=== PATIENT | male | born 1935 | race Caucasian/White ===

== ENCOUNTER → 2016-05-29 | Outpatient (CLI) | payer OTHER, MEDICARE ==
[~2016-05-29] MED LIST: ASPI81TA28 PO; ATOR-26 PO; CLOP1TAB5 PO; COEN1CAP37; LISI2.5T5 PO; METO1TAB66 PO; MULT-653; MULTCAP7; OMEG10007 PO; OMEP20CA9 PO; PSYL55.43 PO
[2016-05-29 10:17] LABS: BLOOD UREA NITROGEN 11 mg/dl (7-18); BUN/CREATININE RATIO 11.7 (10-20); CALCIUM 9.9 mg/dl (8.5-10.1); CARBON DIOXIDE 32 mmol/L (21-32); CHLORIDE 108 mmol/L (98-107); CREATININE 0.93 mg/dl (0.60-1.40); GLUCOSE 87 mg/dl (70-99); POTASSIUM 4.6 mmol/L (3.5-5.1); SODIUM 146 mmol/L (136-145)
== END | disposition home or self-care (01) ==
LOC: C.LABFOXMH 09:12
PROVIDERS: ATTEND Internal Medicine
DX: M31.6 Other giant cell arteritis (principal)

== ENCOUNTER → 2016-06-12 | Outpatient (CLI) | payer OTHER, MEDICARE | LOC: C.LABFOXMH 08:48 | PROVIDERS: ATTEND Internal Medicine | DX: M31.6 Other giant cell arteritis (principal) ==

== ENCOUNTER → 2016-06-26 | Outpatient (CLI) | payer OTHER, MEDICARE | END | disposition home or self-care (01) | LOC: C.LABFOXMH 09:18 | PROVIDERS: ATTEND Internal Medicine | DX: M31.6 Other giant cell arteritis (principal) ==

== ENCOUNTER → 2016-07-10 | Outpatient (CLI) | payer OTHER, MEDICARE | LOC: C.LABFOXMH 08:40 | PROVIDERS: ATTEND Internal Medicine | DX: M31.6 Other giant cell arteritis (principal) ==

== ENCOUNTER → 2016-07-24 | Outpatient (CLI) | payer OTHER, MEDICARE | END | disposition home or self-care (01) | LOC: C.LABFOXMH 08:41 | PROVIDERS: ATTEND Internal Medicine | DX: M31.6 Other giant cell arteritis (principal) ==

== ENCOUNTER → 2016-08-07 | Outpatient (CLI) | payer OTHER, MEDICARE | END | disposition home or self-care (01) | LOC: C.LABFOXMH 08:54 | PROVIDERS: ATTEND Internal Medicine | DX: M31.6 Other giant cell arteritis (principal) ==

== ENCOUNTER → 2016-08-21 | Outpatient (CLI) | payer OTHER, MEDICARE ==
[~2016-08-21] MED LIST changes: +METO-452 PO; -METO1TAB66 PO
== END | disposition home or self-care (01) ==
LOC: C.LABFOXMH 09:03
PROVIDERS: ATTEND Internal Medicine
DX: M31.6 Other giant cell arteritis (principal)

== ENCOUNTER → 2016-09-25 | Outpatient (CLI) | payer OTHER, MEDICARE | END | disposition home or self-care (01) | LOC: C.LABFOXMH 09:27 | PROVIDERS: ATTEND Internal Medicine | DX: M31.6 Other giant cell arteritis (principal) ==

== ENCOUNTER → 2016-10-09 | Outpatient (CLI) | payer OTHER, MEDICARE | END | disposition home or self-care (01) | LOC: C.LABFOXMH 09:57 | PROVIDERS: ATTEND Internal Medicine | DX: M31.6 Other giant cell arteritis (principal) ==

== ENCOUNTER → 2016-10-23 | Outpatient (CLI) | payer OTHER, MEDICARE | END | disposition home or self-care (01) | LOC: C.LABFOXMH 07:55 | PROVIDERS: ATTEND Internal Medicine | DX: M31.6 Other giant cell arteritis (principal) ==

== ENCOUNTER → 2016-11-06 | Outpatient (CLI) | payer OTHER, MEDICARE | END | disposition home or self-care (01) | LOC: C.LABFOXMH 09:14 | PROVIDERS: ATTEND Internal Medicine | DX: M31.6 Other giant cell arteritis (principal) ==

== ENCOUNTER → 2016-11-21 | Outpatient (CLI) | payer OTHER, MEDICARE ==
[~2016-11-21] MED LIST changes: -METO-452 PO; +METO1TAB66 PO
== END | disposition home or self-care (01) ==
LOC: C.LABFOXMH 06:16
PROVIDERS: ATTEND Internal Medicine
DX: M31.6 Other giant cell arteritis (principal)

== ENCOUNTER → 2016-12-04 | Outpatient (CLI) | payer OTHER, MEDICARE | LOC: C.LABFOXMH 08:27 | PROVIDERS: ATTEND Internal Medicine | DX: M31.6 Other giant cell arteritis (principal) ==

== ENCOUNTER → 2016-12-18 | Outpatient (CLI) | payer OTHER, MEDICARE ==
[2016-12-18 11:30] LABS: ALT/SGPT 32 U/L (12-78); AST/SGOT 22 U/L (15-37); BLOOD UREA NITROGEN 9 mg/dl (7-18); BUN/CREATININE RATIO 9.8 (10-20); CALCIUM 9.6 mg/dl (8.5-10.1); CARBON DIOXIDE 32 mmol/L (21-32); CHLORIDE 108 mmol/L (98-107); CHOLESTEROL 128 mg/dl (0-200); CREATININE 0.88 mg/dl (0.60-1.40); GLUCOSE 88 mg/dl (70-99); POTASSIUM 4.9 mmol/L (3.5-5.1); SODIUM 143 mmol/L (136-145)
[2016-12-18 11:41] LABS: ALB/GLOB RATIO 1.1 (0.9-2); ALKALINE PHOSPHATASE 75 U/L (45-117); CHOLESTEROL/HDL RATIO 2.2; HDL CHOLESTEROL 57 mg/dl; LDL CHOLESTEROL CALCULATED 59 mg/dl; TRIGLYCERIDES 60 mg/dl (0-150); VERY LOW DENSITY LIPOPROT CALC 12 mg/dl
== END ==
LOC: C.LABFOXMH 09:53
PROVIDERS: ATTEND Internal Medicine
DX: M31.6 Other giant cell arteritis (principal); E78.00 Pure hypercholesterolemia, unspecified

== ENCOUNTER → 2017-01-01 | Outpatient (CLI) | payer OTHER, MEDICARE | END | disposition home or self-care (01) | LOC: C.LABFOXMH 09:47 | PROVIDERS: ATTEND Internal Medicine | DX: M31.6 Other giant cell arteritis (principal); R97.20 Elevated prostate specific antigen [PSA] ==

== ENCOUNTER → 2017-01-15 | Outpatient (CLI) | payer OTHER, MEDICARE | LOC: C.LABFOXMH 09:09 | PROVIDERS: ATTEND Internal Medicine | DX: M31.6 Other giant cell arteritis (principal) ==

== ENCOUNTER → 2017-02-14 | Outpatient (CLI) | payer OTHER, MEDICARE | END | disposition home or self-care (01) | LOC: C.LABFOXMH 07:42 | PROVIDERS: ATTEND Internal Medicine | DX: M31.6 Other giant cell arteritis (principal) ==

== ENCOUNTER → 2017-03-14 | Outpatient (CLI) | payer OTHER, MEDICARE ==
[~2017-03-14] MED LIST changes: +METO-452 PO; -METO1TAB66 PO
== END | disposition home or self-care (01) ==
LOC: C.LABFOXMH 07:55
PROVIDERS: ATTEND Internal Medicine
DX: M31.6 Other giant cell arteritis (principal)

== ENCOUNTER → 2017-04-23 | Outpatient (CLI) | payer OTHER, MEDICARE | END | disposition home or self-care (01) | LOC: C.LABFOXMH 09:24 | PROVIDERS: ATTEND Internal Medicine | DX: M31.6 Other giant cell arteritis (principal) ==

== ENCOUNTER → 2017-08-20 | Outpatient (CLI) | payer OTHER, MEDICARE ==
[~2017-08-20] MED LIST changes: +LISI-1116 PO; -LISI2.5T5 PO
[2017-08-20 09:11] LABS: ALBUMIN 3.1 gm/dl (3.4-5.0); ALT/SGPT 29 U/L (12-78); BLOOD UREA NITROGEN 16 mg/dl (7-18); CALCIUM 9.3 mg/dl (8.5-10.1); CARBON DIOXIDE 30 mmol/L (21-32); CHOLESTEROL 125 mg/dl (0-200); CREATININE 0.91 mg/dl (0.60-1.40); GLUCOSE 89 mg/dl (70-99); POTASSIUM 4.1 mmol/L (3.5-5.1); SODIUM 140 mmol/L (136-145)
[2017-08-20 09:14] LABS: ALKALINE PHOSPHATASE 67 U/L (45-117); AST/SGOT 26 U/L (15-37); LDL CHOLESTEROL CALCULATED 60 mg/dl
== END ==
LOC: C.LABFOXMH 08:24
PROVIDERS: ATTEND Internal Medicine Cardiovascular Disease
DX: E78.00 Pure hypercholesterolemia, unspecified (principal); I25.10 Atherosclerotic heart disease of native coronary artery without angina pectoris

== ENCOUNTER → 2017-08-26 | Outpatient (CLI) | payer OTHER, MEDICARE | END | disposition home or self-care (01) | LOC: C.LABFOXMH 07:44 | PROVIDERS: ATTEND Internal Medicine | DX: M31.6 Other giant cell arteritis (principal) ==

== ENCOUNTER → 2017-12-24 | Outpatient (CLI) | payer OTHER, MEDICARE | END | disposition home or self-care (01) | LOC: C.LABFOXMH 08:26 | PROVIDERS: ATTEND Internal Medicine | DX: M31.6 Other giant cell arteritis (principal) ==

== ENCOUNTER → 2018-01-01 | Outpatient (CLI) | payer OTHER, MEDICARE | END | disposition home or self-care (01) | LOC: C.LABFOXMH 08:33 | PROVIDERS: ATTEND Internal Medicine | DX: R97.20 Elevated prostate specific antigen [PSA] (principal) ==

== ENCOUNTER → 2018-01-01 | Outpatient (CLI) | payer OTHER, MEDICARE | END | disposition home or self-care (01) | LOC: C.LABFOXMH 16:38 | PROVIDERS: ATTEND Internal Medicine | DX: R35.0 Frequency of micturition (principal) ==

== ENCOUNTER 2019-09-09 02:01 | Inpatient (IN) ==
[2019-09-09] MEDS ORDERED: AMIODARONE IV BOLUS & DRIP IV STA (02:10)
[2019-09-09] MEDS ORDERED: AMIODARONE / D5W 150 MG/100 ML BAG IV STA (02:10)
[2019-09-09] MEDS ORDERED: 0.2 MICRON FILTER SET 1 EA IV ONE (02:10)
[2019-09-09] MEDS ORDERED: STAT IV Infusion **Titration per Protocol STA (02:10)
[2019-09-09] MEDS ORDERED: SODIUM CHLORIDE 0.9% 1000ML 1,000 ML IV SCH (02:15)
--- NOTE | 2019-09-09 02:15 | Emergency Department Note ---
Impression & Plan V tach, Hypokalemia, Dehydration, Diarrhea ED Provider Note NAME: MICHELLE LEHMAN AGE: 84 SEX: M : 1935 ARRIVES VIA: Ambulance INFORMANT: Patient, ED PROVIDER(S): ED TEMP Chief Complaint: Weakness, diarrhea, near syncope HPI: 84 y/o WM w/PMHx of hypertension, hypercholesterolemia, valvular heart disease (1+ AI, 2+ MR, 2+ TR, July 2018), LVH, paroxysmal atrial flutter (July 2018), and his coronary artery disease (CABG x3, 2004; obstructed SVG to OM, OM stents x3, February 2005) presents with some weakness and near syncope. The patient does report that he has had 3 days of diarrhea. Patient has been f eeling lightheaded and dizzy as associated symptoms. Because of this the symptoms progressively got worse with the diarrhea. The patient states that the symptoms are intermittent. They are somewhat exertional in nature and this makes it worse. No associated vomiting or chest pains. Patient denies any recent travel or sick contacts. The patient did have a near syncopal event in the bathroom today at which point he loaded himself on the ground and called EMS. Patient does admit to a dose of doxycycline and now has more bowel movements. Patient does have a prior history of CABG. Patient does see Dr. Parekh with [facility] cardiology. The patient is on amiodarone 200 mg. The patient states that he did not take it this last day. Patient states he has felt dehydrated. He MS did report that there were concerned about runs of ventricular tachycardia. EKG at the bedside does confirm this but he is currently converted back into sinus. ROS: See HPI for pertinent positives and negatives. A total of 10 systems were reviewed and otherwise negative. Past medical history: See below Surgical history: See below Social history: See below Physical Exam: GENERAL: Mildly ill in appearance, mild distress. Wearing a mask. EYE EXAM: Normal conjunctiva. PERRL, no anisocoria and EOM's grossly intact w/o pain. NECK: Supple, no nuchal rigidity, no adenopathy, non-tender. No signs of m eningismus. Chest: Midline sternotomy scar well-healed. LUNGS: Clear to auscultation. Normal chest wall mechanics. HEART: NSR, no MRG. ABDOMEN: Abdomen soft, non-tender, normo-active bowel sounds, no masses, no rebound or guarding. BACK: No CVA TTP. SKIN: No rashes and no bruising. UPPER EXTREMITIES: Upper extremities are grossly normal. LOWER EXTREMITIES: Grossly normal, no edema. NEURO EXAM: A&O x3, cranial nerves II-XII grossly intact, normal speech, moves all 4 extremities on command w/o issue. Differential diagnoses: Infection, dehydration, metabolic abnormality, hypo/hyperglycemia, electrolyte disturbance, anemia, hypoxia, cardiac sources, intracerebral event, toxicologic, neurologic, as well as other pathologies. Course: Patient was seen and evaluated the bedside. EKG at the bedside does show concern for V. tach. Blood work and amiodarone were ordered. EKG: Indication: Weakness Wide complex tachycardia, rate 149, prolonged QTC, normal axis. This is changed compared to prior on April 24, 2019 with a patient with sinus bradycardia with first-degree AV block but with normal QRS duration. Indication: Status post spontaneous conversion Rate of 77, wide QRS, right bundle branch block pattern, occasional PVCs. Right bundle branch block is new compared to April 24, 2019. Imaging Studies: Chest x-ray Indication: Shortness of breath Impression: Sternotomy wires in place , no obvious consolidation, pneumothorax, or fracture. Cardiac monitoring: An order was placed for continuous cardiac monitoring. The monitor shows a rate of 77 with sinus with occasional PVCs rhythm. MDM: Patient was seen and evaluated the bedside. There was concern that the patient was having some weakness. The patient did admit to diarrheal symptoms. Patient does have wide-complex tachycardia that did spontaneously convert. Pads were placed order was ordered along with IV fluids along with [id number] BMP. Amiodarone bolus and drip ordered. Patient did have i-STAT completed. The patient is a full code. Given the patient's diarrheal symptoms i-STAT was ordered which did show low potassium. IV and p.o. were ordered. I did speak with the on-call hospitalist who agreed to further evaluate treat the patient. The patient did have improvement of his symptoms. The patient is a normal white count and virtually normal hemoglobin. Patient's kidney function is within normal limits but potassium is low. Mag was also ordered. The patient's troponin is slightly detectable this is likely from his runs of V. tach and dehydration. Mag is normal but he was ordered for replete minutes of that as well. His EKG does show changes with changes in his intervals. Patient was admitted to the medicine service. Critical Care: I have personally spent 95 minutes of critical care time in direct management of this patient. This includes bedside care, interpretation of diagnostic studies, and testing, discussion with consultants, patient, and family members, and other require inpatient management activities. This 95 minutes is in excess of all separately billable procedures. Past Med/Surg History Medical History Anemia Atrial flutter PAROXYSMAL CAD (coronary artery disease) S/P CABG X3 (2004), OM STENTS X3 (?2004) Cancer PROSTATE CANCER- RADIATION TREATMENTS Congestive heart failure EUVOLEMIC PER 08/12/18 CARDIO OFFICE VISIT GERD (gastroesophageal reflux disease) H/O flexible sigmoidoscopy Hearing deficit BILATERAL HEARING AIDS History of cardioversion 04/24/19 (went into a regular rhythm) and 08/2018 History of valvular heart disease Mild AR/GA, Moderate MR/TR per 07/2018 ECHO Hyperlipidemia Hypertension Ischemic cardiomyopathy Macular degeneration Osteoarthritis Past myocardial infarction X2 (2004), X1 (2006) Proctitis Temporal arteritis 04/2018 Surgical History Fusion of spine L4-L5 H/O hemorrhoidectomy History of biopsy of temporal artery History of cardiac cath OM STENTS X3 (?2004) History of cataract surgery RT/LEFT History of colonoscopy History of coronary artery bypass graft (Acute) CABG X3 (2004) History of inguinal hernia repair History of laminectomy LUMBAR History of tonsillectomy S/P repair of hydrocele Family History Mother , age 91 Myocardial infarction Father , age 81 Myocardial infarction Brother , age 46 Myocardial infarction Son History of heart attack times 2 High cholesterol Daughter High cholesterol Daughter High cholesterol Social History Preferred Language: Slovak Communication Ability: Effective Visual Impairment: No Limitations Hearing Ability: Normal 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 Beliefs That Will Affect Care: None marital status: Current Living Situation: Spouse Current Living Situation Comment: lives at [facility] 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 Feels Safe at Home: Yes Smoking Status: Never smoker Second Hand Exposure: Yes (PREVIOUS SPOUSES) ; Hx Alcohol Use: Yes Hx Substance Use: No Allergies Allergies Allergy/AdvReac Type Severity Reaction Status Date / Time Penicillins Allergy Intermediate Rash & Verified 09/09/19 02:48 Swelling Home Meds Home Medications Medication Instructions Recorded Confirmed cholecalciferol (vitamin D3) 50 2,000 units PO QPM 05/07/18 09/09/19 mcg (2,000 unit) capsule leuprolide (4 month) 30 mg (4 30 mg IM Q16W 05/07/18 09/09/19 month) intramuscular syringe kit nitroglycerin 0.4 mg sublingual 0.4 mg SL Q5M PRN 05/07/18 09/09/19 tablet multivitamin 1 tab PO QAM 08/18/18 09/09/19 PreserVision AREDS-2 1 tab PO BID 08/25/18 09/09/19 atorvastatin 80 mg PO QAM 08/25/18 09/09/19 lisinopril 2.5 mg PO QPM 08/25/18 09/09/19 metoprolol succinate [Toprol XL] 50 mg PO QAM 08/25/18 09/09/19 omeprazole 20 mg PO QAM 08/25/18 09/09/19 coenzyme Q10 100 mg capsule 200 mg PO QPM cap 03/27/19 09/09/19 paroxetine HCl [Paxil] 10 mg PO QAM 04/22/19 09/09/19 acetaminophen 325 mg tablet 325 - 650 mg PO BID PRN tab 05/07/19 09/09/19 carboxymethylcellulose sodium 0.5 1 drp OPHTHALMIC (EYE) TID ea 05/07/19 09/09/19 % eye drops in a dropperette psyllium husk 3.4 gram/5.4 gram 2 tsp PO QPM gm 05/07/19 09/09/19 oral powder ferrous sulfate 325 mg (65 mg 325 mg PO QPM 06/18/19 09/09/19 iron) tablet amiodarone 200 mg PO QAM 07/02/19 09/09/19 potassium chloride 10 - 20 meq PO QAM 07/02/19 09/09/19 doxycycline hyclate 100 mg PO BID 09/09/19 09/09/19 furosemide 80 mg PO QAM 09/09/19 09/09/19 Previous Rx's Medication Instructions Recorded megestrol 20 mg tablet 20 mg PO BID #60 tab 06/01/19 Results & Data (ED) Vital Signs Vital Signs - 24 hr 09/09/19 02:05 09/09/19 02:08 09/09/19 02:20 Temperature 36.5 C Temperature Source Oral Pulse Rate 159 H 78 71 Pulse Rate from SpO2 Sensor 71 Respiratory Rate 18 15 14 Respiratory Effort / Characteristics Non-Labored Respiratory Depth Normal Respiratory Pattern Regular Blood Pressure 82/66 L 82/66 L 123/59 L Blood Pressure Mean 71 69 64 Pulse Oximetry 100 100 Oxygen Delivery Method Room Air Room Air Sepsis Recent Fever Within 48 Hours No Sepsis Action Taken by Nursing No Action Required 09/09/19 02:31 09/09/19 02:50 09/09/19 03:00 Temperature Temperature Source Pulse Rate 71 71 Pulse Rate from SpO2 Sensor 69 72 Respiratory Rate 20 21 Respiratory Effort / Characteristics Respiratory Depth Respiratory Pattern Blood Pressure 122/69 119/64 Blood Pressure Mean 83 79 Pulse Oximetry 100 100 100 Oxygen Delivery Method Room Air Room Air Room Air Sepsis Recent Fever Within 48 Hours Sepsis Action Taken by Nursing 09/09/19 03:30 09/09/19 04:33 Temperature Temperature Source Pulse Rate 64 Pulse Rate from SpO2 Sensor 66 Respiratory Rate 23 18 Respiratory Effort / Characteristics Respiratory Depth Respiratory Pattern Blood Pressure 116/79 113/67 Blood Pressure Mean 98 Pulse Oximetry 100 98 Oxygen Delivery Method Room Air Room Air Sepsis Recent Fever Within 48 Hours Sepsis Action Taken by Care Home Medications Current Medication List: was personally reviewed by me Laboratory Data Attestation: I reviewed the patient's lab results. Result diagrams: 09/09/19 03:17 09/09/19 03:16 Lab Results 09/09/19 09/09/19 09/09/19 Range/Units 02:27 02:27 02:27 WBC Cancelled RBC Cancelled Hgb Cancelled POC Hgb (14.0-18.0) g/dl Hct Cancelled POC Hct (42-52) % MCV Cancelled MCH Cancelled MCHC Cancelled RDW Std Deviation Cancelled RDW Coeff of Trevor Cancelled Plt Count Cancelled MPV Cancelled Immature Gran % (Auto) Cancelled Neut % (Auto) Cancelled Lymph % (Auto) Cancelled Lander % (Auto) Cancelled Eos % (Auto) Cancelled Baso % (Auto) Cancelled Immature Gran # (Auto) Cancelled Neut # (Auto) Cancelled Lymph # (Auto) Cancelled Lander # (Auto) Cancelled Eos # (Auto) Cancelled Baso # (Auto) Cancelled Absolute Nucleated RBC Cancelled Nucleated RBC % (auto) Cancelled Neutrophils % (Manual) Cancelled Band Neutrophils % Cancelled Lymphocytes % (Manual) Cancelled Prolymphocyte % Cancelled Reactive Lymphs % (Man) Cancelled Monocytes % (Manual) Cancelled Eosinophils % (Manual) Cancelled Basophils % (Manual) Cancelled Metamyelocytes % (Man) Cancelled Myelocytes % (Man) Cancelled Promyelocytes % (Man) Cancelled Blast Cells % (Manual) Cancelled Plasma Cell % (Manual) Cancelled Other Cells % Cancelled Nucleated RBC % Cancelled Neutrophils # (Manual) Cancelled Band Neutrophils # Cancelled Total Absolute Neuts Cancelled Lymphocytes # (Manual) Cancelled Prolymphocyte # Cancelled Reactive Lymphs # Cancelled Total Abs Lymphocytes Cancelled Monocytes # (Manual) Cancelled Eosinophils # (Manual) Cancelled Basophils # (Manual) Cancelled Metamyelocytes # (Man) Cancelled Myelocytes # (Manual) Cancelled Promyelocytes # (Man) Cancelled Blast Cells # (Man) Cancelled Plasma Cell # (Manual) Cancelled Other Cells # Cancelled Nucleated RBCs # (Man) Cancelled Hypersegmented Neuts Cancelled Hyposegmented Neuts Cancelled Hypogranular Neuts Cancelled Large Granular Lymphs Cancelled # Lrg Granular Lymphs Cancelled Hairy Cells Cancelled Smudge Cells Cancelled Toxic Granulation Cancelled Toxic Vacuolation Cancelled Dohle Bodies Cancelled Marifer Rods Cancelled Platelet Estimate Cancelled Hypogranular Platelets Cancelled Clumped Platelets Cancelled Giant Platelets Cancelled Platelet Satelliting Cancelled RBC Morphology Cancelled Polychromasia Cancelled Hypochromasia Cancelled Poikilocytosis Cancelled Basophilic Stippling Cancelled Anisocytosis Cancelled Microcytosis Cancelled Macrocytosis Cancelled Spherocytes Cancelled Pappenheimer Bodies Cancelled Sickle Cells Cancelled Target Cells Cancelled Tear Drop Cells Cancelled Ovalocytes Cancelled Stomatocytes Cancelled [place] Bodies Cancelled Echinocytes Cancelled Acanthocytes (Spur) Cancelled Rouleaux Cancelled RBC Agglutinates Cancelled Schistocytes Cancelled RBC Morph Comment Cancelled Sezary Cell Cancelled PT (9.0-12.0) Seconds INR (0.9-1.1) APTT (21.0-31.0) Seconds PTT Ratio POC Sodium (135-144) mmol/L Sodium Cancelled POC Potassium (3.3-5.0) mmol/L Potassium Cancelled POC Chloride (101-112) mmol/L Chloride Cancelled Carbon Dioxide Cancelled POC Total CO2 (24-31) mEq/l Anion Gap Cancelled POC Anion Gap (16-25) mmol/L POC BUN (7-18) mg/dl BUN Cancelled Creatinine Cancelled POC Creatinine (0.6-1.3) mg/dl Est Cr Clr Drug Dosing Cancelled Est GFR ( Amer) Cancelled Est GFR (Non-Af Amer) Cancelled BUN/Creatinine Ratio Cancelled Glucose Cancelled POC Glucose (70-99) mg/dl POC Glucose (other) (70-99) mg/dl Calcium Cancelled POC Ioniz Calcium Mayrsol (1.12-1.32) mmol/l Magnesium Cancelled Total Bilirubin Cancelled AST Cancelled ALT Cancelled Alkaline Phosphatase Cancelled Troponin I Cancelled Total Protein Cancelled Albumin Cancelled Globulin Cancelled Albumin/Globulin Ratio Cancelled TSH Cancelled 09/09/19 09/09/19 09/09/19 Range/Units 03:16 03:16 03:16 WBC RBC Hgb POC Hgb 12.2 L (14.0-18.0) g/dl Hct POC Hct 36 L (42-52) % MCV MCH MCHC RDW Std Deviation RDW Coeff of Trevor Plt Count MPV Immature Gran % (Auto) Neut % (Auto) Lymph % (Auto) Lander % (Auto) Eos % (Auto) Baso % (Auto) Immature Gran # (Auto) Neut # (Auto) Lymph # (Auto) Lander # (Auto) Eos # (Auto) Baso # (Auto) Absolute Nucleated RBC Nucleated RBC % (auto) Neutrophils % (Manual) Band Neutrophils % Lymphocytes % (Manual) Prolymphocyte % Reactive Lymphs % (Man) Monocytes % (Manual) Eosinophils % (Manual) Basophils % (Manual) Metamyelocytes % (Man) Myelocytes % (Man) Promyelocytes % (Man) Blast Cells % (Manual) Plasma Cell % (Manual) Other Cells % Nucleated RBC % Neutrophils # (Manual) Band Neutrophils # Total Absolute Neuts Lymphocytes # (Manual) Prolymphocyte # Reactive Lymphs # Total Abs Lymphocytes Monocytes # (Manual) Eosinophils # (Manual) Basophils # (Manual) Metamyelocytes # (Man) Myelocytes # (Manual) Promyelocytes # (Man) Blast Cells # (Man) Plasma Cell # (Manual) Other Cells # Nucleated RBCs # (Man) Hypersegmented Neuts Hyposegmented Neuts Hypogranular Neuts Large Granular Lymphs # Lrg Granular Lymphs Hairy Cells Smudge Cells Toxic Granulation Toxic Vacuolation Dohle Bodies Marifer Rods Platelet Estimate Hypogranular Platelets Clumped Platelets Giant Platelets Platelet Satelliting RBC Morphology Polychromasia Hypochromasia Poikilocytosis Basophilic Stippling Anisocytosis Microcytosis Macrocytosis Spherocytes Pappenheimer Bodies Sickle Cells Target Cells Tear Drop Cells Ovalocytes Stomatocytes [place] Bodies Echinocytes Acanthocytes (Spur) Rouleaux RBC Agglutinates Schistocytes RBC Morph Comment Sezary Cell PT 12.2 H (9.0-12.0) Seconds INR 1.2 H (0.9-1.1) APTT 28.1 (21.0-31.0) Seconds PTT Ratio 1.0 POC Sodium 130 L (135-144) mmol/L Sodium 129 L POC Potassium 2.3 L* (3.3-5.0) mmol/L Potassium 2.9 L POC Chloride 96 L (101-112) mmol/L Chloride 103 Carbon Dioxide 22 POC Total CO2 20 L (24-31) mEq/l Anion Gap 4.0 POC Anion Gap 16.0 (16-25) mmol/L POC BUN 15 (7-18) mg/dl BUN 15 Creatinine 1.03 POC Creatinine 1.0 (0.6-1.3) mg/dl Est Cr Clr Drug Dosing 47.3 Est GFR ( Amer) 77.0 Est GFR (Non-Af Amer) 66.4 BUN/Creatinine Ratio 14.5 Glucose 237 H POC Glucose (70-99) mg/dl POC Glucose (other) 212 H (70-99) mg/dl Calcium 8.2 L POC Ioniz Calcium Mary[place] 1.07 L (1.12-1.32) mmol/l Magnesium 1.9 Total Bilirubin 0.4 AST 46 H ALT 71 Alkaline Phosphatase 77 Troponin I 0.084 H* Total Protein 5.3 L Albumin 2.2 L Globulin 3.1 Albumin/Globulin Ratio 0.7 L TSH 2.640 09/09/19 09/09/19 Range/Units 03:17 03:51 WBC 6.74 RBC 3.83 L Hgb 13.5 L POC Hgb (14.0-18.0) g/dl Hct 38.3 L POC Hct (42-52) % MCV 100.0 MCH 35.2 H MCHC 35.2 RDW Std Deviation 52.9 H RDW Coeff of Trevor 14.6 H Plt Count 115 L MPV 9.0 Immature Gran % (Auto) 1.0 Neut % (Auto) 86.0 Lymph % (Auto) 6.5 Lander % (Auto) 6.4 Eos % (Auto) 0.1 Baso % (Auto) 0.0 Immature Gran # (Auto) 0.07 H Neut # (Auto) 5.79 Lymph # (Auto) 0.44 L Lander # (Auto) 0.43 Eos # (Auto) 0.01 Baso # (Auto) 0.00 Absolute Nucleated RBC Nucleated RBC % (auto) Neutrophils % (Manual) Band Neutrophils % Lymphocytes % (Manual) Prolymphocyte % Reactive Lymphs % (Man) Monocytes % (Manual) Eosinophils % (Manual) Basophils % (Manual) Metamyelocytes % (Man) Myelocytes % (Man) Promyelocytes % (Man) Blast Cells % (Manual) Plasma Cell % (Manual) Other Cells % Nucleated RBC % Neutrophils # (Manual) Band Neutrophils # Total Absolute Neuts Lymphocytes # (Manual) Prolymphocyte # Reactive Lymphs # Total Abs Lymphocytes Monocytes # (Manual) Eosinophils # (Manual) Basophils # (Manual) Metamyelocytes # (Man) Myelocytes # (Manual) Promyelocytes # (Man) Blast Cells # (Man) Plasma Cell # (Manual) Other Cells # Nucleated RBCs # (Man) Hypersegmented Neuts Hyposegmented Neuts Hypogranular Neuts Large Granular Lymphs # Lrg Granular Lymphs Hairy Cells Smudge Cells Toxic Granulation 2+ Toxic Vacuolation Dohle Bodies Marifer Rods Platelet Estimate Hypogranular Platelets Clumped Platelets Giant Platelets Platelet Satelliting RBC Morphology Polychromasia Hypochromasia Poikilocytosis Basophilic Stippling Anisocytosis Microcytosis Macrocytosis Spherocytes Pappenheimer Bodies Sickle Cells Target Cells Tear Drop Cells Ovalocytes 1+ Stomatocytes [place] Bodies Echinocytes Acanthocytes (Spur) Rouleaux RBC Agglutinates Schistocytes RBC Morph Comment Sezary Cell PT (9.0-12.0) Seconds INR (0.9-1.1) APTT (21.0-31.0) Seconds PTT Ratio POC Sodium (135-144) mmol/L Sodium POC Potassium (3.3-5.0) mmol/L Potassium POC Chloride (101-112) mmol/L Chloride Carbon Dioxide POC Total CO2 (24-31) mEq/l Anion Gap POC Anion Gap (16-25) mmol/L POC BUN (7-18) mg/dl BUN Creatinine POC Creatinine (0.6-1.3) mg/dl Est Cr Clr Drug Dosing Est GFR ( Amer) Est GFR (Non-Af Amer) BUN/Creatinine Ratio Glucose POC Glucose 177 H (70-99) mg/dl POC Glucose (other) (70-99) mg/dl Calcium POC Ioniz Calcium [place] (1.12-1.32) mmol/l Magnesium Total Bilirubin AST ALT Alkaline Phosphatase Troponin I Total Protein Albumin Globulin Albumin/Globulin Ratio TSH Administered Medications Amiodarone HCl 450 mg/ (Dextrose) 250 mls @ 33.333 mls/hr IV .Q7H30M [facility]; Protocol Stop: 10/09/19 02:20 Last Admin: 09/09/19 02:37 Dose: 1 mg/min, 33.3 mls/hr Documented by: [id number] Cosigned by: [id number] Potassium Chloride (K Zachery / Wtr) 10 meq in 100 mls @ 100 mls/hr IV Q1H [facility] Stop: 09/09/19 05:29 Last Admin: 09/09/19 04:09 Dose: 100 mls/hr Documented by: [id number] Admin: 09/09/19 03:24 Dose: Not Given Documented by: [id number] Potassium Chloride (K Zachery / Wtr) 10 meq in 100 mls @ 100 mls/hr IV Q1H [facility] Stop: 09/09/19 05:29 Last Admin: 09/09/19 04:14 Dose: 100 mls/hr Documented by: [id number] Admin: 09/09/19 03:24 Dose: Not Given Documented by: [id number] Discontinued Medications Amiodarone HCl (Cordarone Iv Bolus & Drip) 1 ea IV NOW STA; Protocol Stop: 09/09/19 02:11 Last Admin: 09/09/19 03:24 Dose: Not Given Documented by: [id number] Dextrose (Dextrose 50%) Confirm Administered Dose 50 ml IV .STK-MED ONE Stop: 09/09/19 02:46 Last Admin: 09/09/19 02:59 Dose: 50 ml Documented by: [id number] Dextrose (Dextrose 50%) 50 ml IV NOW ONE Stop: 09/09/19 03:20 Last Admin: 09/09/19 03:24 Dose: Not Given Documented by: [id number] Sodium Chloride (Nss 1000ml) 1,000 mls @ 999 mls/hr IV .Q1H1M [facility] Stop: 09/09/19 03:15 Last Infusion: 09/09/19 03:24 Dose: 0 mls/hr Documented by: [id number] Admin: 09/09/19 02:23 Dose: 999 mls/hr Documented by: [id number] Amiodarone HCl/Dextrose (Nexterone / D5w) 150 mg in 100 mls @ 600 mls/hr IV NOW STA Stop: 09/09/19 02:19 Last Infusion: 09/09/19 02:37 Dose: 0 mls/hr Documented by: [id number] Cosigned by: [id number] Admin: 09/09/19 02:22 Dose: 600 mls/hr Documented by: [id number] Cosigned by: [id number] Magnesium Sulfate/Dextrose (Magnesium Sulfate / D5w) 1 gm in 100 mls @ 100 mls/hr IV ONE ONE Stop: 09/09/19 04:18 Last Admin: 09/09/19 03:29 Dose: 100 mls/hr Documented by: [id number] Miscellaneous () 1 ea N/A NOW STA Stop: 09/09/19 02:11 Last Admin: 09/09/19 03:24 Dose: Not Given Documented by: [id number] Potassium Chloride (Klor-Con M10) Confirm Administered Dose 40 meq PO .STK-MED ONE Stop: 09/09/19 02:46 Last Admin: 09/09/19 02:50 Dose: 40 meq Documented by: [id number] Potassium Chloride (K Zachery / Wtr) Confirm Administered Dose 10 meq IV .STK-MED ONE Stop: 09/09/19 02:46 Last Admin: 09/09/19 02:55 Dose: 10 meq Documented by: [id number] Potassium Chloride (K Zachery / Wtr) Confirm Administered Dose 10 meq IV .STK-MED ONE Stop: 09/09/19 02:47 Last Admin: 09/09/19 02:56 Dose: 10 meq Documented by: [id number] Potassium Chloride (Klor-Con M20) 40 meq PO NOW STA Stop: 09/09/19 03:20 Last Admin: 09/09/19 03:23 Dose: Not Given Documented by: [id number] Discharge Plan Visit Data Chief Complaint: Syncope (Near Syncope) Stated Complaint: DIZZY/NEAR SYNCOPE ED Provider: Biju Taylor Discharge Problem: V tach, Hypokalemia, Dehydration, Diarrhea Discharge Instructions Interventions: ED Discharge Assessment Last Done: 09/09/19 04:33 Forms Stand Alone Forms: [facility] [employer] Prescriptions Prescriptions: No Action nitroglycerin 0.4 mg tablet, sublingual 0.4 mg SL Q5M PRN (Reason: Chest Pain) RF: 0 leuprolide (4 month) [Lupron Depot (4 month)] 30 mg syringe kit 30 mg IM Q16W RF: 0 cholecalciferol (vitamin D3) 2,000 unit capsule 2,000 units PO QPM RF: 0 multivitamin tablet 1 tab PO QAM RF: 0 acetaminophen [Tylenol] 325 mg tablet 325 - 650 mg PO BID PRN (Reason: Pain) RF: 0 megestrol 20 mg tablet 20 mg PO BID Qty: 60 RF: 2 ferrous sulfate [Iron (ferrous sulfate)] 325 mg (65 mg iron) tablet 325 mg PO QPM RF: 0 atorvastatin 80 mg Tablet 80 mg PO QAM RF: 0 metoprolol succinate [Toprol XL] 50 mg Tablet Extended Release 24 Hr 50 mg PO QAM RF: 0 omeprazole 20 mg Capsule,Delayed Release(Dr/Ec) 20 mg PO QAM RF: 0 lisinopril 2.5 mg Tablet 2.5 mg PO QPM RF: 0 PreserVision AREDS-2 [id number] Capsule 1 tab PO BID RF: 0 coenzyme Q10 [CoQ-10] 100 mg capsule 200 mg PO QPM RF: 0 paroxetine HCl [Paxil] 10 mg tablet 10 mg PO QAM RF: 0 Refresh Plus 0.5 % dropperette 1 drp OPHTHALMIC (EYE) TID RF: 0 Metamucil 3.4 gram/5.4 gram powder 2 tsp PO QPM RF: 0 amiodarone 200 mg tablet 200 mg PO QAM RF: 0 potassium chloride 10 mEq capsule, extended release 10 - 20 meq PO QAM RF: 0 doxycycline hyclate 100 mg capsule 100 mg PO BID RF: 0 furosemide 80 mg tablet 80 mg PO QAM RF: 0 Referrals Referrals: Sofia Stewart [Primary Care Provider] - Discharge Problem: Diarrhea Qualifiers: Diarrhea type: unspecified type Qualified Code(s): R19.7 - Diarrhea, unspecified
[2019-09-09] MEDS: AMIODARONE 450 MG in D5W 250ML IN *POLYOLEFIN BAG* 241 ML IV SCH ×3 (02:37→18:00)
[2019-09-09] MEDS ORDERED: DEXTROSE 50% 50 ML SYRINGE IV ONE ×2 (02:45→03:19)
[2019-09-09] MEDS ORDERED: POTASSIUM CHLORIDE 10 MEQ TABCR PO ONE (02:45)
[2019-09-09] MEDS ORDERED: POTASSIUM CHLORIDE 10 MEQ / 100ML WTR IV ONE ×2 (02:45→02:46)
[2019-09-09] MEDS ORDERED: POTASSIUM CHLORIDE 20 MEQ TABCR PO STA ×2 (03:19→10:38)
[2019-09-09] MEDS ORDERED: MAGNESIUM SULFATE / D5W 1 GM/100 ML BAG IV ONE (03:19)
[2019-09-09] MEDS: POTASSIUM CHLORIDE / WTR 10 MEQ/100 ML PLCT IV SCH ×8 (03:24→16:16)
--- NOTE | 2019-09-09 03:26 | History & Physical Report ---
Date of Service September 09, 2019 Assessment & Plan (1) Wide-complex tachycardia: Jb is an 84-year-old male with a past medical history of CAD status post triple CABG, prostate cancer, proctitis, CHF, pAfib who presented with weakness and near syncope after 3 days of diarrhea. While in the emergency department he experienced 3 episodes of wide-complex tachycardia, the first lasting approximately 1 minute. Wide-complex tachycardia 2/2 severe hypokalemia Patient on amiodarone 200 mg p.o. 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 20meQ through each IV (currently 2 lines) + 40meQ oral. - Continue repletion based on BMP - Mg pending, 1g mag given prior to transfer - BMP Q4H - Hold lasix - Cardiology consulted, known to Dr. Parekh. Elevated Troponin - troponin mildly elevated. Low suspicion for acute coronary event, suspect demand ischemia - trend troponin q8H, cards consulted as above Persistent Diarrhea 2/2 gastroenteritis vs C. diff - 3 days, worsening, multiple liquid/loose bowel movements in prior few days - pt reports hx of antibiotic tx for proctitis - C. diff pending Hx pAfib/Aflutter - Not on anticoagulation 2/2 radiation proctitis bleeding - Converted to amiodarone for rhythem control - Continue amiodarone as above, mtp as below CAD w/ hx CABG, HTN - Continue Atorvastatin - Continue MTP XL 50mg daily - Continue lisinopril 2.5mg Hx prostate cancer w/ radiation proctitis - Tyler 9 cancer, high risk disease. Follows with urology - Lupron held, - Saw GI 07/09/19 - Avoid NSAIDs - hold doxycycline DVT prophylaxis: SCDs Diet: Heart healthy Dispo: PCU/Tele (2) Hypokalemia: (3) Hx of CABG: (4) Radiation proctitis: (5) CAD (coronary artery disease): (6) Congestive heart failure: (7) Anemia: (8) Rectal bleeding: (9) Prostate cancer: (10) Atrial flutter: (11) Gastroenteritis: History of Present Illness Chief Complaint: Weakness, near syncope Primary Care Provider: [facility] Jb is an 84-year-old male with a past medical history of CAD status post triple CABG, prostate cancer, proctitis, CHF, pAfib who presented with weakness and near syncope after 3 days of diarrhea. Jonathan reports his symptoms began approximately 3 nights ago when he had increasing diarrhea. He at first was having diarrhea only at night, but which had increased during the day in the last day and had bowel movements too numerous to count the night preceding admission. He denies fever or chills. Denies abdominal pain. Denies chest pain, chest pressure, shortness of breath, difficulty breathing. He felt that he just eventually felt too weak or tired, and that he felt like he just needed to lie down and close his eyes all the time. He reports he eventually felt like he was so weak that he could not get back up, and "pulled the life alert strain "at which point EMS was called. He reports he has had blood in his stool in the past which have been evaluated on prior admissions and caused him to stop taking anticoagulation and transition to amiodarone for his heart rhythm. He has not recently been on a blood thinner, and denies blood in his bowel movements in the last week. He reports he had some abdominal pain preceding his diarrhea for which he was prescribed doxycycline and had taken 1 dose of prior to admission to the hospital. Denies having a cardiac device. Medical history: Prostate cancer, radiation proctitis, coronary artery disease with a history of triple coronary artery bypass grafting, atrial arrhythmia, ane jorge Surgical history: Reviewed in EMR Allergies: Endorses allergy to penicillin. Denies other medication allergies Social history: Denies alcohol intake. Denies tobacco product use, although notes he lived with his first 2 who were smokers and he had significant secondhand smoke exposure. Denies recreational drug use. He currently lives at [facility] with his . Code Status: Reports he would want cardioversion and chest compressions, but not prolonged heroic measures. Allergies Allergy/AdvReac Type Severity Reaction Status Date / Time Penicillins Allergy Intermediate Rash & Verified 09/09/19 02:48 Swelling Home Medications Home Medications Medication Instructions Recorded Confirmed Type cholecalciferol (vitamin D3) 50 2,000 units PO QPM 05/07/18 09/09/19 History mcg (2,000 unit) capsule leuprolide (4 month) 30 mg (4 30 mg IM Q16W 05/07/18 09/09/19 History month) intramuscular syringe kit nitroglycerin 0.4 mg sublingual 0.4 mg SL Q5M PRN 05/07/18 09/09/19 History tablet multivitamin 1 tab PO QAM 08/18/18 09/09/19 History PreserVision AREDS-2 1 tab PO BID 08/25/18 09/09/19 History atorvastatin 80 mg PO QAM 08/25/18 09/09/19 History lisinopril 2.5 mg PO QPM 08/25/18 09/09/19 History metoprolol succinate [Toprol XL] 50 mg PO QAM 08/25/18 09/09/19 History omeprazole 20 mg PO QAM 08/25/18 09/09/19 History coenzyme Q10 100 mg capsule 200 mg PO QPM cap 03/27/19 09/09/19 History paroxetine HCl [Paxil] 10 mg PO QAM 04/22/19 09/09/19 History acetaminophen 325 mg tablet 325 - 650 mg PO BID PRN tab 05/07/19 09/09/19 History carboxymethylcellulose sodium 0.5 1 drp OPHTHALMIC (EYE) TID ea 05/07/19 09/09/19 History % eye drops in a dropperette psyllium husk 3.4 gram/5.4 gram 2 tsp PO QPM gm 05/07/19 09/09/19 History oral powder megestrol 20 mg tablet 20 mg PO BID #60 tab 06/01/19 09/09/19 Rx ferrous sulfate 325 mg (65 mg 325 mg PO QPM 06/18/19 09/09/19 History iron) tablet amiodarone 200 mg PO QAM 07/02/19 09/09/19 History potassium chloride 10 - 20 meq PO QAM 07/02/19 09/09/19 History doxycycline hyclate 100 mg PO BID 09/09/19 09/09/19 History furosemide 80 mg PO QAM 09/09/19 09/09/19 History Past Med/Surg History Medical History Anemia Atrial flutter PAROXYSMAL CAD (coronary artery disease) S/P CABG X3 (2004), OM STENTS X3 (?2004) Cancer PROSTATE CANCER- RADIATION TREATMENTS Congestive heart failure EUVOLEMIC PER 08/12/18 CARDIO OFFICE VISIT GERD (gastroesophageal reflux disease) H/O flexible sigmoidoscopy Hearing deficit BILATERAL HEARING AIDS History of cardioversion 04/24/19 (went into a regular rhythm) and 08/2018 History of valvular heart disease Mild AR/ID, Moderate MR/TR per 07/2018 ECHO Hyperlipidemia Hypertension Ischemic cardiomyopathy Macular degeneration Osteoarthritis Past myocardial infarction X2 (2004), X1 (2006) Proctitis Temporal arteritis 04/2018 Surgical History Fusion of spine L4-L5 H/O hemorrhoidectomy History of biopsy of temporal artery History of cardiac cath OM STENTS X3 (?2004) History of cataract surgery RT/LEFT History of colonoscopy History of coronary artery bypass graft (Acute) CABG X3 (2004) History of inguinal hernia repair History of laminectomy LUMBAR History of tonsillectomy S/P repair of hydrocele Family History Mother , age 91 Myocardial infarction Father , age 81 Myocardial infarction Brother , age 46 Myocardial infarction Son History of heart attack times 2 High cholesterol Daughter High cholesterol Daughter High cholesterol Social History Preferred Language: Swedish Communication Ability: Effective Visual Impairment: No Limitations Hearing Ability: Normal Clip Riveter Required: No Beliefs That Will Affect Care: None marital status: Current Living Situation: Spouse Current Living Situation Comment: lives at [facility] current occupational status: retired 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 Endorses fatigue and malaise Eyes: Denies acute vision change ENT: Denies ear pain, sore throat, sinus pain Cardiovascular: Denies Chest pain, chest pressure, palpitations, leg swelling Respiratory: Denies shortness of breath, cough, sputum production, difficulty breathing Gastrointestinal: Denies current abdominal pain, endorses diarrhea. Denies nausea and vomiting. Genitourinary: Denies pain with urination Musculoskeletal: Denies focal weakness or new muscle aches/pain, joint aches/pain Integumentary:Denies rash, lesions, bruising Neurological: Denies headache, numbness, tingling, focal weakness. Endorses global fatigue and weakness. Physical Exam Physical Exam: General: A&Ox3. NAD. Cooperative. Appears fatigued but nontoxic. Answers questions appropriately. HEENT: Atraumatic, normocephalic. Pupils equal and responsive to light and accommodation. Mucous membranes tacky. Pulm: CTAB A&P. -wheezes, -rales, -rhonchi. Symmetrical chest rise. No increase work of breathing. No respiratory distress. Cardiac: RRR, -mrg. Radial pulses intact and symmetrical. Abdominal: Nontender, nondistended, soft. BS present. Extremities: Cool, dry. Sensation intact to soft touch in distal extremities. Ankle plantarflexion/dorsiflexion, fittings finisher strength grossly intact. Results & Data Results & Data ([facility]) Vital Signs (Past 12 Hours) Vital Signs Temp Pulse Resp BP Pulse Ox 09/09/19 02:50 100 09/09/19 02:05 36.5 C 159 H 18 82/66 L 100 Supervising Physician Co-Signing Physician Notes Patient seen and examined, chart reviewed, case discussed with Dr. Boss and I agree with his assessment and plan as documented above. Briefly, patient is a pleasant 84yo C male with extensive cardiac history, CAD s/p CABG x 3V, ICM, PAF, HTN/HLP presenting with complaint of weakness, dizziness and near syncope. Patient endorses 3 days of profuse diarrhea. Patient with 3 episodes of monomorphic VT in the ER. He remained relatively asymptomatic during these episodes, however did experience some hypotension which resolved with return to NSR. He was given IV Amiodarone with improvement. On exam he is currently afebrile, HD stable, NAD, resting comfortably in bed Skin - warm, dry, no rashes or lesions HEENT - NC/AT, PERRL, MMM, Neck supple, dry mucus membranes Heart - +S1/S2, regular with frequent ectopy, no m/r/g Lungs - CTA, no rales/rhonchi/wheezes Abd - +BS, soft, NT/ND Ext - warm, well perfused, no clubbing/cyanosis or edema Labs and images reviewed. Patient with stable anemia, multiple electrolyte derangements to include low Na, K, and Ca Mild elevation in troponin at 0.084 TSH within normal range CXR s/p sternotomy, no acute process EKG with return to NSR, 77bpm, +PVCs Assessment/Plan: 84yo C male with history of CAD, ICM, HTN, PAF on PO Amiodarone presenting with sustained VT, chemically cardioverted to NSR with IV Amiodarone. Suspect electrolyte abnormalities from diarrheal illness as cause of his arrhythmia. He denies symptoms of CP/SOB, doubt ACS -Admit to PCU -Continue IV Amiodarone -Trend troponin -BMP q 4 hours - replete electrolytes as needed -Cardiology consultation, appreciate assistance with this case -Check stool for c. diff -Remainder of plan as above Resident Activity Tracking Resident Involvement: Resident Care Provided Care Provided: Adult Hospital Medicine
[2019-09-09 03:29] LABS: iSTAT Hemoglobin 12.2 g/dl (14.0-18.0); iSTAT Ionized Calcium 1.07 mmol/l (1.12-1.32); iSTAT Potassium 2.3 mmol/L (3.3-5.0)
[2019-09-09 03:32] LABS: Hematocrit (blood only) 38.3 % (42-52); Hemoglobin 13.5 g/dL (14.0-18.0); Mean Corpuscular Hemoglobin 35.2 pg (25-34); Mean Corpuscular Hgb Conc 35.2 g/dL (32-36); Platelet Count 115 K/uL (130-400); RDW Coefficient of Variation 14.6 % (11.5-14.5); RDW Standard Deviation 52.9 fL (36.4-46.3); Red Blood Count 3.83 M/uL (4.7-6.1); White Blood Count 6.74 K/uL (4.8-10.8)
[2019-09-09 03:42] LABS: INR 1.2 (0.9-1.1); Partial Thromboplastin Time 28.1 Seconds (21.0-31.0); Prothrombin Time 12.2 Seconds (9.0-12.0)
[2019-09-09 03:52] LABS: Albumin Level 2.2 gm/dl (3.4-5.0); BUN Creatinine Ratio 14.5 (10-20); Calcium 8.2 mg/dl (8.5-10.1); Creatinine Clr Calc Pharmacy 47.3 ml/min; Est GFR (Non-African American) 66.4; Magnesium 1.9 mg/dl (1.8-2.4); Potassium 2.9 mmol/L (3.5-5.1)
[2019-09-09 03:54] LABS: Eosinophils # (auto) 0.01 K/uL (0-0.5); Eosinophils % (auto) 0.1 %; Immature Granulocytes # (auto) 0.07 K/uL (0.00-0.02); Lymphocytes # (auto) 0.44 K/uL (1.2-3.4); Lymphocytes % (auto) 6.5 %; Monocytes # (auto) 0.43 K/uL (0.11-0.59); Monocytes % (auto) 6.4 %; Neutrophils # (auto) 5.79 K/uL (1.4-6.5); Ovalocytes 1+; Toxic Granulation 2+
[2019-09-09 04:13] LABS: Albumin Globulin Ratio 0.7 (0.9-2); Bilirubin,Total 0.4 mg/dl (0.2-1); Globulin 3.1 gm/dl (2.5-4.0); Thyroid Stimulating Hormone 2.64 uIu/ml (0.300-4.500); Total Protein 5.3 gm/dl (6.4-8.2); Troponin I 0.084 ng/ml (0-0.045)
[2019-09-09] MEDS ORDERED: NITROGLYCERIN SL 0.4 MG/TAB TAB SL PRN (05:13)
--- NOTE | 2019-09-09 06:01 | Billing Data ---
Date of Service September 09, 2019 Coding Level of Care Code 87788 Initial Inpt Care Lvl 3
[2019-09-09 06:54] LABS: BUN Creatinine Ratio 16.3 (10-20); Calcium 8.3 mg/dl (8.5-10.1); Creatinine Clr Calc Pharmacy 57.1 ml/min; Est GFR (African American) 90.6; Est GFR (Non-African American) 78.2; Potassium 3.3 mmol/L (3.5-5.1)
[2019-09-09] MEDS: MEGESTROL ACETATE 40 MG TAB PO SCH ×2 (08:05→20:56)
[2019-09-09] MEDS: PARoxetine HCL 10 MG TAB PO SCH (08:05)
[2019-09-09] MEDS: PANTOprazole 40 MG TAB PO SCH (08:06)
[2019-09-09] MEDS: MULTIVITAMIN TAB PO SCH (08:06)
[2019-09-09] MEDS: METOPROLOL SUCC 50MG EXT REL TAB PO SCH (08:07)
[2019-09-09] MEDS ORDERED: AMIODARONE RATE CHANGE ONE (08:11)
[2019-09-09] MEDS: ATORVASTATIN 40 MG TAB PO SCH (08:12)
--- NOTE | 2019-09-09 08:18 | XRay Report ---
XR chest 1V portable CLINICAL HISTORY: weakness COMPARISON STUDY: Chest radiograph May 01, 2019. FINDINGS: Note is made of median sternotomy wires and mediastinal surgical clips. There is moderate c ardiomegaly without evidence for pulmonary edema. There is no pneumothorax or pleural effusion. No co nsolidation is noted to suggest pneumonia. IMPRESSION: No acute cardiopulmonary findings. No change in appearance of the chest. ACT 112: Negative or not required by law. Electronically signed by: Ja Yeh M.D. 09/09/2019 8:17 AM
[2019-09-09 08:52] LABS: BUN Creatinine Ratio 16.8 (10-20); Calcium 8.2 mg/dl (8.5-10.1); Creatinine Clr Calc Pharmacy 63.5 ml/min; Est GFR (African American) 94.6; Est GFR (Non-African American) 81.6; Potassium 3.1 mmol/L (3.5-5.1)
--- NOTE | 2019-09-09 11:23 | Cardiology Consultation ---
Date of Consultation September 09, 2019 Assessment & Plan (1) Wide-complex tachycardia: He appeared to have episodes of sustained ventricular tachycardia. The morphology of the QRS complex does suggest VT. There also appears to be capture beats and some fusion on the EKG in his record. Undoubtedly there is some relationship between his severe electrolyte abnormality and his ventricular arrhythmia. However, he also has known coronary disease with reduced LV systolic function. This was a monomorphic VT which was likely scar mediated. Certainly his electrolytes can be addressed, but I can't be confident that he would have recurrence of ventricular tachycardia given the underlying substrate. As result, I do believe he meets criteria for an ICD as secondary prevention against sudden cardiac . I did describe the risks benefits and alternatives to the patient. He wishes to contact his to discuss the procedure. He seems interested but wanted to delay any implant until his proctitis is resolved. I recommended implant prior to discharge. Additionally, correction of his electrolytes will be necessary. He continued to take his diuretic in the setting of this diarrhea which likely exacerbated his hypokalemia. I agree with supplementing his magnesium in the immediate term as well. I think we can continue him on amiodarone until his electrolytes are normal. At that point he can simply resume his outpatient dose of 200 milligrams daily. (2) CAD (coronary artery disease): I do not believe his current episode was related to an acute coronary syndrome. He has not been experiencing symptoms consistent with coronary ins ufficiency or angina. He can continue on his outpatient medical regimen which includes high-dose atorvastatin, lisinopril and metoprolol succinate. (3) Left ventricular dysfunction: He has a mild degree of LV dysfunction. He is not appear to be symptomatic currently. No evidence of decompensated left ventricular failure. He is noted to have a history of right ventricular failure as well but appears to be well compensated in that regard also. Once his electrolyte abnormalities and diarrhea have been addressed he could resume his usual outpatient diuretic regimen. (4) Atrial flutter: No recurrence. He is continued on amiodarone for a few years. He is not on anticoagulation currently due to his proctitis and history of bleeding. History of Present Illness Reason for Consultation: Ventricular tachycardia Requesting Physician: Jason Attending Physician: Suzy Wheeler MD History of Present Illness The patient is an 84-year-old gentleman with an extensive cardiac history to include coronary artery disease status post both surgical and percutaneous revascularization, left ventricular and right ventricular dysfunction, atrial flutter, atrial fibrillation, hypertension and valvular heart disease who presented to the emergency room with progressive weakness and diarrhea. Patient states that over the course of 3 days he experienced loose bowel movements primarily at nighttime. He appeared to have difficulty keeping up with volume loss and becoming progressively weaker. Patient was mildly dizzy at times. He did not report overt nausea or vomiting but did have some pelvic discomfort over the same period of time. He was unaware of any overt fevers or chills. Due to progressive weakness and an inability to ambulate he contacted EMS and [facility] EN route the patient was believed to have a wide complex tachycardia and again in the emergency room did have a documented wide complex tachycardia on several occasions. These episodes lasted at least 1 minutes prior to resolving. He was discovered to be severely hypokalemic. He was placed on amiodarone infusion. According to the patient he has not lost consciousness. He has not ever recall an episode of syncope. Generally speaking he is an active individual who does not report limiting dyspnea or symptoms of chest discomfort. 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 He watches his weight closely and has actually noticed weight loss. His diuretic regimen has been adjusted over time. He actually reduced some of his diuretic recently due to significant weight loss and resolution of lower extremity edema. Currently claims to be feeling better. He does not report pelvic discomfort currently. No sense of palpitation. No chest pain. No breathing difficulty. Allergies Allergy/AdvReac Type Severity Reaction Status Date / Time Penicillins Allergy Intermediate Rash & Verified 09/09/19 02:48 Swelling Home Medications Home Medications Medication Instructions Recorded Confirmed Type cholecalciferol (vitamin D3) 50 2,000 units PO QPM 05/07/18 09/09/19 History mcg (2,000 unit) capsule leuprolide (4 month) 30 mg (4 30 mg IM Q16W 05/07/18 09/09/19 History month) intramuscular syringe kit nitroglycerin 0.4 mg sublingual 0.4 mg SL Q5M PRN 05/07/18 09/09/19 History tablet multivitamin 1 tab PO QAM 08/18/18 09/09/19 History PreserVision AREDS-2 1 tab PO BID 08/25/18 09/09/19 History atorvastatin 80 mg PO QAM 08/25/18 09/09/19 History lisinopril 2.5 mg PO QPM 08/25/18 09/09/19 History metoprolol succinate [Toprol XL] 50 mg PO QAM 08/25/18 09/09/19 History omeprazole 20 mg PO QAM 08/25/18 09/09/19 History coenzyme Q10 100 mg capsule 200 mg PO QPM cap 03/27/19 09/09/19 History paroxetine HCl [Paxil] 10 mg PO QAM 04/22/19 09/09/19 History acetaminophen 325 mg tablet 325 - 650 mg PO BID PRN tab 05/07/19 09/09/19 History carboxymethylcellulose sodium 0.5 1 drp OPHTHALMIC (EYE) TID ea 05/07/19 09/09/19 History % eye drops in a dropperette psyllium husk 3.4 gram/5.4 gram 2 tsp PO QPM gm 05/07/19 09/09/19 History oral powder ferrous sulfate 325 mg (65 mg 325 mg PO QPM 06/18/19 09/09/19 History iron) tablet amiodarone 200 mg PO QAM 07/02/19 09/09/19 History potassium chloride 10 - 20 meq PO QAM 07/02/19 09/09/19 History doxycycline hyclate 100 mg PO BID 09/09/19 09/09/19 History furosemide 80 mg PO QAM 09/09/19 09/09/19 History megestrol 20 mg tablet 20 mg PO BID #60 tab 09/09/19 Rx Patient History Medical History Anemia Atrial flutter PAROXYSMAL CAD (coronary artery disease) S/P CABG X3 (2004), OM STENTS X3 (?2004) Cancer PROSTATE CANCER- RADIATION TREATMENTS Congestive heart failure EUVOLEMIC PER 08/12/18 CARDIO OFFICE VISIT GERD (gastroesophageal reflux disease) H/O flexible sigmoidoscopy Hearing deficit BILATERAL HEARING AIDS History of cardioversion 04/24/19 (went into a regular rhythm) and 08/2018 History of valvular heart disease Mild AR/NH, Moderate MR/TR per 07/2018 ECHO Hyperlipidemia Hypertension Ischemic cardiomyopathy Macular degeneration Osteoarthritis Past myocardial infarction X2 (2004), X1 (2006) Proctitis Temporal arteritis 04/2018 Surgical History Fusion of spine L4-L5 H/O hemorrhoidectomy History of biopsy of temporal artery History of cardiac cath OM STENTS X3 (?2004) History of cataract surgery RT/LEFT History of colonoscopy History of coronary artery bypass graft (Acute) CABG X3 (2004) History of inguinal hernia repair History of laminectomy LUMBAR History of tonsillectomy S/P repair of hydrocele Family History Mother , age 91 Myocardial infarction Father , age 81 Myocardial infarction Brother , age 46 Myocardial infarction Son History of heart attack times 2 High cholesterol Daughter High cholesterol Daughter High cholesterol Social History Preferred Language: Urdu Communication Ability: Effective Visual Impairment: No Limitations Hearing Ability: Normal Direct Sales Consultant Required: No Beliefs That Will Affect Care: None marital status: Current Living Situation: Spouse Current Living Situation Comment: lives at [facility] current occupational status: 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 No recent fevers or chills. Occasional blood in the stool which is chronic in nature. No lower extremity edema. Physical Exam Physical Exam: The patient is alert and oriented. Mood and affect appeared normal. He answered all questions appropriately. HEENT: Pupils are equal and reactive to light and accommodation. Extraocular movements are intact. The sclerae are anicteric. Neuro: Cranial nerves intact Neck: Patient's neck is supple. He has palpable carotid pulses bilaterally w ithout bruits on auscultation. There is no evidence of jugular venous distention. The thyroid is not enlarged. Lungs: Clear to auscultation bilaterally. He has good air movement without use of accessory muscles. No rales wheezes or rhonchi. Cardiac: Heart demonstrates a regular rate and rhythm with occasional ectopy. Normal S1 and S2. No murmurs on examination. Pulses: The patient has palpable radial pulses bilaterally that are equal in intensity Extremities: There was no evidence of hypoperfusion. There is no cyanosis or clubbing. There is no edema. Skin: I did not appreciate any rashes on examination today. Results & Data ([facility]) Vital Signs (Past 12 Hours) Vital Signs Temp Pulse Pulse Resp BP BP Pulse Ox 09/09/19 06:53 36.6 C 58 L 18 102/62 96 09/09/19 05:19 36.4 C L 61 18 134/78 100 09/09/19 04:33 64 18 113/67 98 09/09/19 03:30 23 116/79 100 09/09/19 03:00 71 21 119/64 100 09/09/19 02:50 100 09/09/19 02:31 71 20 122/69 100 09/09/19 02:20 71 14 123/59 L 100 09/09/19 02:08 78 15 82/66 L 09/09/19 02:05 36.5 C 159 H 18 82/66 L 100 Laboratory Results Abnormal Lab Results 09/09/19 09/09/19 09/09/19 02:27 02:27 02:27 WBC Cancelled RBC Cancelled Hgb Cancelled POC Hgb Hct Cancelled POC Hct MCV Cancelled MCH Cancelled MCHC Cancelled RDW Std Deviation Cancelled RDW Coeff of Trevor Cancelled Plt Count Cancelled MPV Cancelled Immature Gran % (Auto) Cancelled Neut % (Auto) Cancelled Lymph % (Auto) Cancelled Pender % (Auto) Cancelled Eos % (Auto) Cancelled Baso % (Auto) Cancelled Immature Gran # (Auto) Cancelled Neut # (Auto) Cancelled Lymph # (Auto) Cancelled Pender # (Auto) Cancelled Eos # (Auto) Cancelled Baso # (Auto) Cancelled Absolute Nucleated RBC Cancelled Nucleated RBC % (auto) Cancelled Neutrophils % (Manual) Cancelled Band Neutrophils % Cancelled Lymphocytes % (Manual) Cancelled Prolymphocyte % Cancelled Reactive Lymphs % (Man) Cancelled Monocytes % (Manual) Cancelled Eosinophils % (Manual) Cancelled Basophils % (Manual) Cancelled Metamyelocytes % (Man) Cancelled Myelocytes % (Man) Cancelled Promyelocytes % (Man) Cancelled Blast Cells % (Manual) Cancelled Plasma Cell % (Manual) Cancelled Other Cells % Cancelled Nucleated RBC % Cancelled Neutrophils # (Manual) Cancelled Band Neutrophils # Cancelled Total Absolute Neuts Cancelled Lymphocytes # (Manual) Cancelled Prolymphocyte # Cancelled Reactive Lymphs # Cancelled Total Abs Lymphocytes Cancelled Monocytes # (Manual) Cancelled Eosinophils # (Manual) Cancelled Basophils # (Manual) Cancelled Metamyelocytes # (Man) Cancelled Myelocytes # (Manual) Cancelled Promyelocytes # (Man) Cancelled Blast Cells # (Man) Cancelled Plasma Cell # (Manual) Cancelled Other Cells # Cancelled Nucleated RBCs # (Man) Cancelled Hypersegmented Neuts Cancelled Hyposegmented Neuts Cancelled Hypogranular Neuts Cancelled Large Granular Lymphs Cancelled # Lrg Granular Lymphs Cancelled Hairy Cells Cancelled Smudge Cells Cancelled Toxic Granulation Cancelled Toxic Vacuolation Cancelled Dohle Bodies Cancelled Marifer Rods Cancelled Platelet Estimate Cancelled Hypogranular Platelets Cancelled Clumped Platelets Cancelled Giant Platelets Cancelled Platelet Satelliting Cancelled RBC Morphology Cancelled Polychromasia Cancelled Hypochromasia Cancelled Poikilocytosis Cancelled Basophilic Stippling Cancelled Anisocytosis Cancelled Microcytosis Cancelled Macrocytosis Cancelled Spherocytes Cancelled Pappenheimer Bodies Cancelled Sickle Cells Cancelled Target Cells Cancelled Tear Drop Cells Cancelled Ovalocytes Cancelled Stomatocytes Cancelled [place] Bodies Cancelled Echinocytes Cancelled Acanthocytes (Spur) Cancelled Rouleaux Cancelled RBC Agglutinates Cancelled Schistocytes Cancelled RBC Morph Comment Cancelled Sezary Cell Cancelled PT Cancelled INR Cancelled APTT PTT Ratio POC Sodium Sodium Cancelled POC Potassium Potassium Cancelled POC Chloride Chloride Cancelled Carbon Dioxide Cancelled POC Total CO2 Anion Gap Cancelled POC Anion Gap POC BUN BUN Cancelled Creatinine Cancelled POC Creatinine Est Cr Clr Drug Dosing Cancelled Est GFR ( Amer) Cancelled Est GFR (Non-Af Amer) Cancelled BUN/Creatinine Ratio Cancelled Glucose Cancelled POC Glucose POC Glucose (other) Calcium Cancelled POC Ioniz Calcium Mary[place] Magnesium Cancelled Total Bilirubin Cancelled AST Cancelled ALT Cancelled Alkaline Phosphatase Cancelled Troponin I Cancelled Total Protein Cancelled Albumin Cancelled Globulin Cancelled Albumin/Globulin Ratio Cancelled TSH Cancelled Specimen Hemolysis 09/09/19 09/09/19 09/09/19 03:16 03:16 03:16 WBC RBC Hgb POC Hgb 12.2 L Hct POC Hct 36 L MCV MCH MCHC RDW Std Deviation RDW Coeff of Trevor Plt Count MPV Immature Gran % (Auto) Neut % (Auto) Lymph % (Auto) Pender % (Auto) Eos % (Auto) Baso % (Auto) Immature Gran # (Auto) Neut # (Auto) Lymph # (Auto) Pender # (Auto) Eos # (Auto) Baso # (Auto) Absolute Nucleated RBC Nucleated RBC % (auto) Neutrophils % (Manual) Band Neutrophils % Lymphocytes % (Manual) Prolymphocyte % Reactive Lymphs % (Man) Monocytes % (Manual) Eosinophils % (Manual) Basophils % (Manual) Metamyelocytes % (Man) Myelocytes % (Man) Promyelocytes % (Man) Blast Cells % (Manual) Plasma Cell % (Manual) Other Cells % Nucleated RBC % Neutrophils # (Manual) Band Neutrophils # Total Absolute Neuts Lymphocytes # (Manual) Prolymphocyte # Reactive Lymphs # Total Abs Lymphocytes Monocytes # (Manual) Eosinophils # (Manual) Basophils # (Manual) Metamyelocytes # (Man) Myelocytes # (Manual) Promyelocytes # (Man) Blast Cells # (Man) Plasma Cell # (Manual) Other Cells # Nucleated RBCs # (Man) Hypersegmented Neuts Hyposegmented Neuts Hypogranular Neuts Large Granular Lymphs # Lrg Granular Lymphs Hairy Cells Smudge Cells Toxic Granulation Toxic Vacuolation Dohle Bodies Marifer Rods Platelet Estimate Hypogranular Platelets Clumped Platelets Giant Platelets Platelet Satelliting RBC Morphology Polychromasia Hypochromasia Poikilocytosis Basophilic Stippling Anisocytosis Microcytosis Macrocytosis Spherocytes Pappenheimer Bodies Sickle Cells Target Cells Tear Drop Cells Ovalocytes Stomatocytes [place] Bodies Echinocytes Acanthocytes (Spur) Rouleaux RBC Agglutinates Schistocytes RBC Morph Comment Sezary Cell PT 12.2 H INR 1.2 H APTT 28.1 PTT Ratio 1.0 POC Sodium 130 L Sodium 129 L POC Potassium 2.3 L* Potassium 2.9 L POC Chloride 96 L Chloride 103 Carbon Dioxide 22 POC Total CO2 20 L Anion Gap 4.0 POC Anion Gap 16.0 POC BUN 15 BUN 15 Creatinine 1.03 POC Creatinine 1.0 Est Cr Clr Drug Dosing 47.3 Est GFR ( Amer) 77.0 Est GFR (Non-Af Amer) 66.4 BUN/Creatinine Ratio 14.5 Glucose 237 H POC Glucose POC Glucose (other) 212 H Calcium 8.2 L POC Ioniz Calcium [place] 1.07 L Magnesium 1.9 Total Bilirubin 0.4 AST 46 H ALT 71 Alkaline Phosphatase 77 Troponin I 0.084 H* Total Protein 5.3 L Albumin 2.2 L Globulin 3.1 Albumin/Globulin Ratio 0.7 L TSH 2.640 Specimen Hemolysis 09/09/19 09/09/19 09/09/19 03:17 03:51 05:51 WBC 6.74 RBC 3.83 L Hgb 13.5 L POC Hgb Hct 38.3 L POC Hct MCV 100.0 MCH 35.2 H MCHC 35.2 RDW Std Deviation 52.9 H RDW Coeff of Trevor 14.6 H Plt Count 115 L MPV 9.0 Immature Gran % (Auto) 1.0 Neut % (Auto) 86.0 Lymph % (Auto) 6.5 Pender % (Auto) 6.4 Eos % (Auto) 0.1 Baso % (Auto) 0.0 Immature Gran # (Auto) 0.07 H Neut # (Auto) 5.79 Lymph # (Auto) 0.44 L Pender # (Auto) 0.43 Eos # (Auto) 0.01 Baso # (Auto) 0.00 Absolute Nucleated RBC Nucleated RBC % (auto) Neutrophils % (Manual) Band Neutrophils % Lymphocytes % (Manual) Prolymphocyte % Reactive Lymphs % (Man) Monocytes % (Manual) Eosinophils % (Manual) Basophils % (Manual) Metamyelocytes % (Man) Myelocytes % (Man) Promyelocytes % (Man) Blast Cells % (Manual) Plasma Cell % (Manual) Other Cells % Nucleated RBC % Neutrophils # (Manual) Band Neutrophils # Total Absolute Neuts Lymphocytes # (Manual) Prolymphocyte # Reactive Lymphs # Total Abs Lymphocytes Monocytes # (Manual) Eosinophils # (Manual) Basophils # (Manual) Metamyelocytes # (Man) Myelocytes # (Manual) Promyelocytes # (Man) Blast Cells # (Man) Plasma Cell # (Manual) Other Cells # Nucleated RBCs # (Man) Hypersegmented Neuts Hyposegmented Neuts Hypogranular Neuts Large Granular Lymphs # Lrg Granular Lymphs Hairy Cells Smudge Cells Toxic Granulation 2+ Toxic Vacuolation Dohle Bodies Marifer Rods Platelet Estimate Hypogranular Platelets Clumped Platelets Giant Platelets Platelet Satelliting RBC Morphology Polychromasia Hypochromasia Poikilocytosis Basophilic Stippling Anisocytosis Microcytosis Macrocytosis Spherocytes Pappenheimer Bodies Sickle Cells Target Cells Tear Drop Cells Ovalocytes 1+ Stomatocytes [place] Bodies Echinocytes Acanthocytes (Spur) Rouleaux RBC Agglutinates Schistocytes RBC Morph Comment Sezary Cell PT INR APTT PTT Ratio POC Sodium Sodium 134 L POC Potassium Potassium 3.3 L POC Chloride Chloride 105 Carbon Dioxide 25 POC Total CO2 Anion Gap 4.0 POC Anion Gap POC BUN BUN 15 Creatinine 0.90 POC Creatinine Est Cr Clr Drug Dosing 57.1 Est GFR ( Amer) 90.6 Est GFR (Non-Af Amer) 78.2 BUN/Creatinine Ratio 16.3 Glucose 118 H POC Glucose 177 H POC Glucose (other) Calcium 8.3 L POC Ioniz Calcium Marysol Magnesium Total Bilirubin AST ALT Alkaline Phosphatase Troponin I Total Protein Albumin Globulin Albumin/Globulin Ratio TSH Specimen Hemolysis 09/09/19 08:14 WBC RBC Hgb POC Hgb Hct POC Hct MCV MCH MCHC RDW Std Deviation RDW Coeff of Trevor Plt Count MPV Immature Gran % (Auto) Neut % (Auto) Lymph % (Auto) Pender % (Auto) Eos % (Auto) Baso % (Auto) Immature Gran # (Auto) Neut # (Auto) Lymph # (Auto) Pender # (Auto) Eos # (Auto) Baso # (Auto) Absolute Nucleated RBC Nucleated RBC % (auto) Neutrophils % (Manual) Band Neutrophils % Lymphocytes % (Manual) Prolymphocyte % Reactive Lymphs % (Man) Monocytes % (Manual) Eosinophils % (Manual) Basophils % (Manual) Metamyelocytes % (Man) Myelocytes % (Man) Promyelocytes % (Man) Blast Cells % (Manual) Plasma Cell % (Manual) Other Cells % Nucleated RBC % Neutrophils # (Manual) Band Neutrophils # Total Absolute Neuts Lymphocytes # (Manual) Prolymphocyte # Reactive Lymphs # Total Abs Lymphocytes Monocytes # (Manual) Eosinophils # (Manual) Basophils # (Manual) Metamyelocytes # (Man) Myelocytes # (Manual) Promyelocytes # (Man) Blast Cells # (Man) Plasma Cell # (Manual) Other Cells # Nucleated RBCs # (Man) Hypersegmented Neuts Hyposegmented Neuts Hypogranular Neuts Large Granular Lymphs # Lrg Granular Lymphs Hairy Cells Smudge Cells Toxic Granulation Toxic Vacuolation Dohle Bodies Marifer Rods Platelet Estimate Hypogranular Platelets Clumped Platelets Giant Platelets Platelet Satelliting RBC Morphology Polychromasia Hypochromasia Poikilocytosis Basophilic Stippling Anisocytosis Microcytosis Macrocytosis Spherocytes Pappenheimer Bodies Sickle Cells Target Cells Tear Drop Cells Ovalocytes Stomatocytes [place] Bodies Echinocytes Acanthocytes (Spur) Rouleaux RBC Agglutinates Schistocytes RBC Morph Comment Sezary Cell PT INR APTT PTT Ratio POC Sodium Sodium 133 L POC Potassium Potassium 3.1 L POC Chloride Chloride 105 Carbon Dioxide 24 POC Total CO2 Anion Gap 4.0 POC Anion Gap POC BUN BUN 14 Creatinine 0.81 POC Creatinine Est Cr Clr Drug Dosing 63.5 Est GFR ( Amer) 94.6 Est GFR (Non-Af Amer) 81.6 BUN/Creatinine Ratio 16.8 Glucose 100 H POC Glucose POC Glucose (other) Calcium 8.2 L POC Ioniz Calcium Mary[place] Magnesium Total Bilirubin AST ALT Alkaline Phosphatase Troponin I Total Protein Albumin Globulin Albumin/Globulin Ratio TSH Specimen Hemolysis Diagnostic Findings Obtained at time admission not reveal any acute cardiopulmonary process Echocardiogram performed 05/07/2019: Ejection fraction 40 45 percent. Moderate to severe dilation of the right ventricle. Reduced function of the right ventricle. Moderate tricuspid regurgitation. PG Care Time/CCT Total # of Minutes Spent Total Time Spent with Patient: Total time spent is greater than 50% in coordination of care (as documented) at patient's floor/unit and/or counseling patient: Coding Level of Care Code 60831 Initial Inpt Care Lvl 3 Diagnoses Wide-complex tachycardia I47.2 CAD (coronary artery disease) I25.10 Left ventricular dysfunction I51.9 Atrial flutter I48.92
--- NOTE | 2019-09-09 12:11 | Electrocardiogram Report ---
Test Reason : Blood Pressure : / mmHG Vent. Rate : 149 BPM Atrial Rate : 072 BPM P-R Int : 000 ms QRS Dur : 184 ms QT Int : 330 ms P-R-T Axes : 000 029 124 degrees QTc Int : 519 ms Ventricular tachycardia with fusion beats Abnormal ECG When compared with ECG of 24-APR-2019 07:51, Wide QRS tachycardia has replaced Sinus rhythm Vent. rate has increased BY 101 BPM Confirmed by Miko Florez ([id number]) on 09/09/2019 12:10:52 PM Referred By: [facility] Confirmed By:Anthony Florez
--- NOTE | 2019-09-09 12:12 | Electrocardiogram Report ---
Test Reason : Blood Pressure : / mmHG Vent. Rate : 077 BPM Atrial Rate : 075 BPM P-R Int : 176 ms QRS Dur : 154 ms QT Int : 356 ms P-R-T Axes : 033 -28 -39 degrees QTc Int : 402 ms Poor data quality, interpretation may be adversely affected Sinus rhythm with 1st degree AV block and competing idoventricular rhythm Right bundle branch block Abnormal ECG When compared with ECG of 09-SEP-2019 02:07, (unconfirmed) Sinus rhythm has replaced VT Confirmed by Miko Florez ([id number]) on 09/09/2019 12:11:44 PM Referred By: Sofia Stewart Confirmed By:Anthony Florez
[2019-09-09] MEDS ORDERED: IOVERSOL 100ml IV PRN (16:54)
--- NOTE | 2019-09-09 17:15 | CT Scan Report ---
CT SCAN OF THE ABDOMEN AND PELVIS WITH IV CONTRAST CLINICAL HISTORY: Lower abdominal pain. Diarrhea. COMPARISON STUDY: Abdominal CT dated 03/24/2019. TECHNIQUE: Following the IV administration of 93 cc of Optiray 320, CT scan of the abdomen and pelvi s is performed from the lung bases to the proximal femora. Images are reviewed in the axial, sagittal , and coronal planes. IV contrast was administered without complication. A dose lowering technique wa s utilized adhering to the principles of ALARA. CT DOSE: 346.12 mGy.cm FINDINGS: Lung bases: The patient is status post midline sternotomy. The heart is enlarged and without pericard ial effusion. The coronary arteries are densely calcified. There is bibasilar scarring/atelectasis. T here is a trace right pleural effusion. No airspace consolidation is seen typical for pneumonia. Liver: The contrast-enhanced liver is normal in size, contour, and attenuation. There is no intrahepa tic biliary ductal dilatation. The hepatic veins and portal veins are patent. Periportal edema is not ed. Gallbladder: The gallbladder is markedly distended. Faint pericholecystic stranding and fluid is iden tified. Spleen: Normal in size and attenuation. Pancreas: Moderately atrophic and grossly unremarkable. Adrenal glands: Unremarkable. Kidneys: The contrast enhanced kidneys demonstrate mild cortical atrophy and are without hydronephros is. The kidneys enhance symmetrically. Abdominal vasculature: The abdominal aorta is normal in course and caliber noting advanced atheroscle rotic calcification. Bowel: There is no bowel obstruction. Mild wall thickening with associated mucosal hyperemia hyperemi a is noted involving several loops of small bowel in the pelvis. There is mild to moderate colonic di verticulosis without CT evidence of acute diverticulitis. There is a small duodenal diverticulum. The appendix is normal as visualized. Peritoneum: No intraperitoneal free air is seen. There is fluid in the right paracolic gutter and in the pelvis. Lymphadenopathy: None. Pelvic viscera: The prostate gland is mildly enlarged and heterogeneous. The bladder wall is thickene d and trabeculated. Skeletal structures: The skeletal structures are osteopenic. There is moderate lumbosacral spondylosi s. There is 1.5 cm of anterolisthesis at L3-L4 with laminectomy and posterior fusion at this level. N o lytic or blastic lesions are seen. IMPRESSION: 1. There are numerous mildly thick-walled loops of small bowel in the pelvis with mucosal hyperemia. The appearance suggest a nonspecific enteritis and clinical correlation will be required. 2. The gallbladder is markedly the stomach, with faint pericholecystic stranding and trace fluid. Thi s is nonspecific and acute cholecystitis is not excluded. Clinical correlation will be essential. 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 3. There is trace abdominopelvic ascites. 4. Cardiomegaly and trace right pleural effusion. 5. Colonic diverticulosis without CT evidence of acute diverticulitis. 6. Additional findings as above. Electronically signed by: Francisco Padron M.D. 09/09/2019 5:14 PM
[2019-09-09 17:23] LABS: BUN Creatinine Ratio 17.6 (10-20); Calcium 8.2 mg/dl (8.5-10.1); Creatinine Clr Calc Pharmacy 70.4 ml/min; Est GFR (African American) 98.7; Est GFR (Non-African American) 85.2; Troponin I 0.095 ng/ml (0-0.045)
[2019-09-09 17:24] LABS: Potassium 4.1 mmol/L (3.5-5.1)
--- NOTE | 2019-09-09 17:40 | Hospitalist Progress Note ---
Date of Service September 09, 2019 Assessment & Plan (1) V tach: This patient is an 84-year-old male with a past medical history of CAD status post triple CABG, prostate cancer, radiation proctitis, chronic systolic CHF, PAF not currently on anticoagulation due to rectal bleeding, who presented with weakness and near syncope after 3 days of diarrhea. While in the emergency department he experienced 3 episodes of sustained wide-complex tachycardia, the first lasting approximately 1 minute. Sustained V. tach likely secondary to severe hypokalemia, but monomorphic in nature and cardiology feels its due to focal scarring given history of severe CAD -Replace electrolytes -Okay to DC IV amiodarone once electrolytes repleted and return to amiodarone 200 mg p.o. once daily -Needs ICD-patient agreeable to this for tomorrow-n.p.o. after midnight -Continue metoprolol succinate 50 mg every morning - Hold lasix to prevent further hypokalemia -Treating diarrhea as below appreciate cardiology consultation -Appreciate cardiology consultation -Continue telemetry monitoring -Secondary to demand ischemia from sustained V. tach in the setting of severe CAD elevated Troponin-trended x2 with only minimal elevation (2) Diarrhea: Patient had several days of lower abdominal pain and then 3 nights of diarrhea prior to admission leading to hypokalemia With a history of radiation proctitis, this was nonbloody Was treated with doxycycline x2 days prior to admission but diarrhea started before antibiotic use Afebrile, no leukocytosis Check CT abdomen/pelvis Hold off on further antibiotics at this time -Check C. difficile if has further diarrhea (3) Hypokalemia: Severe, likely secondary to GI losses in the setting of continued furosemide use Continue to replace with IV and p.o. potassium as needed -Follow BMP (4) CAD (coronary artery disease): CAD w/ hx CABG - Continue Atorvastatin - Continue metoprolol XL 50mg daily - Continue lisinopril 2.5mg Mildly elevated troponin secondary to demand ischemia as above (5) Radiation proctitis: Has been treated by GI recently with Carafate enemas for 6 weeks and had a flexible sigmoidoscopy in 06/2019 which showed radiation proctitis -Follow-up with outpatient GI (6) Congestive heart failure: Chronic systolic CHF with EF 40-45% -Continue metoprolol, lisinopril Is euvolemic now but was dry on admission Continue daily weights, I's and O's -Holding Lasix (7) Anemia: Hemoglobin mildly low at 13.5 likely secondary to ongoing intermittent rectal bleeding from proctitis -Follow CBC Is currently off his anticoagulation due to previous heavier bleeding (8) Prostate cancer: Hx prostate cancer w/ radiation proctitis - [place] 9 cancer, high risk disease. Follows with urology - Lupron held (9) Atrial flutter: On amiodarone drip-convert to p.o.Hx pAfib/Aflutter - Not on anticoagulation 2/2 radiation proctitis bleeding -On amiodarone drip, convert to p.o. amiodarone as above --Continue metoprolol -Watch on telemetry (10) Hyponatremia: Secondary to dehydration -Improved now with hydration -Follow BMP (11) Thrombocytopenia: Platelets mildly low at 115 -Follow BMP (12) DVT prophylaxis: Only due to intermittent rectal bleedingDVT prophylaxis: SCDs Diet: Heart healthy, n.p.o. after midnight for ICD placement tomorrow Dispo: Continued stay on PCU/Tele Admission and Anticipated Discharge Date Admission Date: September 09, 2019 Subjective Patient reports still feeling a little queasy in his stomach. He reports he had low abdominal pains for several days earlier prior to admission which prompted his primary care physician to prescribe him doxycycline for presumed diverticulitis. Patient reports he took 3 doses of doxycycline and vomited 1 time. He had diarrhea at night each night for the 3 nights prior to admission which led to his near syncope. Denies chest pain or shortness of breath. Reports his abdominal pain is now much improved. No further diarrhea since admission so far. He is tolerating regular diet. Telemetry with sinus bradycardia and idioventricular rhythm, rates in the 50s with PACs and PVCs and first-degree AV block Review of Systems Review of Systems: All systems reviewed & are unremarkable except as noted in HPI & below Physical Exam Constitutional: WD/WN, vitals as above Eyes: + anicteric sclerae Neck: trachea midline, no thyromegaly Respiratory: normal respiratory effort, lungs clear to auscultation Cardiovascular: Rate/Rhythm: regular rhythm and + bradycardic Heart Sounds: no murmur Chest (Breasts): Chest: normal inspection of chest Gastrointestinal (Abdomen): Inspection/Auscultation: abdomen normal to inspection and normal bowel sounds; abdomen not distended Percussion/Palpation: + abdomen tender (Mild TTP in LLQ without guarding or rebound tenderness) and abdomen soft; no hernia and no abdominal mass Musculoskeletal: Extremities: extremities normal to inspection; no cyanosis and no clubbing Skin: no rashes, warm and dry Neurologic: moves all extremities and awake; no focal motor deficits Psychiatric: Orientation: alert, oriented to person, oriented to place and cooperative Lymphatic: no lymphedema Results & Data Results & Data ([facility]) Vital Signs (Past 12 Hours) Vital Signs Temp Pulse Pulse Resp BP Pulse Ox 09/09/19 16:00 36.8 C 53 L 54 L 18 131/72 95 09/09/19 11:14 36.9 C 60 18 146/80 H 98 09/09/19 06:53 36.6 C 58 L 18 102/62 96 Laboratory Results 09/09/19 09/09/19 09/09/19 Range/Units 16:34 08:14 05:51 WBC RBC Hgb POC Hgb (14.0-18.0) g/dl Hct POC Hct (42-52) % MCV MCH MCHC RDW Std Deviation RDW Coeff of Trevor Plt Count MPV Immature Gran % (Auto) Neut % (Auto) Lymph % (Auto) [place] % (Auto) Eos % (Auto) Baso % (Auto) Immature Gran # (Auto) Neut # (Auto) Lymph # (Auto) [place] # (Auto) Eos # (Auto) Baso # (Auto) Absolute Nucleated RBC Nucleated RBC % (auto) Neutrophils % (Manual) Band Neutrophils % Lymphocytes % (Manual) Prolymphocyte % Reactive Lymphs % (Man) Monocytes % (Manual) Eosinophils % (Manual) Basophils % (Manual) Metamyelocytes % (Man) Myelocytes % (Man) Promyelocytes % (Man) Blast Cells % (Manual) Plasma Cell % (Manual) Other Cells % Nucleated RBC % Neutrophils # (Manual) Band Neutrophils # Total Absolute Neuts Lymphocytes # (Manual) Prolymphocyte # Reactive Lymphs # Total Abs Lymphocytes Monocytes # (Manual) Eosinophils # (Manual) Basophils # (Manual) Metamyelocytes # (Man) Myelocytes # (Manual) Promyelocytes # (Man) Blast Cells # (Man) Plasma Cell # (Manual) Other Cells # Nucleated RBCs # (Man) Hypersegmented Neuts Hyposegmented Neuts Hypogranular Neuts Large Granular Lymphs # Lrg Granular Lymphs Hairy Cells Smudge Cells Toxic Granulation Toxic Vacuolation Dohle Bodies Marifer Rods Platelet Estimate Hypogranular Platelets Clumped Platelets Giant Platelets Platelet Satelliting RBC Morphology Polychromasia Hypochromasia Poikilocytosis Basophilic Stippling Anisocytosis Microcytosis Macrocytosis Spherocytes Pappenheimer Bodies Sickle Cells Target Cells Tear Drop Cells Ovalocytes Stomatocytes Hines-Kendall Bodies Echinocytes Acanthocytes (Spur) Rouleaux RBC Agglutinates Schistocytes RBC Morph Comment Sezary Cell PT INR APTT (21.0-31.0) Seconds PTT Ratio POC Sodium (135-144) mmol/L Sodium 133 L 133 L 134 L POC Potassium (3.3-5.0) mmol/L Potassium 4.1 D 3.1 L 3.3 L POC Chloride (101-112) mmol/L Chloride 107 105 105 Carbon Dioxide 21 24 25 POC Total CO2 (24-31) mEq/l Anion Gap 5.0 4.0 4.0 POC Anion Gap (16-25) mmol/L POC BUN (7-18) mg/dl BUN 13 14 15 Creatinine 0.73 0.81 0.90 POC Creatinine (0.6-1.3) mg/dl Est Cr Clr Drug Dosing 70.4 63.5 57.1 Est GFR ( Amer) 98.7 94.6 90.6 Est GFR (Non-Af Amer) 85.2 81.6 78.2 BUN/Creatinine Ratio 17.6 16.8 16.3 Glucose 106 H 100 H 118 H POC Glucose (70-99) mg/dl POC Glucose (other) (70-99) mg/dl Calcium 8.2 L 8.2 L 8.3 L POC Ioniz Calcium [place] (1.12-1.32) mmol/l Magnesium 2.0 Total Bilirubin AST ALT Alkaline Phosphatase Troponin I 0.095 H* Total Protein Albumin Globulin Albumin/Globulin Ratio TSH Specimen Hemolysis 09/09/19 09/09/19 09/09/19 Range/Units 03:51 03:17 03:16 WBC 6.74 RBC 3.83 L Hgb 13.5 L POC Hgb 12.2 L (14.0-18.0) g/dl Hct 38.3 L POC Hct 36 L (42-52) % MCV 100.0 MCH 35.2 H MCHC 35.2 RDW Std Deviation 52.9 H RDW Coeff of Trevor 14.6 H Plt Count 115 L MPV 9.0 Immature Gran % (Auto) 1.0 Neut % (Auto) 86.0 Lymph % (Auto) 6.5 [place] % (Auto) 6.4 Eos % (Auto) 0.1 Baso % (Auto) 0.0 Immature Gran # (Auto) 0.07 H Neut # (Auto) 5.79 Lymph # (Auto) 0.44 L [place] # (Auto) 0.43 Eos # (Auto) 0.01 Baso # (Auto) 0.00 Absolute Nucleated RBC Nucleated RBC % (auto) Neutrophils % (Manual) Band Neutrophils % Lymphocytes % (Manual) Prolymphocyte % Reactive Lymphs % (Man) Monocytes % (Manual) Eosinophils % (Manual) Basophils % (Manual) Metamyelocytes % (Man) Myelocytes % (Man) Promyelocytes % (Man) Blast Cells % (Manual) Plasma Cell % (Manual) Other Cells % Nucleated RBC % Neutrophils # (Manual) Band Neutrophils # Total Absolute Neuts Lymphocytes # (Manual) Prolymphocyte # Reactive Lymphs # Total Abs Lymphocytes Monocytes # (Manual) Eosinophils # (Manual) Basophils # (Manual) Metamyelocytes # (Man) Myelocytes # (Manual) Promyelocytes # (Man) Blast Cells # (Man) Plasma Cell # (Manual) Other Cells # Nucleated RBCs # (Man) Hypersegmented Neuts Hyposegmented Neuts Hypogranular Neuts Large Granular Lymphs # Lrg Granular Lymphs Hairy Cells Smudge Cells Toxic Granulation 2+ Toxic Vacuolation Dohle Bodies Marifer Rods Platelet Estimate Hypogranular Platelets Clumped Platelets Giant Platelets Platelet Satelliting RBC Morphology Polychromasia Hypochromasia Poikilocytosis Basophilic Stippling Anisocytosis Microcytosis Macrocytosis Spherocytes Pappenheimer Bodies Sickle Cells Target Cells Tear Drop Cells Ovalocytes 1+ Stomatocytes Hines-Kendall Bodies Echinocytes Acanthocytes (Spur) Rouleaux RBC Agglutinates Schistocytes RBC Morph Comment Sezary Cell PT INR APTT (21.0-31.0) Seconds PTT Ratio POC Sodium 130 L (135-144) mmol/L Sodium POC Potassium 2.3 L* (3.3-5.0) mmol/L Potassium POC Chloride 96 L (101-112) mmol/L Chloride Carbon Dioxide POC Total CO2 20 L (24-31) mEq/l Anion Gap POC Anion Gap 16.0 (16-25) mmol/L POC BUN 15 (7-18) mg/dl BUN Creatinine POC Creatinine 1.0 (0.6-1.3) mg/dl Est Cr Clr Drug Dosing Est GFR ( Amer) Est GFR (Non-Af Amer) BUN/Creatinine Ratio Glucose POC Glucose 177 H (70-99) mg/dl POC Glucose (other) 212 H (70-99) mg/dl Calcium POC Ioniz Calcium [place] 1.07 L (1.12-1.32) mmol/l Magnesium Total Bilirubin AST ALT Alkaline Phosphatase Troponin I Total Protein Albumin Globulin Albumin/Globulin Ratio TSH Specimen Hemolysis 09/09/19 09/09/19 09/09/19 Range/Units 03:16 03:16 02:27 WBC RBC Hgb POC Hgb (14.0-18.0) g/dl Hct POC Hct (42-52) % MCV MCH MCHC RDW Std Deviation RDW Coeff of Trevor Plt Count MPV Immature Gran % (Auto) Neut % (Auto) Lymph % (Auto) [place] % (Auto) Eos % (Auto) Baso % (Auto) Immature Gran # (Auto) Neut # (Auto) Lymph # (Auto) [place] # (Auto) Eos # (Auto) Baso # (Auto) Absolute Nucleated RBC Nucleated RBC % (auto) Neutrophils % (Manual) Band Neutrophils % Lymphocytes % (Manual) Prolymphocyte % Reactive Lymphs % (Man) Monocytes % (Manual) Eosinophils % (Manual) Basophils % (Manual) Metamyelocytes % (Man) Myelocytes % (Man) Promyelocytes % (Man) Blast Cells % (Manual) Plasma Cell % (Manual) Other Cells % Nucleated RBC % Neutrophils # (Manual) Band Neutrophils # Total Absolute Neuts Lymphocytes # (Manual) Prolymphocyte # Reactive Lymphs # Total Abs Lymphocytes Monocytes # (Manual) Eosinophils # (Manual) Basophils # (Manual) Metamyelocytes # (Man) Myelocytes # (Manual) Promyelocytes # (Man) Blast Cells # (Man) Plasma Cell # (Manual) Other Cells # Nucleated RBCs # (Man) Hypersegmented Neuts Hyposegmented Neuts Hypogranular Neuts Large Granular Lymphs # Lrg Granular Lymphs Hairy Cells Smudge Cells Toxic Granulation Toxic Vacuolation Dohle Bodies Marifer Rods Platelet Estimate Hypogranular Platelets Clumped Platelets Giant Platelets Platelet Satelliting RBC Morphology Polychromasia Hypochromasia Poikilocytosis Basophilic Stippling Anisocytosis Microcytosis Macrocytosis Spherocytes Pappenheimer Bodies Sickle Cells Target Cells Tear Drop Cells Ovalocytes Stomatocytes Hines-Kendall Bodies Echinocytes Acanthocytes (Spur) Rouleaux RBC Agglutinates Schistocytes RBC Morph Comment Sezary Cell PT 12.2 H INR 1.2 H APTT 28.1 (21.0-31.0) Seconds PTT Ratio 1.0 POC Sodium (135-144) mmol/L Sodium 129 L Cancelled POC Potassium (3.3-5.0) mmol/L Potassium 2.9 L Cancelled POC Chloride (101-112) mmol/L Chloride 103 Cancelled Carbon Dioxide 22 Cancelled POC Total CO2 (24-31) mEq/l Anion Gap 4.0 Cancelled POC Anion Gap (16-25) mmol/L POC BUN (7-18) mg/dl BUN 15 Cancelled Creatinine 1.03 Cancelled POC Creatinine (0.6-1.3) mg/dl Est Cr Clr Drug Dosing 47.3 Cancelled Est GFR ( Amer) 77.0 Cancelled Est GFR (Non-Af Amer) 66.4 Cancelled BUN/Creatinine Ratio 14.5 Cancelled Glucose 237 H Cancelled POC Glucose (70-99) mg/dl POC Glucose (other) (70-99) mg/dl Calcium 8.2 L Cancelled POC Ioniz Calcium [place] (1.12-1.32) mmol/l Magnesium 1.9 Cancelled Total Bilirubin 0.4 Cancelled AST 46 H Cancelled ALT 71 Cancelled Alkaline Phosphatase 77 Cancelled Troponin I 0.084 H* Cancelled Total Protein 5.3 L Cancelled Albumin 2.2 L Cancelled Globulin 3.1 Cancelled Albumin/Globulin Ratio 0.7 L Cancelled TSH 2.640 Cancelled Specimen Hemolysis 09/09/19 09/09/19 Range/Units 02:27 02:27 WBC Cancelled RBC Cancelled Hgb Cancelled POC Hgb (14.0-18.0) g/dl Hct Cancelled POC Hct (42-52) % MCV Cancelled MCH Cancelled MCHC Cancelled RDW Std Deviation Cancelled RDW Coeff of Trevor Cancelled Plt Count Cancelled MPV Cancelled Immature Gran % (Auto) Cancelled Neut % (Auto) Cancelled Lymph % (Auto) Cancelled [place] % (Auto) Cancelled Eos % (Auto) Cancelled Baso % (Auto) Cancelled Immature Gran # (Auto) Cancelled Neut # (Auto) Cancelled Lymph # (Auto) Cancelled [place] # (Auto) Cancelled Eos # (Auto) Cancelled Baso # (Auto) Cancelled Absolute Nucleated RBC Cancelled Nucleated RBC % (auto) Cancelled Neutrophils % (Manual) Cancelled Band Neutrophils % Cancelled Lymphocytes % (Manual) Cancelled Prolymphocyte % Cancelled Reactive Lymphs % (Man) Cancelled Monocytes % (Manual) Cancelled Eosinophils % (Manual) Cancelled Basophils % (Manual) Cancelled Metamyelocytes % (Man) Cancelled Myelocytes % (Man) Cancelled Promyelocytes % (Man) Cancelled Blast Cells % (Manual) Cancelled Plasma Cell % (Manual) Cancelled Other Cells % Cancelled Nucleated RBC % Cancelled Neutrophils # (Manual) Cancelled Band Neutrophils # Cancelled Total Absolute Neuts Cancelled Lymphocytes # (Manual) Cancelled Prolymphocyte # Cancelled Reactive Lymphs # Cancelled Total Abs Lymphocytes Cancelled Monocytes # (Manual) Cancelled Eosinophils # (Manual) Cancelled Basophils # (Manual) Cancelled Metamyelocytes # (Man) Cancelled Myelocytes # (Manual) Cancelled Promyelocytes # (Man) Cancelled Blast Cells # (Man) Cancelled Plasma Cell # (Manual) Cancelled Other Cells # Cancelled Nucleated RBCs # (Man) Cancelled Hypersegmented Neuts Cancelled Hyposegmented Neuts Cancelled Hypogranular Neuts Cancelled Large Granular Lymphs Cancelled # Lrg Granular Lymphs Cancelled Hairy Cells Cancelled Smudge Cells Cancelled Toxic Granulation Cancelled Toxic Vacuolation Cancelled Dohle Bodies Cancelled Marifer Rods Cancelled Platelet Estimate Cancelled Hypogranular Platelets Cancelled Clumped Platelets Cancelled Giant Platelets Cancelled Platelet Satelliting Cancelled RBC Morphology Cancelled Polychromasia Cancelled Hypochromasia Cancelled Poikilocytosis Cancelled Basophilic Stippling Cancelled Anisocytosis Cancelled Microcytosis Cancelled Macrocytosis Cancelled Spherocytes Cancelled Pappenheimer Bodies Cancelled Sickle Cells Cancelled Target Cells Cancelled Tear Drop Cells Cancelled Ovalocytes Cancelled Stomatocytes Cancelled Hines-Kendall Bodies Cancelled Echinocytes Cancelled Acanthocytes (Spur) Cancelled Rouleaux Cancelled RBC Agglutinates Cancelled Schistocytes Cancelled RBC Morph Comment Cancelled Sezary Cell Cancelled PT Cancelled INR Cancelled APTT (21.0-31.0) Seconds PTT Ratio POC Sodium (135-144) mmol/L Sodium POC Potassium (3.3-5.0) mmol/L Potassium POC Chloride (101-112) mmol/L Chloride Carbon Dioxide POC Total CO2 (24-31) mEq/l Anion Gap POC Anion Gap (16-25) mmol/L POC BUN (7-18) mg/dl BUN Creatinine POC Creatinine (0.6-1.3) mg/dl Est Cr Clr Drug Dosing Est GFR ( Amer) Est GFR (Non-Af Amer) BUN/Creatinine Ratio Glucose POC Glucose (70-99) mg/dl POC Glucose (other) (70-99) mg/dl Calcium POC Ioniz Calcium [place] (1.12-1.32) mmol/l Magnesium Total Bilirubin AST ALT Alkaline Phosphatase Troponin I Total Protein Albumin Globulin Albumin/Globulin Ratio TSH Specimen Hemolysis PG Care Time/CCT Total # of Minutes Spent Total Time Spent with Patient: Total time spent is greater than 50% in coordination of care (as documented) at patient's floor/unit and/or counseling patient: Coding Level of Care Code None Diagnoses V tach I47.2 Diarrhea R19.7 Diarrhea type: unspecified type Hypokalemia E87.6 CAD (coronary artery disease) I25.10 Radiation proctitis K62.7 Congestive heart failure I50.9 Anemia D64.9 Prostate cancer C61 Atrial flutter I48.92 Hyponatremia E87.1 Thrombocytopenia D69.6 DVT prophylaxis Z29.9 (1) Diarrhea Diarrhea type: unspecified type Qualified Code(s): R19.7 - Diarrhea, unspecified
[2019-09-09] MEDS: CHOLECALCIFEROL 1,000 UNITS 25 MCG TAB PO SCH (20:56)
[2019-09-09] MEDS: FERROUS SULFATE 325 MG TAB PO SCH (20:56)
[2019-09-10] MEDS ORDERED: BUPIVACAINE 0.25% 30 ML VIAL ONE (06:57)
[2019-09-10] MEDS ORDERED: LIDOCAINE HCL 1% 20 ML VIAL ONE (06:57)
[2019-09-10] MEDS ORDERED: BACITRACIN INJ 50,000 UNIT VIAL ONE (06:57)
[2019-09-10] MEDS ORDERED: VANCOMYCIN CONSULT ACTIVE PRN ×2 (07:52→10:39)
[2019-09-10] MEDS ORDERED: VANCOMYCIN HCL 1,000 MG/270 ML BAG IV SCH (08:00)
[2019-09-10] MEDS ORDERED: fentaNYL citrate 100 MCG/2 ML VIAL ONE (08:20)
[2019-09-10] MEDS ORDERED: MIDAZOLAM HCL 5 MG/ML 1 ML VIAL ONE (08:20)
--- NOTE | 2019-09-10 08:59 | Pre Anesthesia Assessment ---
Date of Service September 10, 2019 Pre Sedation Assessment Vital Signs Temp Pulse Pulse Resp BP Pulse Ox 09/10/19 06:59 36.4 C L 64 18 127/76 96 09/10/19 03:14 36.7 C 62 18 131/73 95 09/09/19 23:05 36.7 C 60 16 143/77 H 95 09/09/19 19:12 36.7 C 57 L 16 115/62 97 09/09/19 16:00 36.8 C 53 L 54 L 18 131/72 95 09/09/19 11:14 36.9 C 60 18 146/80 H 98 Cardiovascular + regular rate Respiratory + respiratory effort normal Pre-Sedation Airway Assessment Smoking Status: Never smoker Hx Sleep Apnea: No Hx Difficult Intubation: No Short, Thick Neck: No Thyromental Distance: > or= 3.5 Finger Breadths Oral Cavity: + WNL Mallampati Class: III ASA: ASA3 NPO Status Date of Last Intake of Fluids: 09/09/19 Time of Last Intake of Fluids: 18:00 Date of Last Intake of Solid Food: 09/09/19 Time of Last Intake of Solid Foods: 18:00 Procedure Planning Contraindications for Sedation: none Current Medications Reviewed: Yes Notes The planned sedation has been discussed with the patient. Informed Consent was obtained. I have identified the patient, determined the appropriateness of sedation and have assessed the patient immediately prior to the procedure. All medicine(s) and interventions are by my order.
[2019-09-10 09:23] LABS: BUN Creatinine Ratio 19.3 (10-20); Calcium 8.5 mg/dl (8.5-10.1); Creatinine Clr Calc Pharmacy 61.9 ml/min; Est GFR (African American) 93.6; Est GFR (Non-African American) 80.8; Potassium 3.7 mmol/L (3.5-5.1)
[2019-09-10] MEDS ORDERED: OXYCODONE HCL IR 5 MG TAB (IMMEDIATE RELEASE) PO PRN (10:39)
[2019-09-10] MEDS ORDERED: ACETAMINOPHEN 325 MG TAB PO PRN (10:39)
--- NOTE | 2019-09-10 10:39 | Electrophysiology Report ---
Date of Service September 10, 2019 Electrophysiology Procedure Electrophysiology Procedure Report Procedure performed: Implantation of dual-chamber ICD Staff insurance compliance analyst: Miko Florez MD Indication: The patient is an 84-year-old gentleman who presented to the hospital with sustained ventricular tachycardia. Based on his history of cardiac disease and presenting arrhythmias felt be good candidate for an ICD secondary prevention against sudden cardiac . Dual-chamber device was selected as he has a history of atrial arrhythmias and wished to improve discrimination as well as provide atrial therapies. Procedure in detail: The patient was informed of the risks benefits and alternatives to the intended procedure and she wished to proceed. He was taken to the electrophysiology suite in a fasting state. A preoperative antibiotic had been administered. The patient was monitored electrocardiographically throughout today's procedure and conscious sedation was administered per protocol. The left upper pectoral area is prepped and draped in usual sterile fashion. This area was anesthetized using subcutaneous administration of a xylocaine solution. An incision was made at this site and carried down to the prepectoralis fascia using sharp dissection. Electrocautery was also employed for dissection as well as for hemostasis. A device pocket was fashioned tissues above the pectoralis muscle. Subsequent to this maneuver the left axillary vein was accessed using modified Seldinger technique. Sheaths were placed over guidewires at this site and used to facilitate passage of the pacing leads to the respective chambers under fluoroscopic guidance. This included right atrial and right ventricular leads. Adequate sensing and threshold parameters were obtained prior to Active fixation of the leads to the endocardial surface. It should be noted that there was great difficulty achieving good sensing on the right ventricular lead. Despite positioning in multiple locations and testing both separate wires and leads, sensing was generally suboptimal. The proximal portion leads were then sutured the prepectoral fascia using nonabsorbable suture. The device pocket was irrigated with antibiotic solution. The leads were then attached to the device. The device and leads were then placed in the pocket and pocket was closed in 3 layers of absorbable suture. Steri-Strips and sterile dressing were applied. The device was tested noninvasively prior to conclusion the procedure. The patient tolerated procedure well there no immediate complications. Equipment used: New pulse generator: Microwave Technician [employer]. Model number: [id number] serial number [id number] Right atrial lead: Microwave Technician Medtronic. Model number: [id number] serial number [id number] Right ventricular lead: Microwave Technician Medtronic. Model number: [id number] serial number [id number] Measured data: Right atrial lead: P waves measured 2.1 mV. Pacing threshold was 0.5 V at 0.4 ms with a pacing impedance of 399 ohms Right ventricular lead: R waves in the integrated bipolar setting or 3.8 mV. Pacing thresholds 0.75 V at 0.4 ms with a pacing PS of 437 ohms Impression: Successful implantation of dual-chamber ICD [facility] Electrophysiology codes ICD Procedure 1: ICD: 06205 Insert single or dual ICD system PG Moderate Sedation Codes Moderate Sedation Codes Procedure 1: Sedation/Anesthesia: 81025 Mod Sedation by the same physician;Init15 Min Child Age 5 & Up Procedure 3: Sedation/Anesthesia: 32360 Mod Sedation by the same physician; Ea [id number] Minutes
[2019-09-10] MEDS ORDERED: POTASSIUM CHLORIDE / WTR 10 MEQ/100 ML PLCT IV SCH (11:15)
[2019-09-10] MEDS: ATORVASTATIN 40 MG TAB PO SCH (11:22)
[2019-09-10] MEDS: AMIODARONE 200 MG TAB PO SCH (11:22)
[2019-09-10] MEDS: MEGESTROL ACETATE 40 MG TAB PO SCH ×2 (11:22→20:13)
[2019-09-10] MEDS: MULTIVITAMIN TAB PO SCH (11:23)
[2019-09-10] MEDS: PARoxetine HCL 10 MG TAB PO SCH (11:24)
[2019-09-10] MEDS: PANTOprazole 40 MG TAB PO SCH (11:24)
[2019-09-10] MEDS: METOPROLOL SUCC 50MG EXT REL TAB PO SCH (11:24)
[2019-09-10] MEDS ORDERED: POTASSIUM CHLORIDE 20 MEQ TABCR PO STA (11:44)
--- NOTE | 2019-09-10 14:42 | Cardiology Progress Note ---
Date of Service September 10, 2019 Assessment & Plan (1) Wide-complex tachycardia: The patient underwent implantation of a dual-chamber ICD today. We will continue him on his daily outpatient regimen of amiodarone 200 milligrams daily. He can continue on his metoprolol. Electrolytes have been repleted. We will need to monitor him closely given the persistent diarrhea. It seems safe to resume his diuretic provided we monitor his potassium. (2) CAD (coronary artery disease): No current symptoms suggestive of an acute coronary syndrome. (3) Left ventricular dysfunction: Continue lisinopril and metoprolol. Will likely need to resume his Lasix. We will need to monitor his electrolytes closely. (4) Atrial flutter: No recurrence. From a cardiac standpoint we will interrogate his device in the morning. Provided there is no evident complication after his device implant he could conceivably be discharged afterwards. Admission and Anticipated Discharge Date Admission Date: September 09, 2019 Subjective This morning patient clearly feeling well. He did have 1 loose bowel movement over the course of the evening. He feels this is closer to his baseline. He did not have other loose stools yesterday after his admission. No chest pain. No dizziness or lightheadedness. Review of Systems Review of Systems: Per HPI Physical Exam Physical Exam: The patient is alert and oriented. Mood and affect appeared normal. He answered all questions appropriately. HEENT: Pupils are equal and reactive to light and accommodation. Extraocular movements are intact. The sclerae are anicteric. Neuro: Cranial nerves intact Lungs: Clear to auscultation bilaterally. He has good air movement without use of accessory muscles. No rales wheezes or rhonchi. Cardiac: Heart demonstrates a regular rate and rhythm with occasional ectopy. Normal S1 and S2. No murmurs on examination. Pulses: The patient has palpable radial pulses bilaterally that are equal in intensity Extremities: There was no evidence of hypoperfusion. There is no cyanosis or clubbing. There is no edema. Skin: I did not appreciate any rashes on examination today. Results & Data ([facility]) Vital Signs (Past 12 Hours) Vital Signs Temp Pulse Pulse Resp BP Pulse Ox 09/10/19 13:09 36.7 C 79 16 145/82 H 95 09/10/19 11:54 69 16 150/89 H 95 09/10/19 11:39 73 16 145/84 H 96 04/23/20 11:24 71 14 133/86 95 09/10/19 11:09 37 C 69 14 143/82 H 95 09/10/19 10:56 64 18 145/81 H 98 09/10/19 10:41 70 18 166/88 H 98 09/10/19 06:59 36.4 C L 64 18 127/76 96 09/10/19 03:14 36.7 C 62 18 131/73 95 Laboratory Results Abnormal Lab Results 09/09/19 09/10/19 16:34 08:27 Sodium 133 L 135 L Potassium 4.1 D 3.7 Chloride 107 107 Carbon Dioxide 21 23 Anion Gap 5.0 5.0 BUN 13 16 Creatinine 0.73 0.83 Est Cr Clr Drug Dosing 70.4 61.9 Est GFR ( Amer) 98.7 93.6 Est GFR (Non-Af Amer) 85.2 80.8 BUN/Creatinine Ratio 17.6 19.3 Glucose 106 H 94 Calcium 8.2 L 8.5 Magnesium 2.0 Troponin I 0.095 H* PG Care Time/CCT Total # of Minutes Spent Total Time Spent with Patient: Total time spent is greater than 50% in coordination of care (as documented) at patient's floor/unit and/or counseling patient: Coding Level of Care Code 38736 Subseq Hosp Care Lvl 2 Diagnoses Wide-complex tachycardia I47.2 CAD (coronary artery disease) I25.10 Left ventricular dysfunction I51.9 Atrial flutter I48.92
--- NOTE | 2019-09-10 18:46 | Hospitalist Progress Note ---
Date of Service September 10, 2019 Assessment & Plan (1) V tach: This patient is an 84-year-old male with a past medical history of CAD status post triple CABG, prostate cancer, radiation proctitis, chronic systolic CHF, PAF not currently on anticoagulation due to rectal bleeding, who presented with weakness and near syncope after 3 days of diarrhea. While in the emergency department he experienced 3 episodes of sustained wide-complex tachycardia, the first lasting approximately 1 minute. Sustained V. tach likely secondary to severe hypokalemia, but monomorphic in nature and cardiology feels its due to focal scarring given history of severe CAD -Replaced electrolytes and was started on IV amiodarone-has had resolution of V. tach -Continue home dose of amiodarone 200 mg p.o. once daily -Cardiology recommended placement of ICD-was performed on 09/09 -Chest x-ray in the morning and interrogate pacer in the morning-if everything functioning properly, he can be discharged -Continue metoprolol succinate 50 mg every morning - Held lasix to prevent further hypokalemia for now, but cardiology recommends restarting this-will do tomorrow if potassium level okay in the morning -Treating diarrhea as below appreciate cardiology consultation -Appreciate cardiology consultation -Continue telemetry monitoring -Elevated troponin is secondary to demand ischemia from sustained V. tach in the setting of severe CAD elevated Troponin-trended x2 with only minimal elevation (2) Diarrhea: Patient had several days of lower abdominal pain and then 3 nights of diarrhea prior to admission leading to hypokalemia With a history of radiation proctitis, however this was nonbloody Was treated with doxycycline x2 days prior to admission-diarrhea started before antibiotic use but seemed to worsen significantly after its use He is only had 1 large loose bowel movement since admission in 2 days and his abdominal pain is now improved CT abdomen/pelvis with findings of small bowel enteritis but no diverticulitis Remains afebrile, no leukocytosis Hold off on further antibiotics at this time -Check C. difficile and stool culture if has further diarrhea-was unable to have sample collected as he had incontinence to stool in the bed -If diarrhea or abdominal pain persists or worsens again, consider GI consultation (3) Hypokalemia: Severe, likely secondary to GI losses in the setting of continued furosemide use Potassium was 2.3 on admission and is now much improved to 3.7 Continue to replace with p.o. potassium today to get to goal of 4.0 -Follow BMP -We will likely need to increase potassium home dose on discharge especially in the setting of restarting Lasix (4) CAD (coronary artery disease): CAD w/ hx CABG - Continue Atorvastatin - Continue metoprolol XL 50mg daily - Continue lisinopril 2.5mg Mildly elevated troponin secondary to demand ischemia as above (5) Radiation proctitis: Has been treated by GI recently with Carafate enemas for 6 weeks and had a flexible sigmoidoscopy in 06/2019 which showed radiation proctitis -Follow-up with outpatient GI (6) Congestive heart failure: Chronic systolic CHF with EF 40-45% -Continue metoprolol, lisinopril Is euvolemic now but was dry on admission Continue daily weights, I's and O's -Holding Lasix but will likely restart tomorrow (7) Anemia: Hemoglobin mildly low at 13.5 likely secondary to ongoing intermittent rectal bleeding from proctitis -Follow CBC Is currently off his anticoagulation due to previous heavier bleeding (8) Prostate cancer: Hx prostate cancer w/ radiation proctitis - [place] 9 cancer, high risk disease. Follows with urology - Lupron held (9) Atrial flutter: And is in sinus rhythm here with sustained ventricular tachycardia as above -Continue amiodarone p.o. as above - Not on anticoagulation 2/2 radiation proctitis bleeding --Continue metoprolol -Watch on telemetry (10) Hyponatremia: Secondary to dehydration and is now improved to 135 -Improved now with hydration -Follow BMP (11) Thrombocytopenia: Platelets mildly low at 115 -Follow CBC in the morning (12) DVT prophylaxis: SCDs only due to intermittent rectal bleeding Dispo: Continued stay on PCU/Tele but hopeful for discharge to SNF PT/OT consults placed Admission and Anticipated Discharge Date Admission Date: September 09, 2019 Anticipated date of discharge: 09/11/19 Subjective Patient had 1 large loose bowel movement this morning, otherwise no diarrhea. Reports that his abdominal pain is completely gone. He recently returned from his ICD placement. No chest pain or shortness of breath. Telemetry with normal sinus rhythm with rates in the 60s, PVCs Review of Systems Review of Systems: All systems reviewed & are unremarkable except as noted in HPI & below Physical Exam Constitutional: WD/WN, vitals as above Eyes: + anicteric sclerae Neck: trachea midline, no thyromegaly Respiratory: normal respiratory effort, lungs clear to auscultation Cardiovascular: Rate/Rhythm: regular rate and regular rhythm Heart Sounds: no murmur Chest (Breasts): Chest: + pacemaker (Left anterior chest wall with dressing cl mannie dry and intact) Gastrointestinal (Abdomen): normal bowel sounds, soft, nontender, no hepatosplenomegaly Musculoskeletal: Extremities: extremities normal to inspection; no cyanosis and no clubbing Skin: no rashes, warm and dry Neurologic: moves all extremities and awake; no focal motor deficits Psychiatric: Orientation: alert, oriented to person, oriented to place and cooperative Lymphatic: no lymphedema Results & Data Results & Data ([facility]) Vital Signs (Past 12 Hours) Vital Signs Temp Pulse Pulse Pulse Resp BP Pulse Ox 09/10/19 16:00 64 09/10/19 15:15 36.4 C L 68 20 118/71 95 09/10/19 13:09 36.7 C 79 16 145/82 H 95 09/10/19 11:54 69 16 150/89 H 95 09/10/19 11:39 73 16 145/84 H 96 09/10/19 11:24 71 14 133/86 95 09/10/19 11:09 37 C 69 14 143/82 H 95 09/10/19 10:56 64 18 145/81 H 98 09/10/19 10:41 70 18 166/88 H 98 09/10/19 06:59 36.4 C L 64 18 127/76 96 Laboratory Results 09/10/19 Range/Units 08:27 Sodium 135 L (136-145) mmol/L Potassium 3.7 (3.5-5.1) mmol/L Chloride 107 (98-107) mmol/L Carbon Dioxide 23 (21-32) mmol/L Anion Gap 5.0 (3-11) BUN 16 (7-18) mg/dl Creatinine 0.83 (0.6-1.4) mg/dl Est Cr Clr Drug Dosing 61.9 ml/min Est GFR ( Amer) 93.6 Est GFR (Non-Af Amer) 80.8 BUN/Creatinine Ratio 19.3 (10-20) Glucose 94 (70-99) mg/dl Calcium 8.5 (8.5-10.1) mg/dl PG Care Time/CCT Total # of Minutes Spent Total Time Spent with Patient: Total time spent is greater than 50% in coordination of care (as documented) at patient's floor/unit and/or counseling patient: Coding Level of Care Code 96060 Subseq Hosp Care Lvl 3 Diagnoses V tach I47.2 Diarrhea R19.7 Diarrhea type: unspecified type Hypokalemia E87.6 CAD (coronary artery disease) I25.10 Radiation proctitis K62.7 Congestive heart failure I50.9 Anemia D64.9 Prostate cancer C61 Atrial flutter I48.92 Hyponatremia E87.1 Thrombocytopenia D69.6 DVT prophylaxis Z29.9 (1) Diarrhea Diarrhea type: unspecified type Qualified Code(s): R19.7 - Diarrhea, unspecified
[2019-09-10] MEDS: CHOLECALCIFEROL 1,000 UNITS 25 MCG TAB PO SCH (20:12)
[2019-09-10] MEDS: VANCOMYCIN HCL 1,000 MG in SODIUM CHLORIDE 0.9% 250 ML IV SCH (20:12)
[2019-09-10] MEDS: FERROUS SULFATE 325 MG TAB PO SCH (20:13)
[2019-09-11 06:01] LABS: Hematocrit (blood only) 36.6 % (42-52); Hemoglobin 12.5 g/dL (14.0-18.0); Mean Corpuscular Hemoglobin 34.5 pg (25-34); Mean Corpuscular Hgb Conc 34.2 g/dL (32-36); Mean Corpuscular Volume 101.1 fL (80-100); Mean Platelet Volume 9.3 fL (7.4-10.4); Platelet Count 133 K/uL (130-400); RDW Coefficient of Variation 14.8 % (11.5-14.5); RDW Standard Deviation 54.9 fL (36.4-46.3); Red Blood Count 3.62 M/uL (4.7-6.1); White Blood Count 7.04 K/uL (4.8-10.8)
[2019-09-11 06:21] LABS: Basophils # (auto) 0.01 K/uL (0-0.2); Basophils % (auto) 0.1 %; Echinocytes 1+; Eosinophils # (auto) 0.03 K/uL (0-0.5); Eosinophils % (auto) 0.4 %; Immature Granulocytes # (auto) 0.07 K/uL (0.00-0.02); Lymphocytes # (auto) 0.69 K/uL (1.2-3.4); Lymphocytes % (auto) 9.8 %; Monocytes # (auto) 0.84 K/uL (0.11-0.59); Monocytes % (auto) 11.9 %; Neutrophils % (auto) 76.8 %; Toxic Granulation 2+
[2019-09-11 06:35] LABS: Albumin Level 1.9 gm/dl (3.4-5.0); BUN Creatinine Ratio 23.3 (10-20); Bilirubin Direct 0.2 mg/dl (0-0.2); Calcium 8.3 mg/dl (8.5-10.1); Creatinine Clr Calc Pharmacy 71.4 ml/min; Est GFR (African American) 99.3; Est GFR (Non-African American) 85.7
[2019-09-11 06:38] LABS: Bilirubin,Total 0.6 mg/dl (0.2-1); Total Protein 4.6 gm/dl (6.4-8.2)
[2019-09-11] MEDS: VANCOMYCIN HCL 1,000 MG in SODIUM CHLORIDE 0.9% 250 ML IV SCH (07:57)
[2019-09-11] MEDS: METOPROLOL SUCC 50MG EXT REL TAB PO SCH (07:58)
[2019-09-11] MEDS: MEGESTROL ACETATE 40 MG TAB PO SCH (07:58)
[2019-09-11] MEDS: PANTOprazole 40 MG TAB PO SCH (07:58)
[2019-09-11] MEDS: PARoxetine HCL 10 MG TAB PO SCH (07:58)
[2019-09-11] MEDS: MULTIVITAMIN TAB PO SCH (07:58)
[2019-09-11] MEDS: AMIODARONE 200 MG TAB PO SCH (07:59)
[2019-09-11] MEDS: ATORVASTATIN 40 MG TAB PO SCH (07:59)
--- NOTE | 2019-09-11 08:35 | XRay Report ---
XR chest 2V PA/lateral CLINICAL HISTORY: Pacemaker insertion. Evaluate for pneumothorax. COMPARISON STUDY: Chest radiograph September 09, 2019. FINDINGS: Note is made of interval placement of a dual-lead left subclavian pacer/AICD. Lead tips pro ject over the right atrial appendage and right ventricle. There is an equivocal trace left apical pne umothorax. Moderate cardiomegaly is noted. There are median sternotomy wires and mediastinal surgical clips. Minimal left basilar opacity favors atelectasis. Old right rib fracture is incidentally noted . IMPRESSION: 1. Possible trace left apical pneumothorax. This is likely artifactual however short-term follow-up i nspiration and expiration PA chest radiographs are recommended. 2. Status post placement of a dual lead left pacer/AICD. ACT 112: Negative or not required by law. Electronically signed by: Ja Yeh M.D. 09/11/2019 8:33 AM
--- NOTE | 2019-09-11 09:11 | XRay Report ---
XR chest inspiration/expiratio CLINICAL HISTORY: 84 years-old Male presenting with pacer placement, concern for pneumothorax on radi ograph earlier today, inspiratory and expiratory views for better assessment. TECHNIQUE: Portable upright AP views of the chest were obtained in inspiration and expiration. COMPARISON: 09/11/2019 at 8:20 AM. FINDINGS: Left subclavian implanted cardiac defibrillator with leads to the right atrium and right ventricular apex. Median sternotomy wires and mediastinal surgical clips. Several overlying external leads noted. Soft tissue emphysema in the upper left chest wall related to ICD placement. Atherosclerosis of the aortic arch. Cardiac silhouette mildly enlarged. No focal opacity. No large ef fusion. No convincing evidence of pneumothorax. Degenerative changes of the thoracic spine. Upper abd omen normal. IMPRESSION: 1. No convincing evidence of pneumothorax. 2. Left subclavian ICD with associated postoperative chest wall emphysema. 3. Mild cardiomegaly. No evidence of volume overload or congestive change. ACT 112: Negative or not required by law. Electronically signed by: Collins Simms M.D. 09/11/2019 9:10 AM
--- NOTE | 2019-09-11 10:09 | Cardiology Progress Note ---
Date of Service September 11, 2019 Assessment & Plan (1) Wide-complex tachycardia: Presenting ventricular tachycardia is likely exacerbated by hypokalemia. Electrolytes have been normal after supplementation. Diarrhea is improved. I think would be safe to resume his diuretic and potassium therapy. He underwent successful implantation of dual-chamber ICD yesterday. He should refrain from lifting the left arm above the shoulder behind the neck for 6 weeks. He should keep the wound dry and Steri-Strip intact for 1 week. He should follow-up in our clinic next week for wound examination by 1 of the nurses. (2) CAD (coronary artery disease): No current symptoms suggestive of an acute coronary syndrome. (3) Left ventricular dysfunction: Continue lisinopril and metoprolol. Electrolytes have been stable and his diarrhea has improved. It would seem reasonable to resume his outpatient diuretic regimen with electrolyte supplementation. (4) Atrial flutter: No recurrence. I think from a cardiac standpoint he would be safe for discharge today given the precautions and follow-up noted above. Subjective This morning the patient felt well. Minimal discomfort at the device implant site left upper pectoral area. Did report another episode of diarrhea last evening. Overall he states this is improved from prior to admission. Review of Systems Review of Systems: Per HPI Physical Exam Physical Exam: Examination of the implant site reveals ecchymosis but no erythema or drainage. No hematoma. Results & Data Vital Signs (Past 12 Hours) Vital Signs Temp Pulse Resp BP Pulse Ox 09/11/19 06:40 36.4 C L 59 L 20 128/76 96 09/11/19 02:42 36.5 C 63 18 131/80 96 09/10/19 23:08 36.5 C 60 20 124/78 94 Laboratory Results Abnormal Lab Results 09/10/19 09/11/19 09/11/19 22:00 05:22 05:22 WBC 7.04 RBC 3.62 L Hgb 12.5 L Hct 36.6 L MCV 101.1 H MCH 34.5 H MCHC 34.2 RDW Std Deviation 54.9 H RDW Coeff of Trevor 14.8 H Plt Count 133 MPV 9.3 Immature Gran % (Auto) 1.0 Neut % (Auto) 76.8 Lymph % (Auto) 9.8 [place] % (Auto) 11.9 Eos % (Auto) 0.4 Baso % (Auto) 0.1 Immature Gran # (Auto) 0.07 H Neut # (Auto) 5.40 Lymph # (Auto) 0.69 L [place] # (Auto) 0.84 H Eos # (Auto) 0.03 Baso # (Auto) 0.01 Toxic Granulation 2+ Echinocytes 1+ Sodium 136 Potassium 4.0 Chloride 109 H Carbon Dioxide 20 L Anion Gap 6.0 BUN 17 Creatinine 0.72 Est Cr Clr Drug Dosing 71.4 Est GFR ( Amer) 99.3 Est GFR (Non-Af Amer) 85.7 BUN/Creatinine Ratio 23.3 H Glucose 83 Calcium 8.3 L Total Bilirubin 0.6 Direct Bilirubin 0.2 AST 34 ALT 51 Alkaline Phosphatase 70 Total Protein 4.6 L Albumin 1.9 L Stl C. diff Tox B Gene Uninterpretable Diagnostic Findings Initial chest x-ray demonstrated stable lead position. There was some concern about a small left apical pneumothorax which was not confirmed on repeat x-ray. Device interrogation reveals good sensing on both atrial and ventricular channels. Normal device function.
[2019-09-11 10:57] VITALS: BP 114/71; TEMP 98.1; O2SAT 97
[2019-09-11] MEDS ORDERED: POTASSIUM CHLORIDE 20 MEQ TABCR PO SCH (12:30)
[2019-09-11] MEDS ORDERED: FUROSEMIDE 80 MG TAB PO SCH (12:30)
--- NOTE | 2019-09-11 13:29 | Discharge Summary ---
Date of Service September 11, 2019 Admission HPI Per Admitting Provider Jb is an 84-year-old male with a past medical history of CAD status post triple CABG, prostate cancer, proctitis, CHF, pAfib who presented with weakness and near syncope after 3 days of diarrhea. Jonathan reports his symptoms began approximately 3 nights ago when he had increasing diarrhea. He at first was having diarrhea only at night, but which had increased during the day in the last day and had bowel movements too numerous to count the night preceding admission. He denies fever or chills. Denies abdominal pain. Denies chest pain, chest pressure, shortness of breath, difficulty breathing. He felt that he just eventually felt too weak or tired, and that he felt like he just needed to lie down and close his eyes all the time. He reports he eventually felt like he was so weak that he could not get b ack up, and "pulled the life alert strain "at which point EMS was called. He reports he has had blood in his stool in the past which have been evaluated on prior admissions and caused him to stop taking anticoagulation and transition to amiodarone for his heart rhythm. He has not recently been on a blood thinner, and denies blood in his bowel movements in the last week. He reports he had some abdominal pain preceding his diarrhea for which he was prescribed doxycycline and had taken 1 dose of prior to admission to the hospital. Denies having a cardiac device. Medical history: Prostate cancer, radiation proctitis, coronary artery disease with a history of triple coronary artery bypass grafting, atrial arrhythmia, anemia Surgical history: Reviewed in EMR Allergies: Endorses allergy to penicillin. Denies other medication allergies Social history: Denies alcohol intake. Denies tobacco product use, although notes he lived with his first 2 who were smokers and he had significant secondhand smoke exposure. Denies recreational drug use. He currently lives at [facility] with his . Code Status: Reports he would want cardioversion and chest compressions, but not prolonged heroic measures. Principal Diagnosis Ventricular tachycardia, hypokalemia, diarrhea Discharge Exam Constitutional WD/WN, vitals as above Eyes + anicteric sclerae Neck trachea midline, no thyromegaly Respiratory normal respiratory effort, lungs clear to auscultation Cardiovascular Rate/Rhythm: regular rate and regular rhythm Heart Sounds: no murmur Chest (Breasts) Chest: + pacemaker (Left anterior chest wall with dressing clean dry and intact) Gastrointestinal (Abdomen) normal bowel sounds, soft, nontender, no hepatosplenomegaly Inspection/Auscultation: abdomen normal to inspection and normal bowel sounds; abdomen not distended Percussion/Palpation: abdomen soft; abdomen nontender, no hernia and no abdominal mass Musculoskeletal Extremities: extremities normal to inspection; no cyanosis and no clubbing Skin no rashes, warm and dry Neurologic moves all extremities and awake; no focal motor deficits Psychiatric Orientation: alert, oriented to person, oriented to place and cooperative Lymphatic no lymphedema Discharge Data Allergies Allergy/AdvReac Type Severity Reaction Status Date / Time Penicillins Allergy Intermediate Rash & Verified 09/09/19 02:48 Swelling Consultations 09/09/19 03:21 ED Decision to Admit Stat 09/09/19 05:13 Consult Cardiology Routine Procedures Performed Operation Date: 09/10/19 09:00 Actual Procedures p ICD Insertion Single or Dual - Jonathan Florez MD Ordered Studies 09/09/19 15:37 CT abd pelvis IV con only Routine 09/10/19 07:03 CL Cath Imgs for PACS use only Routine CXR Hospital Course (1) V tach: This patient is an 84-year-old male with a past medical history of CAD status post triple CABG, prostate cancer, radiation proctitis, chronic systolic CHF, PAF not currently on anticoagulation due to rectal bleeding, who presented with weakness and near syncope after 3 days of diarrhea. While in the emergency department he experienced 3 episodes of sustained wide-complex tachycardia, the first lasting approximately 1 minute. Sustained V. tach likely secondary to severe hypokalemia, but monomorphic in nature and cardiology feels its due to focal scarring given history of severe CAD -Replaced electrolytes and was started on IV amiodarone-has had resolution of V. tach -Continue home dose of amiodarone 200 mg p.o. once daily -Cardiology recommended placement of ICD-was performed on 09/09 -pacer functioning properly by the next day, CXR initially with possible small apical PTX but repeat CXR neg for PTX -Continue metoprolol succinate 50 mg every morning - Held lasix to prevent further hypokalemia for now, but cardiology recommends restarting this on discharge given h/o CM -Treating diarrhea as below -Appreciate cardiology consultation -Elevated troponin is secondary to demand ischemia from sustained V. tach in the setting of severe CAD elevated Troponin-trended x2 with only minimal elevation (2) Diarrhea: Patient had several days of lower abdominal pain and then 3 nights of diarrhea prior to admission leading to hypokalemia With a history of radiation proctitis, however this was nonbloody Was treated with doxycycline x2 days prior to admission-diarrhea started before antibiotic use but seemed to worsen significantly after its use He is only had 1 large loose bowel movement daily since admission and his abdominal pain is now improved CT abdomen/pelvis with findings of small bowel enteritis but no diverticulitis Remains afebrile, no leukocytosis Hold off on further antibiotics at this time -Check C. difficile and stool culture -pending at time of discharge but does not seem likely given only having loose stool 1-2x/day (3) Hypokalemia: Severe, likely secondary to GI losses in the setting of continued furosemide use Potassium was 2.3 on admission and is now normal -increase home po KCl dose to 20 bid (4) CAD (coronary artery disease): CAD w/ hx CABG - Continue Atorvastatin - Continue metoprolol XL 50mg daily - Continue lisinopril 2.5mg Mildly elevated troponin secondary to demand ischemia as above (5) Radiation proctitis: Has been treated by GI recently with Carafate enemas for 6 weeks and had a flexible sigmoidoscopy in 06/2019 which showed radiation proctitis -Follow-up with outpatient GI (6) Congestive heart failure: Chronic systolic CHF with EF 40-45% -Continue metoprolol, lisinopril Is euvolemic now but was dry on admission Continue daily weights, I's and O's -restart home Lasix 80mg daily (7) Anemia: Hemoglobin mildly low at 13.5 likely secondary to ongoing intermittent rectal bleeding from proctitis -Follow CBC Is currently off his anticoagulation due to previous heavier bleeding (8) Prostate cancer: Hx prostate cancer w/ radiation proctitis - Cydney 9 cancer, high risk disease. Follows with urology - Lupron held (9) Atrial flutter: And is in sinus rhythm here with sustained ventricular tachycardia as above -Continue amiodarone p.o. as above - Not on anticoagulation 2/2 radiation proctitis bleeding --Continue metoprolol (10) Hyponatremia: Secondary to dehydration and is now improved to 136 -Improved now with hydration (11) Thrombocytopenia: Platelets mildly low at 115 and now back up to 133 -Follow CBC as an outpt (12) DVT prophylaxis: SCDs only due to intermittent rectal bleeding Dispo: stable for dc to SNF/[facility] Total Time Total Time Spent Total Time Spent (In Minutes): 35 min Total Time Includes: Examination of the Patient, Discharge Planning, Medication Reconciliation and Communication With Other Providers (Cardiology) Discharge Plan Discharge Items Patient Disposition: Transfer Shelter Fac Reason For Visit: WIDE COMPLEX TACH, HYPKALEMIA, DIARREA Discharge Diagnosis: Sustained ventricular tachycardia, hypokalemia, diarrhea s/p Dual chamber ICD placement Condition on Discharge: Fair Activity: As commented below Lifting Comment: no reaching above level of shoulder on left x 6 weeks Bathing: Keep incision dry Exercise Comment: No lifting or reaching behind back or above left shoulder for 6 weeks Weightbearing: Full weightbearing Non-emergency contact: Primary Care Provider and Environmental Health Manager Call non-emergency contact if: you have any medication questions and your symptoms worsen Follow-up/Referrals: Jonathan Florez MD [Physician] - (Has scheduled appointments for 09/14 and in September for pacer ) Sofia Stewart [Primary Care Provider] - Diet: Low Sodium (2gm) Addtl Attending Provider Instructions: Diarrhea is much improved with no treatment. His abdominal pain is also improved. CT scan negative for diverticulitis but showed small intestine enteritis, could be viral in nature. C. diff and stool cultures pending at time of discharge but only had one loose bowel movement in the last 24 hours, is tolerating regular diet. Had ICD/pacer placed for sustained ventricular tachycardia-follow up with Cardiology. Please check BMP in 1-2 days to ensure potassium levels are ok. Pending Studies at Discharge: Yes (C. diff and Stool culture) Stand-Alone Forms: My [facility] Skilled Items Patient informed of condition?: Yes DNR: No Discharge Level of Care: Skilled Communicable Disease: No Discharge Prognosis: Improving Lines: None Urinary Catheter: No Medications and DC Order Prescriptions: New potassium chloride [Klor-Con M20] 20 mEq Tablet,Er Particles/Crystals 20 meq PO BID Qty: 60 RF: 0 Continued nitroglycerin 0.4 mg tablet, sublingual 0.4 mg SL Q5M PRN (Reason: Chest Pain) RF: 0 leuprolide (4 month) [Lupron Depot (4 month)] 30 mg syringe kit 30 mg IM Q16W RF: 0 cholecalciferol (vitamin D3) 2,000 unit capsule 2,000 units PO QPM RF: 0 multivitamin tablet 1 tab PO QAM RF: 0 acetaminophen [Tylenol] 325 mg tablet 325 - 650 mg PO BID PRN (Reason: Pain) RF: 0 megestrol 20 mg tablet 20 mg PO BID Qty: 60 RF: 2 ferrous sulfate [Iron (ferrous sulfate)] 325 mg (65 mg iron) tablet 325 mg PO QPM RF: 0 atorvastatin 80 mg Tablet 80 mg PO QAM RF: 0 metoprolol succinate [Toprol XL] 50 mg Tablet Extended Release 24 Hr 50 mg PO QAM RF: 0 omeprazole 20 mg Capsule,Delayed Release(Dr/Ec) 20 mg PO QAM RF: 0 lisinopril 2.5 mg Tablet 2.5 mg PO QPM RF: 0 PreserVision AREDS-2 [id number] [id number] Capsule 1 tab PO BID RF: 0 coenzyme Q10 [CoQ-10] 100 mg capsule 200 mg PO QPM RF: 0 paroxetine HCl [Paxil] 10 mg tablet 10 mg PO QAM RF: 0 Refresh Plus 0.5 % dropperette 1 drp OPHTHALMIC (EYE) TID RF: 0 Metamucil 3.4 gram/5.4 gram powder 2 tsp PO QPM RF: 0 amiodarone 200 mg tablet 200 mg PO QAM RF: 0 furosemide 80 mg tablet 80 mg PO QAM RF: 0 Discontinued potassium chloride 10 mEq capsule, extended release 10 - 20 meq PO QAM RF: 0 doxycycline hyclate 100 mg capsule 100 mg PO BID RF: 0 Discharge Orders: Discharge Order (Routine); Ordered 09/11/19 Ordered By: Suzy Wheeler Admission Data Admit Date/Time: 09/09/19 04:08 Attending Provider: Suzy Wheeler Admit Provider: Collins Boss Primary Care Provider: Sofia Stewart Other Providers: Jonathan Florez Other Interventions: Discharge Summary Assessment (RN) Last Done: 09/11/19 13:38 DC Date/Time DO NOT enter until pt leaves facility: 09/11/19 14:33 Coding Level of Care Code D/C Day Management >30 mins Diagnoses V tach I47.2 Diarrhea R19.7 Diarrhea type: unspecified type Hypokalemia E87.6 CAD (coronary artery disease) I25.10 Radiation proctitis K62.7 Congestive heart failure I50.9 Anemia D64.9 Prostate cancer C61 Atrial flutter I48.92 Hyponatremia E87.1 Thrombocytopenia D69.6 DVT prophylaxis Z29.9
[2019-09-11 13:39] VITALS: PULSE 64
[2019-09-14 10:55] LABS: C.diff Toxin B, Qual RT-PCR NOT DETECTED (NOT DETECTED)
== END 2019-09-11 14:33 | DRG 227 ==
LOC: ED 02:01 → SUATTDRO 04:08 → 2S 04:08
PROC: EPB.ICD (2019-09-10 09:00)

== ENCOUNTER 2022-03-23 09:45 | Inpatient (IN) ==
[2022-03-23 11:07] LABS: Basophils # (auto) 0.04 K/uL (0-0.2); Basophils % (auto) 0.5 %; Eosinophils # (auto) 0.03 K/uL (0-0.50); Eosinophils % (auto) 0.4 %; Hematocrit (blood only) 44.3 % (40.1-51.0); Hemoglobin 14.9 g/dl (14.0-18.0); Immature Granulocytes # (auto) 0.05 K/uL (0.00-0.02); Immature Granulocytes % (auto) 0.6 %; Lymphocytes # (auto) 0.42 K/uL (1.2-3.4); Lymphocytes % (auto) 5.4 %; Mean Corpuscular Hemoglobin 34.7 pg (25.0-34.0); Mean Corpuscular Hgb Conc 33.6 g/dL (32.0-36.0); Mean Platelet Volume 8.7 fL (9.4-12.4); Monocytes # (auto) 1.22 K/uL (0.24-0.82); Monocytes % (auto) 15.7 %; Neutrophils # (auto) 6.02 K/uL (1.4-6.5); Neutrophils % (auto) 77.4 %; Platelet Count 205 K/uL (130-400); RDW Coefficient of Variation 17.1 % (11.5-14.5); White Blood Count 7.78 K/ul (4.8-10.8)
[2022-03-23 11:25] LABS: Albumin Globulin Ratio 1.2 (0.9-2); BUN Creatinine Ratio 31.7 (10-20); Calcium 10.8 mg/dl (8.5-10.1); Creatinine Clr Calc Pharmacy 39.9 ml/min; Est GFR (African American) 63.1 ml/min; Est GFR (Non-African American) 54.4 ml/min; Globulin 3.3 gm/dl (2.5-4.0); Magnesium 2.4 mg/dl (1.7-2.4); Potassium 4.5 mmol/L (3.5-5.1); Total Protein 7.3 gm/dl (6.0-8.3)
[2022-03-23 11:29] LABS: Prothrombin Time 10.9 Seconds (9.0-12.0)
[2022-03-23 11:31] LABS: Troponin I High Sensitivity 23.6 pg/ml (0-20)
--- NOTE | 2022-03-23 11:39 | XRay Report ---
XR pelvis 1-2V routine HISTORY: 86 years-old Male trauma acute pelvic pain status post trauma COMPARISON: CT abdomen and pelvis 01/10/2022, right hip radiographs 09/07/2020, pelvis radiograph 03/07. TECHNIQUE: AP view of the pelvis FINDINGS: Moderate fecal retention. Dural calcifications. Posterior interbody melida and screw fusion hardware red emonstrated at L4-L5. 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 N o articular collapse identified. There is an acute slightly impacted transcervical fracture of the le ft femur. Mild soft tissue swelling lateral to left hip. IMPRESSION: Acute mildly impacted nondisplaced transcervical fracture of the left femur. ACT 112: Negative or not required by law. The above report was generated using voice recognition software. It may contain grammatical, syntax o r spelling errors. Electronically signed by: Ted Aguilar M.D. 03/23/2022 11:37 AM
--- NOTE | 2022-03-23 11:50 | CT Scan Report ---
CT head/brain wo con CLINICAL HISTORY: 86 years-old Male with trauma. Acute head trauma status post fall TECHNIQUE: Multiple axial CT images of the head were obtained without contrast. A dose lowering tech nique was utilized adhering to the principles of ALARA. COMPARISON: CT cervical spine of same day, head CT 03/06/2022 FINDINGS: No acute intracranial hemorrhage, midline shift, intracranial mass, hydrocephalus, territorial ischem ia or abnormal extra-axial collection. Age-related involutional changes with ex vacuo ventriculomegal y. Cerebral vascular calcifications. White matter hypodensities suggest chronic microvascular ischemi c disease. No acute calvarial fracture. Left lateral frontal scalp contusion, 3 cm. Prior bilateral lens repair. The paranasal sinuses, mastoid air cells, and middle ear cavities are clear. IMPRESSION: 1. No acute intracranial abnormality or calvarial fracture. 2. Small left frontal scalp contusion. ACT 112: Negative or not required by law. The above report was generated using voice recognition software. It may contain grammatical, syntax o r spelling errors. Electronically signed by: Ted Aguilar M.D. 03/23/2022 11:49 AM
--- NOTE | 2022-03-23 11:56 | Emergency Department Note ---
History of Present Illness General Chief complaint: Fall Stated complaint: HALLUCINATING ALL DAY, FALL Time Seen by Provider: 03/23/22 10:24 Source: family Mode of arrival: EMS Limitations: altered mental status History of Present Illness Provider complaint: Fall, hallucinations and confusion Maximum Pain Intensity: 5 This is an 86-year-old male presents emergency department with family at bedside due to recurrent fall this morning as well as increased confusion and hallucinations. Family states he has had frequent falls and intermittent hallucinations and confusion over the last 2 weeks. They point to areas of resolving ecchymosis on his face, extremities, as well as noting recent rib fractures. It has been unclear what the source of his hallucinations have been. There was concern was perhaps related to the falls and underlying concussion versus his use of tramadol at home. Family states he uses tramadol very sparingly and they did not notice a distinct correlation. No other recent change in medications. No recent fevers, illness, or known infection. They do feel that he is no longer appropriate for independent living where they currently reside and will need fpc care. This morning when he was attempting to get on his scooter, he became off balance and fell off to the left striking the left side of his head. No loss of consciousness was noted. Patient does not take anticoagulation. Home Medications Medication Instructions Recorded Confirmed Type cholecalciferol (vitamin D3) 50 2,000 units PO HS 05/07/18 03/23/22 History mcg (2,000 unit) capsule multivitamin 1 tab PO HS 08/18/18 03/23/22 History atorvastatin 80 mg tablet 80 mg PO QAM 08/25/18 03/23/22 History lisinopril 2.5 mg tablet 2.5 mg PO HS 08/25/18 03/23/22 History omeprazole 20 mg capsule,delayed 20 mg PO QAM 08/25/18 03/23/22 History release vit C 250 mg-vit E 90 mg-zinc 40 1 tab PO BID 08/25/18 03/23/22 History mg-copper 1 wt-motumy-[id number] capsule (PreserVision AREDS-2) ferrous sulfate 325 mg (65 mg 325 mg PO HS 06/18/19 03/23/22 History iron) tablet (Iron (ferrous sulfate)) furosemide 80 mg tablet 80 mg PO QAM 01/07/20 03/23/22 History aspirin 81 mg chewable tablet 81 mg PO UD 05/05/20 03/23/22 History paroxetine HCl 10 mg tablet (Paxil) 10 mg PO HS 11/24/21 03/23/22 History potassium chloride 20 mEq 20 meq PO BID #180 tabs 11/24/21 03/23/22 Rx tablet,extended release acetaminophen 500 mg tablet 500 mg PO BID 12/25/21 03/23/22 History coQ10 (ubiquinol) 200 mg capsule 200 mg PO HS 12/25/21 03/23/22 History cyanocobalamin (vitamin B-12) 500 500 mcg PO HS 12/25/21 03/23/22 History mcg tablet spironolactone 25 mg tablet 25 mg PO QAM 12/25/21 03/23/22 History polyethylene glycol 3350 17 17 g PO DAILY PRN Constipation 01/12/22 03/23/22 History gram/dose oral powder (Miralax) metoprolol succinate 25 mg 12.5 mg PO QAM #30 tabs 01/19/22 03/23/22 Rx tablet,extended release 24 hr amiodarone 200 mg tablet 200 mg PO DAILY 02/23/22 03/23/22 History tramadol 50 mg tablet 50 mg PO QID PRN Pain 03/23/22 03/23/22 History Allergies Allergy/AdvReac Type Severity Reaction Status Date / Time Penicillins Allergy Intermediate Rash & Verified 03/23/22 15:42 Swelling Past Med/Surg History Medical History Anemia Atrial flutter PAROXYSMAL CAD (coronary artery disease) S/P CABG X3 (2004), OM STENTS X3 (?2004) Cancer PROSTATE CANCER- RADIATION TREATMENTS Congestive heart failure EUVOLEMIC PER 08/12/18 CARDIO OFFICE VISIT GERD (gastroesophageal reflux disease) H/O flexible sigmoidoscopy RADIATION FOR PROSTATE CANCER CAUSING PROCTITIS (REASON FOR MULTIPLE FLEX SIGMOIDOSCOPY) Hearing deficit BILATERAL HEARING AIDS History of cardioversion 04/24/19 (went into a regular rhythm) and 08/2018 History of valvular heart disease Mild AR/SD, Moderate MR/TR per 07/2018 ECHO Hyperlipidemia Hypertension 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 [facility] ([place]) Ischemic cardiomyopathy Macular degeneration Osteoarthritis Pacemaker IMPLANTED 08/2019 FOR V-[address]ACH [address] [facility] ([place]) Past myocardial infarction X2 (2004), X1 (2006) Proctitis Rectal bleeding Temporal arteritis 04/2018 Surgical History Fusion of spine L4-L5 H/O hemorrhoidectomy History of biopsy of temporal artery History of cardiac cath OM STENTS X3 (?2004) History of cataract surgery RT/LEFT History of colonoscopy History of coronary artery bypass graft CABG X3 (2004) History of inguinal hernia repair History of laminectomy LUMBAR History of tonsillectomy S/P epidural steroid injection S/P repair of hydrocele Family History Mother , age 91 Myocardial infarction Father , age 81 Myocardial infarction Brother , age 46 Myocardial infarction Son History of heart attack times 2 High cholesterol Daughter High cholesterol Daughter High cholesterol Social History Smoking Status: Never smoker Hx Alcohol Use: No Hx Substance Use: No Preferred Language: Ivorian Communication Ability: Effective Visual Impairment: No Limitations Hearing Ability: Normal Life Sciences Director Required: No Beliefs That Will Affect Care: None marital status: Current Living Situation: Spouse Current Living Situation Comment: [facility] current occupational 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 Unobtainable due to cognitive status Physical Exam Vital Signs Vital Signs - 24 hr 03/23/22 10:02 03/23/22 11:00 03/23/22 11:00 Temperature 36.6 C Temperature Source Skin Pulse Rate 79 62 Pulse Rate from SpO2 Sensor 61 Respiratory Rate 20 23 Respiratory Effort / Characteristics Non-Labored Spontaneous Respiratory Depth Normal Blood Pressure 98/64 L 95/64 L Blood Pressure Mean 75 74 Pulse Oximetry 97 93 Oxygen Delivery Method Room Air Sepsis Recent Fever Within 48 Hours No Sepsis New/Unexplained Change in Mental Status N/A Sepsis Action Taken by Nursing No Action Required 03/23/22 11:47 03/23/22 11:47 03/23/22 12:31 Temperature Temperature Source Pulse Rate 67 Pulse Rate from SpO2 Sensor 68 Respiratory Rate 20 Respiratory Effort / Characteristics Respiratory Depth Blood Pressure 143/88 H 108/68 Blood Pressure Mean 106 81 Pulse Oximetry 96 94 Oxygen Delivery Method Sepsis Recent Fever Within 48 Hours Sepsis New/Unexplained Change in Mental Status Sepsis Action Taken by Nursing 03/23/22 12:31 03/23/22 13:00 03/23/22 13:00 Temperature Temperature Source Pulse Rate 67 70 Pulse Rate from SpO2 Sensor Respiratory Rate 18 18 Respiratory Effort / Characteristics Respiratory Depth Blood Pressure 110/72 Blood Pressure Mean 84 Pulse Oximetry Oxygen Delivery Method Sepsis Recent Fever Within 48 Hours Sepsis New/Unexplained Change in Mental Status Sepsis Action Taken by Nursing 03/23/22 13:31 03/23/22 13:31 03/23/22 14:00 Temperature Temperature Source Pulse Rate 63 Pulse Rate from SpO2 Sensor 62 Respiratory Rate 19 Respiratory Effort / Characteristics Respiratory Depth Blood Pressure 107/65 101/75 Blood Pressure Mean 79 83 Pulse Oximetry 93 Oxygen Delivery Method Sepsis Recent Fever Within 48 Hours Sepsis New/Unexplained Change in Mental Status Sepsis Action Taken by Nursing 03/23/22 14:00 03/23/22 14:30 03/23/22 14:30 Temperature Temperature Source Pulse Rate 87 69 Pulse Rate from SpO2 Sensor 70 Respiratory Rate 18 20 Respiratory Effort / Characteristics Respiratory Depth Blood Pressure 99/76 L Blood Pressure Mean 83 Pulse Oximetry 92 Oxygen Delivery Method Sepsis Recent Fever Within 48 Hours Sepsis New/Unexplained Change in Mental Status Sepsis Action Taken by Nursing 03/23/22 15:01 03/23/22 15:01 03/23/22 15:32 Temperature Temperature Source Pulse Rate 78 80 Pulse Rate from SpO2 Sensor 80 81 Respiratory Rate 22 24 Respiratory Effort / Characteristics Respiratory Depth Blood Pressure 112/87 Blood Pressure Mean 95 Pulse Oximetry 95 96 Oxygen Delivery Method Sepsis Recent Fever Within 48 Hours Sepsis New/Unexplained Change in Mental Status Sepsis Action Taken by Nursing 03/23/22 15:32 Temperature Temperature Source Pulse Rate Pulse Rate from SpO2 Sensor Respiratory Rate Respiratory Effort / Characteristics Respiratory Depth Blood Pressure 112/76 Blood Pressure Mean 88 Pulse Oximetry Oxygen Delivery Method Sepsis Recent Fever Within 48 Hours Sepsis New/Unexplained Change in Mental Status Sepsis Action Taken by Nursing GENERAL: alert, well appearing, well nourished, no distress, non-toxic HEAD: normal cephalic, area of healing laceration resolving ecchymosis noted to right religious, right periorbital and right midface region, no acute krishna signs, no raccoon eyes, no facial bone tenderness, no midface instability, acute appearing contusion noted to the left frontotemporal region EYE EXAM: normal conjunctiva, PERRL and EOM's grossly intact, no subconjunctival hemorrhage, no hyphema OROPHARYNX: no exudate, no erythema, lips, buccal mucosa, and tongue normal and mucous membranes are moist NECK: supple, no nuchal rigidity, no adenopathy, non-tender CHEST: stable to compression anteriorly and posteriorly, no crepitus, no overlying ecchymosis or step-off LUNGS: clear to auscultation. Normal chest wall mechanics, no w/r/r HEART: no murmurs, S1 normal and S2 normal ABDOMEN: abdomen soft, non-tender, normo-active bowel sounds, no masses, no rebound or guarding. PELVIS: stable to compression anteriorly and posteriorly, nontender with palpation BACK: Back is symmetrical on inspection and there is no deformity, no midline tenderness, no CVA tenderness. UPPER EXTREMITIES: No pain with palpation bilaterally, no joint effusions, no obvious deformities, scattered ecchymosis noted to bilateral forearms LOWER EXTREMITIES: No pain with bony palpation bilaterally, no joint effusions, no obvious deformities NEURO EXAM: Confusion, cranial nerves II-XII grossly intact, normal speech, no facial droop, patient unable to cooperate for additional neuro testing Course Administered Medications Acetaminophen (Acetaminophen 325 Mg Tab) 325 mg PO Q4H PRN PRN Reason: Pain (1,2,3)Or Fever Stop: 04/22/22 17:44 Last Admin: 03/25/22 04:48 Dose: 325 mg Documented By: Admin: 03/24/22 19:26 Dose: 325 mg Documented By: Admin: 03/24/22 13:45 Dose: 325 mg Documented By: Admin: 03/24/22 08:09 Dose: 325 mg Documented By: Admin: 03/24/22 01:34 Dose: 325 mg Documented By: Admin: 03/23/22 18:19 Dose: 325 mg Documented By: [id number] Amiodarone HCl (Amiodarone 200 Mg Tab) 200 mg PO DAILY NBA Stop: 04/23/22 08:59 Last Admin: 03/24/22 08:08 Dose: 200 mg Documented By: JOVITA Cyanocobalamin (Cyanocobalamin (B-12) 500 Mcg Tablet) 500 mcg PO HS NBA Stop: 12/04/22 20:59 Last Admin: 03/24/22 19:26 Dose: 500 mcg Documented By: Admin: 03/23/22 20:52 Dose: 500 mcg Documented By: PAUL Fentanyl Citrate (Fentanyl Citrate 100 Mcg/2 Ml Vial) 50 mcg IV Q5M PRN PRN Reason: PACU Use Only-Pain Stop: 03/25/22 15:49 Last Admin: 03/25/22 10:18 Dose: 50 mcg Documented By: BRENDA Cefazolin Sodium (Ancef 2000mg) 2,000 mg in 15 mls @ 3.75 mls/min IV PREOP NBA; Protocol Stop: 03/25/22 18:00 Last Admin: 03/25/22 08:30 Dose: 3.75 mls/min Documented By: RODRIGUEZ Sodium Chloride (Nss 1000ml) 1,000 mls @ 80 mls/hr IV .[id number] REPLACED BY [facility] Stop: 03/26/22 12:13 Last Admin: 03/25/22 14:13 Dose: 80 mls/hr Documented By: ISIAH Metoprolol Succinate (Metoprolol Succ 25mg Ext Rel Tab) [facility] [place]: 04/23/22 08:59 Last Admin: 03/24/22 08:08 Dose: 12.5 mg Documented By: JOVITA Morphine Sulfate (Morphine Sulfate 2 Mg/Ml Carp) 1 mg IV Q6H PRN PRN Reason: Pain (4,5,6+) Stop: 04/06/22 17:44 Last Admin: 03/24/22 05:30 Dose: 1 mg Documented By: Admin: 03/23/22 20:58 Dose: 1 mg Documented By: PAUL Multivitamins/Minerals (Cerovite Adv Formula Tab) 1 tab PO BID REPLACED BY [facility] Stop: 04/22/22 20:59 Last Admin: 03/24/22 19:25 Dose: 1 tab Documented By: Admin: 03/24/22 08:08 Dose: 1 tab Documented By: Admin: 03/23/22 20:52 Dose: 1 tab Documented By: PAUL Pantoprazole Sodium (Pantoprazole 40 Mg Tab) 40 mg PO QAM REPLACED BY [facility] Stop: 04/23/22 08:59 Last Admin: 03/24/22 08:08 Dose: 40 mg Documented By: JOVITA Paroxetine HCl (Paroxetine Hcl 10 Mg Tab) 10 mg PO HS NBA Stop: 04/22/22 20:59 Last Admin: 03/24/22 19:26 Dose: 10 mg Documented By: Admin: 03/23/22 20:52 Dose: 10 mg Documented By: PAUL Potassium Chloride (Potassium Chloride Crtab 20 Meq Tabcr) 20 meq PO BID NBA Stop: 04/22/22 20:59 Last Admin: 03/25/22 14:36 Dose: Not Given Documented By: Admin: 03/24/22 19:25 Dose: 20 meq Documented By: Admin: 03/24/22 08:08 Dose: 20 meq Documented By: Admin: 03/23/22 20:51 Dose: 20 meq Documented By: PAUL Vitamin D (Cholecalciferol 1,000 Units 25 Mcg Tab) 2,000 units PO [facility] Stop: 04/22/22 20:59 Last Admin: 03/24/22 19:26 Dose: 2,000 units Documented By: Admin: 03/23/22 20:52 Dose: 2,000 units Documented By: PAUL Discontinued Medications Bupivacaine HCl (Bupivacaine 0.5 % 5 Mg/1 Ml Mpf 30ml Vial) Confirm Administered Dose 30 ml .ROUTE .STK-MED ONE Stop: 03/25/22 08:08 Last Admin: 03/25/22 09:38 Dose: 30 ml Documented By: TIMOTEO Epinephrine HCl (Epinephrine Inj 1 Mg/Ml Amp) Confirm Administered Dose 1 mg .ROUTE .STK-MED ONE Stop: 03/25/22 08:08 Last Admin: 03/25/22 08:30 Dose: 0.15 mg Documented By: TIMOTEO Fentanyl Citrate (Fentanyl Citrate 100 Mcg/2 Ml Vial) Confirm Administered Dose 100 mcg .ROUTE .STK-MED ONE Stop: 03/25/22 10:18 Last Admin: 03/25/22 11:24 Dose: Not Given Documented By: ISIAH Sodium Chloride (Nss) 500 mls @ 80 mls/hr IV .Q6H15M NBA Stop: 03/23/22 23:29 Last Infusion: 03/24/22 00:10 Dose: 0 mls/hr Documented By: Admin: 03/23/22 17:55 Dose: 80 mls/hr Documented By: [id number] Infusion: 03/23/22 17:32 Dose: 0 mls/hr Documented By: [id number] Admin: 03/23/22 12:00 Dose: 80 mls/hr Documented By: WILY Ioversol (Optiray 350 100ml) 94 ml IV ONCE ONE Stop: 03/23/22 13:18 Last Admin: 03/23/22 13:18 Dose: 94 ml Documented By: PREETI Medical Decision Making Differential Diagnosis Differential diagnoses include major intracranial, cervical, spinal, thoracic, abdominal, pelvic and neurologic injury. Fracture, contusion, sprain, strain, laceration, abrasions included as well. Medical Records Attestation: I reviewed the patient's medical records. Home Medications Current Medication List: was personally reviewed by me Laboratory Data Attestation: I reviewed the patient's lab results. Result diagrams: 03/25/22 05:04 03/25/22 05:04 Lab Results 03/23/22 03/23/22 03/23/22 Range/Units 10:15 10:15 10:15 WBC 7.78 (4.8-10.8) K/ul RBC 4.30 L (4.63-6.08) M/uL Hgb 14.9 (14.0-18.0) g/dl Hct 44.3 (40.1-51.0) % MCV 103.0 H (80.0-100.0) fL MCH 34.7 H (25.0-34.0) pg MCHC 33.6 (32.0-36.0) g/dL RDW Std Deviation 65.0 H (36.4-46.3) fL RDW Coeff of Trevor 17.1 H (11.5-14.5) % Plt Count 205 (130-400) K/uL MPV 8.7 L (9.4-12.4) fL Immature Gran % (Auto) 0.6 % Neut % (Auto) 77.4 % Lymph % (Auto) 5.4 % Frederick % (Auto) 15.7 % Eos % (Auto) 0.4 % Baso % (Auto) 0.5 % Neut # (Auto) 6.02 (1.4-6.5) K/uL Lymph # (Auto) 0.42 L (1.2-3.4) K/uL Frederick # (Auto) 1.22 H (0.24-0.82) K/uL Eos # (Auto) 0.03 (0-0.50) K/uL Baso # (Auto) 0.04 (0-0.2) K/uL Immature Gran # (Auto) 0.05 H (0.00-0.02) K/uL PT 10.9 (9.0-12.0) Seconds INR 1.0 (0.9-1.1) Sodium 135 L (136-145) mmol/L Potassium 4.5 (3.5-5.1) mmol/L Chloride 99 (98-107) mmol/L Carbon Dioxide 30 (21-32) mmol/L Anion Gap 6 (3-11) BUN 38 H (6-23) mg/dl Creatinine 1.20 (0.6-1.4) mg/dl Est Cr Clr Drug Dosing 39.9 ml/min Est GFR ( Amer) 63.1 ml/min Est GFR (Non-Af Amer) 54.4 ml/min BUN/Creatinine Ratio 31.7 H (10-20) Glucose 109 H (70-99(Fasting)) mg/dl Calcium 10.8 H (8.5-10.1) mg/dl Magnesium 2.4 (1.7-2.4) mg/dl Total Bilirubin 1.0 (0.2-1.0) mg/dl AST 43 H (13-39) U/L ALT 56 H (7-52) U/L Alkaline Phosphatase 153 H (34-104) U/L Troponin I High Sens 23.6 H (0-20) pg/ml Total Protein 7.3 (6.0-8.3) gm/dl Albumin 4.0 (3.4-5.0) gm/dl Globulin 3.3 (2.5-4.0) gm/dl Albumin/Globulin Ratio 1.2 (0.9-2) Lipase 27 (11-82) U/L TSH (0.300-4.500) uIu/ml Urine Color Urine Appearance (Clear) Urine pH (4.5-7.5) Ur Specific [place] (1.000-1.030) Urine Protein (Negative) Urine Glucose (UA) (Negative) Urine Ketones (Negative) Urine Blood (Negative) Urine Nitrite (Negative) Urine Bilirubin (Negative) Urine Urobilinogen (Negative) Ur Leukocyte Esterase (Negative) SARS-CoV-2, RNA, NAAT (NEGATIVE) 03/23/22 03/23/22 03/23/22 Range/Units 10:15 11:50 15:17 WBC (4.8-10.8) K/ul RBC (4.63-6.08) M/uL Hgb (14.0-18.0) g/dl Hct (40.1-51.0) % MCV (80.0-100.0) fL MCH (25.0-34.0) pg MCHC (32.0-36.0) g/dL RDW Std Deviation (36.4-46.3) fL RDW Coeff of Trevor (11.5-14.5) % Plt Count (130-400) K/uL MPV (9.4-12.4) fL Immature Gran % (Auto) % Neut % (Auto) % Lymph % (Auto) % Frederick % (Auto) % Eos % (Auto) % Baso % (Auto) % Neut # (Auto) (1.4-6.5) K/uL Lymph # (Auto) (1.2-3.4) K/uL Frederick # (Auto) (0.24-0.82) K/uL Eos # (Auto) (0-0.50) K/uL Baso # (Auto) (0-0.2) K/uL Immature Gran # (Auto) (0.00-0.02) K/uL PT (9.0-12.0) Seconds INR (0.9-1.1) Sodium (136-145) mmol/L Potassium (3.5-5.1) mmol/L Chloride (98-107) mmol/L Carbon Dioxide (21-32) mmol/L Anion Gap (3-11) BUN (6-23) mg/dl Creatinine (0.6-1.4) mg/dl Est Cr Clr Drug Dosing ml/min Est GFR ( Amer) ml/min Est GFR (Non-Af Amer) ml/min BUN/Creatinine Ratio (10-20) Glucose (70-99(Fasting)) mg/dl Calcium (8.5-10.1) mg/dl Magnesium (1.7-2.4) mg/dl Total Bilirubin (0.2-1.0) mg/dl AST (13-39) U/L ALT (7-52) U/L Alkaline Phosphatase (34-104) U/L Troponin I High Sens (0-20) pg/ml Total Protein (6.0-8.3) gm/dl Albumin (3.4-5.0) gm/dl Globulin (2.5-4.0) gm/dl Albumin/Globulin Ratio (0.9-2) Lipase (11-82) U/L TSH 2.314 (0.300-4.500) uIu/ml Urine Color Yellow Urine Appearance Clear (Clear) Urine pH 6.5 (4.5-7.5) Ur Specific [place] 1.013 (1.000-1.030) Urine Protein Negative (Negative) Urine Glucose (UA) Negative (Negative) Urine Ketones Negative (Negative) Urine Blood Negative (Negative) Urine Nitrite Negative (Negative) Urine Bilirubin Negative (Negative) Urine Urobilinogen Negative (Negative) Ur Leukocyte Esterase Negative (Negative) SARS-CoV-2, RNA, NAAT NEGATIVE (NEGATIVE) Imaging Data Radiologist's Impression: Cervical Spine CT 03/23/22 10:58 CT cervical spine wo con CT DOSE: 957.91 mGy.cm CLINICAL HISTORY: 86 years-old Male with trauma. Acute neck pain status post fall COMPARISON: Head CT of same day spine 03/06/2022, chest and rib radiographs 03/19/2022. TECHNIQUE: Multiple axial CT images of the cervical spine were obtained without contrast. A dose lowering technique was utilized adhering to the principles of ALARA. FINDINGS: Advanced multilevel degenerative changes are redemonstrated along with multilevel degenerative partial bony fusion. Grade 1 anterolisthesis C7 on T1 and T1 on T2, likely secondary to chronic facet disease. Nuchal ligament calcifications. Demineralized appearance of the bones. C1-C2 alignment is anatomic. No acute cervical spine fracture or subluxation is identified. There is an acute comminuted and only minimally displaced fracture of the right first rib. Subacute appearing nondisplaced fracture of the posterior right third rib and medial right second rib. Acute to subacute appearing nondisplaced fracture of the right T2 transverse process.The cervical soft tissues appear unremarkable. The visualized lung apices appear clear. IMPRESSION: 1. No acute cervical spine fracture or subluxation identified. 2. Acute comminuted and minimally displaced right first rib fracture with subacute appearing nondisplaced fractures of the right second and third ribs. No pneumothorax identified. 3. Acute to subacute appearing nondisplaced fracture of the right T2 transverse process. ACT 112: Negative or not required by law. The above report was generated using voice recognition software. It may contain grammatical, syntax or spelling errors. Electronically signed by: Ted Aguilar M.D. 03/23/2022 12:04 PM Chest X-Ray 03/23/22 10:58 XR chest 1V portable HISTORY: trauma COMPARISON: Chest and right rib series 03/19/2022. FINDINGS: The acute right-sided rib fractures are again noted. There are low lung volumes. No pneumothorax. No pleural effusions. There is a left-sided pace maker/defibrillator and poststernotomy changes. The heart remains mildly enlarged. No new focal lung consolidations to suggest a pneumonia. No evidence for pulmonary edema. There are few old, healed left-sided rib fractures. IMPRESSION: The patient's known acute right-sided rib fractures are better appreciated on the recent right rib series. No pneumothorax. ACT 112: Negative or not required by law. Electronically signed by: Nael De Paz M.D. 03/23/2022 12:[address] 03/23/22 10:58 CT head/brain wo con CLINICAL HISTORY: 86 years-old Male with trauma. Acute head trauma status post fall TECHNIQUE: Multiple axial CT images of the head were obtained without contrast. A dose lowering technique was utilized adhering to the principles of ALARA. COMPARISON: CT cervical spine of same day, head CT 03/06/2022 FINDINGS: No acute intracranial hemorrhage, midline shift, intracranial mass, hydrocephalus, territorial ischemia or abnormal extra-axial collection. Age- related involutional changes with ex vacuo ventriculomegaly. Cerebral vascular calcifications. White matter hypodensities suggest chronic microvascular ischemic disease. No acute calvarial fracture. Left lateral frontal scalp contusion, 3 cm. Prior bilateral lens repair. The paranasal sinuses, mastoid air cells, and middle ear cavities are clear. IMPRESSION: 1. No acute intracranial abnormality or calvarial fracture. 2. Small left frontal scalp contusion. ACT 112: Negative or not required by law. The above report was generated using voice recognition software. It may contain grammatical, syntax or spelling errors. Electronically signed by: Ted Aguilar M.D. 03/23/2022 11:49 AM Pelvis X-Ray 03/23/22 10:58 XR pelvis 1-2V routine HISTORY: 86 years-old Male trauma acute pelvic pain status post trauma COMPARISON: CT abdomen and pelvis 01/10/2022, right hip radiographs 09/07/2020, pelvis radiograph 03/07/2016. TECHNIQUE: AP view of the pelvis FINDINGS: Moderate fecal retention. Dural calcifications. Posterior interbody melida and screw fusion hardware redemonstrated at L4-L5. 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 No articular collapse identified. There is an acute slightly impacted transcervical fracture of the left femur. Mild soft tissue swelling lateral to left hip. IMPRESSION: Acute mildly impacted nondisplaced transcervical fracture of the left femur. ACT 112: Negative or not required by law. The above report was generated using voice recognition software. It may contain grammatical, syntax or spelling errors. Electronically signed by: Ted Aguilar M.D. 03/23/2022 11:[address] 03/23/22 12:48 CT OF THE CHEST WITH IV CONTRAST CLINICAL HISTORY: first rib fx, trauma, many recent falls COMPARISON STUDY: Chest radiograph March 19, 2022 and March 23, 2022. TECHNIQUE: Following IV administration of 94 mL of Optiray, helical axial images of the chest were obtained. Sagittal and coronal reconstructions were viewed as well as maximal intensity projections on an independent 3-D workstation. Automated exposure control was utilized for the study. A dose lowering technique was utilized adhering to the principles of ALARA. CT DOSE: 311.60 mGy.cm FINDINGS: Left subclavian pacer/AICD and median sternotomy wires are noted. Cardiomegaly is noted. There is no evidence for traumatic injury to the thoracic aorta. There is no pericardial effusion. No pneumothorax or pleural effusion is present. Subpleural opacities reflect atelectasis. There is an acute to subacute nondisplaced fracture of the posterolateral right first rib. There are subacute healing fractures of the posterior right second through ninth ribs. There are subacute healing fractures of the anterolateral right fifth through eighth ribs. A few of these fractures are mildly displaced. Old left-sided rib fractures are present. No acute left-sided rib fractures are present. A moderate compression deformity of the superior endplate of T8 is unchanged since radiographs of March 19, 2022. This is likely subacute. There is an old T12 compression deformity. Nondisplaced fractures of the right transverse processes of T1 and T2 acute to subacute. IMPRESSION: 1. No evidence for traumatic injury to the thoracic aorta. No pneumothorax. 2. Acute to subacute fractures of the right first rib, the posterior right second through ninth ribs and anterolateral right fifth through eighth ribs. 3. Moderate T8 compression fracture likely subacute. Old T12 compression fracture. Nondisplaced fracture of the right transverse process of T1 and T2 which are acute to subacute. ACT 112: Negative or not required by law. Electronically signed by: Ja Yeh M.D. 03/23/2022 1:49 PM ECG Data Attestation: I personally reviewed and interpreted this ECG as follows: Indication: + other Rate (beats per minute): 60 Rhythm: + other ECG Intervals/blocks: + Right Bundle branch block and + Normal QT ECG Doole: + Normal ECG ST segments: + Nonspecific ST abnormalities Additional Comments: paced MDM Narrative An order was placed for continuous cardiac monitoring. The monitor shows a rate of _62_ with _paced_ rhythm. This is an 86 yo male brought in due to concern for confusion, hallucinations, and multiple falls over the last two weeks. Obvious areas of recent head trauma and family reports outpt xrays confirmed rib fractures also. Patient fell off his scooter to the left today striking the left side of his head. Labs sent, pt placed on tele, and CT and xrays performed. Patient sent for additional imaging after rib fractures noted superiorly. All results discussed with family at bedside. 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 Unclear etiology of confusion and hallucations at this time. VS stable, no hypoxia, no increased WOB. Patient had no obvious pain with palpation during exam. Impression & Plan AMS (altered mental status), Hallucinations, Closed fracture of left hip, CHI (closed head injury), Contusion of scalp, Multiple fractures of ribs, Fracture of transverse process of thoracic vertebra Discharge Plan Visit Data Chief Complaint: Fall Stated Complaint: HALLUCINATING ALL DAY, FALL ED Provider: Kalpana Saldaña Discharge Problem: AMS (altered mental status), Hallucinations, Closed fracture of left hip, CHI (closed head injury), Contusion of scalp, Multiple fractures of ribs, Fracture of transverse process of thoracic vertebra Patient Disposition: Admitted As Inpatient Discharge Instructions Interventions: ED Discharge Assessment Last Done: 03/23/22 17:00
[2022-03-23] MEDS: SODIUM CHLORIDE 0.9% 500 ML IV SCH ×2 (12:00→17:55)
--- NOTE | 2022-03-23 12:03 | XRay Report ---
XR chest 1V portable HISTORY: trauma COMPARISON: Chest and right rib series 03/19/2022. FINDINGS: The acute right-sided rib fractures are again noted. There are low lung volumes. No pneumot horax. No pleural effusions. There is a left-sided pacemaker/defibrillator and poststernotomy changes . The heart remains mildly enlarged. No new focal lung consolidations to suggest a pneumonia. No evid ence for pulmonary edema. There are few old, healed left-sided rib fractures. IMPRESSION: The patient's known acute right-sided rib fractures are better appreciated on the recent right rib se yvonne. No pneumothorax. ACT 112: Negative or not required by law. Electronically signed by: Nael De Paz M.D. 03/23/2022 12:01 PM
--- NOTE | 2022-03-23 12:05 | CT Scan Report ---
CT cervical spine wo con CT DOSE: 957.91 mGy.cm CLINICAL HISTORY: 86 years-old Male with trauma. Acute neck pain status post fall COMPARISON: Head CT of same day spine 03/06/2022, chest and rib radiographs 03/19/2022. TECHNIQUE: Multiple axial CT images of the cervical spine were obtained without contrast. A dose low ering technique was utilized adhering to the principles of ALARA. FINDINGS: Advanced multilevel degenerative changes are redemonstrated along with multilevel degenerat hollie partial bony fusion. Grade 1 anterolisthesis C7 on T1 and T1 on T2, likely secondary to chronic f acet disease. Nuchal ligament calcifications. Demineralized appearance of the bones. C1-C2 alignment is anatomic. No acute cervical spine fracture or subluxation is identified. There is an acute comminuted and only minimally displaced fracture of the right first rib. Subacute appearing nondisplaced fracture of the posterior right third rib and medial right second rib. Acute to subacute appearing nondisplaced fract ure of the right T2 transverse process.The cervical soft tissues appear unremarkable. The visualized lung apices appear clear. IMPRESSION: 1. No acute cervical spine fracture or subluxation identified. 2. Acute comminuted and minimally displaced right first rib fracture with subacute appearing nondispl aced fractures of the right second and third ribs. No pneumothorax identified. 3. Acute to subacute appearing nondisplaced fracture of the right T2 transverse process. ACT 112: Negative or not required by law. The above report was generated using voice recognition software. It may contain grammatical, syntax o r spelling errors. Electronically signed by: Ted Aguilar M.D. 03/23/2022 12:04 PM
[2022-03-23 12:24] LABS: Appearance Urine Clear (Clear); Bilirubin Urine Negative (Negative); Blood Urine Negative (Negative); Color Urine Yellow; Glucose Urine UA Negative (Negative); Ketones Urine Negative (Negative); Leukocyte Esterase Urine Negative (Negative); Nitrite Urine Negative (Negative); Protein Urine Negative (Negative); Specific Gravity Urine 1.013 (1.000-1.030); Urobilinogen Urine Negative (Negative); pH Urine 6.5 (4.5-7.5)
[2022-03-23] MEDS ORDERED: OPTIRAY 350 100ml IV ONE (13:17)
--- NOTE | 2022-03-23 13:50 | CT Scan Report ---
CT OF THE CHEST WITH IV CONTRAST CLINICAL HISTORY: first rib fx, trauma, many recent falls COMPARISON STUDY: Chest radiograph March 19, 2022 and March 23, 2022. TECHNIQUE: Following IV administration of 94 mL of Optiray, helical axial images of the chest were o btained. Sagittal and coronal reconstructions were viewed as well as maximal intensity projections o n an independent 3-D workstation. Automated exposure control was utilized for the study. A dose low ering technique was utilized adhering to the principles of ALARA. CT DOSE: 311.60 mGy.cm FINDINGS: Left subclavian pacer/AICD and median sternotomy wires are noted. Cardiomegaly is noted. T here is no evidence for traumatic injury to the thoracic aorta. There is no pericardial effusion. No pneumothorax or pleural effusion is present. Subpleural opacities reflect atelectasis. There is an ac [place] to subacute nondisplaced fracture of the posterolateral right first rib. There are subacute heali ng fractures of the posterior right second through ninth ribs. There are subacute healing fractures o f the anterolateral right fifth through eighth ribs. A few of these fractures are mildly displaced. O ld left-sided rib fractures are present. No acute left-sided rib fractures are present. A moderate co mpression deformity of the superior endplate of T8 is unchanged since radiographs of March 19, 2022 . This is likely subacute. There is an old T12 compression deformity. Nondisplaced fractures of the r ight transverse processes of T1 and T2 acute to subacute. IMPRESSION: 1. No evidence for traumatic injury to the thoracic aorta. No pneumothorax. 2. Acute to subacute fractures of the right first rib, the posterior right second through ninth ribs and anterolateral right fifth through eighth ribs. 3. Moderate T8 compression fracture likely subacute. Old T12 compression fracture. Nondisplaced fract ure of the right transverse process of T1 and T2 which are acute to subacute. ACT 112: Negative or not required by law. Electronically signed by: Ja Yeh M.D. 03/23/2022 1:49 PM
--- NOTE | 2022-03-23 15:00 | History & Physical Report ---
Date of Service March 23, 2022 Assessment & Plan (1) Fall: Plan: -Admit to med tele -Patient is currently afebrile, hemodynamically stable, and stable on RA -Had ER speak with Ortho prior to admission to ensure they were comfortable with all of his injuries, they will follow and address his injuries -Patient was found to have the following: >Acute comminuted and minimally displaced right first rib fracture with subacute appearing nondisplaced fractures of the right second and third ribs. >Acute to subacute appearing nondisplaced fracture of the right T2 transverse process. >Acute to subacute fractures of the right first rib, the posterior right second through ninth ribs and anterolateral right fifth through eighth ribs. >Moderate T8 compression fracture likely subacute. >Old T12 compression fracture. >Nondisplaced fracture of the right transverse process of T1 and T2 which are acute to subacute. >Acute mildly impacted nondisplaced transcervical fracture of the left femur -Only on aspirin, no other anticoagulants -Pain control will be difficult with his elevated liver enzymes and currently AMS. Will start with Tylenol 325 mg PO q4h prn pain (1,2,3) and fever (max 2000 mg in 24 hours), and morphine 1 mg IV q4h prn for pain (4,5,6) -Fall precautions ordered -Patient will need to be medically cleared prior to orthopedic procedures (2) Hallucinations: Plan: -Does not appear to have an infectious process at this time as he has been afebrile, no leukocytosis, and no signs of infections -Spoke to family regarding previous alcohol use, was never a heavy drinker -CT of the head was negative for acute findings -CBC is showing elevated MCV at 103, will check B12, folic acid, and thiamine levels -AST elevated at 43, ALT elevated at 56, Alk Phos elevated at 153, will obtain hepatitis, tick borne panel, and ammonia level -No other metabolic abnormalities noted on initial CMP -TSH WNL -UA is clean, covid negative -Will need to double check if he could get an MRI with his ICD, his though it was not MRI compatible (3) Congestive heart failure: Plan: -Examines volume depleted, will continue IV fluids for now with a max of 2 bags of NSS -For now will hold Lasix and spironolactone to prevent hypotension as BP has been soft (4) CAD (coronary artery disease): Plan: -Continue Aspirin (5) Atrial flutter: Plan: -HR currently controlled -Only on aspirin, no other anticoagulants -Continue amiodarone and metoprolol (6) Hypertension: Plan: -Continue metoprolol -Will hold lisinopril, lasix and spironolactone for now as his BP is currently soft (7) Hyperlipidemia: Plan: -Continue statin (8) GERD (gastroesophageal reflux disease): Plan: -Continue carafate and omeprazole (9) Anemia: Plan: -Hgb stable, MCV elevated, will get B12, folate, and thiamine levels -Continue ferrous sulfate and B12, will also give folic acid and thiamine after labs are collected (10) Anxiety and depression: Plan: -Continue Paroxetine Plan The patient was discussed with Dr. 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 In the ED the patient was found to be afebrile, hemodynamically stable, and stable on RA. Labs were remarkable for WBC WNL, stable Hgb at 14.9, MCV at 103, stable renal function, calcium at 10.8, glucose at 109, AST of 43, ALT at 56, Alk Phos at 153, high sensitivity troponin at 23.6, TSH WNL, clean UA. The patient underwent extensive imaging in the ED. CT of the head was negative for acute intracranial abnormality but did show a small left frontal scalp contusion. CT of the cervical spine showed "No acute cervical spine fracture or subluxation identified. Acute comminuted and minimally displaced right first rib fracture with subacute appearing nondisplaced fractures of the right second and third ribs. No pneumothorax identified. Acute to subacute appearing nondisplaced fracture of the right T2 transverse process. Chest xray showed "The patient's known acute right-sided rib fractures are better appreciated on the recent right rib series. No pneumothorax". No evidence for traumatic injury to the thoracic aorta. No pneumothorax. Acute to subacute fractures of the right first rib, the posterior right second through ninth ribs and anterolateral right fifth through eighth ribs. Moderate T8 compression fracture likely subacute. Old T12 compression fracture. Nondisplaced fracture of the right transverse process of T1 and T2 which are acute to subacute. Finally, xray of the pelvis showed "Acute mildly impacted nondisplaced transcervical fracture of the left femur". Prior to admission the patient was started on light IV hydration. Per chart review, the patient was seen in the [facility] ED on 03/06/22 for a fall while trying to open up a wheelchair at [facility]. Per the note he was completely alert and oriented during his visit on the . Per the ED note, the patient underwent CT of the head, cervical spine, and facial bones were negative for acute fractures. Chest xray was also negative for acute fractures and pneumothorax. The patient did sustain a laceration over the right lateral superior orbit which was repaired in the ED. The patient also received a Tdap booster. He and his felt comfortable with discharge back home to [facility] at that time. At the time of the exam the patient was lying in bed in no acute distress with his sitting bedside. The history was obtained from the patient's as she is his primary caregiver and due to the patient's current mental status. She states that the patient has had a continued decline in overall health over the past year. He has had more than 10 falls over the past year, some have been mechanical but some have been thought to be caused by his diuretics and cardiac medications including lisinopril and amiodarone. He is followed by cardiology who adjusted his amiodarone to once daily, they decreased his metoprolol from 25 mg to 12.5 mg daily, and his lisinopril was decreased to 2.5 mg daily. Back in the summer the patient was placed in the [facility] assisted living section for closer monitoring and extra assistance, his said he did well there and had no falls. Since coming back to the independent section he has had multiple falls. Prior to today his last fall was on 03/06, his was at a swim class and their healthcare veterinary assistant technician was late getting to their home. The patient attempted to open up his wheelchair but fell to the ground, he tried to stand and fell again. He did hit his head during that fall as described above. His states that since Saturday the patient has not been acting himself. He has been confused, having visual hallucinations, and has been belligerent at times. His has been having having difficultly caring for him herself and spoke to [facility] staff today regarding going back to assisted living. Because of his recent hallucinations they requested he first be evaluated in the ED. While trying to get the patient into his wheelchair he had a mechanical fall, where he sustained his acute injuries. When asked, his denies recent medication changes, fever, chills. She states that the patient has not been complaining of chest pain, worsening sob or MAYER than baseline, abdominal pain, dysuria, hematuria, diarrhea, bloody BM's or melena. His states that after his ED visit on the he has been on tramadol 50 mg QID for pain. Since he started having behavioral changes his was cutting back on his tramadol and had stopped entirely as of yesterday. The patient did take one tramadol tab himself yesterday before she noticed. Otherwise, the patient has been on tylenol for pain. I spoke to the patient's regarding code status, at this time she would like the patient to be a full code. However, because his quality of life continues to decline she will be considering switching his code in the future if needed. When asked, the patient's only complaint at the time of my exam was his left hip/leg pain and needing to urinate. He tried multiple times to get out of bed to use the restroom and had to be re-directed by myself multiple times. PLse refer to Dr. Richter's attestation for any adjustments to the treatment plan Allergies Allergy/AdvReac Type Severity Reaction Status Date / Time Penicillins Allergy Intermediate Rash & Verified 03/23/22 15:42 Swelling Home Medications Medication Instructions Recorded Confirmed Type cholecalciferol (vitamin D3) 50 2,000 units PO HS 05/07/18 03/23/22 History mcg (2,000 unit) capsule multivitamin 1 tab PO HS 08/18/18 03/23/22 History atorvastatin 80 mg tablet 80 mg PO QAM 08/25/18 03/23/22 History omeprazole 20 mg capsule,delayed 20 mg PO QAM 08/25/18 03/23/22 History release vit C 250 mg-vit E 90 mg-zinc 40 1 tab PO BID 08/25/18 03/23/22 History mg-copper 1 [id number] capsule (PreserVision AREDS-2) ferrous sulfate 325 mg (65 mg 325 mg PO HS 06/18/19 03/23/22 History iron) tablet (Iron (ferrous sulfate)) paroxetine HCl 10 mg tablet (Paxil) 10 mg PO HS 11/24/21 03/23/22 History acetaminophen 500 mg tablet 500 mg PO BID 12/25/21 03/23/22 History coQ10 (ubiquinol) 200 mg capsule 200 mg PO HS 12/25/21 03/23/22 History cyanocobalamin (vitamin B-12) 500 500 mcg PO HS 12/25/21 03/23/22 History mcg tablet polyethylene glycol 3350 17 17 g PO DAILY PRN Constipation 01/12/22 03/23/22 History gram/dose oral powder (Miralax) metoprolol succinate 25 mg 12.5 mg PO QAM #30 tabs 01/19/22 03/23/22 Rx tablet,extended release 24 hr amiodarone 200 mg tablet 200 mg PO DAILY 02/23/22 03/23/22 History aspirin 81 mg tablet,delayed 81 mg PO BID #60 tabs 03/30/22 Rx release Past Med/Surg History Medical History Anemia Atrial flutter PAROXYSMAL CAD (coronary artery disease) S/P CABG X3 (2004), OM STENTS X3 (?2004) Cancer PROSTATE CANCER- RADIATION TREATMENTS Congestive heart failure EUVOLEMIC PER 08/12/18 CARDIO OFFICE VISIT GERD (gastroesophageal reflux disease) H/O flexible sigmoidoscopy RADIATION FOR PROSTATE CANCER CAUSING PROCTITIS (REASON FOR MULTIPLE FLEX SIGMOIDOSCOPY) Hearing deficit BILATERAL HEARING AIDS History of cardioversion 04/24/19 (went into a regular rhythm) and 08/2018 History of valvular heart disease Mild AR/TX, Moderate MR/TR per 07/2018 ECHO Hyperlipidemia Hypertension 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 FOR V-TACH AT [facility] ([facility]) Ischemic cardiomyopathy Macular degeneration Osteoarthritis Pacemaker IMPLANTED 08/2019 FOR V-TACH AT [facility] ([facility]) Past myocardial infarction X2 (2004), X1 (2006) Proctitis Rectal bleeding Temporal arteritis 04/2018 Surgical History Fusion of spine L4-L5 H/O hemorrhoidectomy History of biopsy of temporal artery History of cardiac cath OM STENTS X3 (?2004) History of cataract surgery RT/LEFT History of colonoscopy History of coronary artery bypass graft CABG X3 (2004) History of inguinal hernia repair History of laminectomy LUMBAR History of tonsillectomy S/P epidural steroid injection S/P repair of hydrocele Family History Mother , age 91 Myocardial infarction Father , age 81 Myocardial infarction Brother , age 46 Myocardial infarction Son History of heart attack times 2 High cholesterol Daughter High cholesterol Daughter High cholesterol Social History Smoking Status: Never smoker Hx Alcohol Use: No Hx Substance Use: No Preferred Language: Bengali Communication Ability: Effective Visual Impairment: No Limitations Hearing Ability: Normal Research Instructor Required: No Beliefs That Will Affect Care: None marital status: Current Living Situation: Spouse Current Living Situation Comment: [facility] current occupational status: 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 All systems have been reviewed and are otherwise negative. Physical Exam Physical Exam: Physical Exam: General: In no acute distress, stated age, chronically ill-appearing HEENT: Normocephalic, patient with multiple bruises in various states of healing on his face and head, has the previously repaired right supraorbital laceration that appears well healed, no scleral icterus, pupils around round, symmetrical, and reactive to light, moist mucus membranes, trachea midline, no thyromegaly Chest/Pulm: No respiratory distress, symmetrical chest expansion, clear breath sounds throughout Cardiac: RRR, no murmurs noted Abdomen: Negative for ascites and bruising, normoactive bowel sounds, soft, non-tender to palpation throughout Musculoskeletal: patient without tenderness or crepitus over the scalp, cervical spine, shoulder, clavicles, BL upper extremities, and RLE. Full ROM of the BL UEs without pain. LLE is currently shortened and externally rotated, patient with intact sensation and motor function of the right foot and toes. Extremities: Radial, dorsalis pedis, and posterior tibial pulses are intact and symmetrical, no edema noted in the BL LE's Skin: As described above Neuro: Alert and oriented to person, month, and president, thought he was at [facility] and the year was 1910, no focal defects, CN II-XII tested and intact, finger to nose test negative, no tremors noted Psych: No acute distress, calm and cooperative during the exam Results & Data Results & Data ([facility]) Vital Signs (Past 12 Hours) Vital Signs Temp Pulse Resp BP Pulse Ox O2 Del Method 03/23/22 14:30 69 20 92 03/23/22 14:30 99/76 L 03/23/22 14:00 87 18 03/23/22 14:00 101/75 03/23/22 13:31 107/65 03/23/22 13:31 63 19 93 03/23/22 13:00 70 18 03/23/22 13:00 110/72 03/23/22 12:31 67 18 03/23/22 12:31 108/68 94 03/23/22 11:47 67 20 96 03/23/22 11:47 143/88 H 03/23/22 11:00 62 23 93 03/23/22 11:00 95/64 L 03/23/22 10:02 36.6 C 79 20 98/64 L 97 Room Air Laboratory Results Abnormal lab results 03/23/22 03/23/22 Range/Units 10:15 10:15 RBC 4.30 L (4.63-6.08) M/uL MCV 103.0 H (80.0-100.0) fL MCH 34.7 H (25.0-34.0) pg RDW Std Deviation 65.0 H (36.4-46.3) fL RDW Coeff of Trevor 17.1 H (11.5-14.5) % MPV 8.7 L (9.4-12.4) fL Lymph # (Auto) 0.42 L (1.2-3.4) K/uL Garland # (Auto) 1.22 H (0.24-0.82) K/uL Immature Gran # (Auto) 0.05 H (0.00-0.02) K/uL Sodium 135 L (136-145) mmol/L BUN 38 H (6-23) mg/dl BUN/Creatinine Ratio 31.7 H (10-20) Glucose 109 H (70-99(Fasting)) mg/dl Calcium 10.8 H (8.5-10.1) mg/dl AST 43 H (13-39) U/L ALT 56 H (7-52) U/L Alkaline Phosphatase 153 H (34-104) U/L Troponin I High Sens 23.6 H (0-20) pg/ml Diagnostic Findings Cervical Spine CT 03/23/22 10:58 CT cervical spine wo con CT DOSE: 957.91 mGy.cm CLINICAL HISTORY: 86 years-old Male with trauma. Acute neck pain status post fall COMPARISON: Head CT of same day spine 03/06/2022, chest and rib radiographs 03/19/2022. TECHNIQUE: Multiple axial CT images of the cervical spine were obtained without contrast. A dose lowering technique was utilized adhering to the principles of ALARA. FINDINGS: Advanced multilevel degenerative changes are redemonstrated along with multilevel degenerative partial bony fusion. Grade 1 anterolisthesis C7 on T1 and T1 on T2, likely secondary to chronic facet disease. Nuchal ligament calcifications. Demineralized appearance of the bones. C1-C2 alignment is anatomic. No acute cervical spine fracture or subluxation is identified. There is an acute comminuted and only minimally displaced fracture of the right first rib. Subacute appearing nondisplaced fracture of the posterior right third rib and medial right second rib. Acute to subacute appearing nondisplaced fracture of the right T2 transverse process.The cervical soft tissues appear unremarkable. The visualized lung apices appear clear. IMPRESSION: 1. No acute cervical spine fracture or subluxation identified. 2. Acute comminuted and minimally displaced right first rib fracture with subacute appearing nondisplaced fractures of the right second and third ribs. No pneumothorax identified. 3. Acute to subacute appearing nondisplaced fracture of the right T2 transverse process. ACT 112: Negative or not required by law. The above report was generated using voice recognition software. It may contain grammatical, syntax or spelling errors. Electronically signed by: Ted Aguilar M.D. 03/23/2022 12:04 PM Chest X-Ray 03/23/22 10:58 XR chest 1V portable HISTORY: trauma COMPARISON: Chest and right rib series 03/19/2022. FINDINGS: The acute right-sided rib fractures are again noted. There are low lung volumes. No pneumothorax. No pleural effusions. There is a left-sided pacemaker/defibrillator and poststernotomy changes. The heart remains mildly enlarged. No new focal lung consolidations to suggest a pneumonia. No evidence for pulmonary edema. There are few old, healed left-sided rib fractures. IMPRESSION: The patient's known acute right-sided rib fractures are better appreciated on the recent right rib series. No pneumothorax. ACT 112: Negative or not required by law. Electronically signed by: Nael De Paz M.D. 03/23/2022 12:[address] 03/23/22 10:58 CT head/brain wo con CLINICAL HISTORY: 86 years-old Male with trauma. Acute head trauma status post fall TECHNIQUE: Multiple axial CT images of the head were obtained without contrast. A dose lowering technique was utilized adhering to the principles of ALARA. COMPARISON: CT cervical spine of same day, head CT 03/06/2022 FINDINGS: No acute intracranial hemorrhage, midline shift, intracranial mass, hydrocephalus, territorial ischemia or abnormal extra-axial collection. Age- related involutional changes with ex vacuo ventriculomegaly. Cerebral vascular calcifications. White matter hypodensities suggest chronic microvascular ischemic disease. No acute calvarial fracture. Left lateral frontal scalp contusion, 3 cm. Prior bilateral lens repair. The paranasal sinuses, mastoid air cells, and middle ear cavities are clear. IMPRESSION: 1. No acute intracranial abnormality or calvarial fracture. 2. Small left frontal scalp contusion. ACT 112: Negative or not required by law. The above report was generated using voice recognition software. It may contain grammatical, syntax or spelling errors. Electronically signed by: Ted Aguilar M.D. 03/23/2022 11:49 AM Pelvis X-Ray 03/23/22 10:58 XR pelvis 1-2V routine HISTORY: 86 years-old Male trauma acute pelvic pain status post trauma COMPARISON: CT abdomen and pelvis 01/10/2022, right hip radiographs 09/07/2020, pelvis radiograph 03/07/2016. TECHNIQUE: AP view of the pelvis FINDINGS: Moderate fecal retention. Dural calcifications. Posterior interbody melida and screw fusion hardware redemonstrated at L4-L5. 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 No articular collapse identified. There is an acute slightly impacted transcervical fracture of the left femur. Mild soft tissue swelling lateral to left hip. IMPRESSION: Acute mildly impacted nondisplaced transcervical fracture of the left femur. ACT 112: Negative or not required by law. The above report was generated using voice recognition software. It may contain grammatical, syntax or spelling errors. Electronically signed by: Ted Aguilar M.D. 03/23/2022 11:[address] 03/23/22 12:48 CT OF THE CHEST WITH IV CONTRAST CLINICAL HISTORY: first rib fx, trauma, many recent falls COMPARISON STUDY: Chest radiograph March 19, 2022 and March 23, 2022. TECHNIQUE: Following IV administration of 94 mL of Optiray, helical axial images of the chest were obtained. Sagittal and coronal reconstructions were viewed as well as maximal intensity projections on an independent 3-D workstation. Automated exposure control was utilized for the study. A dose lowering technique was utilized adhering to the principles of ALARA. CT DOSE: 311.60 mGy.cm FINDINGS: Left subclavian pacer/AICD and median sternotomy wires are noted. Cardiomegaly is noted. There is no evidence for traumatic injury to the thoracic aorta. There is no pericardial effusion. No pneumothorax or pleural effusion is present. Subpleural opacities reflect atelectasis. There is an acute to subacute nondisplaced fracture of the posterolateral right first rib. There are subacute healing fractures of the posterior right second through ninth ribs. There are subacute healing fractures of the anterolateral right fifth through eighth ribs. A few of these fractures are mildly displaced. Old left-sided rib fractures are present. No acute left-sided rib fractures are present. A moderate compression deformity of the superior endplate of T8 is unchanged since radiographs of March 19, 2022. This is likely subacute. There is an old T12 compression deformity. Nondisplaced fractures of the right transverse processes of T1 and T2 acute to subacute. IMPRESSION: 1. No evidence for traumatic injury to the thoracic aorta. No pneumothorax. 2. Acute to subacute fractures of the right first rib, the posterior right second through ninth ribs and anterolateral right fifth through eighth ribs. 3. Moderate T8 compression fracture likely subacute. Old T12 compression fracture. Nondisplaced fracture of the right transverse process of T1 and T2 which are acute to subacute. ACT 112: Negative or not required by law. Electronically signed by: Ja Yeh M.D. 03/23/2022 1:49 PM ECG Additional Comments: Poor data quality, interpretation may be adversely affected Atrial-paced rhythm with prolonged AV conduction Right bundle branch block Anterior infarct , age undetermined T wave abnormality, consider lateral ischemia Abnormal ECG When compared with ECG of 09-SEP-2019 02:08, Previous ECG has undetermined rhythm, needs review QRS axis Shifted right T wave inversion no longer evident in Inferior leads Code Status & VTE Plan Code Status Full Code VTE Prophylaxis Plan VTE Prophylaxis will be ordered: Yes Supervising Physician Co-Signing Physician Notes Patient seen and examined at bedside. During face to face encounter, I obtained a history and physical examination. I reviewed above note and agree with it. I discussed plan of care with patient and [facility]. Patient admitted for a fall and multiple fractures. Will consult ortho, may require surgical repair PG Care Time/CCT Total # of Minutes Spent Total Time Spent with Patient: Total time spent is greater than 50% in coordination of care (as documented) at patient's floor/unit and/or counseling patient: [place] [address] Initial Inpt Care Lvl 3 Patient Type Established Medical Decision Making High Complexity Diagnoses Fall W19.XXXA Hallucinations R44.3 Congestive heart failure I50.9 CAD (coronary artery disease) I25.10 Atrial flutter I48.92 Atrial flutter type: unspecified Hypertension I10 Hyperlipidemia E78.5 GERD (gastroesophageal reflux disease) K21.9 Anemia D64.9 Anxiety and depression F41.9; F32.A (1) Atrial flutter Atrial flutter type: unspecified Qualified Code(s): I48.92 - Unspecified atrial flutter
--- NOTE | 2022-03-23 15:10 | Electrocardiogram Report ---
Test Reason : Blood Pressure : / mmHG Vent. Rate : 060 BPM Atrial Rate : 060 BPM P-R Int : 366 ms QRS Dur : 134 ms QT Int : 454 ms P-R-T Axes : -27 099 110 degrees QTc Int : 454 ms Poor data quality, interpretation may be adversely affected Atrial-paced rhythm with prolonged AV conduction Right bundle branch block Anterior infarct , age undetermined T wave abnormality, consider lateral ischemia Abnormal ECG When compared with ECG of 09-SEP-2019 02:08, QRS axis Shifted right T wave inversion no longer evident in Inferior leads Confirmed by Miko Florez ([id number]) on 03/23/2022 3:09:41 PM Referred By: Confirmed By:Anthony Florez
--- NOTE | 2022-03-23 17:21 | Anesthesiology Consultation ---
Date of Service March 23, 2022 Assessment & Plan (1) Encounter for pre-operative examination: Plan Patient's primary contact, Sybil Bowen (). [phone] Chart Review Chart Review: Acceptable Risk for Surgery and Patient NOT seen in Pre Admission Testing Cardiology note 02/23/22: The patient is stable from cardiovascular standpoint. He demonstrates excellent control of his blood pressure and cholesterol values. Fortunately, he has remained in sinus rhythm since mid November. His amiodarone dose was decreased to 200 mg daily yesterday. He does not take long-term anticoagulation as this causes significant rectal bleeding. His coronary artery disease remains quiescent his current medical regimen. His pacemaker is functioning properly today. Highly complex medical issues were managed and discussed today. Consults Requested none History Surgery Operation Date: 03/24/22 09:30 Proposed Procedures p Left Bipolar Hip - Zuhair Hansen MD Height/Weight Height: 5 ft 6 in Weight: 65 kg Allergies Allergy/AdvReac Type Severity Reaction Status Date / Time Penicillins Allergy Intermediate Rash & Verified 03/23/22 15:42 Swelling Medications Home Medications Medication Instructions Recorded Confirmed Last Taken cholecalciferol (vitamin D3) 50 2,000 units PO HS 05/07/18 03/23/22 01/31/22 mcg (2,000 unit) capsule multivitamin 1 tab PO HS 08/18/18 03/23/22 01/31/22 atorvastatin 80 mg tablet 80 mg PO QAM 08/25/18 03/23/22 02/01/22 09:00 lisinopril 2.5 mg tablet 2.5 mg PO HS 08/25/18 03/23/22 01/31/22 omeprazole 20 mg capsule,delayed 20 mg PO QAM 08/25/18 03/23/22 02/01/22 09:00 release vit C 250 mg-vit E 90 mg-zinc 40 1 tab PO BID 08/25/18 03/23/22 01/31/22 mg-copper 1 [id number] capsule (PreserVision AREDS-2) ferrous sulfate 325 mg (65 mg 325 mg PO HS 06/18/19 03/23/22 01/31/22 iron) tablet (Iron (ferrous sulfate)) furosemide 80 mg tablet 80 mg PO QAM 01/07/20 03/23/22 01/31/22 aspirin 81 mg chewable tablet 81 mg PO UD 05/05/20 03/23/22 01/31/22 paroxetine HCl 10 mg tablet (Paxil) 10 mg PO HS 11/24/21 03/23/22 01/31/22 potassium chloride 20 mEq 20 meq PO BID #180 tabs 11/24/21 03/23/22 01/31/22 tablet,extended release acetaminophen 500 mg tablet 500 mg PO BID 12/25/21 03/23/22 01/31/22 21:00 coQ10 (ubiquinol) 200 mg capsule 200 mg PO HS 12/25/21 03/23/22 01/31/22 cyanocobalamin (vitamin B-12) 500 500 mcg PO HS 12/25/21 03/23/22 01/31/22 mcg tablet spironolactone 25 mg tablet 25 mg PO QAM 12/25/21 03/23/22 01/31/22 polyethylene glycol 3350 17 17 g PO DAILY PRN Constipation 01/12/22 03/23/22 01/31/22 gram/dose oral powder (Miralax) metoprolol succinate 25 mg 12.5 mg PO QAM #30 tabs 01/19/22 03/23/22 02/01/22 09:00 tablet,extended release 24 hr amiodarone 200 mg tablet 200 mg PO DAILY 02/23/22 03/23/22 Unknown tramadol 50 mg tablet 50 mg PO QID PRN Pain 03/23/22 03/23/22 Unknown Active Medications Generic Name Dose Route Start Last Admin Trade Name Freq PRN Reason Stop Dose Admin Sodium Chloride 500 mls @ 80 mls/hr 03/23/22 11:00 03/23/22 12:00 Nss IV 04/22/22 10:59 80 mls/hr .Q6H15M [employer] Past Medical History Medical History Anemia Atrial flutter PAROXYSMAL CAD (coronary artery disease) S/P CABG X3 (2004), OM STENTS X3 (?2004) Cancer PROSTATE CANCER- RADIATION TREATMENTS Congestive heart failure EUVOLEMIC PER 08/12/18 CARDIO OFFICE VISIT GERD (gastroesophageal reflux disease) H/O flexible sigmoidoscopy RADIATION FOR PROSTATE CANCER CAUSING PROCTITIS (REASON FOR MULTIPLE FLEX SIGMOIDOSCOPY) Hearing deficit BILATERAL HEARING AIDS History of cardioversion 04/24/19 (went into a regular rhythm) and 08/2018 History of valvular heart disease Mild AR/AR, Moderate MR/TR per 07/2018 ECHO Hyperlipidemia Hypertension 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 FOR V-TACH AT [facility] ([place]) Ischemic cardiomyopathy Macular degeneration Osteoarthritis Pacemaker IMPLANTED 08/2019 FOR V-TACH AT [facility] ([place]) Past myocardial infarction X2 (2004), X1 (2006) Proctitis Rectal bleeding Temporal arteritis 04/2018 Patient with acute fall: Patient was found to have the following: >Acute comminuted and minimally displaced right first rib fracture with subacute appearing nondisplaced fractures of the right second and third ribs. >Acute to subacute appearing nondisplaced fracture of the right T2 transverse process. >Acute to subacute fractures of the right first rib, the posterior right second through ninth ribs and anterolateral right fifth through eighth ribs. >Moderate T8 compression fracture likely subacute. >Old T12 compression fracture. >Nondisplaced fracture of the right transverse process of T1 and T2 which are acute to subacute. >Acute mildly impacted nondisplaced transcervical fracture of the left femur -Only on aspirin, no other anticoagulants Past Family History Family History Mother , age 91 Myocardial infarction Father , age 81 Myocardial infarction Brother , age 46 Myocardial infarction Son History of heart attack times 2 High cholesterol Daughter High cholesterol Daughter High cholesterol Past Surgical History Surgical History Fusion of spine L4-L5 H/O hemorrhoidectomy History of biopsy of temporal artery History of cardiac cath OM STENTS X3 (?2004) History of cataract surgery RT/LEFT History of colonoscopy History of coronary artery bypass graft CABG X3 (2004) History of inguinal hernia repair History of laminectomy LUMBAR History of tonsillectomy S/P epidural steroid injection S/P repair of hydrocele Social History Smoking Status: Never smoker Hx Alcohol Use: No alcohol intake frequency: holidays/special occasions only Hx Substance Use: No substance use type: does not use Physical Exam Vital Signs Last Vital Signs Temp 36.6 C 03/23/22 10:02 Pulse 61 11/04/22 16:31 Resp 20 03/23/22 16:31 BP 98/64 L 03/23/22 16:31 Pulse Ox 94 03/23/22 16:31 O2 Del Method 03/23/22 10:02 Testing Laboratory Results 03/23/22 10:15 03/23/22 10:15 PT 10.9 Seconds (9.0-12.0) 03/23/22 10:15 INR 1.0 (0.9-1.1) 03/23/22 10:15 Urine Color Yellow 03/23/22 11:50 Urine Appearance Clear (Clear) 03/23/22 11:50 Urine pH 6.5 (4.5-7.5) 03/23/22 11:50 Ur Specific [place] 1.013 (1.000-1.030) 03/23/22 11:50 Urine Protein Negative (Negative) 03/23/22 11:50 Urine Glucose (UA) Negative (Negative) 03/23/22 11:50 Urine Ketones Negative (Negative) 03/23/22 11:50 Urine Nitrite Negative (Negative) 03/23/22 11:50 Ur Leukocyte Esterase Negative (Negative) 03/23/22 11:50 Electrocardiogram Date: 03/23/22 DICTATED BY:Miko Florez MD Test Reason : Blood Pressure : / mmHG Vent. Rate : 060 BPM Atrial Rate : 060 BPM P-R Int : 366 ms QRS Dur : 134 ms QT Int : 454 ms P-R-T Axes : -27 099 110 degrees QTc Int : 454 ms Poor data quality, interpretation may be adversely affected Atrial-paced rhythm with prolonged AV conduction Right bundle branch block Anterior infarct , age undetermined T wave abnormality, consider lateral ischemia Abnormal ECG When compared with ECG of 09-SEP-2019 02:08, QRS axis Shifted right T wave inversion no longer evident in Inferior leads Confirmed by Miko Florez ([id number]) on 03/23/2022 3:09:41 PM Chest X-Ray Date: 03/23/22 XR chest 1V portable HISTORY: trauma COMPARISON: Chest and right rib series 03/19/2022. FINDINGS: The acute right-sided rib fractures are again noted. There are low lung volumes. No pneumothorax. No pleural effusions. There is a left-sided pacemaker/defibrillator and poststernotomy changes. The heart remains mildly enlarged. No new focal lung consolidations to suggest a pneumonia. No evidence for pulmonary edema. There are few old, healed left-sided rib fractures. IMPRESSION: The patient's known acute right-sided rib fractures are better appreciated on the recent right rib series. No pneumothorax. Echocardiogram Date: 11/08/21 LV systolic function is mildly reduced. There is mild global hypokinesis of the LV. Systolic and diastolic septal flattening consistent with RV volume and pressure overload. EF 45-50% Moderate Moderate MR Moderate to severe TR Compared with study of 05/07/2019, aortic stenosis is now present. Other Testing 03/09/22: Device Check. Device Evaluation Procedure performed by: Thomas Parekh Device Battery: 2.99 Longevity: 7.2 years A% paced: 100% V% paced: 1.2% Impedence(omhs) A: 436 Impedence(omhs) RV: 323 Sensing(mV) A: 1.9 Sensing(mV) RV: 2.3 Threshold(V/mSec) A: 0.75@0.4 Threshold(V/mSec) RV: 2.0@0.4 Threshold Testing Performed: Yes Setting(V/mSec) A: 1.5@0.4 Setting(V/mSec) RV: 4.25@0.4 Changes/Comments: Optivol WNL Stable RV lead No changes 03/23/22: CT OF THE CHEST WITH IV CONTRAST CLINICAL HISTORY: first rib fx, trauma, many recent falls COMPARISON STUDY: Chest radiograph March 19, 2022 and March 23, 2022. TECHNIQUE: Following IV administration of 94 mL of Optiray, helical axial images of the chest were obtained. Sagittal and coronal reconstructions were viewed as well as maximal intensity projections on an independent 3-D workstation. Automated exposure control was utilized for the study. A dose lowering technique was utilized adhering to the principles of ALARA. CT DOSE: 311.60 mGy.cm FINDINGS: Left subclavian pacer/AICD and median sternotomy wires are noted. Cardiomegaly is noted. There is no evidence for traumatic injury to the thoracic aorta. There is no pericardial effusion. No pneumothorax or pleural effusion is present. Subpleural opacities reflect atelectasis. There is an acute to subacute nondisplaced fracture of the posterolateral right first rib. There are subacute healing fractures of the posterior right second through ninth ribs. There are subacute healing fractures of the anterolateral right fifth through eighth ribs. A few of these fractures are mildly displaced. Old left-sided rib fractures are present. No acute left-sided rib fractures are present. A moderate compression deformity of the superior endplate of T8 is unchanged since radiographs of March 19, 2022. This is likely subacute. There is an old T12 compression deformity. Nondisplaced fractures of the right transverse processes of T1 and T2 acute to subacute. IMPRESSION: 1. No evidence for traumatic injury to the thoracic aorta. No pneumothorax. 2. Acute to subacute fractures of the right first rib, the posterior right second through ninth ribs and anterolateral right fifth through eighth ribs. 3. Moderate T8 compression fracture likely subacute. Old T12 compression frac ture. Nondisplaced fracture of the right transverse process of T1 and T2 which are acute to subacute.
[2022-03-23 18:10] LABS: Lyme Ab IgG w/WB Rflx Negative (Negative); Lyme Ab IgM w/WB Rflx Negative (Negative)
[2022-03-23] MEDS: ACETAMINOPHEN 325 MG TAB PO PRN (18:19)
--- NOTE | 2022-03-23 18:22 | XRay Report ---
XR hip LT 2V w pelvis CLINICAL HISTORY: left hip pain-need lateral of the hip TECHNIQUE: 2 views of the left hip and single frontal view of the pelvis were obtained. Comparison: Comparison is made to pelvis radiograph 03/23/2022 FINDINGS: Redemonstration of transcervical left femoral fracture. Posterior fixation hardware is seen spanning L5-S1. Degenerative changes are seen in the hip joint. Bones are osteopenic. Soft tissue swelling is seen about the left hip. IMPRESSION: Redemonstration of transcervical left femoral fracture with associated soft tissue swelling. ACT 112: Negative or not required by law. Electronically signed by: Robbin Davis M.D. 03/23/2022 6:20 PM
[2022-03-23 19:34] LABS: Vitamin B12 935 pg/ml (180-914)
--- NOTE | 2022-03-23 19:36 | Orthopedic Consultation ---
Date of Service March 23, 2022 Assessment & Plan (1) Left hip pain: He was seen and examined by Dr. Hansen today as well. He has acute pain in his left hip after this fall today. He likely has a femoral neck fracture but it is not obvious on the pelvis xray. We ordered new left hip xrays, including a lateral. If this is normal, we might get an MRI of the hip. If the xrays show a fracture we will plan on surgery tomorrow if medically optimized, bipolar hemiarthroplasty vs cannulated screw fixation. This was discussed with his today. In the meantime, he should be nonweight bearing left leg/bedrest until we have the imaging results. History of Present Illness Reason for Consultation: . Requesting Physician: . Attending Physician: Koko Richter .Jb is a 86 year old patient who we were asked to see regarding left hip pain. His history was obtained from him and his . Per his , he has been experiencing an overall decline in his health recently. He has had numerous falls resulting in injuries. He had some recent confusion and was getting ready to come to the hospital this morning when he suffered a fall resulting in left hip pain. He describes groin and lateral hip pain. Xrays obtained of his pelvis are suggestive of a left femoral neck fracture. Allergies Allergy/AdvReac Type Severity Reaction Status Date / Time Penicillins Allergy Intermediate Rash & Verified 03/23/22 15:42 Swelling Home Medications Medication Instructions Recorded Confirmed Type cholecalciferol (vitamin D3) 50 2,000 units PO HS 05/07/18 03/23/22 History mcg (2,000 unit) capsule multivitamin 1 tab PO HS 08/18/18 03/23/22 History atorvastatin 80 mg tablet 80 mg PO QAM 08/25/18 03/23/22 History lisinopril 2.5 mg tablet 2.5 mg PO HS 08/25/18 03/23/22 History omeprazole 20 mg capsule,delayed 20 mg PO QAM 08/25/18 03/23/22 History release vit C 250 mg-vit E 90 mg-zinc 40 1 tab PO BID 08/25/18 03/23/22 History mg-copper 1 ju-[id number] capsule (PreserVision AREDS-2) ferrous sulfate 325 mg (65 mg 325 mg PO HS 06/18/19 03/23/22 History iron) tablet (Iron (ferrous sulfate)) furosemide 80 mg tablet 80 mg PO QAM 01/07/20 03/23/22 History aspirin 81 mg chewable tablet 81 mg PO UD 05/05/20 03/23/22 History paroxetine HCl 10 mg tablet (Paxil) 10 mg PO HS 11/24/21 03/23/22 History potassium chloride 20 mEq 20 meq PO BID #180 tabs 11/24/21 03/23/22 Rx tablet,extended release acetaminophen 500 mg tablet 500 mg PO BID 12/25/21 03/23/22 History coQ10 (ubiquinol) 200 mg capsule 200 mg PO HS 12/25/21 03/23/22 History cyanocobalamin (vitamin B-12) 500 500 mcg PO HS 12/25/21 03/23/22 History mcg tablet spironolactone 25 mg tablet 25 mg PO QAM 12/25/21 03/23/22 History polyethylene glycol 3350 17 17 g PO DAILY PRN Constipation 01/12/22 03/23/22 History gram/dose oral powder (Miralax) metoprolol succinate 25 mg 12.5 mg PO QAM #30 tabs 01/19/22 03/23/22 Rx tablet,extended release 24 hr amiodarone 200 mg tablet 200 mg PO DAILY 02/23/22 03/23/22 History tramadol 50 mg tablet 50 mg PO QID PRN Pain 03/23/22 03/23/22 History Past Med/Surg History Medical History Anemia Atrial flutter PAROXYSMAL CAD (coronary artery disease) S/P CABG X3 (2004), OM STENTS X3 (?2004) Cancer PROSTATE CANCER- RADIATION TREATMENTS Congestive heart failure EUVOLEMIC PER 08/12/18 CARDIO OFFICE VISIT GERD (gastroesophageal reflux disease) H/O flexible sigmoidoscopy RADIATION FOR PROSTATE CANCER CAUSING PROCTITIS (REASON FOR MULTIPLE FLEX SIGMOIDOSCOPY) Hearing deficit BILATERAL HEARING AIDS History of cardioversion 04/24/19 (went into a regular rhythm) and 08/2018 History of valvular heart disease Mild AR/TN, Moderate MR/TR per 07/2018 ECHO Hyperlipidemia Hypertension 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 FOR V-TACH AT [facility] ([place]) Ischemic cardiomyopathy Macular degeneration Osteoarthritis Pacemaker IMPLANTED 08/2019 FOR V-TACH AT [facility] ([place]) Past myocardial infarction X2 (2004), X1 (2006) Proctitis Rectal bleeding Temporal arteritis 04/2018 Surgical History Fusion of spine L4-L5 H/O hemorrhoidectomy History of biopsy of temporal artery History of cardiac cath OM STENTS X3 (?2004) History of cataract surgery RT/LEFT History of colonoscopy History of coronary artery bypass graft CABG X3 (2004) History of inguinal hernia repair History of laminectomy LUMBAR History of tonsillectomy S/P epidural steroid injection S/P repair of hydrocele Family History Mother , age 91 Myocardial infarction Father , age 81 Myocardial infarction Brother , age 46 Myocardial infarction Son History of heart attack times 2 High cholesterol Daughter High cholesterol Daughter High cholesterol Social History Smoking Status: Never smoker Hx Alcohol Use: No Hx Substance Use: No Preferred Language: Iranian Communication Ability: Effective Visual Impairment: No Limitations Hearing Ability: Normal Hand Mica Plate Layer Required: No Beliefs That Will Affect Care: None marital status: Current Living Situation: Spouse Current Living Situation Comment: [facility] current occupational 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 Physical Exam .He is alert, NAD. He is able to do a straight leg raise with the right leg, but not the left leg. He has pain with just minimal movement of his left leg. I really did not do much hip motion. No swelling of his knee. Sensation is intact to touch. Results & Data Results & Data Laboratory Results . Diagnostic Findings .AP of the pelvis shows a possible nondisplaced left femoral neck fracture. PG Care Time/CCT Total # of Minutes Spent Total Time Spent with Patient: Total time spent is greater than 50% in coordination of care (as documented) at patient's floor/unit and/or counseling patient: Coding Level of Care Code 88688 Inpt Consult Level 4 Diagnoses Left hip pain M25.552
[2022-03-23] MEDS: POTASSIUM CHLORIDE CRTAB 20 MEQ TABCR PO SCH (20:51)
[2022-03-23] MEDS: PARoxetine HCL 10 MG TAB PO SCH (20:52)
[2022-03-23] MEDS: CYANOCOBALAMIN (B-12) 500 MCG TABLET PO SCH (20:52)
[2022-03-23] MEDS: CEROVITE ADV FORMULA TAB PO SCH (20:52)
[2022-03-23] MEDS: CHOLECALCIFEROL 1,000 UNITS 25 MCG TAB PO SCH (20:52)
[2022-03-23] MEDS: MoRPHine SULFATE 2 MG/ML CARP IV PRN (20:58)
[2022-03-23] MEDS ORDERED: NON-FORMULARY MEDICATION (Coq10 (Ubiquinol) 200 mg Capsule) PO SCH (21:00)
[2022-03-23] MEDS ORDERED: NON-FORMULARY MEDICATION (Multivitamin tablet) PO SCH (21:00)
[2022-03-24] MEDS: ACETAMINOPHEN 325 MG TAB PO PRN ×5 (01:34→19:26)
[2022-03-24] MEDS: MoRPHine SULFATE 2 MG/ML CARP IV PRN (05:30)
[2022-03-24 07:04] LABS: Hematocrit (blood only) 43.6 % (40.1-51.0); Hemoglobin 14.7 g/dl (14.0-18.0); Mean Corpuscular Hemoglobin 34.3 pg (25.0-34.0); Mean Corpuscular Hgb Conc 33.7 g/dL (32.0-36.0); Mean Corpuscular Volume 101.9 fL (80.0-100.0); Mean Platelet Volume 8.5 fL (9.4-12.4); Platelet Count 195 K/uL (130-400); RDW Coefficient of Variation 17.2 % (11.5-14.5); RDW Standard Deviation 63.9 fL (36.4-46.3); Red Blood Count 4.28 M/uL (4.63-6.08); White Blood Count 8.15 K/ul (4.8-10.8)
[2022-03-24 07:35] LABS: Albumin Globulin Ratio 1.1 (0.9-2); Albumin Level 3.7 gm/dl (3.4-5.0); BUN Creatinine Ratio 29.7 (10-20); Bilirubin,Total 1.8 mg/dl (0.2-1.0); Calcium 10.6 mg/dl (8.5-10.1); Est GFR (African American) 69.3 ml/min; Est GFR (Non-African American) 59.8 ml/min; Globulin 3.3 gm/dl (2.5-4.0); Potassium 4.5 mmol/L (3.5-5.1)
[2022-03-24] MEDS: METOPROLOL SUCC 25MG EXT REL TAB PO SCH (08:08)
[2022-03-24] MEDS: PANTOprazole 40 MG TAB PO SCH (08:08)
[2022-03-24] MEDS: POTASSIUM CHLORIDE CRTAB 20 MEQ TABCR PO SCH ×2 (08:08→19:25)
[2022-03-24] MEDS: AMIODARONE 200 MG TAB PO SCH (08:08)
[2022-03-24] MEDS: CEROVITE ADV FORMULA TAB PO SCH ×2 (08:08→19:25)
--- NOTE | 2022-03-24 09:45 | Progress Notes ---
SUBJECTIVE: An 86-year-old gentleman with multiple medical comorbidities, admitted status post multi ple falls with what looks to be a new hip fracture. He continues to have thigh pain. History is a b it equivocal. Upon talking to him today, he says he has had hip pain before the fall event. X-rays suggest a hip fracture. No other real complaints. OBJECTIVE: VITAL SIGNS: Temperature 36.4. Vital signs are stable. PHYSICAL EXAMINATION: GENERAL: Shows a elderly male. He is sitting up in bed. He responds appropriately to questions, bu t seemed a little bit confused. EXTREMITIES: Examination of the left leg reveals no swelling, No obvious deformity. He clearly has pain with hip motion and has difficulty doing a straight leg raise. He is neurologically intact. X-RAYS: Plain x-rays of the left hip were reviewed. It suggests a valgus impacted femoral neck frac ture, but I am not convinced of that for sure. Minimal arthritic change. ASSESSMENT: An 86-year-old gentleman with multiple medical comorbidities, status post multiple falls with what looks to be probably a valgus impacted femoral neck fracture. It is hard to be certain th at there is a fracture there. Unfortunately, he has got a pacemaker, cannot have an MRI. Try to discuss things with the patient today. It is a difficult situation with his multiple falls. I am not 100% convinced there is a fracture there and I think we need to image this further before pr oceeding with surgical intervention. PLAN: We are going to get a CT scan with coronal, sagittal and 3D reconstructions. This will help u s to confirm a fracture and also any displacement. If there is any displacement at all, I think it i s best treated with a bipolar hip arthroplasty. If it is strictly valgus impacted, may be cannulated screws. We are going to hold off on surgery today. They have consulted cardiology for preoperative evaluation. We will get their take as well. We will get this imaging study, make a decision and breanne pascual if he needs surgery, we will do it tomorrow. He can eat today. Any orthopedic questions can be directed to me at [phone]. Job ID: [id number]
--- NOTE | 2022-03-24 11:17 | Hospitalist Progress Note ---
Date of Service March 24, 2022 Assessment & Plan (1) Fall: Plan: patient admitted to the hospital following a fall He sustained multiple rib fractures, T1,T2,T8 , T2 fracture, old T12 fx including a suspected impacted femoral neck fracture Ortho is on consult and the plan is to properly delineate if he actually had a left femoral fracture Patient unable to get MRI in view of pacemaker Will obtain CT scan with 3 D reconstruction Possible surgery tomorrow per Ortho Cardiology on board for pre op evaluation (2) Hallucinations: Plan: -Patient seemed lucid to me today, answered my questions -CT of the head was negative for acute findings -CBC is showing elevated MCV at 103, will check B12, folic acid, and thiamine levels -AST elevated at 43, ALT elevated at 56, Alk Phos elevated at 153, will obtain hepatitis, tick borne panel, and ammonia level -No other metabolic abnormalities noted on initial CMP -TSH WNL -UA is clean, covid negative (3) Congestive heart failure: Plan: -Examines volume depleted, will continue IV fluids for now with a max of 2 bags of NSS -For now will hold Lasix and spironolactone to prevent hypotension as BP has been soft (4) CAD (coronary artery disease): Plan: -Continue Aspirin (5) Atrial flutter: Plan: -HR currently controlled -Only on aspirin, no other anticoagulants -Continue amiodarone and metoprolol (6) Hypertension: Plan: -Continue metoprolol -Will hold lisinopril, lasix and spironolactone for now as his BP is currently soft (7) Hyperlipidemia: Plan: -Continue statin (8) GERD (gastroesophageal reflux disease): Plan: -Continue carafate and omeprazole (9) Anemia: Plan: -Hgb stable, MCV elevated, will get B12, folate, and thiamine levels -Continue ferrous sulfate and B12, will also give folic acid and thiamine after labs are collected (10) Anxiety and depression: Plan: -Continue Paroxetine Plan continue hopsitalization Admission and Anticipated Discharge Date Admission Date: March 23, 2022 Subjective patient seen and examined, npo for anticipated surgery, in minimal pain Review of Systems Review of Systems: All systems reviewed are negative, apart from the ones contained in the history. Physical Exam Physical Exam: The patient is awake, alert and oriented 3, well developed and well nourished, normocephalic and atraumatic, lying in bed and in no acute distress. HEENT--PERRL, EOMI, mucous membranes and oropharynx mildly dry Neck--supple. No JVD. No bruits. Thyroid normal, trachea midline, no adenopathy. Heart--normal S1 and S2. No murmurs, rubs or gallops. Lungs--clear bilaterally, no respiratory distress, no accessory muscle use. Abdomen--normal bowel sounds and soft. Mild epigastric and left sided abdominal pain Extremities--no cyanosis or clubbing. No edema. Dermatologic--normal skin turgor, normal color, no abnormal lymph nodes, no rash. Neurologic--cranial nerves II through XII grossly intact. Rheumatologic--normal range of motion. Psychiatric--normal affect. Results & Data Results & Data ([facility]) Vital Signs (Past 12 Hours) Vital Signs Temp Pulse Resp BP Pulse Ox O2 Del Method 03/24/22 07:54 97.5 F L 84 19 124/75 98 Room Air 03/24/22 03:33 97.5 F L 77 20 114/77 93 Room Air PG Care Time/CCT Total # of Minutes Spent Total Time Spent with Patient: Total time spent is greater than 50% in coordination of care (as documented) at patient's floor/unit and/or counseling patient: Coding Level of Care Code 24322 Subseq Hosp Care Lvl 2 Diagnoses Fall W19.XXXA Hallucinations R44.3 Congestive heart failure I50.9 CAD (coronary artery disease) I25.10 Atrial flutter I48.92 Atrial flutter type: unspecified Hypertension I10 Hyperlipidemia E78.5 GERD (gastroesophageal reflux disease) K21.9 Anemia D64.9 Anxiety and depression F41.9; F32.A Time Spent (min) 35 (1) Atrial flutter Atrial flutter type: unspecified Qualified Code(s): I48.92 - Unspecified atrial flutter
--- NOTE | 2022-03-24 12:22 | CT Scan Report ---
CT hip LT wo con CLINICAL HISTORY: hip fx/left hip pain TECHNIQUE: Multidetector row helical CT of the was performed without intravenous contrast. Coronal an d sagittal reformations were obtained. Automated dose lowering techniques and/or adjustment according to patient size were utilized for this examination. CT DOSE: 205.20 mGy.cm Comparison: Comparison is made to CT abdomen pelvis 01/10/2022 and hip radiograph 02/20/2022 FINDINGS: There is a and impacted and apex anterior angulation and fracture of the femoral neck. The joint spac es are maintained. No joint effusion is seen. Soft tissue swelling is seen with associated vascular calcifications. IMPRESSION: Impacted subcapital fracture of the left femur with associated soft tissue swelling. ACT 112: Negative or not required by law. Electronically signed by: Robbin Davis M.D. 03/24/2022 12:20 PM
[2022-03-24] MEDS ORDERED: ceFAZolin 2000MG 2,000 MG/15 ML SYR IV SCH (13:30)
--- NOTE | 2022-03-24 14:05 | Cardiology Consultation ---
Date of Consultation March 24, 2022 History of Present Illness Reason for Consultation: Preoperative evaluation Requesting Physician: Dr. Perez the patient's primary manager skilled Attending Physician: Vinny Pedraza MD History of Present Illness Patient is mildly confused but he notes that this is 1 of multiple falls with this fall which sounds mechanical he has multiple rib fractures compression fractures and a fractured hip. His was here and notes that he has had worsening confusion and a dramatic decline in his quality of life in the last 6 months or so with many falls. He denies any chest pain just pressure chest heaviness he denies any shortness of breath. Does not sound like he does much. He does walk with a walker. He was unaware of any palpitations he did not appear short of breath talking in sentences he denied any lower extremity edema or increased abdominal distention to suggest worsening heart failure but he did have heart failure over the summer as noted in the [facility] outpatient cardiology records. The rest of a complete her systems is negative Allergies Allergy/AdvReac Type Severity Reaction Status Date / Time Penicillins Allergy Intermediate Rash & Verified 03/23/22 15:42 Swelling Home Medications Medication Instructions Recorded Confirmed Type cholecalciferol (vitamin D3) 50 2,000 units PO HS 05/07/18 03/23/22 History mcg (2,000 unit) capsule multivitamin 1 tab PO HS 08/18/18 03/23/22 History atorvastatin 80 mg tablet 80 mg PO QAM 08/25/18 03/23/22 History lisinopril 2.5 mg tablet 2.5 mg PO HS 08/25/18 03/23/22 History omeprazole 20 mg capsule,delayed 20 mg PO QAM 08/25/18 03/23/22 History release vit C 250 mg-vit E 90 mg-zinc 40 1 tab PO BID 08/25/18 03/23/22 History mg-copper 1 [id number] capsule (PreserVision AREDS-2) ferrous sulfate 325 mg (65 mg 325 mg PO HS 06/18/19 03/23/22 History iron) tablet (Iron (ferrous sulfate)) furosemide 80 mg tablet 80 mg PO QAM 01/07/20 03/23/22 History aspirin 81 mg chewable tablet 81 mg PO UD 05/05/20 03/23/22 History paroxetine HCl 10 mg tablet (Paxil) 10 mg PO HS 11/24/21 03/23/22 History potassium chloride 20 mEq 20 meq PO BID #180 tabs 11/24/21 03/23/22 Rx tablet,extended release acetaminophen 500 mg tablet 500 mg PO BID 12/25/21 03/23/22 History coQ10 (ubiquinol) 200 mg capsule 200 mg PO HS 12/25/21 03/23/22 History cyanocobalamin (vitamin B-12) 500 500 mcg PO HS 12/25/21 03/23/22 History mcg tablet spironolactone 25 mg tablet 25 mg PO QAM 12/25/21 03/23/22 History polyethylene glycol 3350 17 17 g PO DAILY PRN Constipation 01/12/22 03/23/22 History gram/dose oral powder (Miralax) metoprolol succinate 25 mg 12.5 mg PO QAM #30 tabs 01/19/22 03/23/22 Rx tablet,extended release 24 hr amiodarone 200 mg tablet 200 mg PO DAILY 02/23/22 03/23/22 History tramadol 50 mg tablet 50 mg PO QID PRN Pain 03/23/22 03/23/22 History Patient History Medical History Anemia Atrial flutter PAROXYSMAL CAD (coronary artery disease) S/P CABG X3 (2004), OM STENTS X3 (?2004) Cancer PROSTATE CANCER- RADIATION TREATMENTS Congestive heart failure EUVOLEMIC PER 08/12/18 CARDIO OFFICE VISIT GERD (gastroesophageal reflux disease) H/O flexible sigmoidoscopy RADIATION FOR PROSTATE CANCER CAUSING PROCTITIS (REASON FOR MULTIPLE FLEX SIGMOIDOSCOPY) Hearing deficit BILATERAL HEARING AIDS History of cardioversion 04/24/19 (went into a regular rhythm) and 08/2018 History of valvular heart disease Mild AR/MS, Moderate MR/TR per 07/2018 ECHO Hyperlipidemia Hypertension 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 FOR V-TACH AT [facility] ([facility]) Ischemic cardiomyopathy Macular degeneration Osteoarthritis Pacemaker IMPLANTED 08/2019 FOR V-TACH AT [facility] ([facility]) Past myocardial infarction X2 (2005), X1 (2006) Proctitis Rectal bleeding Temporal arteritis 04/2018 Surgical History Fusion of spine L4-L5 H/O hemorrhoidectomy History of biopsy of temporal artery History of cardiac cath OM STENTS X3 (?2005) History of cataract surgery RT/LEFT History of colonoscopy History of coronary artery bypass graft CABG X3 (2005) History of inguinal hernia repair History of laminectomy LUMBAR History of tonsillectomy S/P epidural steroid injection S/P repair of hydrocele Family History Mother , age 91 Myocardial infarction Father , age 81 Myocardial infarction Brother , age 46 Myocardial infarction Son History of heart attack times 2 High cholesterol Daughter High cholesterol Daughter High cholesterol Social History Smoking Status: Never smoker Hx Alcohol Use: No Hx Substance Use: No Preferred Language: Azeri Communication Ability: Effective Visual Impairment: No Limitations Hearing Ability: Normal Production Generalist Required: No Beliefs That Will Affect Care: None marital status: Current Living Situation: Spouse Current Living Situation Comment: [facility] current occupational status: retired 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 Parekh was his normal manager skilled. HEENT mildly reduced carotid upstrokes Lungs: Decreased breath sounds in the bases bilaterally but no rales rhonchi or wheezing Heart: Regular rate and rhythm he has a soft systolic ejection murmur at the right sternal border and he is a soft holosystolic murmur at the apex Abdomen: Soft nontender distended positive bowel sounds Extremities: No clubbing cyanosis or edema Psychiatric as noted he appeared confused EKG atrially paced ventricularly sensed with a right bundle branch block, lateral ST-T changes, Anterior NM age indeterminate IMPRESSIONS: 1. Preoperative valuation prior to ORIF of his hip secondary to a mechanical fall and fracture 2. Hypertension 3. Hypercholesterolemia 4. Chronic systolic heart failure 5. Paroxysmal atrial flutter (July 2018) on amiodarone 6., ischemic cardiomyopathy (40-45%, October 2021), 7. coronary artery disease (CABG x3, 2004; obstructed SVG to OM, OM stents x3, February 2005) 8. 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 Paroxysmal atrial fibrillation (November 2021, no anticoagulation, rectal bleeding) 10. Dual chamber ICD, September 10, 2019). 11. 11/08/21 Echo: LV function mildly reduced. EF 40-45%. Mild global hypokinesis. RV dilated with moderately reduced function. Systolic and diastolic septal flattening consistent with RV volume overload. Moderate . Moderate MR. Moderate to severe TR. As I discussed with the patient's spouse I believe based on his complex cardiac disease and his previous bypass surgery which was over 17 years ago that he is at high risk from a cardiac standpoint preoperatively. I believe his risk of cardiac complications is in the range of 5 to 10% this includes heart attack dying from cardiac causes arrhythmias and congestive heart failure. We will have to closely monitor his volume status postoperatively and once he is taking liquids by mouth I would stop his IV fluids. I would be very judicious with his IV fluids while he is n.p.o. He should remain on amiodarone and metoprolol to reduce his risk of both his atrial arrhythmias and his known ventricular arrhythmias. His device can be programmed to DOO at 70 bpm prior to going to the OR. He appears atrially paced and therefore reprogramming the device is in his best interest. Postoperatively he may need diuretics to control his volume status as he is not in any here currently. As an outpatient he was on 80 mg of furosemide once a day. He has had issues with anticoagulation in the past and therefore is not on anticoagulation given his history of atrial arrhythmias. His at the bedside notes that they do not want any heroic measures and if he were to have a cardiac arrest would want to just keep him comfortable. This was discussed with the hospitalist as well as the nursing staff.
[2022-03-24] MEDS: CYANOCOBALAMIN (B-12) 500 MCG TABLET PO SCH (19:26)
[2022-03-24] MEDS: PARoxetine HCL 10 MG TAB PO SCH (19:26)
[2022-03-24] MEDS: CHOLECALCIFEROL 1,000 UNITS 25 MCG TAB PO SCH (19:26)
[2022-03-25] MEDS: ACETAMINOPHEN 325 MG TAB PO PRN ×2 (04:48→21:55)
[2022-03-25 05:16] LABS: Hematocrit (blood only) 42.1 % (40.1-51.0); Hemoglobin 14.2 g/dl (14.0-18.0); Mean Corpuscular Hemoglobin 34.6 pg (25.0-34.0); Mean Corpuscular Hgb Conc 33.7 g/dL (32.0-36.0); Mean Corpuscular Volume 102.7 fL (80.0-100.0); Mean Platelet Volume 8.6 fL (9.4-12.4); Platelet Count 191 K/uL (130-400); RDW Coefficient of Variation 16.9 % (11.5-14.5); RDW Standard Deviation 64.3 fL (36.4-46.3); White Blood Count 9.24 K/ul (4.8-10.8)
[2022-03-25] MEDS ORDERED: ceFAZolin 2000MG 2,000 MG/15 ML SYR IV SCH (06:00)
[2022-03-25 06:12] LABS: Albumin Globulin Ratio 1.1 (0.9-2); Albumin Level 3.7 gm/dl (3.4-5.0); BUN Creatinine Ratio 29.5 (10-20); Bilirubin,Total 1.9 mg/dl (0.2-1.0); Calcium 10.8 mg/dl (8.5-10.1); Creatinine Clr Calc Pharmacy 41.7 ml/min; Est GFR (African American) 68.6 ml/min; Est GFR (Non-African American) 59.2 ml/min; Globulin 3.3 gm/dl (2.5-4.0); Potassium 5.8 mmol/L (3.5-5.1)
--- NOTE | 2022-03-25 07:31 | History & Physical Bridge Note ---
Date of Service March 25, 2022 History & Physical Bridge Note I have examined the patient, reviewed the History & Physical and in the interval since the performance of the History & Physical I have noted the following changes of clinical significance: no changes noted
[2022-03-25] MEDS ORDERED: fentaNYL citrate 100 MCG/2 ML VIAL ONE ×2 (07:40→10:17)
[2022-03-25] MEDS ORDERED: ACETAMINOPHEN 1000 MG/100 ML IV IV ONE (07:42)
[2022-03-25] MEDS ORDERED: ALBUMIN HUMAN 5% 12.5 GM/250 ML VIAL IV ONE (07:43)
[2022-03-25] MEDS ORDERED: FAMOTIDINE/PF 20 MG/2 ML VIAL IV ONE (07:43)
[2022-03-25] MEDS ORDERED: fentaNYL citrate 100 MCG/2 ML VIAL IV PRN (07:49)
[2022-03-25] MEDS ORDERED: HYDROmorphone INJ 1 MG/ML SYRINGE IV PRN (07:49)
[2022-03-25] MEDS ORDERED: ATROPINE SULFATE 0.1 MG/ML 10ML SYR IV PRN (07:49)
[2022-03-25] MEDS ORDERED: ONDANSETRON INJ 2 MG/ML 2 ML VIAL IV PRN (07:49)
[2022-03-25] MEDS ORDERED: ePHEDrine sulfate 50 MG/ML AMP IV PRN (07:49)
[2022-03-25] MEDS ORDERED: SUCCINYLCHOLINE CHLORIDE 20 MG/ML 10 ML VIAL IV ONE (07:58)
[2022-03-25] MEDS ORDERED: BUPIVACAINE 0.5 % 5 MG/1 ML MPF 30ML VIAL ONE (08:07)
[2022-03-25] MEDS ORDERED: EPINEPHrine INJ 1 MG/ML AMP ONE (08:07)
[2022-03-25] MEDS ORDERED: SUGAMMADEX SODIUM 200 MG/2 ML VIAL IV ONE (08:09)
[2022-03-25] MEDS ORDERED: ROCURONIUM BROMIDE 10 MG/ML 5 ML VIAL IV ONE (08:59)
[2022-03-25] MEDS ORDERED: ePHEDrine sulfate 50 MG/ML AMP ONE (08:59)
[2022-03-25] MEDS ORDERED: PROPOFOL IV EMULSION 10 MG/ML 20 ML VIAL IV ONE (08:59)
[2022-03-25] MEDS ORDERED: ONDANSETRON INJ 2 MG/ML 2 ML VIAL ONE (08:59)
--- NOTE | 2022-03-25 10:15 | Operative Report ---
PG Post Operative Report Pre & Post Diagnosis Operation Date: 03/25/22 06:55 Pre-Op Diagnosis: Left displaced femoral neck/hip fracture Post-Op Diagnosis: Left displaced femoral neck/hip fracture plus chronic left hip abductor avulsion I identified the patient and participated in the time-out.: Yes Procedure Operation Date: 03/25/22 06:55 Actual Procedures p Left Bipolar Hip(Left) with left hip abductor repair- Zuhair Hansen MD Surgeon Zuhair Hansen MD Director [employer] Jhonny Vilchis PA-C Estimated Blood Loss 200 Findings Consistent with Post-Op Diagnosis Fluids 600 cc Specimens Left femoral head sent for pathology Drains None Anesthesia Type General Complications none Disposition Accompanied Patient To Recovery: No Indications Patient is an 86-year-old gentleman with multiple medical comorbidities sustained multiple falls over the past year or so. He had multiple fractures. He had a recent fall and was less able to ambulate. Was brought to emergency room x-rays of a 1. B valgus impacted femoral neck fracture. Upon further evaluation he clearly had mall angulation of an displacement of this fracture. Treatment options were explained to the patient and his including nonoperative management. He elected proceed with surgical treatment. Hemiarthroplasty was the most appropriate management treatment for this displaced fracture. Description of Procedure Operative implants consist of: 1 Yvette size 14 LD/fracture femoral cemented hip fracture stem. 2. 13 mm centralizer. 3. +3.5/28 mm metal articular ball. 4. 52 mm bipolar shell and liner. 5. Small cement restrictor 6. Juggernaut suture anchor x2. The patient was taken the operating, identified, placed on the operating table supine position protectors were properly padded. IV antibiotics provided by anesthesia team. A general anesthetic was implemented. A اعلراقي catheter was placed in sterile fashion and the patient then placed in the right lateral decubitus position. An axillary roll was placed. A Stulberg hip positioner was used for positioning. Left hip and leg were then prepped and draped in usual sterile fashion. A posterolateral approach left hip was then performed a curvilinear incision centered over the greater trochanter. Sharp dissection Through subcutaneous tissue down to the IT band gluteal fascia. IT band gluteal fascia was incised longitudinally in line with skin incision. He clearly had complete avulsion of his hip abductors anteriorly and superiorly. The piriformis and external rotators been taken on carefully off the posterior aspect hip joint capsule. A posterior capsulotomy was then performed. Hip was internally rotated and dislocated. Femoral neck osteotomy cut was made with Final Cut about a centimeter above the lesser trochanter. Femoral head was removed and sent for pathology. The femur was retracted anteriorly. Attention drawn the acetabulum. The femoral head was sized. I then sized the acetabulum to a size 52. The proximal femur was then entered with the canal finder and lateralizing reamer. Broached beginning with size 10 progressing up to 14. Got excellent fit with a 14. We trialed the hip and the +3.5 articular ball provide full stability and appropriate leg lengths and soft tissue tension. We elect to place these implants. Nupathe all trial implants were removed. A cement restrictor was placed distally. A double batch Palacos G cement was mixed. I injected this into the canal. A size 14 LD/fracture of fracture stem was then placed. All extraneous cement was removed. Once the cement was hardened the +3.5/28 mm articular ball was placed with a 52 mm bipolar shell and liner. Hip was located once again found to be stable. Attention drawn toward closing. Wounds irrigated scope amounts of pulsatile lavage solution. I did inject locally with 30 cc of half percent Marcaine with epinephrine. Posterior capsule was then repaired with #2 Tycron suture in a [id number] fashion. I then scuffed up the greater trochanter. I placed 2 juggernaut anchors 1 anteriorly one superiorly and then repaired the hip abductors. Pretty nice repair. The IT band gluteal fascia then closed with #1 PDS suture running fashion for subcutaneous tissue then closed with 2 layers of deep layer #1 Vicryl suture subcutaneous tissues with 2 Dexon suture in buried interrupted fashion skin was closed skin vishnu. Leg was then cleaned and dried a sterile dressing was Xeroform, 4 x 4's, ABD pad and foam tape was applied. Patient then brought out of general anesthesia and transferred to the recovery in stable condition. Patient tolerated procedure well and there were no complications. Jhonny Vilchis, my physician assistant professor of drama, was present for the entire procedure. His assistance was essential and required for appropriate patient positioning, prepping and draping, surgical exposure, performing the technical details of the operation, placement the implants, closure of the wound, and placement of the sterile bandage. I attest to the content of the Intraoperative Record and any orders documented therein. Any exceptions are noted below.
--- NOTE | 2022-03-25 11:08 | Anesthesiology Progress Note ---
Date of Service March 25, 2022 Anesthesia Post Procedure Vital Signs Vital Signs: Temp Pulse Pulse Pulse Resp BP BP 03/25/22 10:40 37.1 C 62 19 130/77 03/25/22 10:30 61 21 126/81 03/25/22 10:20 62 22 131/82 03/25/22 10:10 66 20 154/98 H 03/25/22 10:01 36.5 C 69 16 168/108 H 03/25/22 08:00 60 03/25/22 07:52 36.3 C L 60 18 122/75 03/25/22 02:56 63 18 116/73 03/24/22 22:15 65 03/24/22 23:14 37.1 C 72 18 111/70 03/24/22 18:58 36.6 C 63 20 117/81 03/24/22 15:43 36.5 C 60 18 107/67 03/24/22 15:39 62 Pulse Ox O2 Del Method O2 Flow Rate 03/25/22 10:40 92 Oxymask 3 03/25/22 10:30 92 Oxymask 3 03/25/22 10:20 92 Oxymask 5 03/25/22 10:10 93 Oxymask 9 03/25/22 10:01 98 Oxymask 9 03/25/22 08:00 03/25/22 07:52 93 Room Air 03/25/22 02:56 90 Room Air 03/24/22 22:15 03/24/22 23:14 91 Room Air 03/24/22 18:58 91 Room Air 03/24/22 15:43 91 Room Air 03/24/22 15:39 Pain Intensity Left Leg: Pain Intensity: 3 Transfer of Care Handoff Completed per policy Notes Mental Status: alert / awake / arousable and participated in evaluation Patient Amnestic to Procedure: Yes Nausea / Vomiting: adequately controlled Pain: adequately controlled Airway Patency, RR, SpO2: stable & adequate BP & HR: stable & adequate Hydration State: stable & adequate Anesthetic Complications: no major complications apparent and Pt Satisfied with anesthetic care
[2022-03-25] MEDS ORDERED: POLYETHYLENE (MIRALAX) 17 GM PACK PO PRN (11:14)
[2022-03-25] MEDS ORDERED: traMADol HCL 50 MG TABLET PO PRN (11:14)
--- NOTE | 2022-03-25 11:50 | Hospitalist Progress Note ---
Date of Service March 25, 2022 Assessment & Plan (1) Closed left hip fracture: Plan: patient was admitted to the hospital following a fall He sustained multiple rib fractures, T1,T2,T8 , T2 fracture, old T12 fx including a suspected impacted femoral neck fracture Patient unable to get MRI in view of pacemaker Evaluated by cardiology for pre op assessment CT scan with 3 D reconstruction confirmed femoral neck fracture He is now status post Left Bipolar Hip(Left) with left hip abductor repair Appreciate Ortho (2) Fall: Plan: mechanical fall according to (3) Dementia: Plan: -Patient seemed lucid to me today, answered my questions, however, he has some baseline dementia, worsening over time -CT of the head was negative for acute findings -CBC is showing elevated MCV at 103, will check B12, folic acid, and thiamine levels -AST elevated at 43, ALT elevated at 56, Alk Phos elevated at 153, will obtain hepatitis, tick borne panel, and ammonia level -No other metabolic abnormalities noted on initial CMP -TSH WNL -UA is clean, covid negative - asked for a neuro consult (4) Hallucinations: (5) Congestive heart failure: Plan: -Examines volume depleted, will continue IV fluids for now with a max of 2 bags of NSS -For now will hold Lasix and spironolactone to prevent hypotension as BP has been soft (6) CAD (coronary artery disease): Plan: -Continue Aspirin (7) Atrial flutter: Plan: -HR currently controlled -Only on aspirin, no other anticoagulants -Continue amiodarone and metoprolol (8) Hypertension: Plan: -Continue metoprolol -Will hold lisinopril, lasix and spironolactone for now as his BP is currently soft (9) Hyperlipidemia: Plan: -Continue statin (10) GERD (gastroesophageal reflux disease): Plan: -Continue carafate and omeprazole (11) Anemia: Plan: -Hgb stable, MCV elevated, will get B12, folate, and thiamine levels -Continue ferrous sulfate and B12, will also give folic acid and thiamine after labs are collected (12) Anxiety and depression: Plan: -Continue Paroxetine Plan continue hopsitalization Admission and Anticipated Discharge Date Admission Date: March 23, 2022 Subjective patient seen and examined, going for surgery today Review of Systems Review of Systems: All systems reviewed are negative, apart from the ones contained in the history. Physical Exam Physical Exam: The patient is awake, alert and oriented 3, well developed and well nourished, normocephalic and atraumatic, lying in bed and in no acute distress. HEENT--PERRL, EOMI, mucous membranes and oropharynx mildly dry Neck--supple. No JVD. No bruits. Thyroid normal, trachea midline, no adenopath y. Heart--normal S1 and S2. No murmurs, rubs or gallops. Lungs--clear bilaterally, no respiratory distress, no accessory muscle use. Abdomen--normal bowel sounds and soft. Mild epigastric and left sided abdominal pain Extremities--no cyanosis or clubbing. No edema. Dermatologic--normal skin turgor, normal color, no abnormal lymph nodes, no rash. Neurologic--cranial nerves II through XII grossly intact. Rheumatologic--normal range of motion. Psychiatric--normal affect. Results & Data Results & Data ([facility]) Vital Signs (Past 12 Hours) Vital Signs Temp Pulse Pulse Pulse Resp BP BP 03/25/22 11:41 97.9 F 61 20 107/67 03/25/22 11:21 97.9 F 62 20 116/73 03/25/22 11:06 98.2 F 60 20 116/75 03/25/22 10:40 98.8 F 62 19 130/77 03/25/22 10:30 61 21 126/81 03/25/22 10:20 62 22 131/82 03/25/22 10:10 66 20 154/98 H 03/25/22 10:01 97.7 F 69 16 168/108 H 03/25/22 08:00 60 03/25/22 07:52 97.3 F L 60 18 122/75 03/25/22 02:56 63 18 116/73 Pulse Ox O2 Del Method O2 Flow Rate 03/25/22 11:41 91 Oxymask 03/25/22 11:21 92 Oxymask 3 03/25/22 11:06 93 Oxymask 3 03/25/22 10:40 92 Oxymask 3 03/25/22 10:30 92 Oxymask 3 03/25/22 10:20 92 Oxymask 5 03/25/22 10:10 93 Oxymask 9 03/25/22 10:01 98 Oxymask 9 03/25/22 08:00 03/25/22 07:52 93 Room Air 03/25/22 02:56 90 Room Air PG Care Time/CCT Total # of Minutes Spent Total Time Spent with Patient: Total time spent is greater than 50% in coordination of care (as documented) at patient's floor/unit and/or counseling patient: Coding Level of Care Code 46061 Subseq Hosp Care Lvl 2 Diagnoses Closed left hip fracture S72.002A Fall W19.XXXA Dementia F03.90 Hallucinations R44.3 Congestive heart failure I50.9 CAD (coronary artery disease) I25.10 Atrial flutter I48.92 Atrial flutter type: unspecified Hypertension I10 Hyperlipidemia E78.5 GERD (gastroesophageal reflux disease) K21.9 Anemia D64.9 Anxiety and depression F41.9; F32.A Time Spent (min) 35 (1) Atrial flutter Atrial flutter type: unspecified Qualified Code(s): I48.92 - Unspecified atrial flutter
--- NOTE | 2022-03-25 12:10 | XRay Report ---
XR hip LT min 2V CLINICAL HISTORY: Post-Operative implant position COMPARISON: Left hip radiographs March 23, 2022. CT of the left hip March 24, 2022. FINDINGS: Alignment of the left hip arthroplasty is anatomic. No periprosthetic fracture or unexpect ed radiopaque foreign body is present. There are skin vishnu. IMPRESSION: Expected findings following left hip arthroplasty. ACT 112: Negative or not required by law. Electronically signed by: Ja Yeh M.D. 03/25/2022 12:09 PM
--- NOTE | 2022-03-25 12:49 | Cardiology Progress Note ---
Date of Service March 25, 2022 Assessment & Plan Admission and Anticipated Discharge Date Admission Date: March 23, 2022 Subjective He answered questions postoperatively. He denies any chest pain or chest pressure or shortness of breath. He denied any significant discomfort. His breathing was not labored. He did seem mildly confused. Results & Data ([facility]) Vital Signs (Past 12 Hours) Vital Signs Temp Pulse Pulse Pulse Resp BP BP 03/25/22 12:10 36.6 C 60 20 107/67 03/25/22 11:41 36.6 C 61 20 107/67 03/25/22 11:21 36.6 C 62 20 116/73 03/25/22 11:06 36.8 C 60 20 116/75 03/25/22 10:40 37.1 C 62 19 130/77 03/25/22 10:30 61 21 126/81 03/25/22 10:20 62 22 131/82 03/25/22 10:10 66 20 154/98 H 03/25/22 10:01 36.5 C 69 16 168/108 H 03/25/22 08:00 60 03/25/22 07:52 36.3 C L 60 18 122/75 03/25/22 02:56 63 18 116/73 Pulse Ox O2 Del Method O2 Flow Rate 03/25/22 12:10 95 Oxymask 3 03/25/22 11:41 91 Oxymask 03/25/22 11:21 92 Oxymask 3 03/25/22 11:06 93 Oxymask 3 03/25/22 10:40 92 Oxymask 3 03/25/22 10:30 92 Oxymask 3 03/25/22 10:20 92 Oxymask 5 03/25/22 10:10 93 Oxymask 9 03/25/22 10:01 98 Oxymask 9 03/25/22 08:00 03/25/22 07:52 93 Room Air 03/25/22 02:56 90 Room Air he was sleepy but arousable and answers questions HEENT mildly reduced carotid upstrokes Lungs: Decreased breath sounds in the bases bilaterally but no rales rhonchi or wheezing Heart: Regular rate and rhythm he has a soft systolic ejection murmur at the right sternal border and he is a soft holosystolic murmur at the apex Abdomen: Soft nontender distended positive bowel sounds Extremities: No clubbing cyanosis or edema Psychiatric as noted he appeared confused EKG atrially paced ventricularly sensed with a right bundle branch block, lateral ST-T changes, Anterior MS age indeterminate IMPRESSIONS: 1.S/P ORIF of his left hip secondary to a mechanical fall and fracture 2. Hypertension 3. Hypercholesterolemia 4. Chronic systolic heart failure 5. Paroxysmal atrial flutter (July 2018) on amiodarone 6., ischemic cardiomyopathy (40-45%, October 2021), 7. coronary artery disease (CABG x3, 2004; obstructed SVG to OM, OM stents x3, February 2005) 8. 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 Paroxysmal atrial fibrillation (November 2021, no anticoagulation, rectal bleeding) 10. Dual chamber ICD, September 10, 2019). 11. 11/08/21 Echo: LV function mildly reduced. EF 40-45%. Mild global hypokinesis. RV dilated with moderately reduced function. Systolic and diastolic septal flattening consistent with RV volume overload. Moderate . Moderate MR. Moderate to severe TR. He denies any symptoms postoperatively. His blood pressure seems relatively stable. We will have to watch for heart failure symptoms. He is taking p.o. liquids stop his IV fluids to avoid volume overload. The [facility] cardiology team will follow him tomorrow. He should remain on amiodarone and the rest of his cardiac meds as long as his blood pressure allows it.
[2022-03-25] MEDS: SODIUM CHLORIDE 0.9% 1000ML 1,000 ML IV SCH (14:13)
[2022-03-25] MEDS: POTASSIUM CHLORIDE CRTAB 20 MEQ TABCR PO SCH ×2 (14:36→21:58)
[2022-03-25] MEDS: METOPROLOL SUCC 25MG EXT REL TAB PO SCH (15:31)
[2022-03-25] MEDS: AMIODARONE 200 MG TAB PO SCH (15:31)
[2022-03-25] MEDS: PANTOprazole 40 MG TAB PO SCH (15:32)
[2022-03-25] MEDS: CEROVITE ADV FORMULA TAB PO SCH ×2 (15:32→21:53)
[2022-03-25] MEDS: FERROUS SULFATE 325 MG TAB PO SCH (21:53)
[2022-03-25] MEDS: PARoxetine HCL 10 MG TAB PO SCH (21:53)
[2022-03-25] MEDS: CYANOCOBALAMIN (B-12) 500 MCG TABLET PO SCH (21:54)
[2022-03-25] MEDS: CHOLECALCIFEROL 1,000 UNITS 25 MCG TAB PO SCH (21:54)
[2022-03-25] MEDS: ASPIRIN 81 MG ECTAB PO SCH (21:55)
[2022-03-25] MEDS: lisinopril 2.5 MG TAB PO SCH (21:58)
[2022-03-26 01:54] LABS: HBSAG NON-REACTIVE (NON-REACTIVE); Hepatitis A Antibody IgM NON-REACTIVE (NON-REACTIVE); Hepatitis B Core Antibody IgM NON-REACTIVE (NON-REACTIVE)
[2022-03-26] MEDS: SODIUM CHLORIDE 0.9% 1000ML 1,000 ML IV SCH (04:04)
[2022-03-26 07:19] LABS: Basophils # (auto) 0.02 K/uL (0-0.2); Basophils % (auto) 0.2 %; Hematocrit (blood only) 37.4 % (40.1-51.0); Hemoglobin 12.6 g/dl (14.0-18.0); Immature Granulocytes # (auto) 0.08 K/uL (0.00-0.02); Immature Granulocytes % (auto) 0.8 %; Lymphocytes # (auto) 0.28 K/uL (1.2-3.4); Lymphocytes % (auto) 2.9 %; Mean Corpuscular Hemoglobin 34.4 pg (25.0-34.0); Mean Corpuscular Hgb Conc 33.7 g/dL (32.0-36.0); Mean Corpuscular Volume 102.2 fL (80.0-100.0); Monocytes # (auto) 1.28 K/uL (0.24-0.82); Monocytes % (auto) 13.3 %; Neutrophils # (auto) 7.97 K/uL (1.4-6.5); Neutrophils % (auto) 82.8 %; Platelet Count 181 K/uL (130-400); RDW Coefficient of Variation 17.1 % (11.5-14.5); RDW Standard Deviation 63.8 fL (36.4-46.3); Red Blood Count 3.66 M/uL (4.63-6.08); White Blood Count 9.63 K/ul (4.8-10.8)
--- NOTE | 2022-03-26 07:51 | Progress Notes ---
DATE OF NOTE: 03/26/2022. SUBJECTIVE: An 86-year-old gentleman with multiple medical comorbidities. Postop day 1 from a left cemented bipolar hip arthroplasty. He seems to be doing okay. No new pains. Seems to be resting co mfortably. OBJECTIVE: VITAL SIGNS: Temperature 36.4. Vital signs are stable. GENERAL: Shows a pleasant, confused elderly male. He is lying in bed. Looks comfortable. Denies a ny significant pain. EXTREMITIES: Examination of the left hip and leg reveals the leg to be well aligned. Dressing is cl mannie, dry and intact. Leg lengths were equal. He can dorsiflex and plantarflex his foot appropriatel y. LABORATORY DATA: Labs are pending. ASSESSMENT: An 86-year-old gentleman with multiple medical comorbidities postoperative day 1 from a left cemented bipolar hip arthroplasty. Doing reasonably well. Pain seems to be controlled. Hip is located. He is neurologically intact. PLAN: 1. DVT prophylaxis includes thigh-high TEDs, SCDs and we would recommend a baby aspirin twice a day for 6 weeks. 2. OT, weightbear as tolerated. Left total hip protocol. He does need to obey hip precautions if p ossible. 3. Pain control, doing okay with current pain regimen. Limit narcotics to avoid any additional conf usion. 4. Medical management as per the medicine service. 5. Disposition: He is orthopedically okay for discharge any time medically stable. I need to see h im back in 2-3 weeks out from surgery date. Any orthopedic questions can be directed to me at [phone] . Job ID: [id number]
[2022-03-26 08:03] LABS: Albumin Globulin Ratio 1.1 (0.9-2); Albumin Level 3.2 gm/dl (3.4-5.0); BUN Creatinine Ratio 32.1 (10-20); Bilirubin,Total 1.9 mg/dl (0.2-1.0); Calcium 9.8 mg/dl (8.5-10.1); Creatinine Clr Calc Pharmacy 43.8 ml/min; Est GFR (African American) 70.9 ml/min; Est GFR (Non-African American) 61.1 ml/min; Globulin 2.9 gm/dl (2.5-4.0); Potassium 4.6 mmol/L (3.5-5.1); Total Protein 6.1 gm/dl (6.0-8.3)
[2022-03-26] MEDS ORDERED: ASPIRIN 81 MG CHEW PO SCH (09:00)
[2022-03-26] MEDS: SPIRONOLACTONE 25 MG TAB PO SCH (09:10)
[2022-03-26] MEDS: FUROSEMIDE 80 MG TAB PO SCH (09:10)
[2022-03-26] MEDS: ACETAMINOPHEN 325 MG TAB PO PRN (09:10)
[2022-03-26] MEDS: ASPIRIN 81 MG ECTAB PO SCH ×2 (09:11→21:25)
[2022-03-26] MEDS: POTASSIUM CHLORIDE CRTAB 20 MEQ TABCR PO SCH ×2 (09:11→21:26)
[2022-03-26] MEDS: METOPROLOL SUCC 25MG EXT REL TAB PO SCH (09:55)
[2022-03-26] MEDS: AMIODARONE 200 MG TAB PO SCH (09:58)
[2022-03-26] MEDS: PANTOprazole 40 MG TAB PO SCH (09:59)
[2022-03-26] MEDS: CEROVITE ADV FORMULA TAB PO SCH ×2 (09:59→21:27)
--- NOTE | 2022-03-26 11:01 | Neurology Consultation ---
Date of Consultation March 26, 2022 Assessment & Plan (1) Dementia: (2) Hallucinations: (3) Fall: Plan this patient has had a number of medical problems over the years and has been falling over the last few weeks. I believe that his hallucinations (which are improved currently) may have been medication related particularly tramadol. This has been discontinued several days ago. He has no agitation or hallucinations currently. CT scans of the head in the last few weeks have been largely unremarkable. He does not have much in the way of generalized atrophy given his age. laboratory studies have not revealed anything abnormal that would suggest risk of dementia. The patient does display a [id number] dementia. This has likely been going on for a couple of years and gradually getting Worse over time. An aging dementia and/or vascular dementia is quite possible. Otherwise, he does not have any focal neurologic findings or meningeal signs. He has no encephalopathy today. Recommendations: 1. an MRI of the brain would be Very beneficial to help evaluate his case. I am not certain he can get an MRI due to his pacemaker. 2. Given his recent surgery, I would decline further neurologic testing or treatment at this time and would defer to re-evaluation as an outpatient. Overall, I spent a total of 60 minutes with this case including review of records, review of CT films, direct evaluation the patient at bedside, and discussion of the case with the patient and RN at bedside, his via telephone, and Dr. Richter including differential diagnosis and treatment options. History of Present Illness Reason for Consultation: Patient is an 86 year old, who I was asked to see at the request of Dr. Monsivais, for neurologic consultation regarding dementia. Requesting Physician: Dr. Pedraza Attending Physician: Koko Richter History of Present Illness I spoke to the patient's who helps at to the history. he lives at [facility]. The patient had significant prostate cancer and post radiation proctitis s everal years ago. Over the last 2 years he has had memory issues which started out somewhat mild insidiously but has gradually gotten worse and has been more prominent over the last year. The patient fell several weeks ago and was given tramadol, which she took up to 3 times a day initially. About 2 weeks ago he had 1 day where he was restless at night followed by some visual hallucinations of seeing cats and people the next day. This resolved. He took his last tramadol 4 days ago. He had some visual hallucinations last week some time before stopping the tramadol. Patient has been continuing to fall ended up fracturing his left femoral neck. On March 25, he underwent surgical correction of the fracture by Dr. Hansen. Currently the patient has no complaint of pain or headache lying in bed. He has no new numbness or weakness. CBCs over the last several weeks of shown some very mild anemia and elevated MCV. Liver enzymes are up ammonia was normal. B12 folate and TSH were normal. Allergies Allergy/AdvReac Type Severity Reaction Status Date / Time Penicillins Allergy Intermediate Rash & Verified 03/23/22 15:42 Swelling Home Medications Medication Instructions Recorded Confirmed Type cholecalciferol (vitamin D3) 50 2,000 units PO HS 05/07/18 03/23/22 History mcg (2,000 unit) capsule multivitamin 1 tab PO HS 08/18/18 03/23/22 History atorvastatin 80 mg tablet 80 mg PO QAM 08/25/18 03/23/22 History lisinopril 2.5 mg tablet 2.5 mg PO HS 08/25/18 03/23/22 History omeprazole 20 mg capsule,delayed 20 mg PO QAM 08/25/18 03/23/22 History release vit C 250 mg-vit E 90 mg-zinc 40 1 tab PO BID 08/25/18 03/23/22 History mg-copper 1 [id number] capsule (PreserVision AREDS-2) ferrous sulfate 325 mg (65 mg 325 mg PO HS 06/18/19 03/23/22 History iron) tablet (Iron (ferrous sulfate)) furosemide 80 mg tablet 80 mg PO QAM 01/07/20 03/23/22 History aspirin 81 mg chewable tablet 81 mg PO UD 05/05/20 03/23/22 History paroxetine HCl 10 mg tablet (Paxil) 10 mg PO HS 11/24/21 03/23/22 History potassium chloride 20 mEq 20 meq PO BID #180 tabs 11/24/21 03/23/22 Rx tablet,extended release acetaminophen 500 mg tablet 500 mg PO BID 12/25/21 03/23/22 History coQ10 (ubiquinol) 200 mg capsule 200 mg PO HS 12/25/21 03/23/22 History cyanocobalamin (vitamin B-12) 500 500 mcg PO HS 12/25/21 03/23/22 History mcg tablet spironolactone 25 mg tablet 25 mg PO QAM 12/25/21 03/23/22 History polyethylene glycol 3350 17 17 g PO DAILY PRN Constipation 01/12/22 03/23/22 History gram/dose oral powder (Miralax) metoprolol succinate 25 mg 12.5 mg PO QAM #30 tabs 01/19/22 03/23/22 Rx tablet,extended release 24 hr amiodarone 200 mg tablet 200 mg PO DAILY 02/23/22 03/23/22 History tramadol 50 mg tablet 50 mg PO QID PRN Pain 03/23/22 03/23/22 History Patient History Medical History Anemia Atrial flutter PAROXYSMAL CAD (coronary artery disease) S/P CABG X3 (2004), OM STENTS X3 (?2004) Cancer PROSTATE CANCER- RADIATION TREATMENTS Congestive heart failure EUVOLEMIC PER 08/12/18 CARDIO OFFICE VISIT GERD (gastroesophageal reflux disease) H/O flexible sigmoidoscopy RADIATION FOR PROSTATE CANCER CAUSING PROCTITIS (REASON FOR MULTIPLE FLEX SIGMOIDOSCOPY) Hearing deficit BILATERAL HEARING AIDS History of cardioversion 04/24/19 (went into a regular rhythm) and 08/2018 History of valvular heart disease Mild AR/CO, Moderate MR/TR per 07/2018 ECHO Hyperlipidemia Hypertension 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 FOR V-TACH AT [facility] ([facility]) Ischemic cardiomyopathy Macular degeneration Osteoarthritis Pacemaker IMPLANTED 08/2019 FOR V-TACH AT [facility] ([facility]) Past myocardial infarction X2 (2004), X1 (2006) Proctitis Rectal bleeding Temporal arteritis 04/2018 Surgical History Fusion of spine L4-L5 H/O hemorrhoidectomy History of biopsy of temporal artery History of cardiac cath OM STENTS X3 (?2004) History of cataract surgery RT/LEFT History of colonoscopy History of coronary artery bypass graft CABG X3 (2004) History of inguinal hernia repair History of laminectomy LUMBAR History of tonsillectomy S/P epidural steroid injection S/P repair of hydrocele Family History Mother , age 91 Myocardial infarction Father , age 81 Myocardial infarction Brother , age 46 Myocardial infarction Son History of heart attack times 2 High cholesterol Daughter High cholesterol Daughter High cholesterol Social History Smoking Status: Never smoker Hx Alcohol Use: No Hx Substance Use: No Preferred Language: Vietnamese Communication Ability: Effective Visual Impairment: No Limitations Hearing Ability: Normal Hockey Instructor Required: No Beliefs That Will Affect Care: None marital status: Current Living Situation: Spouse Current Living Situation Comment: [facility] [place] current occupational status: retired 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 Feels Safe at Home: Yes Assistive Devices: Scooter/Electric Scooter and Walker Review of Systems Constitutional: no fever, no fatigue and no weakness Eyes: no diplopia, no eye pain and no worsening vision Ear, Nose, Mouth, Throat: no ear pain, no tinnitus, no hearing loss, no dizziness, no snoring, no hoarseness and no dysphagia Respiratory: no cough and no dyspnea Cardiovascular: no chest pain, no palpitations and no lightheadedness Gastrointestinal: no abdominal pain, no nausea and no vomiting Musculoskeletal: no back pain, no neck pain, no radicular pain, no joint pain and no myalgia Integumentary: no rash and no lesions Neurologic: + gait abnormality, + localized weakness and + numbness; no generalized weakness, no tingling, no tremor(s), no abnormal movements, no headache(s), no abnormal speech, no confusion and no memory loss Psychiatric: no depression, no irritability, no anxiety, no difficulty concentrating, no confusion and no hallucinations Endocrine: no fatigue and no flushing Hematologic / Lymphatic: no easy bleeding and no easy bruising Allergy / Immunological: no urticaria and no problem reported Exam (Neuro) Physical Exam: The patient is right-handed. The patient is awake, alert, and attentive. Speech is normal without any aphasia or dysarthria. The patient can name objects, repeat phrases, and has normal spontaneous speech. Mood and affect are normal appropriate. He is pleasant and cooperative. He knew his name, the month, the President, where he lived, and his 's name. He did not know his age ( 66) the year (2022) or date/day of the week. 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 he was not having any visual or auditory hallucinations. He was not agitated Or restless. Pupils are 3 mm bilaterally and reactive to light. Extraocular eye muscles are intact without nystagmus. Visual acuity and visual rivero seem normal grossly to confrontation. There are no deficits to sensation in the face in all 3 distributions of the fifth cranial nerve bilaterally. Corneal reflexes are positive bilaterally. Facial strength and symmetry was normal bilaterally. Hearing seems normal bilaterally. Palate moves well without asymmetry. There is normal sternocleidomastoid and trapezius (shoulder shrug) strength bilaterally. Tongue is midline with good strength bilaterally. Neck has a full range of motion without discomfort. There are no cervical bruits bilaterally. There are no cranial or ocular bruits. Heart is without murmur. There is a regular rhythm and rate. Cervical spine are nontender to palpation. Gait Was not tasted because the patient was in a foam brace to keep his legs stable bilaterally. Stance could not be very well tested either because of this. With outstretched arms there is no drift He, however, he had a drop of the right arm because of significant right shoulder weakness.. There are no resting tremors. There is no ataxia with finger to nose testing. There is good facility in the hands. He had very mild action tremor only in the left upper extremity. No other abnormal involuntary movements are noted. Motor strength is 5/5 diffusely in the arms bilaterally including biceps, triceps, brachioradialis, wrist flexors and extensors, legal administrative secretary, and intrinsic hand muscles. The right deltoid was 2/5 Yolanda as the left was 5/5. Leg strength could not be adequately assessed proximally because of being in the phone brace. Distally tibialis anterior, toe extensors, and gastrocnemius strength was 5/5 bilaterally. The Arms have good tone without rigidity or spasticity. There is no atrophy noted in the muscles. Muscle bulk is normal, there is no tenderness to palpation, no myotonia to percussion, and no fasciculations seen. Sensory examination is intact distally in all 4 limbs. Reflexes are 1/4 in the biceps, triceps, brachioradialis, and quadriceps tendons bilaterally. Achilles tendon reflexes are absent bilaterally. There is no clonus bilaterally. Toes are Neutral with plantar stimulation bilaterally. Peripheral pulses are present and of normal quality distally in all 4 limbs. There is no peripheral edema noted in the limbs. Results & Data ([facility]) Vital Signs (Past 12 Hours) Vital Signs Temp Pulse Pulse Pulse Resp BP Pulse Ox 03/26/22 10:07 03/26/22 09:49 60 78/56 L 03/26/22 08:01 36.7 C 66 20 113/70 91 03/26/22 07:14 63 03/26/22 04:28 36.4 C L 74 20 101/68 90 03/25/22 22:59 36.2 C L 64 18 96/67 L 94 O2 Del Method O2 Flow Rate 03/26/22 10:07 Nasal Cannula 2 03/26/22 09:49 03/26/22 08:01 Nasal Cannula 2 03/26/22 07:14 03/26/22 04:28 2 03/25/22 22:59 Nasal Cannula 2 PG Care Time/CCT Total # of Minutes Spent Total Time Spent with Patient: Total time spent is greater than 50% in coordination of care (as documented) at patient's floor/unit and/or counseling patient: Coding Level of Care Code 83619 Initial Inpt Care Lvl 3 Diagnoses Dementia F03.90 Hallucinations R44.3 Fall W19.XXXA Time Spent (min) 60
--- NOTE | 2022-03-26 15:27 | Cardiology Progress Note ---
Date of Service March 26, 2022 Assessment & Plan (1) S/P ORIF (open reduction internal fixation) fracture: (2) CAD (coronary artery disease): (3) Heart failure with mid-range ejection fraction: (4) ICD (implantable cardioverter-defibrillator), dual, in situ: (5) Atrial flutter: Plan Patient feels comfortable and is hemodynamically stable post ORIF left hip after mechanical fall/fracture. No evidence of current heart failure, appears euvolemic. Sinus rhythm alternating with electronic ventricular pacing, no recurrence of atrial or ventricular dysrhythmias. Continue amiodarone and his other cardiac medications, he is back on furosemide so his I/O should be monitored. Stable from a cardiac standpoint, will sign off, please contact [facility] cardiology if cardiac issues arise. Admission and Anticipated Discharge Date Admission Date: March 23, 2022 Subjective Patient awake and alert but mildly confused (he wanted to "go outside"). Answer simple questions appropriately, denies any chest pain or dyspnea and appears comfortable. Telemetry showed sinus rhythm in the 70 to 80 bpm range with occasional electronic ventricular pacing at 60 bpm. Physical Exam Physical Exam: Appears comfortable, as noted mildly confused. BP 94/61 mmHg Pulse 8 4 bpm and regular. Skin: Scattered ecchymoses, no generalized lesions. HEENT: unremarkable. Neck: Earliness pulse at the clavicle, no carotid bruits. Lungs: Moderately decreased breath sounds but generally clear. Cardiac: regular rhythm, normal S1 and S2 with 2/6 basal systolic ejection murmur and 2/6 apical holosystolic murmur, no diastolic murmur or gallop. Abdomen: benign. Extremities: no edema, pulses intact. Neurologic: Awake and alert but mildly confused, nonfocal. Results & Data ([facility]) Vital Signs (Past 12 Hours) Vital Signs Temp Pulse Pulse Pulse Resp BP Pulse Ox 03/26/22 15:04 83 03/26/22 12:00 97.9 F 68 20 94/61 L 90 03/26/22 10:07 03/26/22 09:49 60 78/56 L 03/26/22 08:01 98.1 F 66 20 113/70 91 03/26/22 07:14 63 03/26/22 04:28 97.5 F L 74 20 101/68 90 O2 Del Method O2 Flow Rate 03/26/22 15:04 11/07/22 12:00 Nasal Cannula 2 03/26/22 10:07 Nasal Cannula 2 03/26/22 09:49 03/26/22 08:01 Nasal Cannula 2 03/26/22 07:14 03/26/22 04:28 2 Laboratory Results Sodium 133, otherwise normal electrolytes, BUN 35, creatinine 1.09. PG Care Time/CCT Total # of Minutes Spent Total Time Spent with Patient: Total time spent is greater than 50% in coordination of care (as documented) at patient's floor/unit and/or counseling patient: Coding Level of Care Code 32594 Subseq Hosp Care Lvl 3 Diagnoses S/P ORIF (open reduction internal fixation) fracture Z98.890; Z87.81 CAD (coronary artery disease) I25.10 Heart failure with mid-range ejection fraction I50.22 ICD (implantable cardioverter-defibrillator), dual, in situ Z95.810 Atrial flutter I48.92 Atrial flutter type: unspecified (1) Atrial flutter Atrial flutter type: unspecified Qualified Code(s): I48.92 - Unspecified atrial flutter
--- NOTE | 2022-03-26 21:04 | Hospitalist Progress Note ---
Date of Service March 26, 2022 Assessment & Plan (1) Closed left hip fracture: Plan: patient was admitted to the hospital following a fall He sustained multiple rib fractures, T1,T2,T8 , T2 fracture, old T12 fx including a suspected impacted femoral neck fracture Patient unable to get MRI in view of pacemaker Evaluated by cardiology for pre op assessment CT scan with 3 D reconstruction confirmed femoral neck fracture He is now status post Left Bipolar Hip(Left) with left hip abductor repair Appreciate Ortho Appears ready for discharge, however bilirrubin is elevated, will reassess in AM (2) Fall: Plan: mechanical fall according to (3) Dementia: Plan: -Patient seemed lucid to me today, answered my questions, however, he has some baseline dementia, worsening over time -CT of the head was negative for acute findings -CBC is showing elevated MCV at 103, will check B12, folic acid, and thiamine levels -AST elevated at 43, ALT elevated at 56, Alk Phos elevated at 153, will obtain hepatitis, tick borne panel, and ammonia level -No other metabolic abnormalities noted on initial CMP -TSH WNL -UA is clean, covid negative - asked for a neuro consult; no further workup required, may consider MR of brain if pacemaker compatible (4) Hallucinations: (5) Congestive heart failure: Plan: -Examines volume depleted, will continue IV fluids for now with a max of 2 bags of NSS -For now will hold Lasix and spironolactone to prevent hypotension as BP has been soft (6) CAD (coronary artery disease): Plan: -Continue Aspirin (7) Atrial flutter: Plan: -HR currently controlled -Only on aspirin, no other anticoagulants -Continue amiodarone and metoprolol (8) Hypertension: Plan: -Continue metoprolol -Will hold lisinopril, lasix and spironolactone for now as his BP is currently soft (9) Hyperlipidemia: Plan: -Continue statin (10) GERD (gastroesophageal reflux disease): Plan: -Continue carafate and omeprazole (11) Anemia: Plan: -Hgb stable, MCV elevated, will get B12, folate, and thiamine levels -Continue ferrous sulfate and B12, will also give folic acid and thiamine after labs are collected (12) Anxiety and depression: Plan: -Continue Paroxetine Plan continue hopsitalization Admission and Anticipated Discharge Date Admission Date: March 23, 2022 Subjective 86 yo male reports no new symptoms. He states he became orthostatic today, but this is normal for him. Review of Systems Review of Systems: All systems reviewed & are unremarkable except as noted in HPI & below Physical Exam Physical Exam: The patient is awake, alert and oriented 3, well developed and well nourished, normocephalic and atraumatic, lying in bed and in no acute distress. HEENT--PERRL, EOMI, mucous membranes and oropharynx mildly dry Neck--supple. No JVD. No bruits. Thyroid normal, trachea midline, no adenopathy. Heart--normal S1 and S2. No murmurs, rubs or gallops. Lungs--clear bilaterally, no respiratory distress, no accessory muscle use. Abdomen--normal bowel sounds and soft. Mild epigastric and left sided abdominal pain Extremities--no cyanosis or clubbing. No edema. Dermatologic--normal skin turgor, normal color, no abnormal lymph nodes, no rash. Neurologic--cranial nerves II through XII grossly intact. Rheumatologic--normal range of motion. Psychiatric--normal affect. Results & Data Results & Data ([facility]) Vital Signs (Past 12 Hours) Vital Signs Temp Pulse Pulse Pulse Resp BP BP 03/26/22 19:47 36.3 C L 71 18 116/70 03/26/22 15:22 36.7 C 85 16 119/86 03/26/22 15:04 83 03/26/22 12:00 36.6 C 68 20 94/61 L 03/26/22 10:07 03/26/22 09:49 60 78/56 L Pulse Ox O2 Del Method O2 Flow Rate 03/26/22 19:47 92 Nasal Cannula 2 03/26/22 15:22 92 Room Air 03/26/22 15:04 03/26/22 12:00 90 Nasal Cannula 2 03/26/22 10:07 Nasal Cannula 2 03/26/22 09:49 PG Care Time/CCT Total # of Minutes Spent Total Time Spent with Patient: Total time spent is greater than 50% in coordination of care (as documented) at patient's floor/unit and/or counseling patient: Coding Level of Care Code 72542 Subseq Hosp Care Lvl 2 Diagnoses Closed left hip fracture S72.002A Fall W19.XXXA Dementia F03.90 Hallucinations R44.3 Congestive heart failure I50.9 CAD (coronary artery disease) I25.10 Atrial flutter I48.92 Atrial flutter type: unspecified Hypertension I10 Hyperlipidemia E78.5 GERD (gastroesophageal reflux disease) K21.9 Anemia D64.9 Anxiety and depression F41.9; F32.A Time Spent (min) 25 (1) Atrial flutter Atrial flutter type: unspecified Qualified Code(s): I48.92 - Unspecified atrial flutter
[2022-03-26] MEDS: CYANOCOBALAMIN (B-12) 500 MCG TABLET PO SCH (21:24)
[2022-03-26] MEDS: CHOLECALCIFEROL 1,000 UNITS 25 MCG TAB PO SCH (21:28)
[2022-03-26] MEDS: PARoxetine HCL 10 MG TAB PO SCH (21:29)
[2022-03-26] MEDS: lisinopril 2.5 MG TAB PO SCH (21:29)
[2022-03-26] MEDS: FERROUS SULFATE 325 MG TAB PO SCH (21:30)
[2022-03-27] MEDS: ACETAMINOPHEN 325 MG TAB PO PRN ×4 (05:54→23:02)
[2022-03-27] MEDS: METOPROLOL SUCC 25MG EXT REL TAB PO SCH (08:24)
[2022-03-27] MEDS: PANTOprazole 40 MG TAB PO SCH (08:24)
[2022-03-27] MEDS: POTASSIUM CHLORIDE CRTAB 20 MEQ TABCR PO SCH ×2 (08:24→23:01)
[2022-03-27] MEDS: CEROVITE ADV FORMULA TAB PO SCH ×2 (08:24→22:43)
[2022-03-27] MEDS: AMIODARONE 200 MG TAB PO SCH (08:24)
[2022-03-27] MEDS: SPIRONOLACTONE 25 MG TAB PO SCH (08:24)
[2022-03-27] MEDS: FUROSEMIDE 80 MG TAB PO SCH (08:25)
[2022-03-27] MEDS: ASPIRIN 81 MG ECTAB PO SCH ×2 (08:25→22:41)
--- NOTE | 2022-03-27 11:16 | Progress Notes ---
SUBJECTIVE: An 86-year-old gentleman postoperative day 2 from left cemented bipolar hip arthroplasty for fracture. He appears to be doing okay. He is still sleeping this morning and looks quite a bit sedated. OBJECTIVE: Examination of the left hip reveals the leg lengths to be equal. Dressing is clean, dry, and intact. No drainage. Fairly minimal swelling. LABORATORY DATA: No new labs today. ASSESSMENT: An 86-year-old gentleman with multiple medical comorbidities, now postop day 2 from a le ft cemented bipolar hip arthroplasty for fracture. Orthopedically, he seems to be doing really well. He seems a bit sedated this morning. PLAN: 1. DVT prophylaxis including thigh-high TEDs, SCDs, and aspirin twice a day. 2. PT/OT. He can fully weightbear on this left leg. He should obey hip precautions. 3. Pain control. I would limit pain medicines to Tylenol to avoid confusion in additional issues. He seems comfortable with that currently. 4. Medical management as per the medicine service. 5. Disposition: He is orthopedically okay for discharge any time medically stable. I need to see h im back in 2 to 3 weeks out from surgery date. Any orthopedic questions can be directed to me at [phone]. Job ID: [id number]
--- NOTE | 2022-03-27 13:19 | Magnetic Resonance Report ---
MRI OF THE BRAIN WITHOUT IV CONTRAST CLINICAL HISTORY: Change in mental status COMPARISON STUDY: CT of the brain dated 03/23/2022. TECHNIQUE: MRI of the brain was performed utilizing various T1 and T2-weighted sequences in the axial , sagittal, and coronal planes. IV contrast was not administered for this examination. FINDINGS: Brain parenchyma: There is age-related involutional change noting mild subcortical and periventricula r microangiopathic disease. There is no hemorrhage or mass effect. There is no restricted diffusion t o suggest acute ischemia. Heaton-white matter differentiation is preserved. No extra-axial fluid collec tion is seen. The cerebellar tonsils are normal in configuration. Ventricles, sulci, and cisterns: Prominent secondary to involutional change. Pituitary and sella: Unremarkable. Intracranial vasculature: Normal flow voids are maintained at the skull base. Orbits: The bony orbits are grossly intact. Orbital contents are normal in appearance noting bilatera l ocular lens implants. Sinuses and mastoids: There is mild mucosal thickening in the right maxillary antrum. The remaining p aranasal sinuses are clear. The mastoid air cells are well pneumatized. Calvarium: Unremarkable. Cervical cord: Partially visualized cervical spinal cord is normal in morphology and signal intensity . IMPRESSION: No acute intracranial abnormality. ACT 112: Negative or not required by law. Electronically signed by: Francisco Padron M.D. 03/27/2022 1:18 PM
[2022-03-27 14:08] LABS: Basophils # (auto) 0.02 K/uL (0-0.2); Basophils % (auto) 0.1 %; Hematocrit (blood only) 39.1 % (40.1-51.0); Hemoglobin 14.1 g/dl (14.0-18.0); Immature Granulocytes # (auto) 0.18 K/uL (0.00-0.02); Immature Granulocytes % (auto) 1.3 %; Lymphocytes % (auto) 2.9 %; Mean Corpuscular Hemoglobin 36.5 pg (25.0-34.0); Mean Corpuscular Hgb Conc 36.1 g/dL (32.0-36.0); Mean Corpuscular Volume 101.3 fL (80.0-100.0); Mean Platelet Volume 9.2 fL (9.4-12.4); Monocytes # (auto) 1.65 K/uL (0.24-0.82); Monocytes % (auto) 11.8 %; Neutrophils # (auto) 11.78 K/uL (1.4-6.5); Neutrophils % (auto) 83.9 %; Platelet Count 211 K/uL (130-400); RDW Coefficient of Variation 17.2 % (11.5-14.5); RDW Standard Deviation 62.5 fL (36.4-46.3); Red Blood Count 3.86 M/uL (4.63-6.08); White Blood Count 14.03 K/ul (4.8-10.8)
[2022-03-27 14:29] LABS: Albumin Level 3.4 gm/dl (3.4-5.0); BUN Creatinine Ratio 32.9 (10-20); Bilirubin Direct 0.6 mg/dl (0-0.2); Bilirubin,Total 1.6 mg/dl (0.2-1.0); C Reactive Protein 25.52 mg/dl (0-0.5); Calcium 10.8 mg/dl (8.5-10.1); Creatinine Clr Calc Pharmacy 30.3 ml/min; Est GFR (African American) 45.2 ml/min; Globulin 3.3 gm/dl (2.5-4.0); Potassium 5.3 mmol/L (3.5-5.1); Total Protein 6.7 gm/dl (6.0-8.3)
[2022-03-27 14:31] LABS: INR 1.1 (0.9-1.1)
[2022-03-27] MEDS ORDERED: LACTATED RINGER'S 1,000 ML IV SCH (15:30)
--- NOTE | 2022-03-27 17:53 | Ultrasound Report ---
ABDOMINAL ULTRASOUND, RIGHT UPPER QUADRANT HISTORY: eleavted liver function tests. COMPARISON: Abdomen and pelvis CT 01/10/2022. FINDINGS: Pancreas: Obscured by overlying bowel gas. Liver: Partially obscured by overlying bowel gas. The visualized liver appears unremarkable. Gallbladder: The gallbladder appears distended. No gallstones or gallbladder wall thickening identifi ed. Negative sonographic Gunn sign. CBD: 6 mm. Right kidney: Mild hydronephrosis. IMPRESSION: 1. Mild right hydronephrosis. 2. Distended gallbladder. No gallbladder wall thickening. No gallstones. ACT 112: Negative or not required by law. Electronically signed by: Nael De Paz M.D. 03/27/2022 5:51 PM
--- NOTE | 2022-03-27 20:09 | Hospitalist Progress Note ---
Date of Service March 27, 2022 Assessment & Plan (1) Closed left hip fracture: Plan: patient was admitted to the hospital following a fall He sustained multiple rib fractures, T1,T2,T8 , T2 fracture, old T12 fx including a suspected impacted femoral neck fracture Patient unable to get MRI in view of pacemaker Evaluated by cardiology for pre op assessment CT scan with 3 D reconstruction confirmed femoral neck fracture He is now status post Left Bipolar Hip(Left) with left hip abductor repair Appreciate Ortho Discharge held as patient's LFT, and WBC are increasing. His Blood pressure is also lower will obtain liver ultrasound. (2) Fall: Plan: mechanical fall according to (3) Dementia: Plan: -Patient seemed lucid to me today, answered my questions, however, he has some baseline dementia, worsening over time -CT of the head was negative for acute findings -CBC is showing elevated MCV at 103, will check B12, folic acid, and thiamine levels -AST elevated at 43, ALT elevated at 56, Alk Phos elevated at 153, will obtain hepatitis, tick borne panel, and ammonia level -No other metabolic abnormalities noted on initial CMP -TSH WNL -UA is clean, covid negative - asked for a neuro consult; no further workup required, may consider MR of brain if pacemaker compatible (4) Hallucinations: (5) Congestive heart failure: Plan: -Examines volume depleted, will continue IV fluids for now with a max of 2 bags of NSS -For now will hold Lasix and spironolactone to prevent hypotension as BP has been soft will hold lisinopril, metoprolol. (6) CAD (coronary artery disease): Plan: -Continue Aspirin (7) Atrial flutter: Plan: -HR currently controlled -Only on aspirin, no other anticoagulants -hold amiodarone and metoprolol (8) Hypertension: Plan: -hold metoprolol -Will hold lisinopril, lasix and spironolactone for now as his BP is currently soft (9) Hyperlipidemia: Plan: -Continue statin (10) GERD (gastroesophageal reflux disease): Plan: -Continue carafate and omeprazole (11) Anemia: Plan: -Hgb stable, MCV elevated, will get B12, folate, and thiamine levels -Continue ferrous sulfate and B12, will also give folic acid and thiamine after labs are collected (12) Anxiety and depression: Plan: -Continue Paroxetine Plan continue hopsitalization Admission and Anticipated Discharge Date Admission Date: March 23, 2022 Subjective 86 yo male is apoor historian. Updated his at bedside. Review of Systems Review of Systems: All systems reviewed & are unremarkable except as noted in HPI & below Physical Exam Physical Exam: The patient is awake, alert and oriented 3, well developed and well nourished, normocephalic and atraumatic, lying in bed and in no acute distress. HEENT--PERRL, EOMI, mucous membranes and oropharynx mildly dry Neck--supple. No JVD. No bruits. Thyroid normal, trachea midline, no adenopa thy. Heart--normal S1 and S2. No murmurs, rubs or gallops. Lungs--clear bilaterally, no respiratory distress, no accessory muscle use. Abdomen--normal bowel sounds and soft. Mild epigastric and left sided abdominal pain Extremities--no cyanosis or clubbing. No edema. Dermatologic--normal skin turgor, normal color, no abnormal lymph nodes, no rash. Neurologic--cranial nerves II through XII grossly intact. Rheumatologic--normal range of motion. Psychiatric--normal affect. Results & Data Results & Data ([facility]) Vital Signs (Past 12 Hours) Vital Signs Temp Pulse Pulse Resp BP Pulse Ox Pulse Ox 03/27/22 19:41 36.3 C L 75 16 116/82 93 03/27/22 15:00 80 03/27/22 17:00 95 03/27/22 15:41 36.8 C 66 20 137/85 93 03/27/22 12:57 96 03/27/22 11:45 03/27/22 11:33 36.7 C 68 24 125/80 92 O2 Del Method O2 Del Method O2 Flow Rate O2 Flow Rate 03/27/22 19:41 Nasal Cannula 2 03/27/22 15:00 03/27/22 17:00 Nasal Cannula 2 03/27/22 15:41 Nasal Cannula 2 03/27/22 12:57 03/27/22 11:45 Nasal Cannula 2 03/27/22 11:33 Nasal Cannula 2 PG Care Time/CCT Total # of Minutes Spent Total Time Spent with Patient: Total time spent is greater than 50% in coordination of care (as documented) at patient's floor/unit and/or counseling patient: Coding Level of Care Code 19538 Subseq Hosp Care Lvl 3 Diagnoses Closed left hip fracture S72.002A Fall W19.XXXA Dementia F03.90 Hallucinations R44.3 Congestive heart failure I50.9 CAD (coronary artery disease) I25.10 Atrial flutter I48.92 Atrial flutter type: unspecified Hypertension I10 Hyperlipidemia E78.5 GERD (gastroesophageal reflux disease) K21.9 Anemia D64.9 Anxiety and depression F41.9; F32.A Time Spent (min) 45 (1) Atrial flutter Atrial flutter type: unspecified Qualified Code(s): I48.92 - Unspecified atrial flutter
[2022-03-27] MEDS: CHOLECALCIFEROL 1,000 UNITS 25 MCG TAB PO SCH (22:41)
[2022-03-27] MEDS: CYANOCOBALAMIN (B-12) 500 MCG TABLET PO SCH (22:41)
[2022-03-27] MEDS: FERROUS SULFATE 325 MG TAB PO SCH (22:43)
[2022-03-27] MEDS: PARoxetine HCL 10 MG TAB PO SCH (23:01)
[2022-03-28] MEDS: ASPIRIN 81 MG ECTAB PO SCH ×2 (07:52→20:44)
[2022-03-28] MEDS: CEROVITE ADV FORMULA TAB PO SCH ×2 (07:52→20:45)
[2022-03-28] MEDS: ACETAMINOPHEN 325 MG TAB PO PRN (07:52)
[2022-03-28] MEDS: PANTOprazole 40 MG TAB PO SCH (07:52)
[2022-03-28] MEDS ORDERED: LACTATED RINGER'S 1,000 ML IV SCH (08:15)
[2022-03-28 09:02] LABS: Basophils # (auto) 0.03 K/uL (0-0.2); Basophils % (auto) 0.2 %; Hematocrit (blood only) 40.6 % (40.1-51.0); Hemoglobin 13.7 g/dl (14.0-18.0); Immature Granulocytes # (auto) 0.21 K/uL (0.00-0.02); Immature Granulocytes % (auto) 1.2 %; Lymphocytes # (auto) 0.29 K/uL (1.2-3.4); Lymphocytes % (auto) 1.6 %; Mean Corpuscular Hemoglobin 35.1 pg (25.0-34.0); Mean Corpuscular Hgb Conc 33.7 g/dL (32.0-36.0); Mean Corpuscular Volume 104.1 fL (80.0-100.0); Monocytes # (auto) 1.52 K/uL (0.24-0.82); Monocytes % (auto) 8.5 %; Neutrophils % (auto) 88.5 %; Platelet Count 222 K/uL (130-400); RDW Coefficient of Variation 17.5 % (11.5-14.5); RDW Standard Deviation 66.4 fL (36.4-46.3); White Blood Count 17.85 K/ul (4.8-10.8)
--- NOTE | 2022-03-28 09:03 | Urology Consultation ---
Date of Consultation March 28, 2022 Assessment & Plan (1) Hydronephrosis, right: 86-year-old male with history of prostate cancer status post radiation and multiple other comorbidities admitted for altered mental status and mechanical fall with multiple orthopedic injuries. He is status post left hip arthroplasty on 03/25. - Urology consulted for evaluation of right hydronephrosis and worsening WBC and creatinine. - Afebrile, lab work reviewed - creatinine increased to 2.20, WBC 17.85. Lactate 3.9 today. - Blood cultures 03/27 are pending. Recommend obtain urine culture - order placed. - Consider addition of empiric antibiotics given increasing WBC and lactate - will defer to hospital medicine. - He underwent liver ultrasound on 03/27 due to elevated LFTs which noted mild right hydronephrosis. - His prior CTAP on 01/10/22 showed no hydronephrosis. - He denies flank pain. - العراقي catheter is intact and draining appropriately. - Maintain العراقي catheter at this time and continue to monitor urine output. - Recommend supportive care and management per hospital service. - No acute intervention planned today. - Will order Renal US for further evaluation. - will continue to follow. Case discussed with Dr. Olvera, urologist weight reduction specialist. Supervising Physician Co-Signing Physician Notes I have discussed Mr. Bowen's case with LILIANA Leon and agree with the above documentation. I suspect his ITZEL is mostly prerenal etiology, would recommend supportive care, hydration, maintaining adequate blood pressure. To evaluate for any obstruction of the left kidney, it would be reasonable to perform a full renal ultrasound. Maintain العراقي catheter. Would be reasonable to obtain urine culture as well, however this may be confounded by the indwelling العراقي catheter. Prior UA was not suspicious for infection, therefore I have low suspicion for urine as a source of his leukocytosis and elevated lactic acid, however it should be ruled out. In the meantime would consider antibiotics for possible infection. History of Present Illness Reason for Consultation: mild hydronephrosis, worsening WBC/creatinine Attending Physician: Koko Richter History of Present Illness This is an 86-year-old male with past medical history of CAD, history of CABG, hypertension, hyperlipidemia, atrial flutter, congestive heart failure, anemia, prostate cancer status postradiation, radiation proctitis who presented to the emergency department on 03/23/2022 with altered mental status, hallucinations, and mechanical fall with multiple orthopedic injuries. He was admitted to the hospital medicine service. He is postop day 3 status post left hip arthroplasty. Urology is consulted for mild right hydronephrosis and worsening WBC and creatinine. Patient is known to our service. He follows with Dr. Antunez for history of prostate cancer status post radiation. Chart reviewed including lab work and imaging. Most recent lab work reviewed. Chemistry is notable for creatinine 2.20 (previously 1.58 on 03/27, 1.09 on 03/26), sodium 133, potassium 5.2. LFTs are elevated. CBC notable for increasing leukocytosis of 17.85 (previously 14.03), Hgb 13.7. Lactate 3.9 today. His urinalysis on admission was negative, no urine culture pending. Blood cultures were obtained on 03/27 and are pending. He has a العراقي catheter in place. A liver ultrasound on 03/27 showed mild right hydronephrosis. Patient seen and examined at bedside this morning. He is awake and resting in bed, appears comfortable. He denies abdominal or flank pain. العراقي catheter is patent and draining tom urine. Tolerating PO intake. No nausea or vomiting. No fever or chills. No additional concerns at this time. Patient answers questions but does not provide much meaningful history. Allergies Allergy/AdvReac Type Severity Reaction Status Date / Time Penicillins Allergy Intermediate Rash & Verified 03/23/22 15:42 Swelling Home Medications Medication Instructions Recorded Confirmed Type cholecalciferol (vitamin D3) 50 2,000 units PO HS 05/07/18 03/23/22 History mcg (2,000 unit) capsule multivitamin 1 tab PO HS 08/18/18 03/23/22 History atorvastatin 80 mg tablet 80 mg PO QAM 08/25/18 03/23/22 History lisinopril 2.5 mg tablet 2.5 mg PO HS 08/25/18 03/23/22 History omeprazole 20 mg capsule,delayed 20 mg PO QAM 08/25/18 03/23/22 History release vit C 250 mg-vit E 90 mg-zinc 40 1 tab PO BID 08/25/18 03/23/22 History mg-copper 1 [id number] capsule (PreserVision AREDS-2) ferrous sulfate 325 mg (65 mg 325 mg PO HS 06/18/19 03/23/22 History iron) tablet (Iron (ferrous sulfate)) furosemide 80 mg tablet 80 mg PO QAM 01/07/20 03/23/22 History aspirin 81 mg chewable tablet 81 mg PO UD 05/05/20 03/23/22 History paroxetine HCl 10 mg tablet (Paxil) 10 mg PO HS 11/24/21 03/23/22 History potassium chloride 20 mEq 20 meq PO BID #180 tabs 11/24/21 03/23/22 Rx tablet,extended release acetaminophen 500 mg tablet 500 mg PO BID 12/25/21 03/23/22 History coQ10 (ubiquinol) 200 mg capsule 200 mg PO HS 12/25/21 03/23/22 History cyanocobalamin (vitamin B-12) 500 500 mcg PO HS 12/25/21 03/23/22 History mcg tablet spironolactone 25 mg tablet 25 mg PO QAM 12/25/21 03/23/22 History polyethylene glycol 3350 17 17 g PO DAILY PRN Constipation 01/12/22 03/23/22 History gram/dose oral powder (Miralax) metoprolol succinate 25 mg 12.5 mg PO QAM #30 tabs 01/19/22 03/23/22 Rx tablet,extended release 24 hr amiodarone 200 mg tablet 200 mg PO DAILY 02/23/22 03/23/22 History tramadol 50 mg tablet 50 mg PO QID PRN Pain 03/23/22 03/23/22 History Patient History Medical History Anemia Atrial flutter PAROXYSMAL CAD (coronary artery disease) S/P CABG X3 (2004), OM STENTS X3 (?2004) Cancer PROSTATE CANCER- RADIATION TREATMENTS Congestive heart failure EUVOLEMIC PER 08/12/18 CARDIO OFFICE VISIT GERD (gastroesophageal reflux disease) H/O flexible sigmoidoscopy RADIATION FOR PROSTATE CANCER CAUSING PROCTITIS (REASON FOR MULTIPLE FLEX SIGMOIDOSCOPY) Hearing deficit BILATERAL HEARING AIDS History of cardioversion 04/24/19 (went into a regular rhythm) and 08/2018 History of valvular heart disease Mild AR/HI, Moderate MR/TR per 07/2018 ECHO Hyperlipidemia Hypertension 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 FOR V-TACH AT [facility] ([place]) Ischemic cardiomyopathy Macular degeneration Osteoarthritis Pacemaker IMPLANTED 08/2019 FOR V-TACH AT [facility] ([place]) Past myocardial infarction X2 (2004), X1 (2006) Proctitis Rectal bleeding Temporal arteritis 04/2018 Surgical History Fusion of spine L4-L5 H/O hemorrhoidectomy History of biopsy of temporal artery History of cardiac cath OM STENTS X3 (?2004) History of cataract surgery RT/LEFT History of colonoscopy History of coronary artery bypass graft CABG X3 (2004) History of inguinal hernia repair History of laminectomy LUMBAR History of tonsillectomy S/P epidural steroid injection S/P repair of hydrocele Family History Mother , age 91 Myocardial infarction Father , age 81 Myocardial infarction Brother , age 46 Myocardial infarction Son History of heart attack times 2 High cholesterol Daughter High cholesterol Daughter High cholesterol Social History Smoking Status: Never smoker Hx Alcohol Use: No Hx Substance Use: No Preferred Language: Spanish Communication Ability: Effective Visual Impairment: No Limitations Hearing Ability: Normal Radio Installer Required: No Beliefs That Will Affect Care: None marital status: Current Living Situation: Spouse Current Living Situation Comment: [facility] current occupational status: 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 Feels Safe at Home: Yes Assistive Devices: Scooter/Electric Scooter and Walker Review of Systems Review of Systems: All systems reviewed & are unremarkable except as noted in HPI & below Physical Exam Constitutional: comfortable; no acute distress Eyes: no scleral abnormality Respiratory: normal respiratory effort; no respiratory distress and no labored breathing Gastrointestinal (Abdomen): Inspection/Auscultation: abdomen normal to inspection; abdomen not distended Percussion/Palpation: abdomen soft; abdomen nontender and no guarding Musculoskeletal: Hip precaution pillow in place Skin: scattered ecchymoses Neurologic: awake Psychiatric: Orientation: oriented to person Genitourinary: العراقي intact, patent and draining tom urine Results & Data ([facility]) Vital Signs (Past 12 Hours) Vital Signs Temp Pulse Pulse Pulse Resp BP BP 03/28/22 07:29 36.5 C 77 20 101/72 03/28/22 07:03 87 03/28/22 04:04 36.6 C 70 18 116/74 03/27/22 23:37 36.7 C 68 18 121/79 Pulse Ox O2 Del Method 03/28/22 07:29 93 Room Air 03/28/22 07:03 03/28/22 04:04 96 Room Air 03/27/22 23:37 94 Room Air PG Care Time/CCT Total # of Minutes Spent Total Time Spent with Patient: Total time spent is greater than 50% in coordination of care (as documented) at patient's floor/unit and/or counseling patient: Coding Level of Care Code 34799 Initial Inpt Care Lvl 2 Diagnoses Hydronephrosis, right N13.30
[2022-03-28 09:23] LABS: Albumin Globulin Ratio 1.1 (0.9-2); Albumin Level 3.3 gm/dl (3.4-5.0); Bilirubin,Total 1.8 mg/dl (0.2-1.0); C Reactive Protein 25.49 mg/dl (0-0.5); Calcium 10.8 mg/dl (8.5-10.1); Creatinine Clr Calc Pharmacy 21.8 ml/min; Est GFR (African American) 30.3 ml/min; Est GFR (Non-African American) 26.2 ml/min; Globulin 3.1 gm/dl (2.5-4.0); Potassium 5.2 mmol/L (3.5-5.1); Total Protein 6.4 gm/dl (6.0-8.3)
--- NOTE | 2022-03-28 09:25 | Neurology Progress Note ---
Date of Service March 28, 2022 Assessment & Plan (1) Dementia: (2) Hallucinations: (3) Fall: Plan Thes patient has had a number of medical problems over the years and has been falling over the last few weeks. I believe that his hallucinations (which are improved currently) may have been medication related particularly tramadol. He has not had any hallucinations this hospitalization. He has not been agitated over the last several days either. MRI of the brain showed only mild generalized atrophy and old small vessel ischemic disease. Actually this MRI looked better than I expected given his advanced age and medical conditions. The patient does display a [id number] dementia. This has likely been going on for a couple of years and gradually getting worse over time. 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 Otherwise, he does not have any focal neurologic findings or meningeal signs. He has no encephalopathy. Recommendations: 1. At this point, I have no further neurologic testing or treatment recommendations to make at this time. 2. I would like to re-evaluate him as an outpatient once he has recovered from his surgery. We will see him in 3-4 weeks with the PA at the office. Overall, I spent a total of 25 minutes with this case including review of records, review of MRI films, direct evaluation the patient at bedside, and discussion of the case with the patient bedside and Dr. Richter, including differential diagnosis and treatment options. Admission and Anticipated Discharge Date Admission Date: March 23, 2022 Subjective Patient feels like he is doing well, with no pain or headache. He is not dizzy. He claims he remembers me from the other day. Blood pressure is 101/72 with a pulse 70s and regular. Laboratory studies revealed an elevated white count and mild anemia only. Chem profile is pending. MRI of the brain showed mild atrophy in a generalized fashion with mild old small vessel ischemic disease, without any acute issues. this MRI actually looks better than expected for age. Reviewed these films. Results & Data ([facility]) Vital Signs (Past 12 Hours) Vital Signs Temp Pulse Pulse Pulse Resp BP BP 03/28/22 07:29 36.5 C 77 20 101/72 03/28/22 07:03 87 03/28/22 04:04 36.6 C 70 18 116/74 03/27/22 23:37 36.7 C 68 18 121/79 Pulse Ox O2 Del Method 03/28/22 07:29 93 Room Air 03/28/22 07:03 03/28/22 04:04 96 Room Air 03/27/22 23:37 94 Room Air Exam (Neuro) Physical Exam: He is awake and alert. Speech is without aphasia or dysarthria. His mood is reasonable and affect is appropriate. He is pleasant and cooperative. Extraocular eye muscles are intact without nystagmus. There is no facial droop and tongue is midline. Has weakness at the right shoulder girdle as before otherwise his upper extremity strength is 5/5 both proximally and distally bilaterally. Distal lower extremity strength is 5/5 as well. There are no abnormal involuntary movements. PG Care Time/CCT Total # of Minutes Spent Total Time Spent with Patient: Total time spent is greater than 50% in coordination of care (as documented) at patient's floor/unit and/or counseling patient: Coding Level of Care Code 44196 Subseq Hosp Care Lvl 2 Diagnoses Dementia F03.90 Hallucinations R44.3 Fall W19.XXXA Time Spent (min) 25
--- NOTE | 2022-03-28 09:43 | Surgery Consultation ---
Date of Consultation March 28, 2022 Assessment & Plan (1) Elevated LFTs: This is an 86yM with a PMH of dementia, CABG, CAD, GERD, HTN, heart failure, prostate cancer, recently s/p fall with repair of left sided hip fracture on 03/25/22. We have been consulted regarding patient's elevation in LFTs and RUQ US revealing a distended gallbladder, without stones or gallbladder wall thickening. Today's LFTs show Tb:1.8, AST: 183, ALT: 246, AlkP: 165. Other labs show abnormalities in WBC: 17, Na: 133, K: 5.2, BUN: 66, Cr: 2.2, Lactate: 3.9. Patient's vital signs currently stable. On exam abdomen is soft, nontender, non distended. Uncertain patient's elevated LFTs are consistent with cholecystitis at this time. We will order a HIDA scan for further evaluation. Will also see what GI has to offer for their input. We have also ordered a CXR on the patient given his history of multiple rib fractures for follow up. We will follow along, but no plans for urgent surgical intervention at this time. Supervising Physician Co-Signing Physician Notes Patient seen and examined, labs and imaging reviewed, agree with above. Admitted with history of recent hallucinations and falls, status post fixation of the fracture. The LFTs have been rising as well as his lactate. Ultrasound performed today showed distended gallbladder with no cholecystitis or cholelithiasis. On exam he is afebrile with stable vitals, abdomen is soft and nontender. Will order HIDA scan, doubt this is a calculus cholecystitis. History of Present Illness Attending Physician: Koko Richter History of Present Illness This is an 86yM with a PMH of dementia, CABG, CAD, GERD, HTN, heart failure, prostate cancer, recently s/p fall with repair of left sided hip fracture on 03/25/22. Patient is a poor historian due to history of dementia. We have been consulted regarding patient's elevation in LFTs and RUQ US revealing a distended gallbladder, without stones or gallbladder wall thickening. Patient is currently denying any RUQ pain, nausea/vomiting. Per RN he is tolerating a diet without issues. It appears history of inguinal hernia repair. Allergies Allergy/AdvReac Type Severity Reaction Status Date / Time Penicillins Allergy Intermediate Rash & Verified 03/23/22 15:42 Swelling Home Medications Medication Instructions Recorded Confirmed Type cholecalciferol (vitamin D3) 50 2,000 units PO HS 05/07/18 03/23/22 History mcg (2,000 unit) capsule multivitamin 1 tab PO HS 08/18/18 03/23/22 History atorvastatin 80 mg tablet 80 mg PO QAM 08/25/18 03/23/22 History lisinopril 2.5 mg tablet 2.5 mg PO HS 08/25/18 03/23/22 History omeprazole 20 mg capsule,delayed 20 mg PO QAM 08/25/18 03/23/22 History release vit C 250 mg-vit E 90 mg-zinc 40 1 tab PO BID 08/25/18 03/23/22 History mg-copper 1 [id number] capsule (PreserVision AREDS-2) ferrous sulfate 325 mg (65 mg 325 mg PO HS 06/18/19 03/23/22 History iron) tablet (Iron (ferrous sulfate)) furosemide 80 mg tablet 80 mg PO QAM 01/07/20 03/23/22 History aspirin 81 mg chewable tablet 81 mg PO UD 05/05/20 03/23/22 History paroxetine HCl 10 mg tablet (Paxil) 10 mg PO HS 11/24/21 03/23/22 History potassium chloride 20 mEq 20 meq PO BID #180 tabs 11/24/21 03/23/22 Rx tablet,extended release acetaminophen 500 mg tablet 500 mg PO BID 12/25/21 03/23/22 History coQ10 (ubiquinol) 200 mg capsule 200 mg PO HS 12/25/21 03/23/22 History cyanocobalamin (vitamin B-12) 500 500 mcg PO HS 12/25/21 03/23/22 History mcg tablet spironolactone 25 mg tablet 25 mg PO QAM 12/25/21 03/23/22 History polyethylene glycol 3350 17 17 g PO DAILY PRN Constipation 01/12/22 03/23/22 History gram/dose oral powder (Miralax) metoprolol succinate 25 mg 12.5 mg PO QAM #30 tabs 01/19/22 03/23/22 Rx tablet,extended release 24 hr amiodarone 200 mg tablet 200 mg PO DAILY 02/23/22 03/23/22 History tramadol 50 mg tablet 50 mg PO QID PRN Pain 03/23/22 03/23/22 History Patient History Medical History Anemia Atrial flutter PAROXYSMAL CAD (coronary artery disease) S/P CABG X3 (2004), OM STENTS X3 (?2004) Cancer PROSTATE CANCER- RADIATION TREATMENTS Congestive heart failure EUVOLEMIC PER 08/12/18 CARDIO OFFICE VISIT GERD (gastroesophageal reflux disease) H/O flexible sigmoidoscopy RADIATION FOR PROSTATE CANCER CAUSING PROCTITIS (REASON FOR MULTIPLE FLEX SIGMOIDOSCOPY) Hearing deficit BILATERAL HEARING AIDS History of cardioversion 04/24/19 (went into a regular rhythm) and 08/2018 History of valvular heart disease Mild AR/OR, Moderate MR/TR per 07/2018 ECHO Hyperlipidemia Hypertension 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 FOR V-TACH AT [facility] ([place]) Ischemic cardiomyopathy Macular degeneration Osteoarthritis Pacemaker IMPLANTED 08/2019 FOR V-TACH AT [facility] ([place]) Past myocardial infarction X2 (2004), X1 (2006) Proctitis Rectal bleeding Temporal arteritis 04/2018 Surgical History Fusion of spine L4-L5 H/O hemorrhoidectomy History of biopsy of temporal artery History of cardiac cath OM STENTS X3 (?2004) History of cataract surgery RT/LEFT History of colonoscopy History of coronary artery bypass graft CABG X3 (2004) History of inguinal hernia repair History of laminectomy LUMBAR History of tonsillectomy S/P epidural steroid injection S/P repair of hydrocele Family History Mother , age 91 Myocardial infarction Father , age 81 Myocardial infarction Brother , age 46 Myocardial infarction Son History of heart attack times 2 High cholesterol Daughter High cholesterol Daughter High cholesterol Social History Smoking Status: Never smoker Hx Alcohol Use: No Hx Substance Use: No Preferred Language: Serbian Communication Ability: Effective Visual Impairment: No Limitations Hearing Ability: Normal Station Air Traffic Control Specialist Required: No Beliefs That Will Affect Care: None marital status: Current Living Situation: Spouse Current Living Situation Comment: [facility] current occupational status: 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 Feels Safe at Home: Yes Assistive Devices: Scooter/Electric Scooter and Walker Review of Systems Review of Systems: ROS limited due to h/o dementia, but denies abdominal complaints as below Gastrointestinal: no abdominal pain, no nausea and no vomiting Physical Exam Physical Exam: awake, asking "should i come back tomorrow" Respiratory: normal respiratory effort Gastrointestinal (Abdomen): Inspection/Auscultation: abdomen not distended Percussion/Palpation: abdomen soft; abdomen nontender Results & Data ([facility]) Vital Signs (Past 12 Hours) Vital Signs Temp Pulse Pulse Pulse Resp BP BP 03/28/22 07:29 36.5 C 77 20 101/72 03/28/22 07:03 87 03/28/22 04:04 36.6 C 70 18 116/74 03/27/22 23:37 36.7 C 68 18 121/79 Pulse Ox O2 Del Method 03/28/22 07:29 93 Room Air 03/28/22 07:03 03/28/22 04:04 96 Room Air 03/27/22 23:37 94 Room Air Diagnostic Findings ABDOMINAL ULTRASOUND, RIGHT UPPER QUADRANT HISTORY: eleavted liver function tests. COMPARISON: Abdomen and pelvis CT 01/10/2022. FINDINGS: Pancreas: Obscured by overlying bowel gas. Liver: Partially obscured by overlying bowel gas. The visualized liver appears unremarkable. Gallbladder: The gallbladder appears distended. No gallstones or gallbladder wall thickening identified. Negative sonographic Gunn sign. CBD: 6 mm. Right kidney: Mild hydronephrosis. IMPRESSION: 1. Mild right hydronephrosis. 2. Distended gallbladder. No gallbladder wall thickening. No gallstones. ACT 112: Negative or not required by law. Electronically signed by: Nael De Paz M.D. 03/27/2022 5:51 PM PG Care Time/CCT Total # of Minutes Spent Total Time Spent with Patient: Total time spent is greater than 50% in coordination of care (as documented) at patient's floor/unit and/or counseling patient: Coding Level of Care Code 56180 Initial Inpt Care Lvl 1 Diagnoses Elevated LFTs R79.89
[2022-03-28] MEDS ORDERED: LACTATED RINGER'S 1,000 ML IV STA (09:44)
[2022-03-28] MEDS ORDERED: CIPROFLOXACIN / D5W 400 MG/200 ML BAG IV SCH (10:15)
[2022-03-28] MEDS: metroNIDAZOLE 500 MG/100 ML BAG IV SCH ×2 (10:43→17:36)
--- NOTE | 2022-03-28 11:06 | Gastrointestinal Consultation ---
Date of Consultation March 28, 2022 Assessment & Plan (1) Elevated LFTs: Plan Patient is a 86 y.o. male admitted after sustaining a fall and left hip fracture. He was noted to have slightly elevated hepatic transaminases that worsened postoperatively. He does have an elevated serum lactate, acute renal insufficiency, and leukocytosis. Diff dx: ischemia vs medication-induced vs infection vs other. Less likely cholecystitis. 1. Trend liver panel. 2. Await vieira cultures as ordered and CXR. 3. Await further input from urology. 4. Can consider HIDA per surgery team. 5. Continue abx as ordered. 6. Supportive care. Thank you for allowing us to participate in the care of this patient. If you have any questions or concerns, please do not hesitate to contact us. Supervising Physician Co-Signing Physician Notes Agree with LILIANA Barrientos as above Abd: Soft, tender throughout, ND Continue current therapy and supportive care Most likely cause of LFT elevation is ischemic hepatitis History of Present Illness Reason for Consultation: Elevated LFT Requesting Physician: Dr. Richter Attending Physician: Koko Richter History of Present Illness Patient is a 86 y.o. male with a history of dementia, HTN, CAD s/p CABG, prostate CA, HLD and CHF admitted after a fall. He is status post left bipolar hip by Dr. Hansen on 03/25/22. GI has been consulted in regard to postoperative elevated liver panel. He was noted to have elevated hepatic transaminases on the day of surgery as follows: TB 1.9, AST 60, ALT 76. and ALP 141. The bilirubin improved slightly on 03/27 but AST increased to 269, ALT 274, and ALP 173. Today, the liver panel demonstrated slightly improved AST/ALT but bilirubin back to 1.8. Liver ultrasound demonstrated gall bladder thickening without evidence of acute cholecystitis or biliary ductal dilation. General surgery has been consulted in this regard and is considering HIDA scan. From review of labs, it appears he is now with leukocytosis of 17.85 and elevated lactate level of 3.9. He was noted to have right hydronephrosis and is being evaluated by urology. CXR, blood cultures and UA are pending at this time. In regard to symptoms, the patient is a rather poor historian. He denies any abdominal pain. States "I feel stronger today". He is afebrile. O2 saturation is 93% on room air. Cirpo and Flagyl have been ordered by primary team. Allergies Allergy/AdvReac Type Severity Reaction Status Date / Time Penicillins Allergy Intermediate Rash & Verified 03/23/22 15:42 Swelling Home Medications Medication Instructions Recorded Confirmed Type cholecalciferol (vitamin D3) 50 2,000 units PO HS 05/07/18 03/23/22 History mcg (2,000 unit) capsule multivitamin 1 tab PO HS 08/18/18 03/23/22 History atorvastatin 80 mg tablet 80 mg PO QAM 08/25/18 03/23/22 History lisinopril 2.5 mg tablet 2.5 mg PO HS 08/25/18 03/23/22 History omeprazole 20 mg capsule,delayed 20 mg PO QAM 08/25/18 03/23/22 History release vit C 250 mg-vit E 90 mg-zinc 40 1 tab PO BID 08/25/18 03/23/22 History mg-copper 1 tu-lplhmo-xekakm capsule (PreserVision AREDS-2) ferrous sulfate 325 mg (65 mg 325 mg PO HS 06/18/19 03/23/22 History iron) tablet (Iron (ferrous sulfate)) furosemide 80 mg tablet 80 mg PO QAM 01/07/20 03/23/22 History aspirin 81 mg chewable tablet 81 mg PO UD 05/05/20 03/23/22 History paroxetine HCl 10 mg tablet (Paxil) 10 mg PO HS 11/24/21 03/23/22 History potassium chloride 20 mEq 20 meq PO BID #180 tabs 11/24/21 03/23/22 Rx tablet,extended release acetaminophen 500 mg tablet 500 mg PO BID 12/25/21 03/23/22 History coQ10 (ubiquinol) 200 mg capsule 200 mg PO HS 12/25/21 03/23/22 History cyanocobalamin (vitamin B-12) 500 500 mcg PO HS 12/25/21 03/23/22 History mcg tablet spironolactone 25 mg tablet 25 mg PO QAM 12/25/21 03/23/22 History polyethylene glycol 3350 17 17 g PO DAILY PRN Constipation 01/12/22 03/23/22 History gram/dose oral powder (Miralax) metoprolol succinate 25 mg 12.5 mg PO QAM #30 tabs 01/19/22 03/23/22 Rx tablet,extended release 24 hr amiodarone 200 mg tablet 200 mg PO DAILY 02/23/22 03/23/22 History tramadol 50 mg tablet 50 mg PO QID PRN Pain 03/23/22 03/23/22 History Patient History Medical History Anemia Atrial flutter PAROXYSMAL CAD (coronary artery disease) S/P CABG X3 (2004), OM STENTS X3 (?2004) Cancer PROSTATE CANCER- RADIATION TREATMENTS Congestive heart failure EUVOLEMIC PER 08/12/18 CARDIO OFFICE VISIT GERD (gastroesophageal reflux disease) H/O flexible sigmoidoscopy RADIATION FOR PROSTATE CANCER CAUSING PROCTITIS (REASON FOR MULTIPLE FLEX SIGMOIDOSCOPY) Hearing deficit BILATERAL HEARING AIDS History of cardioversion 04/24/19 (went into a regular rhythm) and 08/2018 History of valvular heart disease Mild AR/CO, Moderate MR/TR per 07/2018 ECHO Hyperlipidemia Hypertension 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 FOR V-TACH AT [facility] ([facility]) Ischemic cardiomyopathy Macular degeneration Osteoarthritis Pacemaker IMPLANTED 08/2019 FOR V-TACH AT [facility] ([facility]) Past myocardial infarction X2 (2004), X1 (2006) Proctitis Rectal bleeding Temporal arteritis 04/2018 Surgical History Fusion of spine L4-L5 H/O hemorrhoidectomy History of biopsy of temporal artery History of cardiac cath OM STENTS X3 (?2004) History of cataract surgery RT/LEFT History of colonoscopy History of coronary artery bypass graft CABG X3 (2004) History of inguinal hernia repair History of laminectomy LUMBAR History of tonsillectomy S/P epidural steroid injection S/P repair of hydrocele Family History Mother , age 91 Myocardial infarction Father , age 81 Myocardial infarction Brother , age 46 Myocardial infarction Son History of heart attack times 2 High cholesterol Daughter High cholesterol Daughter High cholesterol Social History Smoking Status: Never smoker Hx Alcohol Use: No Hx Substance Use: No Preferred Language: Swedish Communication Ability: Effective Visual Impairment: No Limitations Hearing Ability: Normal Senior Windows Systems Administrator Required: No Beliefs That Will Affect Care: None marital status: Current Living Situation: Spouse Current Living Situation Comment: [facility] current occupational status: 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 Feels Safe at Home: Yes Assistive Devices: Scooter/Electric Scooter and Walker Review of Systems Review of Systems: Unobtainable due to cognitive status Physical Exam Constitutional: WD/WN, vitals as above Eyes: + anicteric sclerae and EOM intact bilaterally Respiratory: normal respiratory effort, lungs clear to auscultation Cardiovascular: Rate/Rhythm: regular rate and regular rhythm Heart Sounds: + murmur Gastrointestinal (Abdomen): Inspection/Auscultation: normal bowel sounds; abdomen not distended Percussion/Palpation: abdomen soft; abdomen nontender Skin: + ecchymosis Psychiatric: Orientation: alert, oriented to person and cooperative Results & Data ([facility]) Vital Signs (Past 12 Hours) Vital Signs Temp Pulse Pulse Pulse Resp BP BP 03/28/22 07:29 36.5 C 77 20 101/72 03/28/22 07:03 87 03/28/22 04:04 36.6 C 70 18 116/74 03/27/22 23:37 36.7 C 68 18 121/79 Pulse Ox O2 Del Method 03/28/22 07:29 93 Room Air 03/28/22 07:03 03/28/22 04:04 96 Room Air 03/27/22 23:37 94 Room Air Diagnostic Findings Laboratory Results WBC 17.85 K/ul (4.8-10.8) H 03/28/22 08:53 RBC 3.90 M/uL (4.63-6.08) L 03/28/22 08:53 Hgb 13.7 g/dl (14.0-18.0) L 03/28/22 08:53 Hct 40.6 % (40.1-51.0) 03/28/22 08:53 MCV 104.1 fL (80.0-100.0) H 03/28/22 08:53 MCH 35.1 pg (25.0-34.0) H 03/28/22 08:53 MCHC 33.7 g/dL (32.0-36.0) 03/28/22 08:53 RDW Std Deviation 66.4 fL (36.4-46.3) H 03/28/22 08:53 RDW Coeff of Trevor 17.5 % (11.5-14.5) H 03/28/22 08:53 Plt Count 222 K/uL (130-400) 03/28/22 08:53 MPV 9.0 fL (9.4-12.4) L 03/28/22 08:53 Immature Gran % (Auto) 1.2 % 03/28/22 08:53 Neut % (Auto) 88.5 % 03/28/22 08:53 Lymph % (Auto) 1.6 % 03/28/22 08:53 Hudson % (Auto) 8.5 % 03/28/22 08:53 Eos % (Auto) 0.0 % 03/28/22 08:53 Baso % (Auto) 0.2 % 03/28/22 08:53 Neut # (Auto) 15.80 K/uL (1.4-6.5) H 03/28/22 08:53 Lymph # (Auto) 0.29 K/uL (1.2-3.4) L 03/28/22 08:53 Hudson # (Auto) 1.52 K/uL (0.24-0.82) H 03/28/22 08:53 Eos # (Auto) 0.00 K/uL (0-0.50) 03/28/22 08:53 Baso # (Auto) 0.03 K/uL (0-0.2) 03/28/22 08:53 Immature Gran # (Auto) 0.21 K/uL (0.00-0.02) H 03/28/22 08:53 PT 12.0 Seconds (9.0-12.0) 03/27/22 13:52 INR 1.1 (0.9-1.1) 03/27/22 13:52 VBG pH 7.37 (7.36-7.41) 03/28/22 10:51 VBG pCO2 42 mmHg (38-50) 03/28/22 10:51 VBG pO2 17 mmHg 03/28/22 10:51 VBG HCO3 24 mmol/L 03/28/22 10:51 VBG O2 Saturation < 60.0 % 03/28/22 10:51 VBG Base Excess -1.1 mEq/L 03/28/22 10:51 Sodium 133 mmol/L (136-145) L 03/28/22 08:53 Potassium 5.2 mmol/L (3.5-5.1) H 03/28/22 08:53 Chloride 102 mmol/L (98-107) 03/28/22 08:53 Carbon Dioxide 22 mmol/L (21-32) 03/28/22 08:53 Anion Gap 9 (3-11) 03/28/22 08:53 BUN 66 mg/dl (6-23) H 03/28/22 08:53 Creatinine 2.20 mg/dl (0.6-1.4) H D 03/28/22 08:53 Est Cr Clr Drug Dosing 21.8 ml/min 03/28/22 08:53 Est GFR ( Amer) 30.3 ml/min 03/28/22 08:53 Est GFR (Non-Af Amer) 26.2 ml/min 03/28/22 08:53 BUN/Creatinine Ratio 30.0 (10-20) H 03/28/22 08:53 Glucose 109 mg/dl (70-99(Fasting)) H 03/28/22 08:53 Lactate 3.9 mmol/L (0.4-2.0) H* 03/28/22 08:53 Calcium 10.8 mg/dl (8.5-10.1) H 03/28/22 08:53 Magnesium 2.4 mg/dl (1.7-2.4) 03/23/22 10:15 Total Bilirubin 1.8 mg/dl (0.2-1.0) H 03/28/22 08:53 Direct Bilirubin 0.6 mg/dl (0-0.2) H 03/27/22 13:52 AST 183 U/L (13-39) H 03/28/22 08:53 ALT 246 U/L (7-52) H 03/28/22 08:53 Alkaline Phosphatase 165 U/L (34-104) H 03/28/22 08:53 Ammonia 14.0 umol/L (18-72) L 03/23/22 17:04 Total Creatine Kinase 144 U/L (30-223) 03/27/22 15:53 Troponin I High Sens 23.6 pg/ml (0-20) H 03/23/22 10:15 C-Reactive Protein 25.49 mg/dl (0-0.5) H 03/28/22 08:53 Total Protein 6.4 gm/dl (6.0-8.3) 03/28/22 08:53 Albumin 3.3 gm/dl (3.4-5.0) L 03/28/22 08:53 Globulin 3.1 gm/dl (2.5-4.0) 03/28/22 08:53 Albumin/Globulin Ratio 1.1 (0.9-2) 03/28/22 08:53 Lipase 27 U/L (11-82) 03/23/22 10:15 Vitamin B12 935 pg/ml (180-914) H 03/23/22 17:04 25-OH Vitamin D Total 44.7 ng/ml (30-100) 03/26/22 06:33 Folate > 22.30 ng/ml (>5.38) 03/23/22 17:04 Procalcitonin 0.74 ng/ml (0-0.5) H 03/28/22 08:53 TSH 2.314 uIu/ml (0.300-4.500) 03/23/22 10:15 Urine Color Dark Yellow 03/28/22 10:50 Urine Appearance Turbid (Clear) A 03/28/22 10:50 Urine pH 5.0 (4.5-7.5) 03/28/22 10:50 Ur Specific [place] 1.015 (1.000-1.030) 03/28/22 10:50 Urine Protein Trace (Negative) H 03/28/22 10:50 Urine Glucose (UA) Negative (Negative) 03/28/22 10:50 Urine Ketones Negative (Negative) 03/28/22 10:50 Urine Blood 3+ (Negative) H 03/28/22 10:50 Urine Nitrite Positive (Negative) A 03/28/22 10:50 Urine Bilirubin 1+ (Negative) H 03/28/22 10:50 Urine Urobilinogen Negative (Negative) 03/28/22 10:50 Ur Leukocyte Esterase 2+ (Negative) H 03/28/22 10:50 Urine WBC (Auto) >30 /hpf (0-5) H 03/28/22 10:50 Urine RBC (Auto) >30 /hpf (0-4) H 03/28/22 10:50 U Hyaline Cast (Auto) 5-10 /lpf (0-5) H 03/28/22 10:50 U Epithel Cells (Auto) 0-5 /lpf (0-5) 03/28/22 10:50 Urine Bacteria (Auto) Negative (Negative) 03/28/22 10:50 Anaplasma Smear See Comment 03/23/22 17:04 Babesia Smear See Comment 03/23/22 17:04 Lyme Disease IgG Ab Negative (Negative) 03/23/22 17:04 Lyme Disease IgM Ab Negative (Negative) 03/23/22 17:04 Hepatitis A IgM Ab NON-REACTIVE (NON-REACTIVE) 03/23/22 17:04 Hep Bs Antigen NON-REACTIVE (NON-REACTIVE) 03/23/22 17:04 Hep Bs Ag Confirmation TNP 03/23/22 17:04 Hep B Core IgM Ab NON-REACTIVE (NON-REACTIVE) 03/23/22 17:04 Hepatitis C Ab (EIA) NON-REACTIVE (NON-REACTIVE) 03/23/22 17:04 Hep C Ab Signal/Cutoff <0.02 (<1.00) 03/23/22 17:04 SARS-CoV-2, RNA, NAAT NEGATIVE (NEGATIVE) 03/23/22 15:17 Blood Type AB Positive 03/23/22 20:18 Antibody Screen NEGATIVE 03/23/22 20:[address] 03/23/22 10:58 CT cervical spine wo con CT DOSE: 957.91 mGy.cm CLINICAL HISTORY: 86 years-old Male with trauma. Acute neck pain status post fall COMPARISON: Head CT of same day spine 03/06/2022, chest and rib radiographs 03/19/2022. TECHNIQUE: Multiple axial CT images of the cervical spine were obtained without contrast. A dose lowering technique was utilized adhering to the principles of ALARA. FINDINGS: Advanced multilevel degenerative changes are redemonstrated along with multilevel degenerative partial bony fusion. Grade 1 anterolisthesis C7 on T1 and T1 on T2, likely secondary to chronic facet disease. Nuchal ligament calcifications. Demineralized appearance of the bones. C1-C2 alignment is anatomic. No acute cervical spine fracture or subluxation is identified. There is an acute comminuted and only minimally displaced fracture of the right first rib. Subacute appearing nondisplaced fracture of the posterior right third rib and medial right second rib. Acute to subacute appearing nondisplaced fracture of the right T2 transverse process.The cervical soft tissues appear unremarkable. The visualized lung apices appear clear. IMPRESSION: 1. No acute cervical spine fracture or subluxation identified. 2. Acute comminuted and minimally displaced right first rib fracture with subacute appearing nondisplaced fractures of the right second and third ribs. No pneumothorax identified. 3. Acute to subacute appearing nondisplaced fracture of the right T2 transverse process. ACT 112: Negative or not required by law. The above report was generated using voice recognition software. It may contain grammatical, syntax or spelling errors. Electronically signed by: Ted Aguilar M.D. 03/23/2022 12:[address] 03/23/22 10:58 CT head/brain wo con CLINICAL HISTORY: 86 years-old Male with trauma. Acute head trauma status post fall TECHNIQUE: Multiple axial CT images of the head were obtained without contrast. A dose lowering technique was utilized adhering to the principles of ALARA. COMPARISON: CT cervical spine of same day, head CT 03/06/2022 FINDINGS: No acute intracranial hemorrhage, midline shift, intracranial mass, hydrocephalus, territorial ischemia or abnormal extra-axial collection. Age- related involutional changes with ex vacuo ventriculomegaly. Cerebral vascular calcifications. White matter hypodensities suggest chronic microvascular ischemic disease. No acute calvarial fracture. Left lateral frontal scalp contusion, 3 cm. Prior bilateral lens repair. The paranasal sinuses, mastoid air cells, and middle ear cavities are clear. IMPRESSION: 1. No acute intracranial abnormality or calvarial fracture. 2. Small left frontal scalp contusion. ACT 112: Negative or not required by law. The above report was generated using voice recognition software. It may contain grammatical, syntax or spelling errors. Electronically signed by: Ted Aguilar M.D. 03/23/2022 11:49 AM Pelvis X-Ray 03/23/22 10:58 XR pelvis 1-2V routine HISTORY: 86 years-old Male trauma acute pelvic pain status post trauma COMPARISON: CT abdomen and pelvis 01/10/2022, right hip radiographs 09/07/2020, pelvis radiograph 03/07/2016. TECHNIQUE: AP view of the pelvis FINDINGS: Moderate fecal retention. Dural calcifications. Posterior interbody melida and screw fusion hardware redemonstrated at L4-L5. 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 No articular collapse identified. There is an acute slightly impacted transcervical fracture of the left femur. Mild soft tissue swelling lateral to left hip. IMPRESSION: Acute mildly impacted nondisplaced transcervical fracture of the left femur. ACT 112: Negative or not required by law. The above report was generated using voice recognition software. It may contain grammatical, syntax or spelling errors. Electronically signed by: Ted Aguilar M.D. 03/23/2022 11:[address] 03/23/22 12:48 CT OF THE CHEST WITH IV CONTRAST CLINICAL HISTORY: first rib fx, trauma, many recent falls COMPARISON STUDY: Chest radiograph March 19, 2022 and March 23, 2022. TECHNIQUE: Following IV administration of 94 mL of Optiray, helical axial images of the chest were obtained. Sagittal and coronal reconstructions were viewed as well as maximal intensity projections on an independent 3-D workstation. Automated exposure control was utilized for the study. A dose lowering technique was utilized adhering to the principles of ALARA. CT DOSE: 311.60 mGy.cm FINDINGS: Left subclavian pacer/AICD and median sternotomy wires are noted. Cardiomegaly is noted. There is no evidence for traumatic injury to the thoracic aorta. There is no pericardial effusion. No pneumothorax or pleural effusion is present. Subpleural opacities reflect atelectasis. There is an acute to subacute nondisplaced fracture of the posterolateral right first rib. There are subacute healing fractures of the posterior right second through ninth ribs. There are subacute healing fractures of the anterolateral right fifth through eighth ribs. A few of these fractures are mildly displaced. Old left-sided rib fractures are present. No acute left-sided rib fractures are present. A moderate compression deformity of the superior endplate of T8 is unchanged since radiographs of Feb. This is likely subacute. There is an old T12 compression deformity. Nondisplaced fractures of the right transverse processes of T1 and T2 acute to subacute. IMPRESSION: 1. No evidence for traumatic injury to the thoracic aorta. No pneumothorax. 2. Acute to subacute fractures of the right first rib, the posterior right second through ninth ribs and anterolateral right fifth through eighth ribs. 3. Moderate T8 compression fracture likely subacute. Old T12 compression fracture. Nondisplaced fracture of the right transverse process of T1 and T2 which are acute to subacute. ACT 112: Negative or not required by law. Electronically signed by: Ja Yeh M.D. 03/23/2022 1:49 PM Hip/Pelvis X-Ray 03/23/22 17:24 XR hip LT 2V w pelvis CLINICAL HISTORY: left hip pain-need lateral of the hip TECHNIQUE: 2 views of the left hip and single frontal view of the pelvis were obtained. Comparison: Comparison is made to pelvis radiograph 03/23/2022 FINDINGS: Redemonstration of transcervical left femoral fracture. Posterior fixation hardware is seen spanning L5-S1. Degenerative changes are seen in the hip joint. Bones are osteopenic. Soft tissue swelling is seen about the left hip. IMPRESSION: Redemonstration of transcervical left femoral fracture with associated soft tissue swelling. ACT 112: Negative or not required by law. Electronically signed by: Robbin Davis M.D. 03/23/2022 6:[address] 03/24/22 11:29 CT hip LT wo con CLINICAL HISTORY: hip fx/left hip pain TECHNIQUE: Multidetector row helical CT of the was performed without intravenous contrast. Coronal and sagittal reformations were obtained. Automated dose lowering techniques and/or adjustment according to patient size were utilized for this examination. CT DOSE: 205.20 mGy.cm Comparison: Comparison is made to CT abdomen pelvis 01/10/2022 and hip radiograph 02/20/2022 FINDINGS: There is a and impacted and apex anterior angulation and fracture of the femoral neck. The joint spaces are maintained. No joint effusion is seen. Soft tissue swelling is seen with associated vascular calcifications. IMPRESSION: Impacted subcapital fracture of the left femur with associated soft tissue swelling. ACT 112: Negative or not required by law. Electronically signed by: Robbin Davis M.D. 03/24/2022 12:20 PM Hip X-Ray 03/25/22 11:14 XR hip LT min 2V CLINICAL HISTORY: Post-Operative implant position COMPARISON: Left hip radiographs March 23, 2022. CT of the left hip March 24, 2022. FINDINGS: Alignment of the left hip arthroplasty is anatomic. No periprosthetic fracture or unexpected radiopaque foreign body is present. There are skin vishnu. IMPRESSION: Expected findings following left hip arthroplasty. ACT 112: Negative or not required by law. Electronically signed by: Ja Yeh M.D. 03/25/2022 12:09 PM Brain MRI 03/27/22 11:25 MRI OF THE BRAIN WITHOUT IV CONTRAST CLINICAL HISTORY: Change in mental status COMPARISON STUDY: CT of the brain dated 03/23/2022. TECHNIQUE: MRI of the brain was performed utilizing various T1 and T2-weighted sequences in the axial, sagittal, and coronal planes. IV contrast was not administered for this examination. FINDINGS: Brain parenchyma: There is age-related involutional change noting mild subcortical and periventricular microangiopathic disease. There is no hemorrhage or mass effect. There is no restricted diffusion to suggest acute ischemia. Heaton-white matter differentiation is preserved. No extra-axial fluid collection is seen. The cerebellar tonsils are normal in configuration. Ventricles, sulci, and cisterns: Prominent secondary to involutional change. Pituitary and sella: Unremarkable. Intracranial vasculature: Normal flow voids are maintained at the skull base. Orbits: The bony orbits are grossly intact. Orbital contents are normal in appearance noting bilateral ocular lens implants. Sinuses and mastoids: There is mild mucosal thickening in the right maxillary antrum. The remaining paranasal sinuses are clear. The mastoid air cells are well pneumatized. Calvarium: Unremarkable. Cervical cord: Partially visualized cervical spinal cord is normal in morphology and signal intensity. IMPRESSION: No acute intracranial abnormality. ACT 112: Negative or not required by law. Electronically signed by: Francisco Padron M.D. 03/27/2022 1:18 PM Liver Ultrasound 03/27/22 15:32 ABDOMINAL ULTRASOUND, RIGHT UPPER QUADRANT HISTORY: eleavted liver function tests. COMPARISON: Abdomen and pelvis CT 01/10/2022. FINDINGS: Pancreas: Obscured by overlying bowel gas. Liver: Partially obscured by overlying bowel gas. The visualized liver appears unremarkable. Gallbladder: The gallbladder appears distended. No gallstones or gallbladder wall thickening identified. Negative sonographic Gunn sign. CBD: 6 mm. Right kidney: Mild hydronephrosis. IMPRESSION: 1. Mild right hydronephrosis. 2. Distended gallbladder. No gallbladder wall thickening. No gallstones. ACT 112: Negative or not required by law. Electronically signed by: Nael De Paz M.D. 03/27/2022 5:51 PM PG Care Time/CCT Total # of Minutes Spent Total Time Spent with Patient: Total time spent is greater than 50% in coordination of care (as documented) at patient's floor/unit and/or counseling patient: Coding Level of Care Code 03684 Initial Inpt Care Lvl 3 Diagnoses Elevated LFTs R79.89
[2022-03-28 11:16] LABS: Appearance Urine Turbid (Clear); Bacteria Urine Automated Negative (Negative); Bilirubin Urine 1+ (Negative); Blood Urine 3+ (Negative); Color Urine Dark Yellow; Epithelial Cell Urine Auto 0-5 /lpf (0-5); Glucose Urine UA Negative (Negative); Ketones Urine Negative (Negative); Leukocyte Esterase Urine 2+ (Negative); Nitrite Urine Positive (Negative); Protein Urine Trace (Negative); RBC Urine Automated >30 /hpf (0-4); Specific Gravity Urine 1.015 (1.000-1.030); Urobilinogen Urine Negative (Negative); WBC Urine Automated >30 /hpf (0-5)
[2022-03-28 11:17] LABS: Base Excess VBG -1.1 mEq/L; HCO3 VBG 24 mmol/L; Oxygen Saturation VBG < 60.0 %; PCO2 VBG 42 mmHg (38-50); PO2 VBG 17 mmHg; pH VBG 7.37 (7.36-7.41)
[2022-03-28] MEDS ORDERED: LACTATED RINGER'S 1,000 ML IV ONE (11:44)
--- NOTE | 2022-03-28 12:29 | XRay Report ---
XR chest 1V portable HISTORY: h/o rib fracture and fall COMPARISON: Chest CT 03/23/2022. FINDINGS: The patient's known right-sided rib fractures are better appreciated on the recent chest CT A. No pneumothorax. No pleural effusions. There are low lung volumes. The carcinoma remains enlarged. No evidence for pulmonary edema. Slightly rotated study. No new focal lung consolidations to suggest a pneumonia. Left-sided pacemaker/defibrillator and poststernotomy changes. IMPRESSION: 1. The patient's known right-sided rib fractures are again noted and better appreciated on the prior chest CT. 2. No pneumothorax. 3. Stable cardiomegaly. ACT 112: Negative or not required by law. Electronically signed by: Nael De Paz M.D. 03/28/2022 12:28 PM
--- NOTE | 2022-03-28 12:40 | Ultrasound Report ---
RENAL ULTRASOUND HISTORY: Follow-up right hydronephrosis on liver ultrasound COMPARISON: Abdominal ultrasound 03/27/2022. FINDINGS: Right kidney: 9.1 cm. Mild hydronephrosis again noted. Mild increased cortical echogenicity. Left kidney: Not well visualized due to the overlying bowel gas. This measures approximately 9.2 cm. The upper and lower poles are mostly obscured. No hydronephrosis. Bladder: No bladder wall thickening. The bladder is distended. A العراقي catheter is not identified wit hin the bladder. IMPRESSION: 1. Distended bladder. A العراقي catheter is not identified within the bladder. Clinical correlation rec ommended to exclude the possibility of a العراقي catheter within the urethra resulting in bladder outle t obstruction. 2. Mild right hydronephrosis, unchanged. 3. This report was called/faxed to the referring physician following dictation. ACT 112: Negative or not required by law. Electronically signed by: Nael De Paz M.D. 03/28/2022 12:39 PM
[2022-03-28] MEDS ORDERED: SODIUM CHLORIDE 0.9% IV STA (14:00)
[2022-03-28] MEDS ORDERED: SINCALIDE IV STA (14:00)
--- NOTE | 2022-03-28 16:36 | Nuclear Medicine Report ---
NUCLEAR HEPATOBILIARY SCAN CLINICAL HISTORY: Elevated hepatic transaminases. COMPARISON STUDY: Abdominal ultrasound dated 03/27/2022. Abdominal CT dated 01/10/2022.. TECHNIQUE: Dynamic images of the liver and anterior abdomen were obtained every 5 minutes for a total of 60 minutes following the IV administration of 4.8 mCi of technetium 99m Mebrofenin. Additional AP and lateral views were obtained at 70 minutes. Ejection fraction imaging was not performed due to pa tient condition and tracer within the small bowel overlying the gallbladder. FINDINGS: The hepatobiliary scan shows prompt and homogeneous hepatic uptake. There is visualized act ivity within the intra and extrahepatic biliary tree at 10 minutes, and within the gallbladder at 30 minutes. There is normal biliary to bowel transit, with small bowel visualized by 20 minutes. IMPRESSION: There is no scintigraphic evidence of acute cholecystitis. ACT 112: Negative or not required by law. Electronically signed by: Francisco Padron M.D. 03/28/2022 4:34 PM
--- NOTE | 2022-03-28 16:54 | Electrocardiogram Report ---
Test Reason : Blood Pressure : / mmHG Vent. Rate : 072 BPM Atrial Rate : 072 BPM P-R Int : 292 ms QRS Dur : 148 ms QT Int : 430 ms P-R-T Axes : 002 -35 -55 degrees QTc Int : 470 ms Atrial-paced rhythm with prolonged AV conduction Left axis deviation Right bundle branch block Possible Inferior infarct , age undetermined Anterior infarct (cited on or before 23-MAR-2022) T wave abnormality, consider lateral ischemia Abnormal ECG When compared with ECG of 23-MAR-2022 10:26, QRS axis Shifted left Borderline criteria for Inferior infarct are now Present Serial changes of Anterior infarct Present Confirmed by Thomas Parekh ([id number]) on 03/28/2022 4:53:52 PM Referred By: Sofia Stewart Confirmed By:Thomas Parekh
[2022-03-28 17:37] LABS: Babesia microti DNA Not Detected (Not Detected)
[2022-03-28] MEDS: CHOLECALCIFEROL 1,000 UNITS 25 MCG TAB PO SCH (20:44)
[2022-03-28] MEDS: PARoxetine HCL 10 MG TAB PO SCH (20:45)
[2022-03-28] MEDS: FERROUS SULFATE 325 MG TAB PO SCH (20:45)
[2022-03-28] MEDS: CYANOCOBALAMIN (B-12) 500 MCG TABLET PO SCH (20:45)
--- NOTE | 2022-03-28 21:28 | Hospitalist Progress Note ---
Date of Service March 28, 2022 Assessment & Plan (1) Closed left hip fracture: Plan: patient was admitted to the hospital following a fall He sustained multiple rib fractures, T1,T2,T8 , T2 fracture, old T12 fx including a suspected impacted femoral neck fracture Patient unable to get MRI in view of pacemaker Evaluated by cardiology for pre op assessment CT scan with 3 D reconstruction confirmed femoral neck fracture He is now status post Left Bipolar Hip(Left) with left hip abductor repair Appreciate Ortho Discharge held as patient's LFT, and WBC are increasing. His Blood pressure is also lower will obtain liver ultrasound. (2) Elevated LFTs: Plan: As stated above, he has had elevated liver function test, unsure if this placed a role with his deterioration. Lactic acid is elevated inflammatory markers are worseneing. will obtain hida scan and consult surgery and GI. Hold his BP meds, and monitor. Patient has been orthostatic for past 48 hours. empirric antibiotics for GI pathology ordered:initially cipro and flagyl switched to ceftiraxone and flagyl. Continue IVF required 2 boluses on 03/29 (3) Hydronephrosis, right: Plan: Bladder distended, replaced gibbons, patient appears to be urinating better. (4) Fall: Plan: mechanical fall according to (5) Dementia: Plan: -Patient seemed lucid to me today, answered my questions, however, he has some baseline dementia, worsening over time -CT of the head was negative for acute findings -CBC is showing elevated MCV at 103, will check B12, folic acid, and thiamine levels -AST elevated at 43, ALT elevated at 56, Alk Phos elevated at 153, will obtain hepatitis, tick borne panel, and ammonia level -No other metabolic abnormalities noted on initial CMP -TSH WNL -UA is clean, covid negative - asked for a neuro consult; no further workup required, MR Brain: negative for acute patholgy that could explain his confusion. (6) Hallucinations: Plan: as stated above. (7) Congestive heart failure: Plan: -Examines volume depleted, will continue IV fluids for now with a max of 2 bags of NSS -For now will hold Lasix and spironolactone to prevent hypotension as BP has been soft will hold lisinopril, metoprolol. (8) CAD (coronary artery disease): Plan: -Continue Aspirin (9) Atrial flutter: Plan: -HR currently controlled -Only on aspirin, no other anticoagulants -hold amiodarone and metoprolol (10) Hypertension: Plan: -hold metoprolol -Will hold lisinopril, lasix and spironolactone for now as his BP is currently soft (11) Hyperlipidemia: Plan: -Continue statin (12) GERD (gastroesophageal reflux disease): Plan: -Continue carafate and omeprazole (13) Anemia: Plan: -Hgb stable, MCV elevated, will get B12, folate, and thiamine levels -Continue ferrous sulfate and B12, will also give folic acid and thiamine after labs are collected (14) Anxiety and depression: Plan: -Continue Paroxetine (15) AMS (altered mental status): Plan continue hopsitalization Admission and Anticipated Discharge Date Admission Date: March 23, 2022 Subjective 86 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 However, patient, is able to answer that he is pain free, and in no acute distress. Updated his . She would pursue surgeries such as cholecystectomy or urological procedures if needed, as she feels this will not be as extensive as the hip repair. Review of Systems Review of Systems: All systems reviewed & are unremarkable except as noted in HPI & below Physical Exam Physical Exam: The patient is awake, alert, confused well developed and well nourished, normocephalic and atraumatic, lying in bed and in no acute distress. HEENT--PERRL, EOMI, mucous membranes and oropharynx mildly dry Neck--supple. No JVD. No bruits. Thyroid normal, trachea midline, no adenopathy. Heart--normal S1 and S2. No murmurs, rubs or gallops. Lungs--clear bilaterally, no respiratory distress, no accessory muscle use. Abdomen--normal bowel sounds and soft. Mild epigastric and left sided abdominal pain Extremities--no cyanosis or clubbing. No edema. Dermatologic--normal skin turgor, normal color, no abnormal lymph nodes, no rash. Neurologic--cranial nerves II through XII grossly intact. Rheumatologic--normal range of motion. Psychiatric--normal affect. Results & Data Results & Data ([facility]) Vital Signs (Past 12 Hours) Vital Signs Temp Pulse Pulse Resp BP Pulse Ox O2 Del Method 03/28/22 19:00 36.5 C 67 18 103/67 93 Nasal Cannula 03/28/22 16:48 93 H 03/28/22 12:00 36.5 C 77 20 95/61 L 93 Room Air O2 Flow Rate 03/28/22 19:00 2 03/28/22 16:48 03/28/22 12:00 PG Care Time/CCT Total # of Minutes Spent Total Time Spent with Patient: Total time spent is greater than 50% in coordination of care (as documented) at patient's floor/unit and/or counseling patient: Prolonged Care Time Prolonged Care Time: Yes Total Prolonged Care Time: 90 8:00 to 8:20 9:10 to 10:10 14:00 to 14:10 Coding Level of Care Code 59371 Subseq Hosp Care Lvl 3 (25 - SIGNIFICANT, SEPARATELY IDENTIFIABLE ) Diagnoses Closed left hip fracture S72.002A Elevated LFTs R79.89 Hydronephrosis, right N13.30 Fall W19.XXXA Dementia F03.90 Hallucinations R44.3 Congestive heart failure I50.9 CAD (coronary artery disease) I25.10 Atrial flutter I48.92 Atrial flutter type: unspecified Hypertension I10 Hyperlipidemia E78.5 GERD (gastroesophageal reflux disease) K21.9 Anemia D64.9 Anxiety and depression F41.9; F32.A AMS (altered mental status) R41.82 Additional Codes Prolonged Care Time - Prolonged Care Time: Yes ([id number]) Time Spent (min) 90 (1) Atrial flutter Atrial flutter type: unspecified Qualified Code(s): I48.92 - Unspecified atrial flutter
[2022-03-29 01:06] LABS: Ehrlichia chaff DNA Bld Negative (Negative)
[2022-03-29] MEDS: metroNIDAZOLE 500 MG/100 ML BAG IV SCH ×2 (01:49→09:57)
[2022-03-29] MEDS ORDERED: SODIUM CHLORIDE 0.9% 1000ML 250 ML IV ONE (05:14)
[2022-03-29 07:47] LABS: Eosinophils # (auto) 0.01 K/uL (0-0.50); Eosinophils % (auto) 0.1 %; Hematocrit (blood only) 33.6 % (40.1-51.0); Hemoglobin 11.3 g/dl (14.0-18.0); Immature Granulocytes # (auto) 0.07 K/uL (0.00-0.02); Immature Granulocytes % (auto) 0.8 %; Lymphocytes # (auto) 0.31 K/uL (1.2-3.4); Lymphocytes % (auto) 3.4 %; Mean Corpuscular Hemoglobin 34.7 pg (25.0-34.0); Mean Corpuscular Hgb Conc 33.6 g/dL (32.0-36.0); Mean Corpuscular Volume 103.1 fL (80.0-100.0); Mean Platelet Volume 9.1 fL (9.4-12.4); Monocytes # (auto) 0.99 K/uL (0.24-0.82); Monocytes % (auto) 10.9 %; Neutrophils % (auto) 84.8 %; Platelet Count 150 K/uL (130-400); RDW Coefficient of Variation 17.6 % (11.5-14.5); RDW Standard Deviation 65.2 fL (36.4-46.3); Red Blood Count 3.26 M/uL (4.63-6.08); White Blood Count 9.08 K/ul (4.8-10.8)
--- NOTE | 2022-03-29 08:15 | XRay Report ---
XR chest 1V portable CLINICAL HISTORY: hypoxia TECHNIQUE: Single frontal radiograph of the chest was obtained. Comparison: Comparison is made to chest radiograph 03/28/[address] chest 03/23/2022 FINDINGS: Median sternotomy wires are unchanged including fractured second wire. Pacemaker defibrillator is see n and surgical clips are seen about the heart. Calcified aortic knob is seen. The lungs are clear. No evidence of pleural effusion or pneumothorax. Lucency superomedial to the aortic arch is nonspecific however pulmonary markings are seen. For fractures are better seen on CT chest. IMPRESSION: No acute abnormality and in particular no evidence of pneumothorax in this patient with rib fractures on the right. ACT 112: Negative or not required by law. Electronically signed by: Robbin Davis M.D. 03/29/2022 8:14 AM
[2022-03-29 08:29] LABS: Albumin Level 2.5 gm/dl (3.4-5.0); BUN Creatinine Ratio 38.3 (10-20); Bilirubin,Total 1.6 mg/dl (0.2-1.0); Creatinine Clr Calc Pharmacy 39.9 ml/min; Est GFR (African American) 63.1 ml/min; Est GFR (Non-African American) 54.4 ml/min; Globulin 2.5 gm/dl (2.5-4.0); Potassium 4.3 mmol/L (3.5-5.1)
--- NOTE | 2022-03-29 08:29 | Urology Progress Note ---
Date of Service March 29, 2022 Assessment & Plan (1) Hydronephrosis, right: Plan: 86-year-old male with history of prostate cancer status post radiation and multiple other comorbidities admitted for altered mental status and mechanical fall with multiple orthopedic injuries. He is status post left hip arthroplasty on 03/25. - Afebrile, lab work reviewed - creatinine and WBC trending down (Creatinine 1.20, WBC 9.08). - Blood cultures 03/27 are showing no growth x 24 hours. - Urine culture pending. - Currently on Flagyl and Ceftriaxone - follow cultures. - He denies flank pain. - العراقي catheter replaced yesterday and draining appropriately. - Maintain العراقي catheter at this time and continue to monitor urine output. - Recommend supportive care, antibiotics, and management per hospital service. - No acute intervention planned today. - Will arrange outpatient follow-up with our service. - will sign off. Admission and Anticipated Discharge Date Admission Date: March 23, 2022 Subjective Patient seen and examined at bedside this morning. He is resting in bed. Arouses to his name. Offers no complaints. العراقي catheter intact and draining clear concentrated yellow urine. Renal ultrasound yesterday showed stable mild right hydronephrosis, العراقي was not positioned into the bladder. Nursing replaced العراقي catheter. Urine output improved since replacement. Review of Systems Constitutional: as per Subjective / HPI Genitourinary: + as per Subjective / HPI Physical Exam Constitutional: no acute distress Respiratory: normal respiratory effort Gastrointestinal (Abdomen): Inspection/Auscultation: abdomen normal to inspection; abdomen not distended Skin: + ecchymosis Psychiatric: Orientation: alert and oriented to person Genitourinary: العراقي intact and draining clear yellow urine Results & Data ([facility]) Vital Signs (Past 12 Hours) Vital Signs Temp Pulse Pulse Pulse Resp BP BP 03/29/22 07:43 36.3 C L 99 H 16 92/61 L 03/29/22 05:53 115/72 03/29/22 04:00 36.0 C L 74 18 92/61 L 03/29/22 00:30 69 03/28/22 23:00 37.6 C H 72 17 98/62 L 93/50 L 03/28/22 22:08 Pulse Ox O2 Del Method O2 Flow Rate 03/29/22 07:43 93 Nasal Cannula 2 03/29/22 05:53 03/29/22 04:00 96 Nasal Cannula 2 03/29/22 00:30 03/28/22 23:00 91 Nasal Cannula 2 03/28/22 22:08 Nasal Cannula 2 PG Care Time/CCT Total # of Minutes Spent Total Time Spent with Patient: Total time spent is greater than 50% in coordination of care (as documented) at patient's floor/unit and/or counseling patient: Coding Level of Care Code 99875 Subseq Hosp Care Lvl 2 Diagnoses Hydronephrosis, right N13.30
[2022-03-29] MEDS: cefTRIAXone SODIUM 1,000 MG in DEXTROSE 5% 50 ML IV SCH (09:08)
[2022-03-29] MEDS: CEROVITE ADV FORMULA TAB PO SCH ×2 (09:08→21:03)
[2022-03-29] MEDS: PANTOprazole 40 MG TAB PO SCH (09:08)
[2022-03-29] MEDS: ASPIRIN 81 MG ECTAB PO SCH ×2 (09:08→21:03)
[2022-03-29] MEDS ORDERED: CIPROFLOXACIN / D5W 400 MG/200 ML BAG IV SCH (10:00)
--- NOTE | 2022-03-29 10:06 | Gastroenterology Progress Note ---
Date of Service March 29, 2022 Assessment & Plan (1) Elevated LFTs: Plan Patient is a 86 y.o. male admitted after sustaining a fall and left hip fracture. He was noted to have slightly elevated hepatic transaminases that worsened postoperatively. He does have an elevated serum lactate, acute renal insufficiency, and leukocytosis. Diff dx: ischemia vs medication-induced vs infection vs other. 1. Trend liver panel. 2. Await urine culture. 3. Continue abx as ordered. 4. Supportive care. 5. GI sign off at this time. Please feel to contact us if needed. Admission and Anticipated Discharge Date Admission Date: March 23, 2022 Subjective Patient is confused today. Tolerating diet per nursing. Liver panel is trending down as is WBC and lactate levels. Review of Systems Review of Systems: Unobtainable due to cognitive status Physical Exam Constitutional: no acute distress Eyes: EOM intact bilaterally Neck: normal visual inspection Respiratory: normal respiratory effort Skin: + ecchymosis Psychiatric: Orientation: alert and oriented to person Results & Data Results & Data ([facility]) Vital Signs (Past 12 Hours) Vital Signs Temp Pulse Pulse Pulse Resp BP BP 03/29/22 07:43 36.3 C L 99 H 16 92/61 L 03/29/22 05:53 115/72 03/29/22 04:00 36.0 C L 74 18 92/61 L 03/29/22 00:30 69 03/28/22 23:00 37.6 C H 72 17 98/62 L 93/50 L 03/28/22 22:08 Pulse Ox O2 Del Method O2 Flow Rate 03/29/22 07:43 93 Nasal Cannula 2 03/29/22 05:53 03/29/22 04:00 96 Nasal Cannula 2 03/29/22 00:30 03/28/22 23:00 91 Nasal Cannula 2 03/28/22 22:08 Nasal Cannula 2 Diagnostic Findings Laboratory Results WBC 9.08 K/ul (4.8-10.8) 03/29/22 07:27 RBC 3.26 M/uL (4.63-6.08) L 03/29/22 07:27 Hgb 11.3 g/dl (14.0-18.0) L 03/29/22 07:27 Hct 33.6 % (40.1-51.0) L 03/29/22 07:27 MCV 103.1 fL (80.0-100.0) H 03/29/22 07: MCH 34.7 pg (25.0-34.0) H 03/29/22 07: MCHC 33.6 g/dL (32.0-36.0) 03/29/22 07: RDW Std Deviation 65.2 fL (36.4-46.3) H 03/29/22: RDW Coeff of Trevor 17.6 % (11.5-14.5) H 03/29/22 07: Plt Count 150 K/uL (130-400) 03/29/22 07: MPV 9.1 fL (9.4-12.4) L 03/29/22 07: Immature Gran % (Auto) 0.8 % 03/29/22 07: Neut % (Auto) 84.8 % 03/29/22 07: Lymph % (Auto) 3.4 % 03/29/22: [place] % (Auto) 10.9 % 03/29/22 07: Eos % (Auto) 0.1 % 03/29/22 07: Baso % (Auto) 0.0 % 03/29/22: Neut # (Auto) 7.70 K/uL (1.4-6.5) H 03/29/22 07:27 Lymph # (Auto) 0.31 K/uL (1.2-3.4) L 03/29/22 07:27 [place] # (Auto) 0.99 K/uL (0.24-0.82) H 03/29/22 07:27 Eos # (Auto) 0.01 K/uL (0-0.50) 03/29/22 07:27 Baso # (Auto) 0.00 K/uL (0-0.2) 03/29/22 07: Immature Gran # (Auto) 0.07 K/uL (0.00-0.02) H 03/29/22 07:27 PT 12.0 Seconds (9.0-12.0) 03/27/22 13:52 INR 1.1 (0.9-1.1) 03/27/22 13:52 VBG pH 7.37 (7.36-7.41) 03/28/22 10:51 VBG pCO2 42 mmHg (38-50) 03/28/22 10:51 VBG pO2 17 mmHg 03/28/22 10:51 VBG HCO3 24 mmol/L 03/28/22 10:51 VBG O2 Saturation < 60.0 % 03/28/22 10:51 VBG Base Excess -1.1 mEq/L 03/28/22 10:51 Sodium 139 mmol/L (136-145) 03/29/22 07:27 Potassium 4.3 mmol/L (3.5-5.1) 03/29/22 07:27 Chloride 109 mmol/L (98-107) H 03/29/22 07:27 Carbon Dioxide 28 mmol/L (21-32) 03/29/22 07:27 Anion Gap 2 (3-11) L 03/29/22 07:27 BUN 46 mg/dl (6-23) H D 03/29/22 07:27 Creatinine 1.20 mg/dl (0.6-1.4) D 03/29/22 07:27 Est Cr Clr Drug Dosing 39.9 ml/min 03/29/22 07:27 Est GFR ( Amer) 63.1 ml/min 03/29/22 07:27 Est GFR (Non-Af Amer) 54.4 ml/min 03/29/22 07:27 BUN/Creatinine Ratio 38.3 (10-20) H 03/29/22 07:27 Glucose 79 mg/dl (70-99(Fasting)) 03/29/22 07:27 Lactate 1.0 mmol/L (0.4-2.0) 03/29/22 07:27 Calcium 10.0 mg/dl (8.5-10.1) 03/29/22 07:27 Magnesium 2.4 mg/dl (1.7-2.4) 03/23/22 10:15 Total Bilirubin 1.6 mg/dl (0.2-1.0) H 03/29/22 07:27 Direct Bilirubin 0.6 mg/dl (0-0.2) H 03/27/22 13:52 AST 93 U/L (13-39) H 03/29/22 07:27 ALT 158 U/L (7-52) H 03/29/22 07:27 Alkaline Phosphatase 118 U/L (34-104) H 03/29/22 07:27 Ammonia 14.0 umol/L (18-72) L 03/23/22 17:04 Total Creatine Kinase 144 U/L (30-223) 03/27/22 15:53 Troponin I High Sens 23.6 pg/ml (0-20) H 03/23/22 10:15 C-Reactive Protein 17.34 mg/dl (0-0.5) H 03/29/22 07:27 Total Protein 5.0 gm/dl (6.0-8.3) L D 03/29/22 07:27 Albumin 2.5 gm/dl (3.4-5.0) L 03/29/22 07:27 Globulin 2.5 gm/dl (2.5-4.0) 03/29/22 07:27 Albumin/Globulin Ratio 1.0 (0.9-2) 03/29/22 07:27 Lipase 27 U/L (11-82) 03/23/22 10:15 Vitamin B12 935 pg/ml (180-914) H 03/23/22 17:04 25-OH Vitamin D Total 44.7 ng/ml (30-100) 03/26/22 06:33 Folate > 22.30 ng/ml (>5.38) 03/23/22 17:04 Procalcitonin 0.31 ng/ml (0-0.5) 03/29/22 07:27 TSH 2.314 uIu/ml (0.300-4.500) 03/23/22 10:15 Urine Color Dark Yellow 03/28/22 10:50 Urine Appearance Turbid (Clear) A 03/28/22 10:50 Urine pH 5.0 (4.5-7.5) 03/28/22 10:50 Ur Specific Mackey 1.015 (1.000-1.030) 03/28/22 10:50 Urine Protein Trace (Negative) H 03/28/22 10:50 Urine Glucose (UA) Negative (Negative) 03/28/22 10:50 Urine Ketones Negative (Negative) 03/28/22 10:50 Urine Blood 3+ (Negative) H 03/28/22 10:50 Urine Nitrite Positive (Negative) A 03/28/22 10:50 Urine Bilirubin 1+ (Negative) H 03/28/22 10:50 Urine Urobilinogen Negative (Negative) 03/28/22 10:50 Ur Leukocyte Esterase 2+ (Negative) H 03/28/22 10:50 Urine WBC (Auto) >30 /hpf (0-5) H 03/28/22 10:50 Urine RBC (Auto) >30 /hpf (0-4) H 03/28/22 10:50 U Hyaline Cast (Auto) 5-10 /lpf (0-5) H 03/28/22 10:50 U Epithel Cells (Auto) 0-5 /lpf (0-5) 03/28/22 10:50 Urine Bacteria (Auto) Negative (Negative) 03/28/22 10:50 Anaplasma Smear See Comment 03/23/22 17:04 A. phagocytophilum DNA Negative (Negative) 03/23/22 17:03 Babesia Smear See Comment 03/23/22 17:04 Babesia microti DNA PCR Not Detected (Not Detected) 03/23/22 17:03 Lyme Disease IgG Ab Negative (Negative) 03/23/22 17:04 Lyme Disease IgM Ab Negative (Negative) 03/23/22 17:04 E.chaffeensis DNA (PCR) Negative (Negative) 03/23/22 17:04 Hepatitis A IgM Ab NON-REACTIVE (NON-REACTIVE) 03/23/22 17:04 Hep Bs Antigen NON-REACTIVE (NON-REACTIVE) 03/23/22 17:04 Hep Bs Ag Confirmation TNP 03/23/22 17:04 Hep B Core IgM Ab NON-REACTIVE (NON-REACTIVE) 03/23/22 17:04 Hepatitis C Ab (EIA) NON-REACTIVE (NON-REACTIVE) 03/23/22 17:04 Hep C Ab Signal/Cutoff <0.02 (<1.00) 03/23/22 17:04 SARS-CoV-2, RNA, NAAT NEGATIVE (NEGATIVE) 03/23/22 15:17 Blood Type AB Positive 03/23/22 20:18 Antibody Screen NEGATIVE 03/23/22 20:[address] 03/23/22 10:58 CT cervical spine wo con CT DOSE: 957.91 mGy.cm CLINICAL HISTORY: 86 years-old Male with trauma. Acute neck pain status post fall COMPARISON: Head CT of same day spine 03/06/2022, chest and rib radiographs 03/19/2022. TECHNIQUE: Multiple axial CT images of the cervical spine were obtained without contrast. A dose lowering technique was utilized adhering to the principles of ALARA. FINDINGS: Advanced multilevel degenerative changes are redemonstrated along with multilevel degenerative partial bony fusion. Grade 1 anterolisthesis C7 on T1 and T1 on T2, likely secondary to chronic facet disease. Nuchal ligament calcifications. Demineralized appearance of the bones. C1-C2 alignment is anatomic. No acute cervical spine fracture or subluxation is identified. There is an acute comminuted and only minimally displaced fracture of the right first rib. Subacute appearing nondisplaced fracture of the posterior right third rib and medial right second rib. Acute to subacute appearing nondisplaced fracture of the right T2 transverse process.The cervical soft tissues appear unremarkable. The visualized lung apices appear clear. IMPRESSION: 1. No acute cervical spine fracture or subluxation identified. 2. Acute comminuted and minimally displaced right first rib fracture with subacute appearing nondisplaced fractures of the right second and third ribs. No pneumothorax identified. 3. Acute to subacute appearing nondisplaced fracture of the right T2 transverse process. ACT 112: Negative or not required by law. The above report was generated using voice recognition software. It may contain grammatical, syntax or spelling errors. Electronically signed by: Ted Aguilar M.D. 03/23/2022 12:[address] 03/23/22 10:58 CT head/brain wo con CLINICAL HISTORY: 86 years-old Male with trauma. Acute head trauma status post fall TECHNIQUE: Multiple axial CT images of the head were obtained without contrast. A dose lowering technique was utilized adhering to the principles of ALARA. COMPARISON: CT cervical spine of same day, head CT 03/06/2022 FINDINGS: No acute intracranial hemorrhage, midline shift, intracranial mass, hydrocephalus, territorial ischemia or abnormal extra-axial collection. Age- related involutional changes with ex vacuo ventriculomegaly. Cerebral vascular calcifications. White matter hypodensities suggest chronic microvascular ischemic disease. No acute calvarial fracture. Left lateral frontal scalp contusion, 3 cm. Prior bilateral lens repair. The paranasal sinuses, mastoid air cells, and middle ear cavities are clear. IMPRESSION: 1. No acute intracranial abnormality or calvarial fracture. 2. Small left frontal scalp contusion. ACT 112: Negative or not required by law. The above report was generated using voice recognition software. It may contain grammatical, syntax or spelling errors. Electronically signed by: Ted Aguilar M.D. 03/23/2022 11:49 AM Pelvis X-Ray 03/23/22 10:58 XR pelvis 1-2V routine HISTORY: 86 years-old Male trauma acute pelvic pain status post trauma COMPARISON: CT abdomen and pelvis 01/10/2022, right hip radiographs 09/07/2020, pelvis radiograph 03/07/2016. TECHNIQUE: AP view of the pelvis FINDINGS: Moderate fecal retention. Dural calcifications. Posterior interbody melida and screw fusion hardware redemonstrated at L4-L5. 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 No articular collapse identified. There is an acute slightly impacted transcervical fracture of the left femur. Mild soft tissue swelling lateral to left hip. IMPRESSION: Acute mildly impacted nondisplaced transcervical fracture of the left femur. ACT 112: Negative or not required by law. The above report was generated using voice recognition software. It may contain grammatical, syntax or spelling errors. Electronically signed by: Ted Aguilar M.D. 03/23/2022 11:[address] 03/23/22 12:48 CT OF THE CHEST WITH IV CONTRAST CLINICAL HISTORY: first rib fx, trauma, many recent falls COMPARISON STUDY: Chest radiograph March 19, 2022 and March 23, 2022. TECHNIQUE: Following IV administration of 94 mL of Optiray, helical axial images of the chest were obtained. Sagittal and coronal reconstructions were viewed as well as maximal intensity projections on an independent 3-D workstation. Automated exposure control was utilized for the study. A dose lowering technique was utilized adhering to the principles of ALARA. CT DOSE: 311.60 mGy.cm FINDINGS: Left subclavian pacer/AICD and median sternotomy wires are noted. Cardiomegaly is noted. There is no evidence for traumatic injury to the thoracic aorta. There is no pericardial effusion. No pneumothorax or pleural effusion is present. Subpleural opacities reflect atelectasis. There is an acute to subacute nondisplaced fracture of the posterolateral right first rib. There are subacute healing fractures of the posterior right second through ninth ribs. There are subacute healing fractures of the anterolateral right fifth through eighth ribs. A few of these fractures are mildly displaced. Old left-sided rib fractures are present. No acute left-sided rib fractures are present. A moderate compression deformity of the superior endplate of T8 is unchanged since radiographs of March 19, 2022. This is likely subacute. There is an old T12 compression deformity. Nondisplaced fractures of the right transverse processes of T1 and T2 acute to subacute. IMPRESSION: 1. No evidence for traumatic injury to the thoracic aorta. No pneumothorax. 2. Acute to subacute fractures of the right first rib, the posterior right second through ninth ribs and anterolateral right fifth through eighth ribs. 3. Moderate T8 compression fracture likely subacute. Old T12 compression fracture. Nondisplaced fracture of the right transverse process of T1 and T2 which are acute to subacute. ACT 112: Negative or not required by law. Electronically signed by: Ja Yeh M.D. 03/23/2022 1:49 PM Hip/Pelvis X-Ray 03/23/22 17:24 XR hip LT 2V w pelvis CLINICAL HISTORY: left hip pain-need lateral of the hip TECHNIQUE: 2 views of the left hip and single frontal view of the pelvis were obtained. Comparison: Comparison is made to pelvis radiograph 03/23/2022 FINDINGS: Redemonstration of transcervical left femoral fracture. Posterior fixation hardware is seen spanning L5-S1. Degenerative changes are seen in the hip joint. Bones are osteopenic. Soft tissue swelling is seen about the left hip. IMPRESSION: Redemonstration of transcervical left femoral fracture with associated soft tissue swelling. ACT 112: Negative or not required by law. Electronically signed by: Robbin Davis M.D. 03/23/2022 6:[address] 03/24/22 11:29 CT hip LT wo con CLINICAL HISTORY: hip fx/left hip pain TECHNIQUE: Multidetector row helical CT of the was performed without intravenous contrast. Coronal and sagittal reformations were obtained. Automated dose lowering techniques and/or adjustment according to patient size were utilized for this examination. CT DOSE: 205.20 mGy.cm Comparison: Comparison is made to CT abdomen pelvis 01/10/2022 and hip radiograph 02/20/2022 FINDINGS: There is a and impacted and apex anterior angulation and fracture of the femoral neck. The joint spaces are maintained. No joint effusion is seen. Soft tissue swelling is seen with associated vascular calcifications. IMPRESSION: Impacted subcapital fracture of the left femur with associated soft tissue swelling. ACT 112: Negative or not required by law. Electronically signed by: Robbin Davis M.D. 03/24/2022 12:20 PM Hip X-Ray 03/25/22 11:14 XR hip LT min 2V CLINICAL HISTORY: Post-Operative implant position COMPARISON: Left hip radiographs March 23, 2022. CT of the left hip March 24, 2022. FINDINGS: Alignment of the left hip arthroplasty is anatomic. No periprosthetic fracture or unexpected radiopaque foreign body is present. There are skin vishnu. IMPRESSION: Expected findings following left hip arthroplasty. ACT 112: Negative or not required by law. Electronically signed by: Ja Yhe M.D. 03/25/2022 12:09 PM Brain MRI 03/27/22 11:25 MRI OF THE BRAIN WITHOUT IV CONTRAST CLINICAL HISTORY: Change in mental status COMPARISON STUDY: CT of the brain dated 03/23/2022. TECHNIQUE: MRI of the brain was performed utilizing various T1 and T2-weighted sequences in the axial, sagittal, and coronal planes. IV contrast was not administered for this examination. FINDINGS: Brain parenchyma: There is age-related involutional change noting mild subcortical and periventricular microangiopathic disease. There is no hemorrhage or mass effect. There is no restricted diffusion to suggest acute ischemia. Heaton-white matter differentiation is preserved. No extra-axial fluid collection is seen. The cerebellar tonsils are normal in configuration. Ventricles, sulci, and cisterns: Prominent secondary to involutional change. Pituitary and sella: Unremarkable. Intracranial vasculature: Normal flow voids are maintained at the skull base. Orbits: The bony orbits are grossly intact. Orbital contents are normal in appearance noting bilateral ocular lens implants. Sinuses and mastoids: There is mild mucosal thickening in the right maxillary antrum. The remaining paranasal sinuses are clear. The mastoid air cells are well pneumatized. Calvarium: Unremarkable. Cervical cord: Partially visualized cervical spinal cord is normal in morphology and signal intensity. IMPRESSION: No acute intracranial abnormality. ACT 112: Negative or not required by law. Electronically signed by: Francisco Padron M.D. 03/27/2022 1:18 PM Liver Ultrasound 03/27/22 15:32 ABDOMINAL ULTRASOUND, RIGHT UPPER QUADRANT HISTORY: eleavted liver function tests. COMPARISON: Abdomen and pelvis CT 01/10/2022. FINDINGS: Pancreas: Obscured by overlying bowel gas. Liver: Partially obscured by overlying bowel gas. The visualized liver appears unremarkable. Gallbladder: The gallbladder appears distended. No gallstones or gallbladder wall thickening identified. Negative sonographic Gunn sign. CBD: 6 mm. Right kidney: Mild hydronephrosis. IMPRESSION: 1. Mild right hydronephrosis. 2. Distended gallbladder. No gallbladder wall thickening. No gallstones. ACT 112: Negative or not required by law. Electronically signed by: Nael De Paz M.D. 03/27/2022 5:51 PM Renal Ultrasound 03/28/22 09:51 RENAL ULTRASOUND HISTORY: Follow-up right hydronephrosis on liver ultrasound COMPARISON: Abdominal ultrasound 03/27/2022. FINDINGS: Right kidney: 9.1 cm. Mild hydronephrosis again noted. Mild increased cortical echogenicity. Left kidney: Not well visualized due to the overlying bowel gas. This measures approximately 9.2 cm. The upper and lower poles are mostly obscured. No hydronephrosis. Bladder: No bladder wall thickening. The bladder is distended. A العراقي catheter is not identified within the bladder. IMPRESSION: 1. Distended bladder. A العراقي catheter is not identified within the bladder. Clinical correlation recommended to exclude the possibility of a العراقي catheter within the urethra resulting in bladder outlet obstruction. 2. Mild right hydronephrosis, unchanged. 3. This report was called/faxed to the referring physician following dictation. ACT 112: Negative or not required by law. Electronically signed by: Nael De Paz M.D. 03/28/2022 12:39 PM Hepatobiliary Scan Nuclear Medicine 03/28/22 14:00 NUCLEAR HEPATOBILIARY SCAN CLINICAL HISTORY: Elevated hepatic transaminases. COMPARISON STUDY: Abdominal ultrasound dated 03/27/2022. Abdominal CT dated 01/10/2022.. TECHNIQUE: Dynamic images of the liver and anterior abdomen were obtained every 5 minutes for a total of 60 minutes following the IV administration of 4.8 mCi of technetium 99m Mebrofenin. Additional AP and lateral views were obtained at 70 minutes. Ejection fraction imaging was not performed due to patient condition and tracer within the small bowel overlying the gallbladder. FINDINGS: The hepatobiliary scan shows prompt and homogeneous hepatic uptake. There is visualized activity within the intra and extrahepatic biliary tree at 10 minutes, and within the gallbladder at 30 minutes. There is normal biliary to bowel transit, with small bowel visualized by 20 minutes. IMPRESSION: There is no scintigraphic evidence of acute cholecystitis. ACT 112: Negative or not required by law. Electronically signed by: Francisco Padron M.D. 03/28/2022 4:34 PM Chest X-Ray 03/29/22 07:49 XR chest 1V portable CLINICAL HISTORY: hypoxia TECHNIQUE: Single frontal radiograph of the chest was obtained. Comparison: Comparison is made to chest radiograph 03/28/[address] chest 03/23/2022 FINDINGS: Median sternotomy wires are unchanged including fractured second wire. Pacemaker defibrillator is seen and surgical clips are seen about the heart. Calcified aortic knob is seen. The lungs are clear. No evidence of pleural effusion or pneumothorax. Lucency superomedial to the aortic arch is nonspecific however pulmonary markings are seen. For fractures are better seen on CT chest. IMPRESSION: No acute abnormality and in particular no evidence of pneumothorax in this patient with rib fractures on the right. ACT 112: Negative or not required by law. Electronically signed by: Robbin Davis M.D. 03/29/2022 8:14 AM PG Care Time/CCT Total # of Minutes Spent Total Time Spent with Patient: Total time spent is greater than 50% in coordination of care (as documented) at patient's floor/unit and/or counseling patient: Coding Level of Care Code 74293 Subseq Hosp Care Lvl 3 Diagnoses Elevated LFTs R79.89
--- NOTE | 2022-03-29 12:50 | Hospitalist Progress Note ---
Date of Service March 29, 2022 Assessment & Plan (1) Closed left hip fracture: Plan: patient was admitted to the hospital following a fall He sustained multiple rib fractures, T1,T2,T8 , T2 fracture, old T12 fx including a suspected impacted femoral neck fracture s/p Left Bipolar Hip(Left) with left hip abductor repair Appreciate Ortho management (2) Acute kidney failure: Plan: Post obstructive, now resolved. Suspect worsening clinical picture and labs the last few days due to gibbons catheter in urethra rather than bladder causing bladder outlet obstruction. Improved labs today with gibbons catheter placed in bladder yesterday - could still consider trial without catheter prior to discharge. Unable to start tamsulosin due to low blood pressure. Will await urine culture to see if ceftriaxone still needs to be continued. (3) Elevated LFTs: Plan: Hepatitis panel negative. No abdominal pain and HIDA scan normal therefore will d/c metronidazole Improving, suspect pre-renal, now downtrending. (4) Hydronephrosis, right: Plan: Secondary to bladder outlet obstruction from gibbons catheter in urethra as above. (5) Fall: Plan: mechanical fall according to (6) Dementia: Plan: -CT of the head was negative for acute findings -CBC is showing elevated MCV at 103, will check B12 (935, normal), folic acid (elevated), and thiamine levels (pending) -AST elevated at 43, ALT elevated at 56, Alk Phos elevated at 153, will obtain hepatitis, tick borne panel (anaplasmosis/babesiasis/lyme negative), and ammonia level 14 -No other metabolic abnormalities noted on initial CMP -TSH WNL -UA is clean (on admission), covid negative -Brain MRI - no acute pathology No further workup required. Much improved today per his (7) Hallucinations: Plan: as stated above. (8) Congestive heart failure: Plan: - appeared to be hypovolemic with ITZEL (somewhat post-renal but also pre-renal), more euvolemic today. - continue to hold lisinopril, metoprolol and Lasix. Will restart on amiodarone as below. (9) CAD (coronary artery disease): Plan: -Continue Aspirin, atorvastatin Metoprolol and lisinopril on hold due to low normal blood pressure and ITZEL (10) Atrial flutter: Plan: Restart amiodarone 200mg PO daily Not on anticoagulation due to history of rectal bleeding per cardiology note (11) Hypertension: Plan: -Continue to hold metoprolol, lisinopril, lasix and spironolactone for now as his BP is currently low normal (12) Hyperlipidemia: Plan: -Continue statin (13) GERD (gastroesophageal reflux disease): Plan: -Omeprazole switched to pantoprazole per hostpial formulary (14) Anemia: Plan: -Hgb stable, MCV elevated. Recent decrease over the last 2 days likely dilutional due to rehydration with intravenous fluids. (15) Anxiety and depression: Plan: -Continue Paroxetine (16) AMS (altered mental status): Plan: Resolved. Plan VTE Prophylaxis - aspirin 81mg PO BID per orthopedics Diet - regular Disposition - suspect will be medically stable for discharge tomorrow. Consider trial without catheter as an outpatient. Admission and Anticipated Discharge Date Admission Date: March 23, 2022 Subjective No chest pain, shortness of breath, leg swelling, melena, bright red blood in stool, diarrhea, abdominal pain, nausea or vomiting. No acute concerns or questions from the patient. Updated his over the phone. She reports he appears much improved today with no hallucinations. Planning on Nicolas hernandez on discharge. Review of Systems Review of Systems: All systems reviewed & are unremarkable except as noted in Subjective Physical Exam Constitutional: WD/WN, vitals as above Respiratory: normal respiratory effort, lungs clear to auscultation Cardiovascular: Rate/Rhythm: regular rate and regular rhythm Heart Sounds: no murmur Extremities: normal capillary refill; no calf tenderness and no pedal edema Gastrointestinal (Abdomen): normal bowel sounds, soft, nontender, no hepatosplenomegaly Skin: no rashes, warm and dry Psychiatric: Orientation: alert and oriented to person; + not oriented to place and + not oriented to time Genitourinary: no CVA tenderness Results & Data Results & Data ([facility]) Vital Signs (Past 12 Hours) Vital Signs Temp Pulse Pulse Pulse Resp BP BP 03/29/22 06:09 97 H 03/29/22 11:26 37.0 C 74 18 93/64 L 03/29/22 07:00 03/29/22 07:43 36.3 C L 99 H 16 92/61 L 03/29/22 05:53 115/72 11/10/22 04:00 36.0 C L 74 18 92/61 L Pulse Ox O2 Del Method O2 Flow Rate 03/29/22 06:09 03/29/22 11:26 94 2 03/29/22 07:00 Nasal Cannula 2.5 03/29/22 07:43 93 Nasal Cannula 2 03/29/22 05:53 03/29/22 04:00 96 Nasal Cannula 2 PG Care Time/CCT Total # of Minutes Spent Total Time Spent with Patient: Total time spent is greater than 50% in coordination of care (as documented) at patient's floor/unit and/or counseling patient: Coding Level of Care Code 54817 Subseq Hosp Care Lvl 3 Diagnoses Closed left hip fracture S72.002A Acute kidney failure N17.9 Elevated LFTs R79.89 Hydronephrosis, right N13.30 Fall W19.XXXA Dementia F03.90 Hallucinations R44.3 Congestive heart failure I50.9 CAD (coronary artery disease) I25.10 Atrial flutter I48.92 Atrial flutter type: unspecified Hypertension I10 Hyperlipidemia E78.5 GERD (gastroesophageal reflux disease) K21.9 Anemia D64.9 Anxiety and depression F41.9; F32.A AMS (altered mental status) R41.82 (1) Atrial flutter Atrial flutter type: unspecified Qualified Code(s): I48.92 - Unspecified atrial flutter
[2022-03-29] MEDS: AMIODARONE 200 MG TAB PO SCH (13:59)
[2022-03-29] MEDS: FERROUS SULFATE 325 MG TAB PO SCH (21:03)
[2022-03-29] MEDS: CHOLECALCIFEROL 1,000 UNITS 25 MCG TAB PO SCH (21:03)
[2022-03-29] MEDS: PARoxetine HCL 10 MG TAB PO SCH (21:03)
[2022-03-29] MEDS: CYANOCOBALAMIN (B-12) 500 MCG TABLET PO SCH (21:03)
[2022-03-30 07:57] VITALS: TEMP 97.7; O2SAT 95
[2022-03-30] MEDS: AMIODARONE 200 MG TAB PO SCH (08:42)
[2022-03-30] MEDS: PANTOprazole 40 MG TAB PO SCH (08:43)
[2022-03-30] MEDS: CEROVITE ADV FORMULA TAB PO SCH (08:43)
[2022-03-30] MEDS: ASPIRIN 81 MG ECTAB PO SCH (08:43)
[2022-03-30] MEDS ORDERED: ATORVASTATIN 40 MG TAB PO SCH (09:00)
[2022-03-30 09:21] LABS: Basophils # (auto) 0.01 K/uL (0-0.2); Basophils % (auto) 0.1 %; Eosinophils # (auto) 0.07 K/uL (0-0.50); Hematocrit (blood only) 36.1 % (40.1-51.0); Hemoglobin 11.9 g/dl (14.0-18.0); Immature Granulocytes # (auto) 0.12 K/uL (0.00-0.02); Immature Granulocytes % (auto) 1.6 %; Lymphocytes # (auto) 0.32 K/uL (1.2-3.4); Lymphocytes % (auto) 4.4 %; Mean Corpuscular Hemoglobin 34.4 pg (25.0-34.0); Mean Corpuscular Volume 104.3 fL (80.0-100.0); Mean Platelet Volume 8.9 fL (9.4-12.4); Monocytes # (auto) 0.91 K/uL (0.24-0.82); Monocytes % (auto) 12.5 %; Neutrophils # (auto) 5.85 K/uL (1.4-6.5); Neutrophils % (auto) 80.4 %; Platelet Count 147 K/uL (130-400); RDW Coefficient of Variation 17.9 % (11.5-14.5); RDW Standard Deviation 67.3 fL (36.4-46.3); Red Blood Count 3.46 M/uL (4.63-6.08); White Blood Count 7.28 K/ul (4.8-10.8)
[2022-03-30] MEDS: cefTRIAXone SODIUM 1,000 MG in DEXTROSE 5% 50 ML IV SCH (10:49)
[2022-03-30 11:51] LABS: Alanine Aminotransferase 132 U/L (7-52); Albumin Globulin Ratio 0.9 (0.9-2); Albumin Level 2.6 gm/dl (3.4-5.0); Alkaline Phosphatase 116 U/L (34-104); Anion Gap 4 (3-11); Bilirubin,Total 1.4 mg/dl (0.2-1.0); Blood Urea Nitrogen 32 mg/dl (6-23); Calcium 9.8 mg/dl (8.5-10.1); Carbon Dioxide 28 mmol/L (21-32); Chloride 108 mmol/L (98-107); Creatinine Clr Calc Pharmacy 58.4 ml/min; Est GFR (African American) 92.8 ml/min; Est GFR (Non-African American) 80.1 ml/min; Globulin 2.8 gm/dl (2.5-4.0); Glucose 95 mg/dl (70-99(Fasting)); Sodium 140 mmol/L (136-145); Total Protein 5.4 gm/dl (6.0-8.3)
--- NOTE | 2022-03-30 12:31 | Discharge Summary ---
Date of Service March 30, 2022 Admission HPI Per Admitting Provider Jb is an 86 year old male with a PMH significant for CAD S/P CABG x3, 2004; obstructed SVG to OM, OM stents x3, February 2005, monomorphic VTach S/P dual chamber ICD placement, paroxysmal atrial flutter (not on anticoagulation due to recurrent rectal bleeding), previous prostate cancer followed by Urology, radiation proctitis, hematuria, HFrEF (LVEF of 45-50% as of 11/08/21), Moderate aortoic stenosis, moderate to severe tricuspid regurgitation, moderately reduced RV EF who presented to the [facility] ED on 03/23/22 with his family for recurrent falls and new hallucinations. In the ED the patient was found to be afebrile, hemodynamically stable, and stable on RA. Labs were remarkable for WBC WNL, stable Hgb at 14.9, MCV at 103, stable renal function, calcium at 10.8, glucose at 109, AST of 43, ALT at 56, Al k Phos at 153, high sensitivity troponin at 23.6, TSH WNL, clean UA. The patient underwent extensive imaging in the ED. CT of the head was negative for acute intracranial abnormality but did show a small left frontal scalp contusion. CT of the cervical spine showed "No acute cervical spine fracture or subluxation identified. Acute comminuted and minimally displaced right first rib fracture with subacute appearing nondisplaced fractures of the right second and third ribs. No pneumothorax identified. Acute to subacute appearing nondisplaced fracture of the right T2 transverse process. Chest xray showed "The patient's known acute right-sided rib fractures are better appreciated on the recent right rib series. No pneumothorax". No evidence for traumatic injury to the thoracic aorta. No pneumothorax. Acute to subacute fractures of the right first rib, the posterior right second through ninth ribs and anterolateral right fifth through eighth ribs. Moderate T8 compression fracture likely subacute. Old T12 compression fracture. Nondisplaced fracture of the right transverse process of T1 and T2 which are acute to subacute. Finally, xray of the pelvis showed "Acute mildly impacted nondisplaced transcervical fracture of the left femur". Prior to admission the patient was started on light IV hydration. Per chart review, the patient was seen in the [facility] ED on 03/06/22 for a fall while trying to open up a wheelchair at [facility]. Per the note he was completely alert and oriented during his visit on the . Per the ED note, the patient underwent CT of the head, cervical spine, and facial bones were negative for acute fractures. Chest xray was also negative for acute fractures and pneumothorax. The patient did sustain a laceration over the right lateral superior orbit which was repaired in the ED. The patient also received a Tdap booster. He and his felt comfortable with discharge back home to [facility] at that time. At the time of the exam the patient was lying in bed in no acute distress with his sitting bedside. The history was obtained from the patient's as she is his primary caregiver and due to the patient's current mental status. She states that the patient has had a continued decline in overall health over the past year. He has had more than 10 falls over the past year, some have been mechanical but some have been thought to be caused by his diuretics and cardiac medications including lisinopril and amiodarone. He is followed by cardiology who adjusted his amiodarone to once daily, they decreased his metoprolol from 25 mg to 12.5 mg daily, and his lisinopril was decreased to 2.5 mg daily. Back in the summer the patient was placed in the [facility] assisted living section for closer monitoring and extra assistance, his said he did well there and had no falls. Since coming back to the independent section he has had multiple falls. Prior to today his last fall was on 03/06, his was at a swim class and their healthcare computer lab assistant was late getting to their home. The patient attempted to open up his wheelchair but fell to the ground, he tried to stand and fell again. He did hit his head during that fall as described above. His states that since Saturday the patient has not been acting himself. He has been confused, having visual hallucinations, and has been belligerent at times. His has been having having difficultly caring for him herself and spoke to [facility] staff today regarding going back to assisted living. Because of his recent hallucinations they requested he first be evaluated in the ED. While trying to get the patient into his wheelchair he had a mechanical fall, where he sustained his acute injuries. When asked, his denies recent medication changes, fever, chills. She states that the patient has not been complaining of chest pain, worsening sob or MAYER than baseline, abdominal pain, dysuria, hematuria, diarrhea, bloody BM's or melena. His states that after his ED visit on the he has been on tramadol 50 mg QID for pain. Since he started having behavioral changes his was cutting back on his tramadol and had stopped entirely as of yesterday. The patient did take one tramadol tab himself yesterday before she noticed. Otherwise, the patient has been on tylenol for pain. I spoke to the patient's regarding code status, at this time she would like the patient to be a full code. However, because his quality of life continues to decline she will be considering switching his code in the future if needed. When asked, the patient's only complaint at the time of my exam was his left hip/leg pain and needing to urinate. He tried multiple times to get out of bed to use the restroom and had to be re-directed by myself multiple times. PLse refer to Dr. Richter's attestation for any adjustments to the treatment plan Principal Diagnosis Left Hip Bipolar Replacement for Fracture Postoperative urinary retention Discharge Exam Constitutional WD/WN, vitals as above Respiratory normal respiratory effort, lungs clear to auscultation Cardiovascular Rate/Rhythm: regular rate and regular rhythm Heart Sounds: no murmur Extremities: normal capillary refill; no calf tenderness and no pedal edema Gastrointestinal (Abdomen) normal bowel sounds, soft, nontender, no hepatosplenomegaly Skin no rashes, warm and dry Psychiatric Orientation: alert and oriented to person; + not oriented to place and + not oriented to time Genitourinary no CVA tenderness Discharge Data Allergies Allergy/AdvReac Type Severity Reaction Status Date / Time Penicillins Allergy Intermediate Rash & Verified 03/23/22 15:42 Swelling Consultations 03/23/22 16:10 ED Decision to Admit Stat 03/23/22 16:17 Consult Orthopedic Surgery Routine 03/24/22 08:05 Consult Cardiology Routine 03/25/22 11:50 Consult Neurology Routine 03/27/22 15:31 Consult Gastroenterology Routine 03/28/22 07:56 Consult Urology Routine 03/28/22 08:03 Consult General Surgery Routine Procedures Performed Operation Date: 03/25/22 06:55 Actual Procedures p Left Bipolar Hip, left hip abductor repair(Left) - Zuhair Hansen MD Ordered Studies 03/23/22 10:58 CT cervical spine wo con Stat IMPRESSION: 1. No acute cervical spine fracture or subluxation identified. 2. Acute comminuted and minimally displaced right first rib fracture with subacute appearing nondisplaced fractures of the right second and third ribs. No pneumothorax identified. 3. Acute to subacute appearing nondisplaced fracture of the right T2 transverse process. CT head/brain wo con Stat IMPRESSION: 1. No acute intracranial abnormality or calvarial fracture. 2. Small left frontal scalp contusion. 03/23/22 12:48 CT chest diagnostic w con Stat IMPRESSION: 1. No evidence for traumatic injury to the thoracic aorta. No pneumothorax. 2. Acute to subacute fractures of the right first rib, the posterior right second through ninth ribs and anterolateral right fifth through eighth ribs. 3. Moderate T8 compression fracture likely subacute. Old T12 compression fracture. Nondisplaced fracture of the right transverse process of T1 and T2 which are acute to subacute. 03/24/22 11:29 CT hip LT wo con Urgent IMPRESSION: Impacted subcapital fracture of the left femur with associated soft tissue swelling. 03/27/22 11:25 MR brain wo con Routine IMPRESSION: No acute intracranial abnormality. 03/27/22 15:32 US RUQ [US liver] Routine IMPRESSION: 1. Mild right hydronephrosis. 2. Distended gallbladder. No gallbladder wall thickening. No gallstones. 03/28/22 09:51 US Renal Bladder [US renal/blad retro comp] Routine IMPRESSION: 1. Distended bladder. A العراقي catheter is not identified within the bladder. Clinical correlation recommended to exclude the possibility of a العراقي catheter within the urethra resulting in bladder outlet obstruction. 2. Mild right hydronephrosis, unchanged. 3. This report was called/faxed to the referring physician following dictation. Hospital Course (1) Closed left hip fracture: Jb Bowen is an 86-year-old male admitted to [facility] from March 23 to 2021 due to a fall causing multiple rib fractures, nondisplaced right transverse process fracture of T1 and T2, T8 compression fracture and left hip fracture. He was treated with left bipolar hip replacement and left hip abductor repair on March 25, [address] Hansen. His postoperative course was complicated by hallucinations, acute renal failure and elevated LFTs. He was diagnosed with urinary retention due to العراقي catheter placement in his urethra. He received prophylactic antibiotics with ceftriaxone however urine culture shows no growth after 48 hours. العراقي catheter was replaced on March 28 and his ITZEL resolved, WBC resolved and LFTs are resolving back to baseline. Could consider trial of a catheter at [facility] vs. follow up with urology. He should follow up with urology regardless. Tamsulosin not started due to low normal blood pressures. His mental status improved back to baseline and he is now medically stable for discharge to [facility] for ongoing rehabilitation from his hip fracture. Lasix and spironolactone have been discontinued due to low normal blood pressures and acute renal failure. If he is becoming more hypoxic it could be due to pulmonary edema and would recommend chest x-ray and possibly restarting on diuretics. Lisinopril also discontinued due to low normal blood pressures. Metoprolol can be restarted on discharge. (2) Acute kidney failure: (3) Elevated LFTs: (4) Hydronephrosis, right: (5) Fall: (6) Dementia: (7) Hallucinations: (8) Congestive heart failure: (9) CAD (coronary artery disease): (10) Atrial flutter: (11) Hypertension: (12) Hyperlipidemia: (13) GERD (gastroesophageal reflux disease): (14) Anemia: (15) Anxiety and depression: (16) AMS (altered mental status): Total Time Total Time Spent Total Time Spent (In Minutes): 55 Discharge Plan Discharge Items Patient Disposition: Transfer Residential Fac Reason For Visit: FALL AND HALLUCINATIONS Discharge Diagnosis: Left Hip Bipolar Replacement for Fracture Postoperative urinary retention Activity: Per Instructions section Activity Comment: Follow/Obey hip precautions at all times. Weightbearing: Full weightbearing Weightbearing Comment: Weightbear as tolerated obeying hip precautions at all times Non-emergency contact: Surgeon Call non-emergency contact if: you have any medication questions and your symptoms worsen Follow-up/Referrals: Elina Su CRNP [Nurse Practitioner] - (follow up urine retention, hydronephrosis) Sofia Stewart [Primary Care Provider] - Zuhair Hansen MD [Physician] - (Orthopedic follow-up 2-3 weeks from surgery date) Diet: Regular Addtl Attending Provider Instructions: Jb Bowen is an 86-year-old male admitted to [facility] from March 23 through 2021 due to a fall causing multiple rib fractures, nondisplaced right transverse process fracture of T1 and T2, T8 compression fracture and left hip fracture. He was treated with left bipolar hip replacement and left hip abductor repair on March 25, [address] Hansen. His postoperative course was complicated by hallucinations, acute renal failure and elevated LFTs. He was diagnosed with urinary retention due to العراقي catheter placement in his urethra. He received prophylactic antibiotics with ceftriaxone however urine culture shows no growth after 48 hours. العراقي catheter was replaced on March 28 and his ITZEL resolved, WBC resolved and LFTs are resolving back to baseline. Could consider trial of a catheter at [facility] vs. follow up with urology. He should follow up with urology regardless. Tamsulosin not started due to low normal blood pressures. His mental status improved back to baseline and he is now medically stable for discharge to [facility] for ongoing rehabilitation from his hip fracture. Lasix and spironolactone have been discontinued due to low normal blood pressures and acute renal failure. If he is becoming more hypoxic it could be due to pulmonary edema and would recommend chest x-ray and possibly restarting on diuretics. Lisinopril also discontinued due to low normal blood pressures. Metoprolol can be restarted on discharge. Addtl Door Installer Provider Instructions: ACTIVITY RECOMMENDATIONS: Physical Therapy: * Aggressive physical therapy is not usually needed. You will learn to take care of yourself safely and walk. * Follow the "Hip Precautions Instructions." * In some cases, the social worker aide at the hospital will arrange to have a therapist come to your house for the first couple of weeks to help you learn these skills. * You need to practice on your own or with the help of a family member as needed. * When you learn these skills, most of the therapy can be done on your own. Home Exercise: * You were shown a series of exercises in the hospital. Do these exercises three to four times each day including the exercises you were shown in physical therapy. Walking: * Get up and walk several times each day. For the first four weeks, try not to stand or walk for more than one hour at a time. If you do stand or walk for more than one hour, you will not hurt anything, but your leg will likely swell. * As you feel comfortable, you may change from the walker or crutches to a cane and then to independent walking. MEDICATIONS: New Medicine: * You will likely be taking one or more of these medicines: 1. Tramadol - Take, as directed, when you need it, every six hours to control your pain. (discontinued by medicine as possible cause of his hallucinations) 2. Aspirin - Thins your blood to lessen the chance of forming a blood clot. * The most common side effects of pain medicine and iron are nausea and constipation. If nausea or constipation is too much of a problem or if you have any questions about your new medicines or doses, call [facility] at . We will try to help you manage these issues. "VERY IMPORTANT TO READ AND REVIEW" Pain: * The immediate post-operative period after hip replacement surgery is often quite painful. * You are given a prescription for pain medicine. You should take it, as directed, when you need it, especially before physical therapy and before going to bed. Pain that interferes with sleep is very common and can last several months. * You will likely need pain medicine for the first two to four weeks. It will not stop all of the pain. The pain will lessen and as you feel better, you may change to milder pain medicine such as Tylenol. * The most common side effects of pain medicine are nausea and constipation, so don't take more than you need. SPECIAL CARE INSTRUCTIONS: TEDs/Elastic Stockings: * The white elastic stockings help limit swelling and prevent blood clots from forming in your legs. The more you wear them, the more they work. * Wear them for six weeks. Incision Site Care: * Remove dressing postoperative day 2 and then shower. Keep direct shower pressure off the incision site. * After showering, cover vishnu with dry gauze and change daily or more frequently if the dressing is getting saturated with drainage. * May completely stop using bandage if wound is dry and no drainage * [place] are removed between 2 and 3 weeks post-op. If your follow-up appointment is made before 2 weeks, please have your appointment re- scheduled. It is too early to remove the vishnu. Prevention of Infection: * Take antibiotics one hour before any dental cleaning, dental work, urological procedure, gastrointestinal procedure or any invasive surgery in order to prevent your new joint from getting infected. * You may get the antibiotics from the doctor performing the procedure or you may call our office at before and we will call in a prescription to the pharmacy of your choice. Things to Watch For: * Drainage from the incision site that occurs more than one week after your surgery. * Severely increased leg pain or swelling. * Increased redness at the incision site. * Fever above 102 degrees Fahrenheit. * Unusual chest pain or shortness of breath. * Unusual pain or burning with urination. Call [facility] at with any of the above problems or if you have any questions about your medicines or recovery. FOLLOW UP VISIT: Make an appointment to see your doctor for approximately two weeks after surgery for a progress check and staple removal by calling the office at . Pending Studies at Discharge: No Stand-Alone Forms: My [facility] Skilled Items Patient informed of condition?: Yes DNR: No Discharge Level of Care: Acute rehab Communicable Disease: No Discharge Prognosis: Stable Lines: None Urinary Catheter: Yes (New this admission) Medications and DC Order Prescriptions: New aspirin 81 mg tablet,delayed release (DR/EC) 81 mg PO BID Qty: 60 0RF Continued cholecalciferol (vitamin D3) 2,000 unit capsule 2,000 units PO HS multivitamin tablet 1 tab PO HS metoprolol succinate 25 mg tablet extended release 24 hr 12.5 mg PO QAM Qty: 30 5RF paroxetine HCl [Paxil] 10 mg tablet 10 mg PO HS ferrous sulfate [Iron (ferrous sulfate)] 325 mg (65 mg iron) tablet 325 mg PO HS atorvastatin 80 mg Tablet 80 mg PO QAM omeprazole 20 mg Capsule,Delayed Release(Dr/Ec) 20 mg PO QAM PreserVision AREDS-2 [id number] Capsule 1 tab PO BID amiodarone 200 mg tablet 200 mg PO DAILY acetaminophen 500 mg Tablet 500 mg PO BID coQ10 (ubiquinol) 200 mg Capsule 200 mg PO HS cyanocobalamin (vitamin B-12) 500 mcg Tablet 500 mcg PO HS polyethylene glycol 3350 [Miralax] 17 gram/dose Powder 17 g PO DAILY PRN (Reason: Constipation) Discontinued aspirin 81 mg tablet,chewable 81 mg PO UD Rx Instructions: give mon, wed, fri. potassium chloride 20 mEq tablet extended release 20 meq PO BID Qty: 180 3RF lisinopril 2.5 mg Tablet 2.5 mg PO HS furosemide 80 mg tablet 80 mg PO QAM Rx Instructions: 80 mg PO DAILY AND TAKE ONE ADDITIONAL TAB DAILY IF WT IS GREATER THAN 148 AT 1500 spironolactone 25 mg tablet 25 mg PO QAM tramadol 50 mg tablet 50 mg PO QID PRN (Reason: Pain) Discharge Orders: Discharge Order (Routine); Ordered 03/30/22 Ordered By: Alfredo Machuca Admission Data Admit Date/Time: 03/23/22 16:15 Attending Provider: Alfredo Machuca Admit Provider: Koko Richter Primary Care Provider: Sofia Stewart Other Providers: Koko Richter ; Zuhair Hansen ; Stone Andre ; Kaiden Milligan ; Jose Antonio Hope ; Demarco Quinones ; Antionette Jung ; Marjorie Delarosa ; Coni Mohamud ; Cindy Almeida ; Salimi,Mati ; Clin Vaina marx ; Umberto Elizabeth ; Zhanna Marino ; Mansoor Sharpe ; Eric Modi ; Elaina Louise ; Syeda Newell ; Linda Malik ; Marina Montelongo ; Beth Keita ; Charlie Le ; Blaise Harden ; Brigette Encarnacion ; Paul Chavarria Jr ; Dane Cody ; Clem Ricardo ; Miko Antunez ; Katia Ordonez ; [place] Delacruz ; Elina Su ; Elizabeth Ochoa ; Bhanu Olvera ; Heriberto Fine ; Miladys Pan ; Jayy Leal ; Estevan Srinivasan ; Vamsi Lucio ; Michael Torres ; Shashi Cowan ; David Madera Jr ; Carson Ordonez ; Clem Nance ; Christal Hamlin ; Maxi Ordonez ; Alin Carias Other Interventions: Discharge Summary Assessment (RN) Last Done: 03/30/22 13:05 Coding Level of Care Code D/C DAY MANAGEMENT >30 MINS Diagnoses Closed left hip fracture S72.002A Acute kidney failure N17.9 Elevated LFTs R79.89 Hydronephrosis, right N13.30 Fall W19.XXXA Dementia F03.90 Hallucinations R44.3 Congestive heart failure I50.9 CAD (coronary artery disease) I25.10 Atrial flutter I48.92 Atrial flutter type: unspecified Hypertension I10 Hyperlipidemia E78.5 GERD (gastroesophageal reflux disease) K21.9 Anemia D64.9 Anxiety and depression F41.9; F32.A AMS (altered mental status) R41.82
[2022-03-30 13:06] VITALS: BP 105/72; PULSE 69
[2022-03-30 14:11] LABS: Potassium 3.9 mmol/L (3.5-5.1)
== END 2022-03-30 14:10 | DRG 522 ==
LOC: ED 09:45 → 2N 16:15 → SUATTDRO 16:15 → 2N 17:00